=== PATIENT | male | born 1960 | race Caucasian/White ===

== ENCOUNTER → 2016-09-22 | Outpatient (CLI) | payer OTHER | END | disposition home or self-care (01) | LOC: LABWHC1 16:01 | PROVIDERS: ATTEND Nurse Practitioner Family | DX: E27.9 Disorder of adrenal gland, unspecified (principal) | CPT/HCPCS: 36415; 82565; 84520 ==

== ENCOUNTER → 2017-03-30 | Outpatient (CLI) | payer OTHER ==
--- NOTE | 2017-03-30 16:47 | CT ---
EXAMINATION TYPE: CT lumbar spine wo con DATE OF EXAM: 03/30/2017 COMPARISON: NONE HISTORY: low back pain CT DLP: 1418.9 mGycm CONTRAST: None TECHNIQUE: CT of the lumbar spine is performed on a spiral scan at 3 mm thick sections. Reconstructed images are performed in the coronal and sagittal planes. FINDINGS: T12-L1: No focal disc herniation or significant disc bulge is evident. No spinal canal stenosis or neural foraminal stenosis is present. L1-L2: No focal disc herniation or significant disc bulge is evident. No spinal canal stenosis or n eural foraminal stenosis is present L2-L3: No focal disc herniation or significant disc bulge is evident. No spinal canal stenosis or n eural foraminal stenosis is present L3-L4: There is mild disc bulge present L3-L4 with anterior thecal sac contact. No AP spinal canal st enosis is evident. Neural foramen are patent. Mild facet hypertrophy is present. L4-L5: There is severe degenerative changes through the facets. There is loss of disc height. Vacuum disc phenomenon is present. Minimal grade 1 spondylolisthesis of L4 for anterior and L5 is present. P osterior lateral thecal sac compression from facet hypertrophy on the right is present. Residual disc bulge has mild anterior thecal sac flattening. There is moderate right foraminal narrowing. L5-S1: No focal disc herniation or significant disc bulge is evident. No spinal canal stenosis or n eural foraminal stenosis is present. Facet degenerative changes are present. Scoliosis is present. IMPRESSION: L4-L5 Degenerative disc disease with a minimal grade 1 spondylolisthesis of L4 anterior on L5. Right posterior lateral thecal sac compression from severe facet hypertrophy at this level is present.
== END | disposition home or self-care (01) ==
LOC: RADCTMAIN 14:02
PROVIDERS: ATTEND Family Medicine
DX: M51.36 Other intervertebral disc degeneration, lumbar region (principal); M43.16 Spondylolisthesis, lumbar region; M53.86 Other specified dorsopathies, lumbar region; G95.20 Unspecified cord compression
CPT/HCPCS: 72131

== ENCOUNTER → 2017-08-08 | Outpatient (CLI) | payer OTHER ==
--- NOTE | 2017-08-09 07:41 | CT ---
EXAMINATION TYPE: CT abdomen pelvis wo/w con DATE OF EXAM: 08/08/2017 COMPARISON: CT abdomen and pelvis January 28, 2015. HISTORY: Adrenal mass, abnormal CT. CT DLP: 2780 mGycm, Automated Exposure Control for Dose Reduction was Utilized. CONTRAST: CT scan of the abdomen and pelvis is performed with oral and without and with IV Contrast, patient in jected with 100 mL of Isovue 300. Adrenal gland protocol FINDINGS: LUNG BASES: Stable tiny pericardial effusion anterior inferior aspect. LIVER/GB: Cholecystectomy clips are redemonstrated. PANCREAS: No significant abnormality is seen. SPLEEN: No significant abnormality is seen. ADRENALS: There is stable low dense nodular thickening to right adrenal gland consistent with benign hyperplasia, Hounsfield units average 5 on noncontrast study. There is more prominent nodular thicken ing to left adrenal gland redemonstrated measuring roughly 4.3 x 2.3 cm axial image 22. Hounsfield un its average 6 on noncontrast study. There is enhancement to 36 on postcontrast with washout to 14 Poonam nsfield units on 15 minute delay. Imaging characteristics are consistent with benign hyperplasia or b enign lipid rich adenoma. KIDNEYS: There is unusual anterior access or positioning of the left kidney redemonstrated. There is persistent prominence of the right renal pelvis without calyceal dilatation. No hydroureter is seen. Suspect extrarenal pelvis. Central calcifications in both kidneys favor vascular. There is circumaort ic left renal vein which is normal variant. BOWEL: Oral contrast does not reach colonic level. Normal-appearing appendix is seen from cecum. Ther e is no suspicious small or large bowel dilatation. PROSTATE/SEMINAL VESICLES: Prostate gland is upper limits of normal size with adjacent phleboliths LYMPH NODES: No greater than 1cm abdominal or pelvic lymph nodes are appreciated. OSSEOUS STRUCTURES: Surgical change left proximal femur is partially imaged. There is moderate joint space loss in the right hip joint. There is underlying scoliotic curvature in the lower lumbar spine. There is moderate to severe disc space narrowing with vacuum disc phenomenon and endplate sclerosis right L4-L5 level. There is multilevel facet arthropathy in the lower lumbar spine OTHER: There is moderate calcified plaque of the aorta extending into branch vessels. IMPRESSION: Stable bilateral adrenal gland prominence or masses, left greater than right, multiphasic imaging characteristics are consistent with benign lipid rich hyperplasia or benign lipid rich adeno mas.
== END | disposition home or self-care (01) ==
LOC: RADCTMAIN 15:21
PROVIDERS: ATTEND Family Medicine
DX: E27.8 Other specified disorders of adrenal gland (principal)
CPT/HCPCS: 82565; 84520; 74178; 36415; Q9967

== ENCOUNTER → 2017-11-20 | Outpatient (CLI) | payer OTHER ==
--- NOTE | 2017-11-20 15:32 | US ---
EXAMINATION TYPE: US carotid duplex BILAT DATE OF EXAM: 11/20/2017 COMPARISON: US 2014 CLINICAL HISTORY: R06.02 Shortness of breath R06.09 dyspnea. PE, history of stroke EXAM MEASUREMENTS: RIGHT: Peak Systolic Velocity (PSV) cm/sec ----- Right CCA: 72.1 ----- Right ICA: 44.3 ----- Right ECA: 75.9 ICA/CCA ratio: 0.6 RIGHT: End Diastole cm/sec ----- Right CCA: 18.9 ----- Right ICA: 16.7 ----- Right ECA: 15.1 LEFT: Peak Systolic Velocity (PSV) cm/sec ----- Left CCA: 70.2 ----- Left ICA: 58.8 ----- Left ECA: 75.8 ICA/CCA ratio: 0.8 LEFT: End Diastole cm/sec ----- Left CCA: 20.2 ----- Left ICA: 26.2 ----- Left ECA: 14.5 VERTEBRALS (direction of flow): Right Vertebral: Antegrade Left Vertebral: Antegrade Rhythm: Normal Bilateral intimal thickening, minimal plaque bilateral bulb, no elevated velocities, no significant s tenosis. IMPRESSION: 1. Bilateral intimal thickening and mild areas of plaque with no significant hemodynamic stenosis. Criteria for Assigning % of Stenosis / Diameter reduction (Estimation based on the indirect measurements of the internal carotid artery velocities (ICA PSV). 1. Normal (no stenosis)=ICA PSV < 125 cm/s: ratio < 2.0: ICA EDV<40 cm/s. 2. Less than 50% stenosis=ICA PSV < 125 cm/s: ratio < 2.0: ICA EDV<40 cm/s. 3. 50 to 69% stenosis=ICA PSV of 125 to 230 cm/s: ration 2.0 ? 4.0: ICA EDV 40-100 cm/s. 4. Greater than 70% stenosis to near occlusion= ICA PSV > 230 cm/s: ratio > 4.0: ICA EDV > 100 cm/s. 5. Near occlusion= ICA PSV velocities may be low or undetectable: variable ratio and ICA EDV. 6. Total occlusion=unable to detect flow.
--- NOTE | 2017-11-21 11:41 | ECHOF ---
Referral Reason:R06.02 Shortness of breath R06.09 dyspnea MEASUREMENTS -------- HEIGHT: 180.3 cm WEIGHT: 104.3 kg BP: RVIDd: 3.4 cm (< 3.3) IVSd: 1.3 cm (0.6 - 1.1) LVIDd: 5.5 cm (3.9 - 5.3) LVPWd: 1.2 cm (0.6 - 1.1) IVSs: 1.5 cm LVIDs: 3.5 cm LVPWs: 1.7 cm LAESV Index (A-L): 21.74 ml/m Ao Diam: 3.7 cm (2.0 - 3.7) AV Cusp: 2.0 cm (1.5 - 2.6) LA Diam: 3.4 cm (2.7 - 3.8) MV E Fausto: 0.78 m/s MV DecT: 349 ms MV A Fausto: 0.94 m/s MV E/A Ratio: 0.82 RAP: 5.00 mmHg RVSP: 11.51 mmHg FINDINGS -------- Sinus rhythm. This was a technically adequate study. The left ventricular size is normal. There is mild concentric left ventricular hypertrophy. Overa ll left ventricular systolic function is normal with, an EF between 55 - 60 %. The right ventricle is normal in size and function. Normal LA size by volume 22+/-6 ml/m2. The right atrium is normal in size. The aortic valve is trileaflet and appears structurally normal. There is doming of the aortic valve leaflets. There is no evidence of aortic regurgitation. The mitral valve leaflets are mildly thickened. Mild mitral annular calcification present. There is trace to mild mitral regurgitation. Trace tricuspid regurgitation present. Right ventricular systolic pressure is normal at < 35 mmHg. There is no evidence of pulmonary hypertension. The pulmonic valve was not well visualized. The aortic root size is normal. Normal inferior vena cava with normal inspiratory collapse consistent with estimated right atrial pre ssure of 5 mmHg. There is no pericardial effusion. CONCLUSIONS -------- 1. Sinus rhythm. 2. This was a technically adequate study. 3. The left ventricular size is normal. 4. There is mild concentric left ventricular hypertrophy. 5. Overall left ventricular systolic function is normal with, an EF between 55 - 60 %. 6. Normal LA size by volume 22+/-6 ml/m2. 7. The aortic valve is trileaflet and appears structurally normal. 8. The mitral valve leaflets are mildly thickened. 9. Mild mitral annular calcification present. 10. There is trace to mild mitral regurgitation. 11. Trace tricuspid regurgitation present. 12. Right ventricular systolic pressure is normal at < 35 mmHg. 13. There is no evidence of pulmonary hypertension. 14. The pulmonic valve was not well visualized. 15. The aortic root size is normal. 16. There is no pericardial effusion. GROOVER RUNNER: Darryl Davison RDCS
== END | disposition home or self-care (01) ==
LOC: CPPFTMAIN 11:59
PROVIDERS: ATTEND Internal Medicine
DX: J98.8 Other specified respiratory disorders (principal); J45.909 Unspecified asthma, uncomplicated; I34.0 Nonrheumatic mitral (valve) insufficiency; I51.7 Cardiomegaly; I65.23 Occlusion and stenosis of bilateral carotid arteries; I63.9 Cerebral infarction, unspecified; I26.99 Other pulmonary embolism without acute cor pulmonale
CPT/HCPCS: 93306; 93880; 94060; 94726; 94729

== ENCOUNTER 2018-03-19 16:38 | Emergency (ER) | payer OTHER ==
[2018-03-19 16:55] VITALS: RESP 18
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
[2018-03-19 17:46] VITALS: BP 142/74; PULSE 78; TEMP 98
== END 2018-03-19 17:41 | disposition home or self-care (01) ==
LOC: EC 16:38
DX: N49.2 Inflammatory disorders of scrotum (principal); B35.6 Tinea cruris; J44.9 Chronic obstructive pulmonary disease, unspecified; E78.5 Hyperlipidemia, unspecified; I10 Essential (primary) hypertension; E11.40 Type 2 diabetes mellitus with diabetic neuropathy, unspecified; F41.9 Anxiety disorder, unspecified; F32.9 Major depressive disorder, single episode, unspecified; F17.200 Nicotine dependence, unspecified, uncomplicated; G47.33 Obstructive sleep apnea (adult) (pediatric); Z99.89 Dependence on other enabling machines and devices; Z86.73 Personal history of transient ischemic attack (TIA), and cerebral infarction without residual deficits; Z79.4 Long term (current) use of insulin; Z79.82 Long term (current) use of aspirin; Z79.899 Other long term (current) drug therapy
CPT/HCPCS: 10160; 99282

== ENCOUNTER → 2018-03-22 | Outpatient (CLI) | payer OTHER ==
[2018-03-22 13:16] LABS: HCT 43.5 % (39.0-53.0); HGB 13.5 gm/dL (13.0-17.5); MCH 28.9 pg (25.0-35.0); MCHC 31.1 g/dL (31.0-37.0); MCV 93.1 fL (80.0-100.0); Mean Platelet Volume 7.4; Platelet Count 271 k/uL (150-450); RBC 4.67 m/uL (4.30-5.90); RDW 14.1 % (11.5-15.5); WBC 8.4 k/uL (3.8-10.6)
[2018-03-22 18:51] LABS: Albumin/Globulin Ratio 1.74 (1.20-2.10); Anion Gap 6.6 mmol/L (4.00-12.00); Calcium 9.2 mg/dL (8.7-10.3); Carbon Dioxide 27.4 mmol/L (21.6-31.8); Globulin 2.3 g/dL (1.6-3.3); Phosphorus 3.2 mg/dL (2.4-5.1); Total Bilirubin 0.3 mg/dL (0.3-1.2); Total Protein 6.3 g/dL (6.2-8.2)
== END | disposition home or self-care (01) ==
LOC: LABWHC1 12:24
PROVIDERS: ATTEND Internal Medicine
DX: N39.0 Urinary tract infection, site not specified (principal); E83.39 Other disorders of phosphorus metabolism; D64.9 Anemia, unspecified
CPT/HCPCS: 36415; 80053; 84100; 85027

== ENCOUNTER → 2018-05-28 | Outpatient (CLI) | payer OTHER ==
--- NOTE | 2018-05-28 16:12 | US ---
EXAMINATION TYPE: US kidneys/renal and bladder DATE OF EXAM: 05/28/2018 COMPARISON: NONE CLINICAL HISTORY: N18.3 Chronic Kidney Disease Stage 3. CKD stage III EXAM MEASUREMENTS: Right Kidney: 12.5 x 5.2 x 4.7 cm Left Kidney: 10.7 x 5.2 x 4.9 cm Right Kidney: possible extrarenal pelvis Left Kidney: no evidence of hydronephrosis Bladder: appears wnl Bilateral Jets seen: yes IMPRESSION: No evidence of hydronephrosis or nephrolithiasis bilaterally. Extrarenal pelvis on the right tio bertrand
== END ==
LOC: RADUSWWP 15:39
PROVIDERS: ATTEND Internal Medicine
DX: N18.3 Chronic kidney disease, stage 3 (moderate) (principal)
CPT/HCPCS: 76770

== ENCOUNTER 2018-07-29 16:02 | Emergency (ER) | payer OTHER ==
[2018-07-29] MEDS ORDERED: LIDOCAINE 1%-EPI 1:100,000 20 ML VIAL SQ STA (17:42)
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
[2018-07-29 18:21] VITALS: TEMP 100.8
[2018-07-29 18:27] VITALS: BP 147/98; PULSE 94; RESP 16
== END 2018-07-29 18:27 | disposition home or self-care (01) ==
LOC: EC 16:02
DX: L02.31 Cutaneous abscess of buttock (principal); J44.9 Chronic obstructive pulmonary disease, unspecified; E78.5 Hyperlipidemia, unspecified; I10 Essential (primary) hypertension; G47.33 Obstructive sleep apnea (adult) (pediatric); E11.40 Type 2 diabetes mellitus with diabetic neuropathy, unspecified; F17.200 Nicotine dependence, unspecified, uncomplicated; Z79.82 Long term (current) use of aspirin; Z79.4 Long term (current) use of insulin; Z79.899 Other long term (current) drug therapy; Z86.73 Personal history of transient ischemic attack (TIA), and cerebral infarction without residual deficits
CPT/HCPCS: 10060; 99282

== ENCOUNTER 2019-01-19 22:13 | Emergency (ER) | payer OTHER ==
[2019-01-19 22:19] VITALS: TEMP 98.8
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
[2019-01-20 03:53] VITALS: RESP 18
[2019-01-20 05:06] VITALS: BP 112/71; PULSE 64
== END 2019-01-20 06:01 | disposition home or self-care (01) ==
LOC: EC 22:13
DX: T42.6X1A Poisoning by other antiepileptic and sedative-hypnotic drugs, accidental (unintentional), initial encounter (principal); R41.82 Altered mental status, unspecified; J44.9 Chronic obstructive pulmonary disease, unspecified; I10 Essential (primary) hypertension; E78.5 Hyperlipidemia, unspecified; E11.40 Type 2 diabetes mellitus with diabetic neuropathy, unspecified; G47.33 Obstructive sleep apnea (adult) (pediatric); F32.9 Major depressive disorder, single episode, unspecified; F17.200 Nicotine dependence, unspecified, uncomplicated; Z79.82 Long term (current) use of aspirin; Z79.899 Other long term (current) drug therapy; Z79.4 Long term (current) use of insulin; Z86.73 Personal history of transient ischemic attack (TIA), and cerebral infarction without residual deficits
CPT/HCPCS: 99285

== ENCOUNTER 2020-05-08 00:52 | Emergency (ER) | payer OTHER ==
[2020-05-08 01:02] VITALS: BP 98/63; PULSE 76; RESP 18
[2020-05-08 01:03] VITALS: TEMP 98.6
[2020-05-08 01:07] LABS: Glucose,Whole Blood 248 mg/dL (75-99)
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
[2020-05-08 02:45] LABS: Glucose,Whole Blood 190 mg/dL (75-99)
== END 2020-05-08 03:23 | disposition home or self-care (01) ==
LOC: EC 00:52
DX: E11.65 Type 2 diabetes mellitus with hyperglycemia (principal); E11.36 Type 2 diabetes mellitus with diabetic cataract; F17.200 Nicotine dependence, unspecified, uncomplicated; E78.5 Hyperlipidemia, unspecified; G47.33 Obstructive sleep apnea (adult) (pediatric); I10 Essential (primary) hypertension; J44.9 Chronic obstructive pulmonary disease, unspecified; F41.9 Anxiety disorder, unspecified; F32.9 Major depressive disorder, single episode, unspecified; Z79.82 Long term (current) use of aspirin; Z79.4 Long term (current) use of insulin; Z79.1 Long term (current) use of non-steroidal anti-inflammatories (NSAID); Z86.73 Personal history of transient ischemic attack (TIA), and cerebral infarction without residual deficits; E11.40 Type 2 diabetes mellitus with diabetic neuropathy, unspecified
CPT/HCPCS: 36415; 99283

== ENCOUNTER 2020-11-24 11:38 | Emergency (ER) | payer OTHER ==
[2020-11-24 11:57] VITALS: TEMP 98.3
[2020-11-24] MEDS ORDERED: LIDOCAINE 1% INJ 10MG/ML (20 ML MDV) SQ ONE (13:49)
[2020-11-24 14:12] VITALS: BP 137/71
[2020-11-24 14:23] LABS: Basophils % (A) 0 %; Eosinophils # (A) 0.2 k/uL (0-0.7); Eosinophils % (A) 2 %; HCT 45.2 % (39.0-53.0); HGB 14.5 gm/dL (13.0-17.5); Lymphocytes # (A) 2.5 k/uL (1.0-4.8); Lymphocytes % (A) 24 %; MCH 29.8 pg (25.0-35.0); MCV 93.1 fL (80.0-100.0); Mean Platelet Volume 9.2; Monocytes # (A) 0.5 k/uL (0-1.0); Monocytes % (A) 4 %; Neutrophils # (A) 7.4 k/uL (1.3-7.7); Neutrophils % (A) 69 %; Platelet Count 246 k/uL (150-450); RBC 4.86 m/uL (4.30-5.90); RDW 13.8 % (11.5-15.5); WBC 10.7 k/uL (3.8-10.6)
--- NOTE | 2020-11-24 14:36 | US ---
EXAMINATION TYPE: US venous doppler duplex LE LT DATE OF EXAM: 11/24/2020 1:50 PM COMPARISON: NONE CLINICAL HISTORY: pain, swelling. SIDE PERFORMED: Left TECHNIQUE: The lower extremity deep venous system is examined utilizing real time linear array sonog ever with graded compression, doppler sonography and color-flow sonography. VESSELS IMAGED: Common Femoral Vein Deep Femoral Vein Greater Saphenous Vein * Femoral Vein Popliteal Vein Small Saphenous Vein * Proximal Calf Veins (* superficial vessels) There is normal flow, compressibility, vascular waveforms Left Leg: Negative for DVT IMPRESSION: No evident deep venous thrombosis within the left lower extremity from the level of the k nee centrally.
[2020-11-24 14:43] LABS: Calcium 9.2 mg/dL (8.4-10.2); Total Bilirubin 0.9 mg/dL (0.2-1.3); Total Protein 7.1 g/dL (6.3-8.2)
[2020-11-24 14:49] LABS: Potassium 5.3 mmol/L (3.5-5.1)
[2020-11-24 15:28] VITALS: PULSE 54; RESP 16
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
== END 2020-11-24 15:36 | disposition home or self-care (01) ==
LOC: EC 11:38
DX: L02.31 Cutaneous abscess of buttock (principal); M79.662 Pain in left lower leg; E11.36 Type 2 diabetes mellitus with diabetic cataract; I10 Essential (primary) hypertension; E78.5 Hyperlipidemia, unspecified; J44.9 Chronic obstructive pulmonary disease, unspecified; M06.9 Rheumatoid arthritis, unspecified; F17.200 Nicotine dependence, unspecified, uncomplicated; Z79.4 Long term (current) use of insulin; Z79.82 Long term (current) use of aspirin; Z79.899 Other long term (current) drug therapy; Z83.3 Family history of diabetes mellitus; Z86.73 Personal history of transient ischemic attack (TIA), and cerebral infarction without residual deficits; Z90.49 Acquired absence of other specified parts of digestive tract
CPT/HCPCS: 36415; 80053; 85025; 87070; 87205; 93971; 10060; 99284; J2001

== ENCOUNTER 2021-08-02 23:54 | Observation (INO) | payer OTHER ==
[2021-08-03 01:19] LABS: Basophils # (A) 0.1 k/uL (0-0.2); Basophils % (A) 1 %; Eosinophils # (A) 0.3 k/uL (0-0.7); Eosinophils % (A) 2 %; HCT 46.1 % (39.0-53.0); HGB 14.5 gm/dL (13.0-17.5); Lymphocytes # (A) 1.8 k/uL (1.0-4.8); Lymphocytes % (A) 14 %; MCH 29.2 pg (25.0-35.0); MCHC 31.4 g/dL (31.0-37.0); MCV 92.8 fL (80.0-100.0); Mean Platelet Volume 9.2; Monocytes # (A) 0.6 k/uL (0-1.0); Monocytes % (A) 5 %; Neutrophils # (A) 10.2 k/uL (1.3-7.7); Neutrophils % (A) 78 %; Platelet Count 297 k/uL (150-450); RBC 4.97 m/uL (4.30-5.90); RDW 13.5 % (11.5-15.5); WBC 13.1 k/uL (3.8-10.6)
[2021-08-03 01:29] LABS: Albumin 3.2 g/dL (3.5-5.0); Calcium 8.4 mg/dL (8.4-10.2); Potassium 4.5 mmol/L (3.5-5.1); Total Bilirubin 0.2 mg/dL (0.2-1.3)
[2021-08-03] MEDS ORDERED: ENOXAPARIN 120 MG/0.8 ML SYRINGE SQ STA (02:43)
[2021-08-03] MEDS ORDERED: ACETAMINOPHEN TAB 325 MG TAB PO PRN (03:29)
[2021-08-03] MEDS ORDERED: NALOXONE 0.4 MG/ML 1 ML VIAL IV PRN (03:29)
[2021-08-03] MEDS ORDERED: NAFCILLIN 2 GM in DEXTROSE 5% IN WATER 100 ML IVPB STA ×2 (03:32)
[2021-08-03] MEDS ORDERED: VANCOMYCIN IV PER PHARMACY 1 EACH MISC MISCELLANE PRN (03:32)
[2021-08-03] MEDS ORDERED: VANCOMYCIN 2,000 MG in SODIUM CHLORIDE 0.9% 500 ML 500 ML IVPB STA (03:44)
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
--- NOTE | 2021-08-03 09:15 | US ---
EXAMINATION TYPE: US venous doppler duplex LE DATE OF EXAM: 08/03/2021 8:27 AM COMPARISON: NONE CLINICAL HISTORY: Swelling, possible DVT. SIDE PERFORMED: Bilateral TECHNIQUE: The lower extremity deep venous system is examined utilizing real time linear array sonog ever with graded compression, doppler sonography and color-flow sonography. VESSELS IMAGED: Common Femoral Vein Deep Femoral Vein Greater Saphenous Vein * Femoral Vein Popliteal Vein Small Saphenous Vein *, not seen on left Proximal Calf Veins, not well seen due to swelling (* superficial vessels) Right Leg: Negative for DVT Left Leg: Negative for DVT IMPRESSION: Grayscale, color doppler, spectral doppler imaging performed of the deep veins of the lo wer extremities. There is normal flow, compressibility, vascular waveforms.
[2021-08-03] MEDS ORDERED: ALBUTEROL NEBULIZED 2.5 MG/3 ML INHALATION PRN (09:38)
[2021-08-03] MEDS ORDERED: glipiZIDE 10 MG TAB PO SCH (09:45)
[2021-08-03] MEDS ORDERED: amLODIPine 5 MG TAB PO SCH (09:45)
[2021-08-03] MEDS ORDERED: INSULIN DETEMIR (LEVEMIR) 100 UNIT/ML SYR SQ SCH (09:45)
[2021-08-03 10:00] LABS: Glucose,Whole Blood 75 mg/dL (75-99)
[2021-08-03] MEDS ORDERED: NAFCILLIN 2 GM in DEXTROSE 5% IN WATER 100 ML IVPB SCH ×2 (10:00)
[2021-08-03] MEDS: ATORVASTATIN 80 MG TAB PO SCH (10:10)
[2021-08-03] MEDS: ASPIRIN 81 MG PO SCH (10:10)
[2021-08-03] MEDS: FAMOTIDINE 20 MG TAB PO SCH ×2 (10:11→20:06)
[2021-08-03] MEDS: LORATADINE 10 MG TAB PO SCH (10:12)
[2021-08-03] MEDS: lisinopriL 20 MG TAB PO SCH (10:12)
[2021-08-03] MEDS: OXYBUTYNIN CHLORIDE 5 MG TAB PO SCH ×2 (10:14→20:06)
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
[2021-08-03] MEDS: FUROSEMIDE 10 MG/ML 4 ML VIAL IV SCH (13:25)
[2021-08-03 17:01] LABS: Glucose,Whole Blood 146 mg/dL (75-99)
[2021-08-03 21:20] LABS: Glucose,Whole Blood 259 mg/dL (75-99)
[2021-08-03] MEDS ORDERED: VANCOMYCIN 1,750 MG in SODIUM CHLORIDE 0.9% 500 ML 500 ML IVPB SCH (23:00)
[2021-08-04 04:38] VITALS: RESP 18
[2021-08-04 07:34] LABS: Glucose,Whole Blood 161 mg/dL (75-99)
[2021-08-04 07:58] VITALS: BP 174/79; PULSE 52; TEMP 98.9
[2021-08-04 08:01] LABS: African American GFR (CKD) 84 (>60 ml/min/1.73 sqM); Non-African American GFR(CKD) 73 (>60 ml/min/1.73 sqM)
[2021-08-04] MEDS ORDERED: amLODIPine 5 MG TAB PO STA (08:05)
[2021-08-04] MEDS ORDERED: glipiZIDE 10 MG TAB PO SCH (08:15)
[2021-08-04] MEDS: ASPIRIN 81 MG PO SCH (08:58)
[2021-08-04] MEDS: OXYBUTYNIN CHLORIDE 5 MG TAB PO SCH (08:59)
[2021-08-04] MEDS ORDERED: INSULIN DETEMIR (LEVEMIR) 100 UNIT/ML SYR SQ SCH ×2 (09:00)
[2021-08-04] MEDS ORDERED: amLODIPine 10 MG TAB PO SCH (09:00)
[2021-08-04] MEDS ORDERED: ENOXAPARIN 40 MG/0.4 ML SYRINGE SQ SCH (09:00)
[2021-08-04] MEDS: FUROSEMIDE 10 MG/ML 4 ML VIAL IV SCH (09:00)
[2021-08-04] MEDS: ATORVASTATIN 80 MG TAB PO SCH (09:00)
[2021-08-04] MEDS: LORATADINE 10 MG TAB PO SCH (09:00)
[2021-08-04] MEDS: lisinopriL 20 MG TAB PO SCH (09:00)
[2021-08-04] MEDS: FAMOTIDINE 20 MG TAB PO SCH (09:00)
[2021-08-04 10:12] LABS: Anion Gap 7 mmol/L; Blood Urea Nitrogen 8 mg/dL (9-20); Carbon Dioxide 26 mmol/L (22-30); Chloride 107 mmol/L (98-107); Glucose 164 mg/dL (74-99); Potassium 4.1 mmol/L (3.5-5.1); Sodium 140 mmol/L (137-145)
[2021-08-04 12:14] LABS: Glucose,Whole Blood 134 mg/dL (75-99)
--- NOTE | 2021-08-04 16:23 | P.DS ---
Providers Date of admission: 08/03/21 03:29 Attending physician: Makenna Marie Primary care physician: Fatuma Suárez Hospital Course: Final Diagnosis Mild cellulitis of right lower extremity Bilateral lower extremity Peripheral edema Elevated D-Dimer no evidence for DVT lower extremity bilateral Hypertension, home medications have been resumed Diabetes Mellitus with hyperglycemia on admission History COPD, not in acute exacerbation Hyperlipidemia Peripheral neuropathy Chronic pain History obstructive sleep apnea Chronic tobacco use, 3 packs per day, counseling has been provided Daily marijuana use Occasional alcohol use Obesity Full Code Discharge Disposition Patient is stable for discharge home with home physical therapy. He will complete 4 more days of oral antibiotics with keflex. Amlodipine increased to 10 mg po daily, his lantus has been decreased to 50 units daily as his blood sugars have dropped into the 130s with the decreased in dosing. He is also discharged on lasix 20 mg daily and oral potassium supplement. Hospital Course This is a 61 year old male with medical history of diabetes mellitus, hypertension, hyperlipidemia, tobacco use who presents to the with weakness and lower exremity edema. There is possibly of underlying peripheral vascular disease as patient is a heavy smoker. Bilateral doppler of lower extremity was completed which is negative for DVT bilaterally. He was started on IV Nacfillin and IV vanco for concerns of lower extremity cellulitis. Patient was transitioned to IV kefzol and also was started on IV lasix for the lower extremity edema. He diuresed well and his sodium improved from 134 to 140. He has followed with Dr Reina in the past and his most recent echocardiogram on file from 2018 showing an EF of 55-60% with mild concentric left ventricular hypertrophy, trace mitral regurg, trace tricuspid regurg. There was no pericardial effusion or pulmonary hypertension noted. Patient does admit to smoking 3 packs of cigarettes per day states he does not inhale them also occasional uses marijuana. He has refused nicotine patch and states he will cut down at home, counseling has been provided on smoking cessation all together. Patient has been on room air with oxygen saturation of 100%, he is afebrile, heart rate 58, blood pressure 170/70s. His amlodipine has been increased to 10 daily. He will discharge on oral lasix and oral potassium supplement and is instructed to monitor weight daily. He will need to follow up with [facility]. PT/OT has evaluated the patient and he is stable for discharge home with home PT. Labs on admission white count 13, D-Dimer 3.30. Sodium 134, potassium 4.5, BUN 11, creat 1.23, blood glucose in the 250s, AST 14, ALT 11, alk phos 106, proBNP 246. Afebrile, blood pressure 162/78. 08/04/2021 Patient evaluated today resting in bed. He denies chest pain, shortness of breath. He has chronic productive cough. No fever or chills. He denies nausea, vomiting, diarrhea. His appetite is fair. Denies dizziness or lighheadedness. He diuresed well overnight and his peripheral edema has improved it is not trace. He will complete 4 more days of antibiotics. He does not have a history of MDRO, no history of MRSA infection. He is counseled on smoking cessation, alcohol cessation, and diet modifications. His lungs are coarse, now wheezing noted, no crackles. No JVD. S1 S2 auscultated. His abdomen is soft and nontender. Focal neurological exam is negative. labs today showing sodium 140, potassium 4.1, BUN 8, creatinine 1.08, calcium 8.0. blood glucose is now in the 130s. Please see medication reconciliation for a list of current medications. Thank you for allowing us to participate in the care of this patient. The impression and plan of care has been dictated by Pat Gordillo, Nurse Practitioner as directed. Dr. Yousuf MD I have performed a history and physical examination and medical decision making of this patient, discussed the same with the dictator, and agree with the dictators assessment and plan as written, documented as a scribe. Based on total visit time, I have performed more than 50% of this visit. Patient Condition at Discharge: Stable Plan - Discharge Summary Discharge Rx Participant: Yes New Discharge Prescriptions: New amLODIPine [Norvasc] 10 mg PO DAILY #30 tab Potassium Chloride [Potassium Chloride ER] 10 meq PO DAILY #30 tab Insulin Glargine,Hum.rec.anlog [Lantus Solostar Pen] 50 units SQ DAILY #2 each Lansoprazole 30 mg PO DAILY #30 cap Furosemide [Lasix] 20 mg PO DAILY #30 tab Cephalexin [Keflex] 500 mg PO TID 4 Days #12 cap Continue Aspirin [Adult Low Dose Aspirin EC] 81 mg PO DAILY lisinopriL 40 mg PO DAILY Atorvastatin [Lipitor] 80 mg PO DAILY Insulin Glargine,Hum.rec.anlog [Lantus Solostar Pen] 70 unit SQ DAILY Loratadine 10 mg PO DAILY Albuterol Sulfate [Proair Hfa] 1 - 2 puff INHALATION RT-Q6H PRN PRN Reason: Shortness Of Breath Oxybutynin Chloride 5 mg PO BID Changed glipiZIDE [Glucotrol] 10 mg PO BID #0 Discontinued amLODIPine [Norvasc] 5 mg PO DAILY Discharge Medication List Aspirin [Adult Low Dose Aspirin EC] 81 mg PO DAILY 09/11/17 [History] Atorvastatin [Lipitor] 80 mg PO DAILY 07/29/18 [History] lisinopriL 40 mg PO DAILY 07/29/18 [History] Albuterol Sulfate [Proair Hfa] 1 - 2 puff INHALATION RT-Q6H PRN 11/24/20 [History] Insulin Glargine,Hum.rec.anlog [Lantus Solostar Pen] 70 unit SQ DAILY 11/24/20 [History] Loratadine 10 mg PO DAILY 11/24/20 [History] Oxybutynin Chloride 5 mg PO BID 08/03/21 [History] Cephalexin [Keflex] 500 mg PO TID 4 Days #12 cap 08/04/21 [Rx] Furosemide [Lasix] 20 mg PO DAILY #30 tab 08/04/21 [Rx] Insulin Glargine,Hum.rec.anlog [Lantus Solostar Pen] 50 units SQ DAILY #2 each 08/04/21 [Rx] Lansoprazole 30 mg PO DAILY #30 cap 08/04/21 [Rx] Potassium Chloride [Potassium Chloride ER] 10 meq PO DAILY #30 tab 08/04/21 [Rx] amLODIPine [Norvasc] 10 mg PO DAILY #30 tab 08/04/21 [Rx] glipiZIDE [Glucotrol] 10 mg PO BID #0 08/04/21 [Rx] Follow up Appointment(s)/Referral(s): Noman Reina MD [STAFF PHYSICIAN] - 1 Week Fatuma Suárez MD [Primary Care Provider] - 3 Days Ambulatory/Diagnostic Orders: Basic Metabolic Panel [LAB.AMB] Time Frame: 2 Days, Location: None Selected Patient Instructions/Handouts: How to Stop Smoking (DC), Cellulitis (GEN) Activity/Diet/Wound Care/Special Instructions: Recommend repeat echocardiogram outpatient Follow up with [facility] Recommend smoking cessation Monitor weight daily If weight increase of more than 2-3 lbs in 1-2 days or 5-7 lbs in one week notify physician Discharge Disposition: HOME SELF-CARE
== END 2021-08-04 15:28 | disposition home or self-care (01) ==
LOC: EC 23:54 → 6NMEDSUR 08-03 03:29
PROVIDERS: ADMIT Hospitalist; ATTEND Hospitalist
DX: L03.115 Cellulitis of right lower limb (principal); L03.116 Cellulitis of left lower limb; E11.65 Type 2 diabetes mellitus with hyperglycemia; J44.9 Chronic obstructive pulmonary disease, unspecified; E11.40 Type 2 diabetes mellitus with diabetic neuropathy, unspecified; R79.89 Other specified abnormal findings of blood chemistry; I10 Essential (primary) hypertension; E78.5 Hyperlipidemia, unspecified; G47.33 Obstructive sleep apnea (adult) (pediatric); M06.9 Rheumatoid arthritis, unspecified; F17.210 Nicotine dependence, cigarettes, uncomplicated; G89.29 Other chronic pain; M54.2 Cervicalgia; M54.50 Low back pain, unspecified; F32.A Depression, unspecified; F41.9 Anxiety disorder, unspecified; E66.9 Obesity, unspecified; Z68.33 Body mass index [BMI] 33.0-33.9, adult; Z79.82 Long term (current) use of aspirin; Z79.84 Long term (current) use of oral hypoglycemic drugs; Z79.4 Long term (current) use of insulin; Z79.899 Other long term (current) drug therapy; Z86.73 Personal history of transient ischemic attack (TIA), and cerebral infarction without residual deficits; Z90.49 Acquired absence of other specified parts of digestive tract; Z87.81 Personal history of (healed) traumatic fracture; Z91.81 History of falling; Z98.42 Cataract extraction status, left eye; Z98.41 Cataract extraction status, right eye; Z96.1 Presence of intraocular lens; Z98.890 Other specified postprocedural states; Z83.3 Family history of diabetes mellitus
CPT/HCPCS: 96376; 96366 ×2; 96367 ×2; 96372 ×2; 96365; 96375; 99285; 36415; 97162; 97166; 85379; 83880; 80053; 80048; 85025; 93970; G0378 ×2; J3370; J1940 ×2; J0690 ×2; J1650 ×2

== ENCOUNTER 2021-08-05 09:28 | Emergency (ER) | payer OTHER ==
[2021-08-05 09:34] VITALS: BP 123/80; PULSE 106; RESP 16; TEMP 98.4
[2021-08-05] MEDS ORDERED: LIDOCAINE 1% INJ 10MG/ML (5 ML VIAL-PF) SQ ONE (10:07)
[2021-08-05] MEDS ORDERED: SULFAMETHOX-TMP 800-160MG 1 EACH TAB PO STA (10:08)
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
== END 2021-08-05 11:10 | disposition home or self-care (01) ==
LOC: EC 09:28
DX: L02.31 Cutaneous abscess of buttock (principal); L25.9 Unspecified contact dermatitis, unspecified cause; E11.36 Type 2 diabetes mellitus with diabetic cataract; E78.5 Hyperlipidemia, unspecified; F17.200 Nicotine dependence, unspecified, uncomplicated; I10 Essential (primary) hypertension; J44.9 Chronic obstructive pulmonary disease, unspecified; Z79.4 Long term (current) use of insulin; Z79.82 Long term (current) use of aspirin; Z86.73 Personal history of transient ischemic attack (TIA), and cerebral infarction without residual deficits; Z79.899 Other long term (current) drug therapy
CPT/HCPCS: 99282; 10060; J2001

== ENCOUNTER 2021-08-06 23:19 | Emergency (ER) | payer OTHER ==
[2021-08-07 00:34] VITALS: BP 138/75; PULSE 99; RESP 19; TEMP 98.1
[2021-08-07] MEDS ORDERED: ACETAMINOPHEN TAB 500 MG TAB PO STA (00:35)
[2021-08-07] MEDS ORDERED: SULFAMETH-TMP DS STARTER PACK 2 TAB BTL PO STA (02:52)
[2021-08-07] MEDS ORDERED: SULFAMETHOX-TMP 800-160MG 1 EACH TAB PO STA (02:52)
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
== END 2021-08-07 03:20 | disposition home or self-care (01) ==
LOC: EC 23:19
DX: Z48.01 Encounter for change or removal of surgical wound dressing (principal); Z59.00 Homelessness unspecified; E11.40 Type 2 diabetes mellitus with diabetic neuropathy, unspecified; E11.36 Type 2 diabetes mellitus with diabetic cataract; I10 Essential (primary) hypertension; J44.9 Chronic obstructive pulmonary disease, unspecified; E78.5 Hyperlipidemia, unspecified; M06.9 Rheumatoid arthritis, unspecified; F32.A Depression, unspecified; F41.9 Anxiety disorder, unspecified; F12.90 Cannabis use, unspecified, uncomplicated; F17.200 Nicotine dependence, unspecified, uncomplicated; Z79.4 Long term (current) use of insulin; Z79.84 Long term (current) use of oral hypoglycemic drugs; Z79.82 Long term (current) use of aspirin; Z79.51 Long term (current) use of inhaled steroids; Z79.899 Other long term (current) drug therapy
CPT/HCPCS: 99282

== ENCOUNTER 2021-12-20 18:43 | Inpatient (IN) | payer MEDICAID, OTHER ==
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
[2021-12-21 01:56] LABS: Glucose,Whole Blood 322 mg/dL (70-110)
[2021-12-21 02:11] LABS: Appearance,Urine Clear (Clear); Bilirubin,Urine Negative (Negative); Blood,Urine Negative (Negative); Color,Urine Yellow; Glucose,Urine (UA) 4+ (Negative); Ketones,Urine Negative (Negative); Leukocyte Esterase,Urine Negative (Negative); Nitrite,Urine Negative (Negative); PH, Urine 6.5 (5.0-8.0); Protein,Urine 3+ (Negative); RBC,Urine 1 /hpf (0-5); Specific Gravity,Urine 1.034 (1.001-1.035); Squamous Epithelial Cell,Urine <1 /hpf (0-4); Urobilinogen,Urine <2.0 mg/dL (<2.0); WBC,Urine 1 /hpf (0-5)
[2021-12-21 02:32] LABS: Amphetamine Screen,Urine Not Detected (NotDetected); Barbiturate Screen,Urine Not Detected (NotDetected); Benzodiazepines Screen,Urine Not Detected (NotDetected); Cocaine Screen,Urine Not Detected (NotDetected); Methadone Screen, Urine Not Detected (NotDetected); Opiate Screen,Urine Not Detected (NotDetected); Oxycodone Screen, Urine Not Detected (NotDetected); Phencyclidine Screen,Urine Not Detected (NotDetected); Tricyclic Antidepressant,Urine Not Detected (NotDetected); Urn Cannabinoid Scrn Detected (NotDetected)
[2021-12-21] MEDS ORDERED: MAG HYDROX/AL HYDROX/SIMETH 30 ML CUP PO PRN (03:18)
[2021-12-21] MEDS ORDERED: MAGNESIUM HYDROXIDE 2,400 MG/10 ML CUP PO PRN (03:18)
[2021-12-21] MEDS ORDERED: HALOPERIDOL LACTATE 5 MG/ML 1 ML VIAL IM PRN (03:18)
[2021-12-21] MEDS ORDERED: ALBUTEROL HFA INHALER INHALATION PRN (03:21)
[2021-12-21] MEDS ORDERED: LORazepam 1 MG/0.5 ML VIAL IM PRN (03:24)
[2021-12-21] MEDS ORDERED: haloperidoL 5 MG TAB PO PRN (03:49)
[2021-12-21 07:42] LABS: Glucose,Whole Blood 307 mg/dL (70-110)
[2021-12-21] MEDS: INSULIN ASPART (NovoLOG) 100 UNIT/ML VIAL SQ SCH ×4 (07:50→20:19)
[2021-12-21] MEDS: ACETAMINOPHEN TAB 325 MG TAB PO PRN ×2 (07:55→12:50)
[2021-12-21] MEDS: amLODIPine 10 MG TAB PO SCH (09:15)
[2021-12-21] MEDS: ATORVASTATIN 80 MG TAB PO SCH (09:15)
[2021-12-21] MEDS: NICOTINE 14MG/24HR PATCH TRANSDERM SCH (09:15)
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
[2021-12-21] MEDS: FLUoxetine HCL 20 MG CAP PO SCH (12:46)
[2021-12-21 12:47] LABS: Glucose,Whole Blood 317 mg/dL (70-110)
[2021-12-21 17:46] LABS: Glucose,Whole Blood 285 mg/dL (70-110)
[2021-12-21] MEDS: OLANZapine 5 MG TAB PO SCH (20:16)
[2021-12-21 20:19] LABS: Glucose,Whole Blood 344 mg/dL (70-110)
[2021-12-21] MEDS ORDERED: INSULIN DETEMIR (LEVEMIR) 100 UNIT/ML SYR SQ SCH ×2 (21:00→22:15)
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
[2021-12-21] MEDS ORDERED: INSULIN DETEMIR (LEVEMIR) 100 UNIT/ML SYR SQ ONE (22:15)
[2021-12-22 07:46] LABS: Glucose,Whole Blood 174 mg/dL (70-110)
[2021-12-22] MEDS: ASPIRIN 81 MG PO SCH (09:19)
[2021-12-22] MEDS: ATORVASTATIN 80 MG TAB PO SCH (09:19)
[2021-12-22] MEDS: LORATADINE 10 MG TAB PO SCH (09:19)
[2021-12-22] MEDS: amLODIPine 10 MG TAB PO SCH (09:19)
[2021-12-22] MEDS: FLUoxetine HCL 20 MG CAP PO SCH (09:19)
[2021-12-22] MEDS: NICOTINE 14MG/24HR PATCH TRANSDERM SCH (09:19)
[2021-12-22] MEDS: INSULIN ASPART (NovoLOG) 100 UNIT/ML VIAL SQ SCH ×4 (09:22→20:46)
[2021-12-22 10:19] LABS: ALT 15 U/L (4-49); AST 15 U/L (17-59); African American GFR (CKD) 78 (>60 ml/min/1.73 sqM); Albumin 3.8 g/dL (3.5-5.0); Alkaline Phosphatase 104 U/L (38-126); Anion Gap 13 mmol/L; Bilirubin, Delta 0.2 mg/dL (0.0-0.2); Bilirubin,Unconjugated 0.2 mg/dL (0.0-1.1); Blood Urea Nitrogen 17 mg/dL (9-20); Calcium 9.6 mg/dL (8.4-10.2); Carbon Dioxide 25 mmol/L (22-30); Chloride 104 mmol/L (98-107); Glucose 183 mg/dL (74-99); Non-African American GFR(CKD) 67 (>60 ml/min/1.73 sqM); Potassium 4.5 mmol/L (3.5-5.1); Sodium 142 mmol/L (137-145); Total Bilirubin 0.4 mg/dL (0.2-1.3); Total Protein 6.5 g/dL (6.3-8.2)
[2021-12-22 10:27] LABS: Basophils # (A) 0.1 k/uL (0-0.2); Basophils % (A) 1 %; Eosinophils # (A) 0.3 k/uL (0-0.7); Eosinophils % (A) 2 %; HCT 44.9 % (39.0-53.0); HGB 14.7 gm/dL (13.0-17.5); Hypochromasia Slight; Lymphocytes # (A) 4.8 k/uL (1.0-4.8); Lymphocytes % (A) 38 %; MCH 30.1 pg (25.0-35.0); MCHC 32.8 g/dL (31.0-37.0); MCV 91.8 fL (80.0-100.0); Mean Platelet Volume 9.7; Monocytes # (A) 0.7 k/uL (0-1.0); Monocytes % (A) 5 %; Neutrophils # (A) 6.5 k/uL (1.3-7.7); Neutrophils % (A) 52 %; Platelet Count 272 k/uL (150-450); RBC 4.89 m/uL (4.30-5.90); RDW 13.3 % (11.5-15.5); WBC 12.5 k/uL (3.8-10.6)
[2021-12-22 13:04] LABS: Glucose,Whole Blood 202 mg/dL (70-110)
--- NOTE | 2021-12-22 13:12 | P.PN ---
Progress Note - Text Progress Note Date: 12/22/21 Interval History: Patient was seen lying in bed today and was directable and agreeable to speak with telegraphic typewriter mechanic in the office. Patient states that he slept a bit better last night. He claims that the Zyprexa has been helping him stay little bit more "even". he continues to describe having anger towards his caregiver and her son and continues to state "I'm going to kill them". He does appear to be fairly manipulative at times and attempts to be provocative. He claims that his mood and anxiety has been improving since yesterday. He states he is having no problems with medications. He is going to some groups and continues to have poor insight and judgment. At this time patient denies any suicidal or homical ideations, intent or plan. Patient denies any auditory, visual hallucinations and denies any paranoia or delusions. Patient denies any side effects from the medications and has been compliant with meds. Mental Status Exam: General Appearance: Patient appears to be thin, in a wheelchair, longer hair, stated age is alert, less irritable however is directable. Patient appears to have mildly improving hygiene and grooming. Behavior: Patient is seated without any agitated behavior. less irritable and threatening. Speech: Patient's speech is fluent and nonpressured. Mood/Affect: Patient reports their mood is "a bit better", affect is congruent and constricted. Suicidality/Homicidality: Admits to suicidal and homicidal ideations intent and plan Perceptions: Patient denies any visual hallucinations and denies any auditory hallucinations Though content/process: There is no evidence of any delusional thought content and thought process is linear and goal-directed. less Focused on revenge Memory and concentration: AOX3, grossly intact for the purposes of this session Judgment and insight: Poor IMPRESSIONS: Mood disorder unspecified antisocial personality disorder cannabis use disorder nicotine dependence Plan: -Patient continues to meet criteria for inpatient psychiatric admission for symptom stabilization and safety. Patient has signed adult voluntary form and medication consent and was placed in patient's chart. -Medications: continue with Zyprexa by mouth 5 mg daily at bedtime for mood stabilization/sleep. increase Prozac 40 mg daily for mood/anxiety. -When necessary Ativan and Haldol for agitation/aggression. -NRT - nicotine patch -SW on board for discharge planning. Encouraged the patient to participate in milieu. SW will send information on patient's potential targets to local police department. We will continue to work with patient to get an address and potentially a phone number for his potential targets. Likely discharge early next week if patient continues to improve.
[2021-12-22 15:39] LABS: Chol/HDL Ratio 5.33 Ratio; LDL Cholesterol,Calculated 135.7 mg/dL (0.0-131.0)
[2021-12-22 18:13] LABS: Glucose,Whole Blood 132 mg/dL (70-110)
[2021-12-22 20:29] LABS: Glucose,Whole Blood 336 mg/dL (70-110)
[2021-12-22] MEDS: OLANZapine 5 MG TAB PO SCH (20:46)
[2021-12-22] MEDS: INSULIN DETEMIR (LEVEMIR) 100 UNIT/ML SYR SQ SCH (20:48)
[2021-12-23 07:57] LABS: Glucose,Whole Blood 92 mg/dL (70-110)
[2021-12-23] MEDS: ASPIRIN 81 MG PO SCH (09:07)
[2021-12-23] MEDS: NICOTINE 14MG/24HR PATCH TRANSDERM SCH (09:07)
[2021-12-23] MEDS: FLUoxetine HCL 20 MG CAP PO SCH (09:08)
[2021-12-23] MEDS: amLODIPine 10 MG TAB PO SCH (09:08)
[2021-12-23] MEDS: OXYBUTYNIN CHLORIDE 5 MG TAB PO SCH ×2 (09:09→21:11)
[2021-12-23] MEDS: LORATADINE 10 MG TAB PO SCH (09:09)
[2021-12-23] MEDS: ATORVASTATIN 80 MG TAB PO SCH (09:09)
[2021-12-23] MEDS: glipiZIDE 5 MG TAB PO SCH ×2 (09:10→21:11)
[2021-12-23] MEDS: INSULIN ASPART (NovoLOG) 100 UNIT/ML VIAL SQ SCH ×4 (10:24→21:12)
[2021-12-23 11:36] VITALS: BMI 26.9
--- NOTE | 2021-12-23 11:48 | P.PN ---
Progress Note - Text Progress Note Date: 12/23/21 Interval History: Patient was seen lying in bed today and was directable and agreeable to speak with filing writer in the office. Patient states that he it took him until 1 AM to fall asleep last night. He claims that trazodone is to help him in the past. He was agreeable to have his Zyprexa increased. He claims that he feels calmer at this time and claims that she is not having much depression or anxiety. He continues to be somewhat manipulative however this has been improving. He has been going to some groups however seems disinterested. He has been taking his medications and is not reporting any side effects. He states that he would like to go to his ex-'s house upon discharge and does not want to go back to his previous residence. At this time he is not endorsing any homicidal ideations towards the 2 people that he mentioned previously. At this time patient denies any suicidal or homical ideations, intent or plan. Patient denies any auditory, visual hallucinations and denies any paranoia or delusions. Patient denies any side effects from the medications and has been compliant with meds. Mental Status Exam: General Appearance: Patient appears to be thin, in a wheelchair, longer hair, stated age is alert, less irritable however is directable. Patient appears to have mildly improving hygiene and grooming. Behavior: Patient is seated without any agitated behavior. less irritable Speech: Patient's speech is fluent and nonpressured. Mood/Affect: Patient reports their mood is "a bit better", affect is congruent and constricted. Suicidality/Homicidality: Admits to suicidal and homicidal ideations intent and plan Perceptions: Patient denies any visual hallucinations and denies any auditory hallucinations Though content/process: There is no evidence of any delusional thought content and thought process is linear and goal-directed. Memory and concentration: AOX3, grossly intact for the purposes of this session Judgment and insight: Poor, improving mildly IMPRESSIONS: Mood disorder unspecified antisocial personality disorder cannabis use disorder nicotine dependence Plan: -Patient continues to meet criteria for inpatient psychiatric admission for symptom stabilization and safety. Patient has signed adult voluntary form and medication consent and was placed in patient's chart. -Medications: Increased Zyprexa by mouth 7.5 mg daily at bedtime for mood stabilization/sleep. Continue Prozac 40 mg daily for mood/anxiety. -When necessary Ativan and Haldol for agitation/aggression. -NRT - nicotine patch -SW on board for discharge planning. Encouraged the patient to participate in milieu. SW will send information on patient's potential targets to local police department. We will continue to work with patient to get an address and potentially a phone number for his potential targets. Likely discharge early next week if patient continues to improve. Patient states that he would like to be discharged to his ex-'s house.
[2021-12-23 13:10] LABS: Glucose,Whole Blood 221 mg/dL (70-110)
[2021-12-23 18:04] LABS: Glucose,Whole Blood 107 mg/dL (70-110)
[2021-12-23 19:58] LABS: Glucose,Whole Blood 189 mg/dL (70-110)
[2021-12-23] MEDS: INSULIN DETEMIR (LEVEMIR) 100 UNIT/ML SYR SQ SCH (21:11)
[2021-12-23] MEDS: OLANZapine 7.5 MG TAB PO SCH (21:11)
[2021-12-24 08:29] LABS: Glucose,Whole Blood 64 mg/dL (70-110)
[2021-12-24 08:40] LABS: Glucose,Whole Blood 84 mg/dL (70-110)
[2021-12-24] MEDS: INSULIN ASPART (NovoLOG) 100 UNIT/ML VIAL SQ SCH ×3 (09:11→20:42)
[2021-12-24] MEDS: FLUoxetine HCL 20 MG CAP PO SCH (09:21)
[2021-12-24] MEDS: NICOTINE 14MG/24HR PATCH TRANSDERM SCH (09:21)
[2021-12-24] MEDS: OXYBUTYNIN CHLORIDE 5 MG TAB PO SCH ×2 (09:22→20:43)
[2021-12-24] MEDS: amLODIPine 10 MG TAB PO SCH (09:22)
[2021-12-24] MEDS: LORATADINE 10 MG TAB PO SCH (09:22)
[2021-12-24] MEDS: glipiZIDE 5 MG TAB PO SCH ×2 (09:22→20:43)
[2021-12-24] MEDS: ASPIRIN 81 MG PO SCH (09:22)
[2021-12-24] MEDS: ATORVASTATIN 80 MG TAB PO SCH (09:22)
--- NOTE | 2021-12-24 15:17 | P.PN ---
Subjective Progress Note Date: 12/24/21 Principal diagnosis: IMPRESSIONS: Mood disorder unspecified antisocial personality disorder cannabis use disorder nicotine dependence Interval History: Patient was seen lying in bed today and was directable and agreeable to speak with travel writer in the office. Patient states that he it took him until 1 AM to fall asleep last night. He claims that trazodone is to help him in the past. He was agreeable to have his Zyprexa increased. He claims that he feels calmer at this time and claims that she is not having much depression or anxiety. He continues to be somewhat manipulative however this has been improving. He has been going to some groups however seems disinterested. He has been taking his medications and is not reporting any side effects. He states that he would like to go to his ex-'s house upon discharge and does not want to go back to his previous residence. At this time he is not endorsing any homicidal ideations towards the 2 people that he mentioned previously. At this time patient denies any suicidal or homical ideations, intent or plan. Patient denies any auditory, visual hallucinations and denies any paranoia or delusions. Patient denies any side effects from the medications and has been compliant with meds. Mental Status Exam: General Appearance: Patient appears to be thin (He says that he has lost 60 lbs), in a wheelchair, longer hair, stated age is alert, less irritable however is directable. Patient appears to have mildly improving hygiene and grooming. Behavior: Patient is seated without any agitated behavior. less irritable Speech: Patient's speech is fluent and nonpressured. Mood/Affect: Patient reports their mood is "a bit better", affect is congruent and constricted. He even evidenced a sense of humor Suicidality/Homicidality: Admits to suicidal and homicidal ideations without intent and plan but, "I can't go on with this pain forever" Perceptions: Patient denies any visual hallucinations and denies any auditory hallucinations Though content/process: There is no evidence of any delusional thought content and thought process is linear and goal-directed. Memory and concentration: AOX3, grossly intact for the purposes of this session Judgment and insight: Poor, improving mildly IMPRESSIONS: pain syndrome Mood disorder unspecified antisocial personality disorder cannabis use disorder nicotine dependence Plan: -Patient continues to meet criteria for inpatient psychiatric admission for symptom stabilization and safety. Patient has signed adult voluntary form and medication consent and was placed in patient's chart. -Medications: Increased Zyprexa by mouth 7.5 mg daily at bedtime for mood stabilization/sleep. Continue Prozac 40 mg daily for mood/anxiety. -When necessary Ativan and Haldol for agitation/aggression. -NRT - nicotine patch -SW on board for discharge planning. Encouraged the patient to participate in milieu. SW will send information on patient's potential targets to local police department. We will continue to work with patient to get an address and potentially a phone number for his potential targets. Likely discharge early next week if patient continues to improve. Patient states that he would like to be discharged to his ex-'s house. I am going to add Remeron for appetite, sleep, and to augment the Prozac and help with ignoring the pain. Objective - Vital Signs Vital signs: Vital Signs Temp 97.6 F 12/24/21 06:07 Pulse 100 12/24/21 06:07 Resp 16 12/24/21 06:07 BP 137/76 12/24/21 06:07 Pulse Ox 99 12/24/21 06:07 FiO2 Intake & Output 12/23/21 12/24/21 12/24/21 18:59 06:59 18:59 Weight 84.992 kg - Labs CBC & Chem 7: 12/22/21 09:25 12/22/21 09:25 Labs: Abnormal Lab Results - Last 24 Hours (Table) 12/23/21 12/24/21 Range/Units 19:56 08:09 POC Glucose (mg/dL) 189 H 64 L (70-110) mg/dL
[2021-12-24 17:41] LABS: Glucose,Whole Blood 129 mg/dL (70-110)
[2021-12-24] MEDS: LORazepam 1 MG TAB PO PRN (18:33)
[2021-12-24 20:36] LABS: Glucose,Whole Blood 241 mg/dL (70-110)
[2021-12-24] MEDS: OLANZapine 7.5 MG TAB PO SCH (20:43)
[2021-12-24] MEDS: MIRTAZAPINE 15 MG TAB PO SCH (20:43)
[2021-12-24] MEDS: INSULIN DETEMIR (LEVEMIR) 100 UNIT/ML SYR SQ SCH (20:43)
[2021-12-25 07:57] LABS: Glucose,Whole Blood 67 mg/dL (70-110)
[2021-12-25] MEDS: INSULIN ASPART (NovoLOG) 100 UNIT/ML VIAL SQ SCH ×5 (07:58→20:19)
[2021-12-25] MEDS: OXYBUTYNIN CHLORIDE 5 MG TAB PO SCH (07:59)
[2021-12-25] MEDS: FLUoxetine HCL 20 MG CAP PO SCH (08:01)
[2021-12-25] MEDS: ATORVASTATIN 80 MG TAB PO SCH (08:02)
[2021-12-25] MEDS: LORATADINE 10 MG TAB PO SCH (08:02)
[2021-12-25] MEDS: NICOTINE 14MG/24HR PATCH TRANSDERM SCH (08:02)
[2021-12-25] MEDS: amLODIPine 10 MG TAB PO SCH (08:02)
[2021-12-25] MEDS: ASPIRIN 81 MG PO SCH (08:02)
[2021-12-25] MEDS: glipiZIDE 5 MG TAB PO SCH ×2 (09:29→20:20)
[2021-12-25 09:32] LABS: Glucose,Whole Blood 241 mg/dL (70-110)
--- NOTE | 2021-12-25 12:31 | P.PN ---
Subjective Progress Note Date: 12/25/21 Principal diagnosis: IMPRESSIONS: Mood disorder unspecified antisocial personality disorder cannabis use disorder nicotine dependence Interval History: Patient was seen lying in bed today taken nap at 12:30 in the afternoon . and was directable and agreeable to speak with principal technical writer in the office. Patient states that he it took him until 1 AM to fall asleep last night. He claims that trazodone is to help him in the past. He was agreeable to have his Zyprexa increased. He claims that he feels calmer at this time and claims that he is not having much depression or anxiety. He has been going to some groups however seems disinterested. He has been taking his medications and is not reporting any side effects. He states that he would like to go to his ex-'s house upon discharge and does not want to go back to his previous residence. At this time he is not endorsing any homicidal ideations towards the 2 people that he mentioned previously. At this time patient denies any suicidal or homical ideations, intent or plan. Patient denies any auditory, visual hallucinations and denies any paranoia or delusions. Patient denies any side effects from the medications and has been compliant with meds. Mental Status Exam: General Appearance: Patient appears to be thin (He says that he has lost 60 lbs), in a wheelchair, longer hair, stated age is alert, less irritable however is directable. Patient appears to have mildly improving hygiene and grooming. Behavior: Patient is seated without any agitated behavior. less irritable Speech: Patient's speech is fluent and nonpressured. Mood/Affect: Patient reports their mood is "a bit better", affect is congruent a nd constricted. He does evidenced a sense of humor Suicidality/Homicidality: Admits to suicidal and homicidal ideations without intent and plan but, "I can't go on with this pain forever" Perceptions: Patient denies any visual hallucinations and denies any auditory hallucinations Though content/process: There is no evidence of any delusional thought content and thought process is linear and goal-directed. Memory and concentration: He is oriented to person place and time Judgment and insight: He seems to continue to improve on the current medications IMPRESSIONS: (The patient snores loudly and has been diagnosed in the past with sleep apnea but does not have a machine. He used his mother's machine for a while and that is no longer available and he said something about a large machine that required $800 worth of electricity every month. He would probably be delaney if he was referred to the sleep clinic and prescribed and new machine it is hard for moods to be stabilized when a person has severe sleep apnea.) pain syndrome Mood disorder unspecified antisocial personality disorder cannabis use disorder nicotine dependence Plan: No further change in medication. He got the Remeron last night which helped him sleep better and has helped his appetite some but if the sleep apnea is severe I will only have a marginal benefit. -Patient continues to meet criteria for inpatient psychiatric admission for symptom stabilization and safety. Patient has signed adult voluntary form and medication consent and was placed in patient's chart. -Medications: Increased Zyprexa by mouth 7.5 mg daily at bedtime for mood stabilization/sleep. Continue Prozac 40 mg daily for mood/anxiety. -When necessary Ativan and Haldol for agitation/aggression. The patient has not been struggling with irritability or agitation -NRT - nicotine patch -SW on board for discharge planning. Encouraged the patient to participate in milieu. SW will send information on patient's potential targets to local police department. We will continue to work with patient to get an address and potentially a phone number for his potential targets. Likely discharge early next week if patient continues to improve. Patient states that he would like to be discharged to his ex-'s house. I am going to add Remeron for appetite, sleep, and to augment the Prozac and help with ignoring the pain. Objective - Vital Signs Vital signs: Vital Signs Temp 97.7 F 12/25/21 07:19 Pulse 73 12/25/21 07:19 Resp 18 12/25/21 07:19 BP 129/68 12/25/21 08:08 Pulse Ox 99 12/24/21 06:07 FiO2 - Labs CBC & Chem 7: 12/22/21 09:25 12/22/21 09:25 Labs: Abnormal Lab Results - Last 24 Hours (Table) 12/24/21 12/24/21 12/25/21 Range/Units 17:38 20:35 07:54 POC Glucose (mg/dL) 129 H 241 H 67 L (70-110) mg/dL 12/25/21 Range/Units 09:28 POC Glucose (mg/dL) 241 H (70-110) mg/dL
[2021-12-25 12:40] LABS: Glucose,Whole Blood 156 mg/dL (70-110)
[2021-12-25] MEDS: LORazepam 1 MG TAB PO PRN (17:17)
[2021-12-25 17:46] LABS: Glucose,Whole Blood 184 mg/dL (70-110)
[2021-12-25 19:51] LABS: Glucose,Whole Blood 233 mg/dL (70-110)
[2021-12-25] MEDS: MIRTAZAPINE 15 MG TAB PO SCH (20:19)
[2021-12-25] MEDS: OLANZapine 7.5 MG TAB PO SCH (20:20)
[2021-12-25] MEDS: INSULIN DETEMIR (LEVEMIR) 100 UNIT/ML SYR SQ SCH (20:20)
[2021-12-26 06:52] VITALS: BP 127/71; PULSE 87; RESP 16; TEMP 97.8
[2021-12-26 07:56] LABS: Glucose,Whole Blood 74 mg/dL (70-110)
[2021-12-26] MEDS: LORATADINE 10 MG TAB PO SCH (08:49)
[2021-12-26] MEDS: OXYBUTYNIN CHLORIDE 5 MG TAB PO SCH (08:49)
[2021-12-26] MEDS: ASPIRIN 81 MG PO SCH (08:49)
[2021-12-26] MEDS: glipiZIDE 5 MG TAB PO SCH (08:49)
[2021-12-26] MEDS: amLODIPine 10 MG TAB PO SCH (08:49)
[2021-12-26] MEDS: FLUoxetine HCL 20 MG CAP PO SCH (08:49)
[2021-12-26] MEDS: ATORVASTATIN 80 MG TAB PO SCH (08:49)
[2021-12-26] MEDS: INSULIN ASPART (NovoLOG) 100 UNIT/ML VIAL SQ SCH ×2 (08:50→13:28)
[2021-12-26] MEDS: NICOTINE 14MG/24HR PATCH TRANSDERM SCH (08:50)
[2021-12-26 08:56] LABS: Glucose,Whole Blood 214 mg/dL (70-110)
--- NOTE | 2021-12-26 11:31 | P.DS ---
Providers Date of admission: 12/21/21 03:15 Expected date of discharge: 12/26/21 Attending physician: Daquan Melo MD Consults: 12/21/21 03:18 Consult Physician Routine Consulting Provider: Makenna Marie Consult Reason/Comments: For H & P for Medical Follow Up Do you want consulting provider notified?: Yes, Notify in am Primary care physician: Fatuma Suárez - Discharge Diagnosis(es) (1) Unspecified mood [affective] disorder Current Visit: Yes Status: Acute Priority: High (2) Antisocial personality disorder Current Visit: Yes Status: Acute Priority: High (3) Cannabis use disorder Current Visit: Yes Status: Acute Priority: Medium (4) Nicotine dependence Current Visit: Yes Status: Acute Priority: Low Hospital Course: Admission HPI: Admission note was completed by insurance writer "Patient is a 61-year-old male who has a history of depression, currently homeless, is single and no kids. Patient presented to the hospital yesterday complaining of suicidal ideations and also homicidal ideations. Patient's UDS was positive for cocaine. Patient was admitted voluntarily to mental health unit. Patient used to follow up with [facility] for urine difficult. Patient claims that she has been off his psychiatric meds for about 3 months now. He states that he used to take Pristiq. He claims that he was "locks out of my house" and states that he is paying $700 a month rent. He claims that they did not leave him the muñoz. He claims that he is feeling homicidal towards his caregiver and also her son. He states that they believe that he was showing signs of anger. He claims that "there is going to be 3 obituaries" and states that it will be family, a caregiver and her son. He states he wants to go out and buy a gun from "someone in town". He states that he's been having these thoughts for about 1-2 weeks now. He claims that he is "tired of life" and feeling upset. Patient is irritable and has poor insight and judgment. Patient has poor sleep and poor appetite at this time. He is denying any anxiety or any depression at this time. At this time patient denies any auditory or visual hallucinations. Patient denies any flight of ideas racing thoughts and increased in goal directed behavior. Patient admits to using marijuana daily, cigarettes daily." Hospital course: Upon admission to the unit patient was directable and agreeable to commence treatment and signed adult voluntary form . Patient got along well with other patients on the unit and followed unit protocol. Patient was compliant with the medications and denied any side effects throughout hospital course. Patient was started on Zyprexa and increased to a dose of 7.5 mg daily at bedtime for mood stabilization/insomnia, Prozac 40 mg daily for mood/anxiety. Patient was also given Remeron 15 mg daily at bedtime for appetite/sleep/mood. Patient spoke of his stressors and engaged in therapy both group and individual. Patient was also seen by medical team for history and physical exam. Throughout the course of the hospitalization patient gradually improved with regards to mood, anxiety, sleep and returned back to their baseline level of functioning. On the day of discharge patient denied any suicidal or homicidal ideations intent or plan denied any auditory or visual hallucinations. Patient endorsed wanting to live for his health and future. The patient denied any access to gu ns or weapons. Patient denied any paranoia and did not endorse any delusions. Patient does have a significant history of substance abuse and was counseled on abstaining from all substances including alcohol and marijuana. Patient elected to do outpatient substance use treatment program through [facility]. Patient was also counseled on the medications and need for regular compliance and was encouraged to follow-up with their outpatient appointment for mental health and also for primary care. SW contacted police department and faxed over names of individuals for duty to warn and also sent letter to potential targets that patient had threatened while in the hospital. Mental status exam: General Appearance: Patient appears to be thin, alber wheel chair, stated age is alert, pleasant, and attempts to be cooperative. Patient is in no acute distress and has improved hygiene and grooming Behavior: Patient is calmly seated without any agitated behavior. Speech: Patient's speech is fluent and nonpressured. Mood/Affect: Patient reports their mood is "ok", affect is congruent Suicidality/Homicidality: Patient denies having any suicidal or homicidal ideation intent or plan. Perceptions: Patient denies any auditory or visual hallucinations. Though content/process: There is no evidence of any delusional thought content and thought process is linear and goal-directed. more future oriented Memory and concentration: AOX3, grossly intact for the purposes of this session. Can spell "WORLD" backwards correctly. Judgment and insight: chronically poor, however has improved with guarded prognosis Impression: Mood disorder unspecified Antisocial personality disorder Cannabis use disorder Nicotine dependence Plan: -Continue with discharge today as patient has improved and stabilized psychia trically and is not currently an imminent threat to himself and/or others. Patient will remain at chronically elevated risk for harm to self and/or others due to his impulsivity and personality disorder. -Continue medications: zyprexa 7.5 mg qhs for insomnia/mood stabilization, prozac 40 mg daily for mood/anxiety. remeron 15 mg qhs for insomnia/mood/appetite. -Patient was counseled on the need for medication compliance and appropriate follow-up at mental health and also primary care for medical issues. Patient verbalized understanding and agreed. -Social work to help arrange and coodinate patiens discharge today to [facility]. Social work also to arrange for patients follow up appointments with [facility] for psychiatric care along with follow up with primary care provider. -Patient counseled on abstaining from recreational drugs and marijuana and alcohol. Was informed/educated on the adverse effects on their physical and mental health. Patient verbally agreed and understood. Patient was offered substance abuse treatment however declined at this time. -Patient was instructed to return to the hospital or seek immediate medical care if their psychiatric or medical symptoms do worsen or reoccur. Allergies Allergy/AdvReac Type Severity Reaction Status Date / Time No Known Allergies Allergy Verified 12/21/21 03:41 Laboratory Results WBC 12.5 k/uL (3.8-10.6) H 12/22/21 09:25 RBC 4.89 m/uL (4.30-5.90) 12/22/21 09:25 Hgb 14.7 gm/dL (13.0-17.5) 12/22/21 09:25 Hct 44.9 % (39.0-53.0) 12/22/21 09:25 MCV 91.8 fL (80.0-100.0) 12/22/21 09:25 MCH 30.1 pg (25.0-35.0) 12/22/21 09:25 MCHC 32.8 g/dL (31.0-37.0) 12/22/21 09:25 RDW 13.3 % (11.5-15.5) 12/22/21 09:25 Plt Count 272 k/uL (150-450) 12/22/21 09:25 MPV 9.7 12/22/21 09:25 Neutrophils % 52 % 12/22/21 09:25 Lymphocytes % 38 % 12/22/21 09:25 Monocytes % 5 % 12/22/21 09:25 Eosinophils % 2 % 12/22/21 09:25 Basophils % 1 % 12/22/21 09:25 Neutrophils # 6.5 k/uL (1.3-7.7) 12/22/21 09:25 Lymphocytes # 4.8 k/uL (1.0-4.8) 12/22/21 09:25 Monocytes # 0.7 k/uL (0-1.0) 12/22/21 09:25 Eosinophils # 0.3 k/uL (0-0.7) 12/22/21 09:25 Basophils # 0.1 k/uL (0-0.2) 12/22/21 09:25 Hypochromasia Slight 12/22/21 09:25 Sodium 142 mmol/L (137-145) 12/22/21 09:25 Potassium 4.5 mmol/L (3.5-5.1) 12/22/21 09:25 Chloride 104 mmol/L (98-107) 12/22/21 09:25 Carbon Dioxide 25 mmol/L (22-30) 12/22/21 09:25 Anion Gap 13 mmol/L 12/22/21 09:25 BUN 17 mg/dL (9-20) 12/22/21 09:25 Creatinine 1.16 mg/dL (0.66-1.25) 12/22/21 09:25 Est GFR (CKD-EPI)AfAm 78 (>60 ml/min/1.73 sqM) 12/22/21 09:25 Est GFR (CKD-EPI)NonAf 67 (>60 ml/min/1.73 sqM) 12/22/21 09:25 Glucose 183 mg/dL (74-99) H 12/22/21 09:25 POC Glucose (mg/dL) 74 mg/dL (70-110) 12/26/21 07:54 POC Glu Founder Chairman And Chief Creative Officer ID Aislinn Edwards 12/26/21 07:[address] Glu mg/dL 278 12/22/21 09:25 Hemoglobin A1c 11.3 % (0.0-6.0) H 12/22/21 09:25 Calcium 9.6 mg/dL (8.4-10.2) 12/22/21 09:25 Total Bilirubin 0.4 mg/dL (0.2-1.3) 12/22/21 09:25 Conjugated Bilirubin 0.0 mg/dL (0.0-0.3) 12/22/21 09:25 Unconjugated Bilirubin 0.2 mg/dL (0.0-1.1) 12/22/21 09:25 Delta Bilirubin 0.2 mg/dL (0.0-0.2) 12/22/21 09:25 AST 15 U/L (17-59) L 12/22/21 09:25 ALT 15 U/L (4-49) 12/22/21 09:25 Alkaline Phosphatase 104 U/L (38-126) 12/22/21 09:25 Total Protein 6.5 g/dL (6.3-8.2) 12/22/21 09:25 Albumin 3.8 g/dL (3.5-5.0) 12/22/21 09:25 Triglycerides 203.00 mg/dL (0.00-149.00) H 12/22/21 09:25 Cholesterol 217.00 mg/dL (0.00-200.00) H 12/22/21 09:25 LDL Cholesterol, Calc 135.7 mg/dL (0.0-131.0) H 12/22/21 09:25 VLDL Cholesterol, Calc 40.60 mg/dL (5.00-40.00) H 12/22/21 09:25 HDL Cholesterol 40.70 mg/dL (40.00-60.00) 12/22/21 09:25 Cholesterol/HDL Ratio 5.33 Ratio 12/22/21 09:25 TSH 2.150 mIU/L (0.465-4.680) 12/22/21 09:25 Urine Color Yellow 12/21/21 01:54 Urine Appearance Clear (Clear) 12/21/21 01:54 Urine pH 6.5 (5.0-8.0) 12/21/21 01:54 Ur Specific [place] 1.034 (1.001-1.035) 12/21/21 01:54 Urine Protein 3+ (Negative) H 12/21/21 01:54 Urine Glucose (UA) 4+ (Negative) H 12/21/21 01:54 Urine Ketones Negative (Negative) 12/21/21 01:54 Urine Blood Negative (Negative) 12/21/21 01:54 Urine Nitrite Negative (Negative) 12/21/21 01:54 Urine Bilirubin Negative (Negative) 12/21/21 01:54 Urine Urobilinogen <2.0 mg/dL (<2.0) 12/21/21 01:54 Ur Leukocyte Esterase Negative (Negative) 12/21/21 01:54 Urine RBC 1 /hpf (0-5) 12/21/21 01:54 Urine WBC 1 /hpf (0-5) 12/21/21 01:54 Ur Squamous Epith Cells <1 /hpf (0-4) 12/21/21 01:54 Urine Opiates Screen Not Detected (NotDetected) 12/21/21 01:54 Ur Oxycodone Screen Not Detected (NotDetected) 12/21/21 01:54 Urine Methadone Screen Not Detected (NotDetected) 12/21/21 01:54 Ur Propoxyphene Screen Not Detected (NotDetected) 12/21/21 01:54 Ur Barbiturates Screen Not Detected (NotDetected) 12/21/21 01:54 U Tricyclic Antidepress Not Detected (NotDetected) 12/21/21 01:54 Ur Phencyclidine Scrn Not Detected (NotDetected) 12/21/21 01:54 Ur Amphetamines Screen Not Detected (NotDetected) 12/21/21 01:54 U Methamphetamines Scrn Not Detected (NotDetected) 12/21/21 01:54 U Benzodiazepines Scrn Not Detected (NotDetected) 12/21/21 01:54 Urine Cocaine Screen Not Detected (NotDetected) 12/21/21 01:54 U Marijuana (THC) Screen Detected (NotDetected) H 12/21/21 01:54 Coronavirus (PCR) Not Detected (Not Detectd) 12/21/21 01:54 Vital Signs Temp 97.8 F 12/26/21 06:16 Pulse 87 12/26/21 06:16 Resp 16 12/26/21 06:16 BP 127/71 12/26/21 06:16 Pulse Ox 96 12/26/21 06:16 FiO2 Intake & Output 12/25/21 12/26/21 12/26/21 18:59 06:59 18:59 Weight 90.7 kg Patient Condition at Discharge: Stable Plan - Discharge Summary New Discharge Prescriptions: New Oxybutynin Chloride [Ditropan] 5 mg PO BID 30 Days tab OLANZapine [ZyPREXA] 7.5 mg PO HS 30 Days tab Loratadine [Claritin] 10 mg PO DAILY 30 Days tab Nicotine 14Mg/24Hr Patch [Habitrol] 1 patch TRANSDERM DAILY 14 Days patch FLUoxetine HCL [PROzac] 40 mg PO DAILY 30 Days cap Mirtazapine [Remeron] 15 mg PO HS 30 Days tab Continue Insulin Glargine,Hum.rec.anlog [Lantus Solostar Pen] 70 unit SQ DAILY Insulin Glargine,Hum.rec.anlog [Lantus Solostar Pen] 50 units SQ DAILY #2 each Aspirin [Adult Low Dose Aspirin EC] 81 mg PO DAILY 30 Days tab Atorvastatin [Lipitor] 80 mg PO DAILY 30 Days tab Albuterol Sulfate [Proair Hfa] 1 - 2 puff INHALATION RT-Q6H PRN #1 each PRN Reason: Shortness Of Breath glipiZIDE [Glucotrol] 10 mg PO BID 30 Days tab amLODIPine [Norvasc] 10 mg PO DAILY 30 Days #30 tab Discontinued lisinopriL 40 mg PO DAILY Potassium Chloride [Potassium Chloride ER] 10 meq PO DAILY #30 tab Loratadine 10 mg PO DAILY Oxybutynin Chloride 5 mg PO BID Lansoprazole 30 mg PO DAILY #30 cap Furosemide [Lasix] 20 mg PO DAILY #30 tab Cephalexin [Keflex] 500 mg PO TID 4 Days #12 cap Sulfamethox-Tmp 800-160Mg [Bactrim DS 800-160 mg] 1 tab PO Q12HR 5 Days #10 tab Discharge Medication List Insulin Glargine,Hum.rec.anlog [Lantus Solostar Pen] 70 unit SQ DAILY 11/24/20 [History] Insulin Glargine,Hum.rec.anlog [Lantus Solostar Pen] 50 units SQ DAILY #2 each 08/04/21 [Rx] Albuterol Sulfate [Proair Hfa] 1 - 2 puff INHALATION RT-Q6H PRN #1 each 12/26/21 [Rx] Aspirin [Adult Low Dose Aspirin EC] 81 mg PO DAILY 30 Days tab 12/26/21 [Rx] Atorvastatin [Lipitor] 80 mg PO DAILY 30 Days tab 12/26/21 [Rx] FLUoxetine HCL [PROzac] 40 mg PO DAILY 30 Days cap 12/26/21 [Rx] Loratadine [Claritin] 10 mg PO DAILY 30 Days tab 12/26/21 [Rx] Mirtazapine [Remeron] 15 mg PO HS 30 Days tab 12/26/21 [Rx] Nicotine 14Mg/24Hr Patch [Habitrol] 1 patch TRANSDERM DAILY 14 Days patch 12/26/21 [Rx] OLANZapine [ZyPREXA] 7.5 mg PO HS 30 Days tab 12/26/21 [Rx] Oxybutynin Chloride [Ditropan] 5 mg PO BID 30 Days tab 12/26/21 [Rx] amLODIPine [Norvasc] 10 mg PO DAILY 30 Days #30 tab 12/26/21 [Rx] glipiZIDE [Glucotrol] 10 mg PO BID 30 Days tab 12/26/21 [Rx] Follow up Appointment(s)/Referral(s): Fatuma Suárez MD [Primary Care Provider] - 1-2 days Patient Instructions/Handouts: How to Stop Smoking (DC), Depression (DC), Help Prevent Suicide in Older Adults (DC) Activity/Diet/Wound Care/Special Instructions: Activity and diet as tolerated. Avoid the use of street drugs and alcohol. Take all medications as prescribed. When you are in need of refills on your medications please contact your medical provider and/or outpatient psychiatrist to have this done. Please go to scheduled outpatient appointment for aftercare treatment. If symptoms return or become worse, call the crisis line at and/or go to the nearest emergency room for evaluation Discharge Disposition: OTHER INSTITUTION NOT DEFINED
[2021-12-26 12:55] LABS: Glucose,Whole Blood 229 mg/dL (70-110)
== END 2021-12-26 13:42 | disposition home or self-care (01) | DRG 885 ==
LOC: EC 18:43 → 3MHU 12-21 03:15
PROVIDERS: ADMIT Psychiatry & Neurology Psychiatry; ATTEND Psychiatry & Neurology Psychiatry
DX: F39 Unspecified mood [affective] disorder (principal); R45.851 Suicidal ideations; R45.850 Homicidal ideations; E11.42 Type 2 diabetes mellitus with diabetic polyneuropathy; E11.65 Type 2 diabetes mellitus with hyperglycemia; F60.2 Antisocial personality disorder; J44.9 Chronic obstructive pulmonary disease, unspecified; M06.9 Rheumatoid arthritis, unspecified; Z79.4 Long term (current) use of insulin; Z20.822 Contact with and (suspected) exposure to COVID-19; Z91.128 Patient's intentional underdosing of medication regimen for other reason; F12.10 Cannabis abuse, uncomplicated; F32.A Depression, unspecified; G47.00 Insomnia, unspecified; F41.9 Anxiety disorder, unspecified; T50.906A Underdosing of unspecified drugs, medicaments and biological substances, initial encounter; E78.5 Hyperlipidemia, unspecified; I10 Essential (primary) hypertension; G47.33 Obstructive sleep apnea (adult) (pediatric); K44.9 Diaphragmatic hernia without obstruction or gangrene; G89.4 Chronic pain syndrome; M54.50 Low back pain, unspecified; M54.2 Cervicalgia; G56.03 Carpal tunnel syndrome, bilateral upper limbs; F17.210 Nicotine dependence, cigarettes, uncomplicated; Z71.6 Tobacco abuse counseling; Z79.82 Long term (current) use of aspirin; Z79.2 Long term (current) use of antibiotics; Z79.84 Long term (current) use of oral hypoglycemic drugs; Z79.899 Other long term (current) drug therapy; Z86.73 Personal history of transient ischemic attack (TIA), and cerebral infarction without residual deficits; Z59.00 Homelessness unspecified; Z71.41 Alcohol abuse counseling and surveillance of alcoholic; Z71.51 Drug abuse counseling and surveillance of drug abuser
CPT/HCPCS: 36415; 80053; 80061; 80306; 81001; 82075; 82248; 83036; 84443; 85025; 87635; 99285

== ENCOUNTER 2021-12-26 23:25 | Inpatient (IN) | payer MEDICAID, OTHER ==
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
[2021-12-27] MEDS ORDERED: HALOPERIDOL LACTATE 5 MG/ML 1 ML VIAL IM PRN (04:39)
[2021-12-27] MEDS ORDERED: MAGNESIUM HYDROXIDE 2,400 MG/10 ML CUP PO PRN (04:39)
[2021-12-27] MEDS ORDERED: MAG HYDROX/AL HYDROX/SIMETH 30 ML CUP PO PRN (04:39)
[2021-12-27] MEDS ORDERED: ACETAMINOPHEN TAB 325 MG TAB PO PRN (04:39)
[2021-12-27] MEDS ORDERED: LORazepam 1 MG TAB PO PRN (04:39)
[2021-12-27] MEDS ORDERED: ALBUTEROL INHALER 60 PUFF/8 GM INHALER (MHU) INHALATION PRN (04:41)
[2021-12-27 07:45] LABS: Glucose,Whole Blood 168 mg/dL (70-110)
[2021-12-27] MEDS: glipiZIDE 10 MG TAB PO SCH ×2 (09:58→20:09)
[2021-12-27] MEDS: OXYBUTYNIN CHLORIDE 5 MG TAB PO SCH ×2 (09:58→20:09)
[2021-12-27] MEDS: ATORVASTATIN 80 MG TAB PO SCH (09:59)
[2021-12-27] MEDS: INSULIN ASPART (NovoLOG) 100 UNIT/ML VIAL SQ SCH ×4 (10:01→20:07)
[2021-12-27] MEDS: LORATADINE 10 MG TAB PO SCH (10:03)
[2021-12-27] MEDS: FLUoxetine HCL 20 MG CAP PO SCH (10:03)
[2021-12-27] MEDS: NICOTINE 14MG/24HR PATCH TRANSDERM SCH (10:03)
[2021-12-27] MEDS: amLODIPine 10 MG TAB PO SCH (10:03)
[2021-12-27] MEDS: ASPIRIN 81 MG PO SCH (10:04)
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
[2021-12-27 13:02] LABS: Glucose,Whole Blood 66 mg/dL (70-110)
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
[2021-12-27 13:18] LABS: Glucose,Whole Blood 81 mg/dL (70-110)
[2021-12-27 17:59] LABS: Glucose,Whole Blood 280 mg/dL (70-110)
[2021-12-27] MEDS: OLANZapine 7.5 MG TAB PO SCH (20:09)
[2021-12-27 20:10] LABS: Glucose,Whole Blood 171 mg/dL (70-110)
[2021-12-27] MEDS ORDERED: MIRTAZAPINE 15 MG TAB PO SCH (21:00)
[2021-12-28] MEDS: INSULIN ASPART (NovoLOG) 100 UNIT/ML VIAL SQ SCH ×4 (08:09→20:27)
[2021-12-28 08:20] LABS: Glucose,Whole Blood 121 mg/dL (70-110)
[2021-12-28] MEDS: ASPIRIN 81 MG PO SCH (08:40)
[2021-12-28] MEDS: FLUoxetine HCL 20 MG CAP PO SCH (08:42)
[2021-12-28] MEDS: LORATADINE 10 MG TAB PO SCH (08:42)
[2021-12-28] MEDS: NICOTINE 14MG/24HR PATCH TRANSDERM SCH (08:42)
[2021-12-28] MEDS: OXYBUTYNIN CHLORIDE 5 MG TAB PO SCH ×2 (08:42→20:22)
[2021-12-28] MEDS: glipiZIDE 10 MG TAB PO SCH ×2 (08:42→20:22)
[2021-12-28] MEDS: ATORVASTATIN 80 MG TAB PO SCH (08:42)
[2021-12-28] MEDS: amLODIPine 10 MG TAB PO SCH (08:42)
--- NOTE | 2021-12-28 12:02 | P.PN ---
Progress Note - Text Progress Note Date: 12/28/21 Interval History: Patient was seen lying in his bed this morning and initially was difficult to awaken and appeared to be somewhat lethargic. He claims that he was off earlier this morning for breakfast and went back to bed. He appears to be more tired than yesterday. He claims that he slept fairly throughout the night. He states that he is looking forward to his Social Security check being deposited in his bank today. He claims that "nobody better steal it from me". He states that his mood is fair however claims that he does still have some depression, claims that his anxiety has been mildly improving. We spoke about more discharge planning options including different shelters and patient states that he will think about it. He states that his appetite is fair. He is not going to many groups. At this time patient denies any suicidal or homical ideations, intent or plan. Patient denies any auditory, visual hallucinations and denies any paranoia or delusions. Patient denies any side effects from the medications and has been compliant with meds. Mental Status Exam: General Appearance: Patient appears to be thin, in a wheelchair, longer hair, stated age is lethargic, less irritable however is directable. Patient appears to have marginal hygiene and grooming. Behavior: Patient is seated without any agitated behavior. less Irritable. Speech: Patient's speech is fluent and nonpressured. concrete and monotone Mood/Affect: Patient reports their mood is "depressed a bit", affect is congruent and constricted. Suicidality/Homicidality: Admits to suicidal ideations, no intent or plan. denies any HI. Perceptions: Patient denies any visual hallucinations and denies any auditory hallucinations Though content/process: There is no evidence of any delusional thought content and thought process is linear and goal-directed. Memory and concentration: AOX3, grossly intact for the purposes of this session Judgment and insight: Poor, improving mildly IMPRESSIONS: Depressive disorder NOS antisocial personality traits cannabis use disorder nicotine dependence homelessness Plan: -Patient continues to meet criteria for inpatient psychiatric admission for symptom stabilization and safety. Patient has signed adult voluntary form and medication consent and was placed in patient's chart. -Medications: Zyprexa by mouth 7.5 mg daily at bedtime for mood stabilization/sleep. increase Prozac 60 mg daily for mood/anxiety, d/c remeron due to excess sedation. -When necessary Ativan and Haldol for agitation/aggression. -NRT - nicotine patch -SW on board for discharge planning. Encouraged the patient to participate in milieu. SW to help arrange discharge planning to [facility]p possibly. likely discharge in 1-2 days.
[2021-12-28 12:48] LABS: Glucose,Whole Blood 238 mg/dL (70-110)
[2021-12-28 17:54] LABS: Glucose,Whole Blood 197 mg/dL (70-110)
[2021-12-28 20:21] LABS: Glucose,Whole Blood 197 mg/dL (70-110)
[2021-12-28] MEDS: OLANZapine 7.5 MG TAB PO SCH (20:22)
[2021-12-29 07:45] LABS: Glucose,Whole Blood 110 mg/dL (70-110)
[2021-12-29] MEDS: INSULIN ASPART (NovoLOG) 100 UNIT/ML VIAL SQ SCH ×4 (08:29→20:00)
[2021-12-29] MEDS: FLUoxetine HCL 20 MG CAP PO SCH (08:51)
[2021-12-29] MEDS: ATORVASTATIN 80 MG TAB PO SCH (08:52)
[2021-12-29] MEDS: amLODIPine 10 MG TAB PO SCH (08:52)
[2021-12-29] MEDS: ASPIRIN 81 MG PO SCH (08:52)
[2021-12-29] MEDS: LORATADINE 10 MG TAB PO SCH (08:53)
[2021-12-29] MEDS: OXYBUTYNIN CHLORIDE 5 MG TAB PO SCH ×2 (08:53→20:00)
[2021-12-29] MEDS: glipiZIDE 10 MG TAB PO SCH ×2 (08:53→20:00)
[2021-12-29] MEDS: NICOTINE 14MG/24HR PATCH TRANSDERM SCH (08:55)
--- NOTE | 2021-12-29 10:44 | P.PN ---
Progress Note - Text Progress Note Date: 12/29/21 Interval History: Patient was seen lying in his bed this morning and initially was difficult to awaken once again. Patient states that he fell asleep late last night and states that he was sleeping in. He claims that he usually falls asleep late and sleeps in. He claims that he received his truck yesterday and can "stay anywhere". He claims that he has been taking his medications. We spoke about other medication options and patient elected to stay on the same medication regimen. He claims that he is getting up for breakfast and up for meals however is not interested in going to groups. He claims that his mood and anxiety have been improving. We spoke once again about more discharge planning options including different shelters and motel and patient states that he still does not know where he will go. He states that his appetite is fair. At this time patient denies any suicidal or homical ideations, intent or plan. Patient denies any auditory, visual hallucinations and denies any paranoia or delusions. Patient denies any side effects from the medications and has been compliant with meds. Mental Status Exam: General Appearance: Patient appears to be thin, in a wheelchair, longer hair, stated age is lethargic, less irritable however is directable. Patient appears to have marginal hygiene and grooming. Behavior: Patient is seated without any agitated behavior. Speech: Patient's speech is fluent and nonpressured. concrete and monotone Mood/Affect: Patient reports their mood is "ok", affect is congruent and constricted. Suicidality/Homicidality: Admits to suicidal ideations, no intent or plan. denies any HI. Perceptions: Patient denies any visual hallucinations and denies any auditory hallucinations Though content/process: There is no evidence of any delusional thought content and thought process is linear and goal-directed. concrete Memory and concentration: AOX3, grossly intact for the purposes of this session Judgment and insight: improving mildly IMPRESSIONS: Depressive disorder NOS antisocial personality traits cannabis use disorder nicotine dependence homelessness Plan: -Patient continues to meet criteria for inpatient psychiatric admission for symptom stabilization and safety. Patient has signed adult voluntary form and medication consent and was placed in patient's chart. -Medications: Zyprexa by mouth 7.5 mg daily at bedtime for mood stabilization/sleep. prozac 60 mg daily for mood/anxiety. -When necessary Ativan and Haldol for agitation/aggression. -NRT - nicotine patch -SW on board for discharge planning. Encouraged the patient to participate in milieu. SW to help arrange discharge planning to jail possibly vs motel. likely discharge tomorrow.
[2021-12-29 13:04] LABS: Glucose,Whole Blood 327 mg/dL (70-110)
[2021-12-29 17:54] LABS: Glucose,Whole Blood 148 mg/dL (70-110)
[2021-12-29 20:00] LABS: Glucose,Whole Blood 239 mg/dL (70-110)
[2021-12-29] MEDS: OLANZapine 7.5 MG TAB PO SCH (20:00)
[2021-12-30 07:13] VITALS: BP 132/77; PULSE 62; RESP 14; TEMP 97.8
[2021-12-30 07:46] LABS: Glucose,Whole Blood 67 mg/dL (70-110)
[2021-12-30 08:05] LABS: Glucose,Whole Blood 115 mg/dL (70-110)
[2021-12-30] MEDS: INSULIN ASPART (NovoLOG) 100 UNIT/ML VIAL SQ SCH ×2 (08:21→14:18)
[2021-12-30] MEDS: LORATADINE 10 MG TAB PO SCH (08:24)
[2021-12-30] MEDS: NICOTINE 14MG/24HR PATCH TRANSDERM SCH (08:24)
[2021-12-30] MEDS: ASPIRIN 81 MG PO SCH (08:24)
[2021-12-30] MEDS: amLODIPine 10 MG TAB PO SCH (08:24)
[2021-12-30] MEDS: FLUoxetine HCL 20 MG CAP PO SCH (08:24)
[2021-12-30] MEDS: glipiZIDE 10 MG TAB PO SCH (08:25)
[2021-12-30] MEDS: OXYBUTYNIN CHLORIDE 5 MG TAB PO SCH (08:25)
[2021-12-30] MEDS: ATORVASTATIN 80 MG TAB PO SCH (08:25)
--- NOTE | 2021-12-30 09:53 | P.DS ---
Providers Date of admission: 12/27/21 04:35 Expected date of discharge: 12/30/21 Attending physician: Daquan Melo MD Consults: 12/27/21 04:39 Consult Physician Routine Consulting Provider: Makenna Marie Consult Reason/Comments: For H & P for Medical Follow Up Do you want consulting provider notified?: Yes, Notify in am Primary care physician: Fatuma Suárez - Discharge Diagnosis(es) (1) Depressive disorder Current Visit: Yes Status: Acute Priority: High (2) Antisocial personality disorder Current Visit: Yes Status: Acute Priority: Medium (3) Cannabis use disorder Current Visit: Yes Status: Acute Priority: Medium (4) Nicotine dependence Current Visit: Yes Status: Acute Priority: Low (5) Homelessness Current Visit: Yes Status: Acute Priority: High Hospital Course: Admission HPI: Admission note was completed by property underwriter "patient is a 61-year-old male who has a history of depression, currently homeless, is single and no kids. Patient presented to the hospital late last night complaining of suicidal ideations and depression. Patient was [facility] yesterday and was homeless and supposed to either go to a motel or his ex girlfriends house. Patient was admitted voluntarily to mental health unit. patient was discharged yesterday on zyprexa and prozac. Patient was seen today laying in bed and was agreeable to speak to property underwriter. He continues to be fairly evasive and guarded about what had occurred. He was also fairly manipulative. He states that he is "homeless" and claims that he does not have his check until December 29. He states that he went to his ex-girlfriend's house however she did not allow him to stay with her at this time. She states that he then felt "suicidal and depressed". He states that he called the police picked him up and took him back to the hospital. He claims that he is still feeling "hopeless" and perseverate s/focused on his homelessness. We spoke about other options including intermediate which patient appeared to be somewhat agreeable to. Claims that he did not sleep well last night as he got into the hospital at 2 AM. he has a poor appetite at this time. At this time patient denies any auditory or visual hallucinations. Patient denies any flight of ideas racing thoughts and increased in goal directed behavior. Patient admits to using marijuana daily, cigarettes daily." Hospital course: Upon admission to the unit patient was directable and agreeable to commence treatment and signed adult voluntary form . Patient got along well with other patients on the unit and followed unit protocol. Patient was compliant with the medications and denied any side effects throughout hospital course. Patient was started on his home dose of Zyprexa 7.5 mg daily at bedtime for mood stabilization/sleep, Prozac was increased to 60 mg daily for mood/anxiety. Patient spoke of his stressors however did not show much motivation to attend many groups. Patient was also seen by medical team for history and physical exam. Throughout the course of the hospitalization patient gradually improved with regards to mood, anxiety, sleep and returned back to their baseline level of functioning. On the day of discharge patient denied any suicidal or homicidal ideations intent or plan denied any auditory or visual hallucinations. Patient endorsed wanting to live for his future and to find home. The patient denied any access to guns or weapons. Patient denied any paranoia and did not endorse any delusions. Patient does have a significant history of substance abuse and was counseled on abstaining from all substances including alcohol and marijuana. Patient elected to do outpatient substance use treatment program through [facility]. Patient was also counseled on the medications and need for regular compliance and was encouraged to follow-up with their outpatient appointment for mental health and also for primary care. SW to help refer patient to either low cost motel or intermediate. Mental status exam: General Appearance: Patient appears to be stated age is alert, pleasant, and cooperative. Patient is in no acute distress and has improved hygiene and grooming Behavior: Patient is calm, without any agitated behavior. cooperative Speech: Patient's speech is fluent and nonpressured. Mood/Affect: Patient reports their mood is "alright", affect is congruent and constricted Suicidality/Homicidality: Patient denies having any suicidal or homicidal ideation intent or plan. Perceptions: Patient denies any auditory or visual hallucinations. Though content/process: There is no evidence of any delusional thought content and thought process is linear and goal-directed. concrete Memory and concentration: AOX3, grossly intact for the purposes of this session. Can spell "WORLD" backwards correctly. Judgment and insight: chronically poor, however has improved with guarded prognosis Impression: Depressive disorder unspecified Cannabis use disorder Antisocial personality disorder Homelessness Nicotine dependence Plan: -Continue with discharge today as patient has improved and stabilized psychiatri donald and is not currently an imminent threat to himself and/or others. Patient will remain at chronically elevated risk for harm to self and/or others due to his impulsivity -Continue medications: Continued with Zyprexa 7.5 mg daily at bedtime for mood stabilization/sleep, Prozac 60 mg daily for mood/anxiety. -Patient was counseled on the need for medication compliance and appropriate follow-up at mental health and also primary care for medical issues. Patient verbalized understanding and agreed. -Social work to help with discharge planning today to either motel or intermediate referral. Social work also to arrange for patients follow up appointments with [facility] for psychiatric care along with follow up with primary care provider. -Patient counseled on abstaining from recreational drugs and marijuana and alcohol. Was informed/educated on the adverse effects on their physical and mental health. Patient verbally agreed and understood. -Patient was instructed to return to the hospital or seek immediate medical care if their psychiatric or medical symptoms do worsen or reoccur. Allergies Allergy/AdvReac Type Severity Reaction Status Date / Time No Known Allergies Allergy Verified 12/27/21 04:47 Laboratory Results POC Glucose (mg/dL) 115 mg/dL (70-110) H 12/30/21 08:04 POC Glu Emergency Management Consultant ID Mei Gonzales 12/30/21 08:04 Coronavirus (PCR) Not Detected (Not Detectd) 12/27/21 03:27 Vital Signs Temp 97.8 F 12/30/21 06:58 Pulse 62 12/30/21 06:58 Resp 14 12/30/21 06:58 BP 132/77 12/30/21 06:58 Pulse Ox 98 12/30/21 06:58 FiO2 Patient Condition at Discharge: Stable Plan - Discharge Summary New Discharge Prescriptions: New Nicotine 14Mg/24Hr Patch [Habitrol] 1 patch TRANSDERM DAILY 14 Days patch FLUoxetine HCL [PROzac] 60 mg PO DAILY 30 Days cap Continue Insulin Glargine,Hum.rec.anlog [Lantus Solostar Pen] 70 unit SQ DAILY Albuterol Sulfate [Proair Hfa] 1 - 2 puff INHALATION RT-Q6H PRN #1 each PRN Reason: Shortness Of Breath glipiZIDE [Glucotrol] 10 mg PO BID 30 Days tab Atorvastatin [Lipitor] 80 mg PO DAILY 30 Days tab amLODIPine [Norvasc] 10 mg PO DAILY 30 Days #30 tab OLANZapine [ZyPREXA] 7.5 mg PO HS 30 Days tab Aspirin [Adult Low Dose Aspirin EC] 81 mg PO DAILY 30 Days tab Loratadine [Claritin] 10 mg PO DAILY 30 Days tab Oxybutynin Chloride [Ditropan] 5 mg PO BID 30 Days tab Discontinued Insulin Glargine,Hum.rec.anlog [Lantus Solostar Pen] 50 units SQ DAILY #2 each Nicotine 14Mg/24Hr Patch [Habitrol] 1 patch TRANSDERM DAILY 14 Days patch FLUoxetine HCL [PROzac] 40 mg PO DAILY 30 Days cap Mirtazapine [Remeron] 15 mg PO HS 30 Days tab Discharge Medication List Insulin Glargine,Hum.rec.anlog [Lantus Solostar Pen] 70 unit SQ DAILY 11/24/20 [History] Albuterol Sulfate [Proair Hfa] 1 - 2 puff INHALATION RT-Q6H PRN #1 each 12/26/21 [Rx] Aspirin [Adult Low Dose Aspirin EC] 81 mg PO DAILY 30 Days tab 12/30/21 [Rx] Atorvastatin [Lipitor] 80 mg PO DAILY 30 Days tab 12/30/21 [Rx] FLUoxetine HCL [PROzac] 60 mg PO DAILY 30 Days cap 12/30/21 [Rx] Loratadine [Claritin] 10 mg PO DAILY 30 Days tab 12/30/21 [Rx] Nicotine 14Mg/24Hr Patch [Habitrol] 1 patch TRANSDERM DAILY 14 Days patch 12/30/21 [Rx] OLANZapine [ZyPREXA] 7.5 mg PO HS 30 Days tab 12/30/21 [Rx] Oxybutynin Chloride [Ditropan] 5 mg PO BID 30 Days tab 12/30/21 [Rx] amLODIPine [Norvasc] 10 mg PO DAILY 30 Days #30 tab 12/30/21 [Rx] glipiZIDE [Glucotrol] 10 mg PO BID 30 Days tab 12/30/21 [Rx] Follow up Appointment(s)/Referral(s): [facility] [Outside] - 12/30/21 12:00 pm (Intake) Fatuma Suárez MD [Primary Care Provider] - 1-2 days Patient Instructions/Handouts: Depression (DC) Activity/Diet/Wound Care/Special Instructions: Avoid the use of street drugs and alcohol. Take all prescriptions as prescribed. When you are in need of refills on your medications, please contact your medical provider and/or outpatient psychiatrist to have this done. Please go to scheduled outpatient appointment for aftercare treatment. If symptoms return or become worse, call the crisis line at and/or go to the nearest emergency room for evaluation. Discharge Disposition: OTHER INSTITUTION NOT DEFINED
== END 2021-12-30 15:40 | disposition other institution (70) | DRG 881 ==
LOC: EC 23:25 → 3MHU 12-27 04:35
PROVIDERS: ADMIT Psychiatry & Neurology Psychiatry; ATTEND Psychiatry & Neurology Psychiatry
DX: F32.9 Major depressive disorder, single episode, unspecified (principal); R45.851 Suicidal ideations; E11.42 Type 2 diabetes mellitus with diabetic polyneuropathy; E78.5 Hyperlipidemia, unspecified; F12.90 Cannabis use, unspecified, uncomplicated; F17.210 Nicotine dependence, cigarettes, uncomplicated; F41.9 Anxiety disorder, unspecified; F60.2 Antisocial personality disorder; G47.33 Obstructive sleep apnea (adult) (pediatric); I10 Essential (primary) hypertension; J44.9 Chronic obstructive pulmonary disease, unspecified; M06.9 Rheumatoid arthritis, unspecified; Z59.00 Homelessness unspecified; Z79.4 Long term (current) use of insulin; Z79.82 Long term (current) use of aspirin; Z79.84 Long term (current) use of oral hypoglycemic drugs; Z79.899 Other long term (current) drug therapy; Z86.73 Personal history of transient ischemic attack (TIA), and cerebral infarction without residual deficits; Z96.1 Presence of intraocular lens; Z20.822 Contact with and (suspected) exposure to COVID-19
CPT/HCPCS: 82075; 87635; 99285

== ENCOUNTER 2022-05-07 20:22 | Emergency (ER) | payer OTHER ==
[2022-05-07 20:29] VITALS: BP 160/84; PULSE 73; RESP 16; TEMP 98.4
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
--- NOTE | 2022-05-07 23:00 | XR ---
EXAMINATION TYPE: XR tibia fibula bilateral DATE OF EXAM: 05/07/2022 COMPARISON: NONE HISTORY: Leg pain TECHNIQUE: 4 views each side. FINDINGS: Ankle mortise is anatomic there is spurring of the anterior patella bilaterally. There is v ascular calcification fracture seen. There is mild spurring of the femoral and tibial condyles bilate rally. IMPRESSION: No fracture. Mild osteoarthritis of the knee joints.
--- NOTE | 2022-05-07 23:02 | XR ---
EXAMINATION TYPE: XR knee complete bilateral DATE OF EXAM: 05/07/2022 COMPARISON: NONE HISTORY: Leg pain TECHNIQUE: 3 views each knee FINDINGS: There is some hypertrophic spurring of the femoral and tibial condyles. No fracture nor dis location. There is some sclerosis in the medial femoral condyle of the right knee that could relate t o bone infarct. There is small left sided knee joint effusion. There is mild vascular calcification. IMPRESSION: Osteoarthritis. Small left knee joint effusion. No fracture.
== END 2022-05-08 07:02 | disposition home or self-care (01) ==
LOC: EC 20:22
DX: S80.212A Abrasion, left knee, initial encounter (principal); S80.211A Abrasion, right knee, initial encounter; E11.40 Type 2 diabetes mellitus with diabetic neuropathy, unspecified; I10 Essential (primary) hypertension; E78.5 Hyperlipidemia, unspecified; J44.9 Chronic obstructive pulmonary disease, unspecified; M06.9 Rheumatoid arthritis, unspecified; F17.200 Nicotine dependence, unspecified, uncomplicated; F12.90 Cannabis use, unspecified, uncomplicated; Z86.73 Personal history of transient ischemic attack (TIA), and cerebral infarction without residual deficits; Z79.4 Long term (current) use of insulin; Z79.84 Long term (current) use of oral hypoglycemic drugs; Z79.899 Other long term (current) drug therapy; W07.XXXA Fall from chair, initial encounter
CPT/HCPCS: 10060; 82075

== ENCOUNTER 2022-05-29 12:05 | Emergency (ER) | payer OTHER ==
[2022-05-29 12:21] LABS: Glucose,Whole Blood 147 mg/dL (70-110)
[2022-05-29] MEDS ORDERED: SODIUM CHLORIDE 0.9% 1,000 ML IV ONE (12:39)
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
[2022-05-29 13:14] LABS: Basophils % (A) 0 %; Eosinophils # (A) 0.1 k/uL (0-0.7); Eosinophils % (A) 1 %; HCT 34.4 % (39.0-53.0); HGB 11.5 gm/dL (13.0-17.5); Lymphocytes # (A) 1.9 k/uL (1.0-4.8); Lymphocytes % (A) 24 %; MCH 29.5 pg (25.0-35.0); MCHC 33.4 g/dL (31.0-37.0); Mean Platelet Volume 10.4; Monocytes # (A) 0.3 k/uL (0-1.0); Monocytes % (A) 4 %; Neutrophils # (A) 5.5 k/uL (1.3-7.7); Neutrophils % (A) 70 %; Platelet Count 197 k/uL (150-450); RBC 3.89 m/uL (4.30-5.90); RDW 13.9 % (11.5-15.5); WBC 7.9 k/uL (3.8-10.6)
[2022-05-29 13:15] LABS: Albumin 2.8 g/dL (3.5-5.0); Calcium 8.3 mg/dL (8.4-10.2); Potassium 4.1 mmol/L (3.5-5.1); Total Bilirubin 0.3 mg/dL (0.2-1.3); Total Protein 5.1 g/dL (6.3-8.2)
[2022-05-29 13:16] LABS: MCV 88.2 fL (80.0-100.0)
--- NOTE | 2022-05-29 13:23 | XR ---
EXAMINATION TYPE: XR chest 2V DATE OF EXAM: 05/29/2022 COMPARISON: NONE TECHNIQUE: PA and lateral views submitted. HISTORY: Difficulty breathing FINDINGS: The lungs are clear and there is no pneumothorax, pleural effusion, or focal pneumonia. Heart size normal and no overt failure. Osseous structures demonstrate hypertrophic and degenerative changes of the spine. Hyperinflation suggests COPD. AC joint arthropathy. IMPRESSION: 1. No acute process.
[2022-05-29 14:39] LABS: Glucose,Whole Blood 137 mg/dL (70-110)
[2022-05-29 14:45] VITALS: RESP 18
[2022-05-29 17:16] LABS: Cocaine Screen,Urine Not Detected (NotDetected); Phencyclidine Screen,Urine Not Detected (NotDetected); Urn Cannabinoid Scrn Detected (NotDetected)
[2022-05-29 17:17] LABS: Amphetamine Screen,Urine Not Detected (NotDetected); Barbiturate Screen,Urine Not Detected (NotDetected); Benzodiazepines Screen,Urine Not Detected (NotDetected); Methadone Screen, Urine Not Detected (NotDetected); Opiate Screen,Urine Not Detected (NotDetected); Oxycodone Screen, Urine Not Detected (NotDetected); Tricyclic Antidepressant,Urine Not Detected (NotDetected)
[2022-05-29 18:00] VITALS: BP 161/83; PULSE 67; TEMP 98
== END 2022-05-29 18:00 | disposition home or self-care (01) ==
LOC: EC 12:05
DX: E11.649 Type 2 diabetes mellitus with hypoglycemia without coma (principal); F43.21 Adjustment disorder with depressed mood; E78.5 Hyperlipidemia, unspecified; J44.9 Chronic obstructive pulmonary disease, unspecified; I63.9 Cerebral infarction, unspecified; I10 Essential (primary) hypertension; E11.40 Type 2 diabetes mellitus with diabetic neuropathy, unspecified; F17.200 Nicotine dependence, unspecified, uncomplicated; E11.36 Type 2 diabetes mellitus with diabetic cataract; F12.90 Cannabis use, unspecified, uncomplicated; Z79.4 Long term (current) use of insulin; Z79.84 Long term (current) use of oral hypoglycemic drugs; Z90.49 Acquired absence of other specified parts of digestive tract; Z90.89 Acquired absence of other organs; Z59.00 Homelessness unspecified; Z86.73 Personal history of transient ischemic attack (TIA), and cerebral infarction without residual deficits
CPT/HCPCS: 36415; 71046; 80053; 80306; 82075; 84484; 85025; 93005; 96360; 99285

== ENCOUNTER 2022-06-05 12:53 | Emergency (ER) | payer OTHER ==
[2022-06-05 13:16] VITALS: RESP 16
[2022-06-05] MEDS ORDERED: SULFAMETHOX-TMP 800-160MG 1 EACH TAB PO STA (14:46)
[2022-06-05] MEDS ORDERED: IBUPROFEN 600 MG TAB PO STA (14:46)
[2022-06-05] MEDS ORDERED: ACETAMINOPHEN TAB 325 MG TAB PO STA (14:46)
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
[2022-06-05] MEDS ORDERED: SULFAMETH-TMP DS STARTER PACK 2 TAB BTL PO STA (17:43)
[2022-06-05 18:25] VITALS: BP 162/84; PULSE 70; TEMP 98.1
== END 2022-06-05 18:56 | disposition home or self-care (01) ==
LOC: EC 12:53
DX: L02.31 Cutaneous abscess of buttock (principal); R45.851 Suicidal ideations; J44.9 Chronic obstructive pulmonary disease, unspecified; I10 Essential (primary) hypertension; M06.9 Rheumatoid arthritis, unspecified; E78.5 Hyperlipidemia, unspecified; E11.9 Type 2 diabetes mellitus without complications; Z86.73 Personal history of transient ischemic attack (TIA), and cerebral infarction without residual deficits; F41.9 Anxiety disorder, unspecified; F32.A Depression, unspecified; F17.200 Nicotine dependence, unspecified, uncomplicated; F12.90 Cannabis use, unspecified, uncomplicated; Z79.4 Long term (current) use of insulin; Z79.899 Other long term (current) drug therapy
CPT/HCPCS: 82075; 99285

== ENCOUNTER 2022-06-08 16:01 | Emergency (ER) | payer OTHER ==
[2022-06-08 16:12] VITALS: TEMP 99
[2022-06-08] MEDS ORDERED: SODIUM CHLORIDE 0.9% 1,000 ML IV STA (16:49)
[2022-06-08 17:14] LABS: Basophils % (A) 0 %; Eosinophils # (A) 0.2 k/uL (0-0.7); Eosinophils % (A) 2 %; HGB 12.8 gm/dL (13.0-17.5); Lymphocytes # (A) 1.4 k/uL (1.0-4.8); Lymphocytes % (A) 14 %; MCH 29.3 pg (25.0-35.0); MCHC 32.9 g/dL (31.0-37.0); MCV 89.1 fL (80.0-100.0); Mean Platelet Volume 8.6; Monocytes # (A) 0.6 k/uL (0-1.0); Monocytes % (A) 6 %; Neutrophils # (A) 7.3 k/uL (1.3-7.7); Neutrophils % (A) 77 %; Platelet Count 245 k/uL (150-450); RBC 4.37 m/uL (4.30-5.90); RDW 14.1 % (11.5-15.5); WBC 9.6 k/uL (3.8-10.6)
[2022-06-08 17:30] LABS: Albumin 3.2 g/dL (3.5-5.0); Calcium 8.5 mg/dL (8.4-10.2); Magnesium 2.1 mg/dL (1.6-2.3); Total Bilirubin 0.2 mg/dL (0.2-1.3); Total Protein 5.7 g/dL (6.3-8.2)
[2022-06-08 17:31] LABS: Prothrombin Time 10.6 sec (9.0-12.0)
[2022-06-08 17:35] LABS: Partial Thromboplastin Time 21.5 sec (22.0-30.0)
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
[2022-06-08] MEDS ORDERED: SODIUM CHLORIDE 0.9% 500 ML 500 ML IV ONE (19:08)
--- NOTE | 2022-06-08 20:06 | XR ---
EXAMINATION: XR chest 2V: 06/08/2022 7:20 PM CLINICAL INDICATION: syncope TECHNIQUE: AP and lateral views COMPARISON: 05/29/2022 FINDINGS: The lungs are clear. The pleural spaces are negative. The cardiac silhouette is not enlarged. The remainder of the mediastinal silhouette is unremarkable. The skeletal structures and soft tissues are negative for acute findings. IMPRESSION: No acute radiographic process.
--- NOTE | 2022-06-08 20:07 | XR ---
PROCEDURE: XR Hip LT and AP Pelvis - 3V DATE AND TIME: 06/08/2022 7:21 PM CLINICAL INDICATION: PHH; fall TECHNIQUE: Department protocol COMPARISON: 10/05/2015 FINDINGS: There is no fracture or malalignment. The orthopedic hardware are intact, without periprosthesis lucency. The soft tissues are unremarkable. IMPRESSION: No acute radiographic process.
--- NOTE | 2022-06-08 20:19 | CT ---
EXAMINATION TYPE: CT brain emma downey con DATE OF EXAM: 06/08/2022 COMPARISON: 05/19/2013 HISTORY: Syncope CT DLP: 1638.5 mGycm. Automated Exposure Control for Dose Reduction was Utilized. TECHNIQUE: CT scan of the head and cervical spine are performed without contrast. FINDINGS: There is no acute intracranial hemorrhage, mass effect, or midline shift identified. There is focal encephalomalacia in the right cerebral hemisphere consistent with remote infarction. There i s no definite new attenuation defect. The ventricles and sulci are within normal limits in size. The globes are intact and the visualized sinuses are clear. Cervical spine is visualized in its entirety from C1 through upper thoracic levels and demonstrates s atisfactory alignment without evidence of acute fracture or dislocation. Prevertebral soft tissue ap pears within normal limits. There are markedly advanced cervical spondylosis changes at several level s, most advanced at C5-6. The C1-C2 articulation is unremarkable. IMPRESSION: 1. There is no acute fracture or dislocation evident in the cervical spine. 2. No acute intracranial hemorrhage, mass effect, or midline shift is seen.
[2022-06-08 21:05] VITALS: BP 132/74; PULSE 73; RESP 18
== END 2022-06-08 21:31 | disposition home or self-care (01) ==
LOC: EC 16:01
DX: I95.1 Orthostatic hypotension (principal); E86.0 Dehydration; I10 Essential (primary) hypertension; J44.9 Chronic obstructive pulmonary disease, unspecified; G47.33 Obstructive sleep apnea (adult) (pediatric); E78.5 Hyperlipidemia, unspecified; E11.36 Type 2 diabetes mellitus with diabetic cataract; F41.9 Anxiety disorder, unspecified; F32.A Depression, unspecified; F12.90 Cannabis use, unspecified, uncomplicated; F17.200 Nicotine dependence, unspecified, uncomplicated; Z79.4 Long term (current) use of insulin; Z79.899 Other long term (current) drug therapy; Z90.49 Acquired absence of other specified parts of digestive tract
CPT/HCPCS: 36415; 70450; 71046; 72125; 73502; 80053; 83735; 84484; 85025; 85610; 85730; 93005; 96360; 96361; 99285

== ENCOUNTER 2022-07-12 15:56 | Emergency (ER) | payer OTHER ==
[2022-07-12 16:08] VITALS: RESP 18; TEMP 97.9
[2022-07-12] MEDS ORDERED: ONDANSETRON ODT 8 MG TAB.RAPDIS PO STA (17:01)
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
--- NOTE | 2022-07-12 17:55 | CT ---
EXAMINATION TYPE: CT brain cspine wo con DATE OF EXAM: 07/12/2022 COMPARISON: Trauma CT June 08, 2022 HISTORY: pain after fall x few days ago. c/o dizziness and neck pain. CT DLP: 1526.5 mGycm. Automated Exposure Control for Dose Reduction was Utilized. TECHNIQUE: CT scan of the head and cervical spine are performed without contrast. FINDINGS: There is no acute intracranial hemorrhage or midline shift identified. Mild ventricular a nd sulcal prominence. Moderate low-attenuation in the deep and periventricular white matter. Old inf arct inferior right cerebellar hemisphere axial image 13 redemonstrated. Bilateral aphakia redemonstr ated. Paranasal sinuses remain clear. The calvarium is intact. Cervical spine is visualized in its entirety from C1 through upper thoracic levels and we demonstrate s slight grade 1 retrolisthesis C5 on C6 without evidence of acute fracture or dislocation. Preverte bral soft tissue remains within normal limits. The C1-C2 articulation remains within normal limits o n the coronal images. Vertebral body heights are preserved. [id number] disc space narrowing and spurring C5-C6 level with posterior spur disc complex effacing anterior thecal sac is redemonstra jose g. Axial images show multilevel uncovertebral facet degenerative changes causing some multilevel bi lateral neural foraminal narrowing greatest at C5-C6 level. Thyroid gland remains within normal limit s. Lung apices show no pneumothorax. IMPRESSION: 1. There is no acute fracture or dislocation evident in the cervical spine. 2. No acute intracranial hemorrhage or midline shift is seen. No significant change from prior.
[2022-07-12] MEDS ORDERED: ONDANSETRON 4 MG ODT STARTER PACK 2 TAB BTL PO STA (18:12)
[2022-07-12 19:08] VITALS: BP 148/72; PULSE 68
== END 2022-07-12 19:08 | disposition home or self-care (01) ==
LOC: EC 15:56
DX: S00.93XA Contusion of unspecified part of head, initial encounter (principal); J44.9 Chronic obstructive pulmonary disease, unspecified; E11.9 Type 2 diabetes mellitus without complications; E78.5 Hyperlipidemia, unspecified; I10 Essential (primary) hypertension; M06.9 Rheumatoid arthritis, unspecified; Z86.73 Personal history of transient ischemic attack (TIA), and cerebral infarction without residual deficits; F41.9 Anxiety disorder, unspecified; F32.A Depression, unspecified; F17.200 Nicotine dependence, unspecified, uncomplicated; F12.90 Cannabis use, unspecified, uncomplicated; Z79.899 Other long term (current) drug therapy; Z79.4 Long term (current) use of insulin; W07.XXXA Fall from chair, initial encounter
CPT/HCPCS: 93005; 72125; 70450; 99285; S0119

== ENCOUNTER 2022-08-04 09:07 | Emergency (ER) | payer OTHER ==
[2022-08-04 09:15] VITALS: RESP 18
[2022-08-04 09:23] LABS: Glucose,Whole Blood 42 mg/dL (70-110)
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
[2022-08-04 09:49] LABS: Glucose,Whole Blood 45 mg/dL (70-110)
[2022-08-04 09:54] LABS: Basophils % (A) 0 %; Eosinophils # (A) 0.3 k/uL (0-0.7); Eosinophils % (A) 3 %; HCT 44.1 % (39.0-53.0); HGB 14.1 gm/dL (13.0-17.5); Lymphocytes # (A) 1.9 k/uL (1.0-4.8); Lymphocytes % (A) 22 %; MCH 28.7 pg (25.0-35.0); MCHC 31.9 g/dL (31.0-37.0); MCV 90.1 fL (80.0-100.0); Mean Platelet Volume 8.4; Monocytes # (A) 0.5 k/uL (0-1.0); Monocytes % (A) 6 %; Neutrophils # (A) 5.8 k/uL (1.3-7.7); Neutrophils % (A) 67 %; Platelet Count 352 k/uL (150-450); RBC 4.89 m/uL (4.30-5.90); WBC 8.6 k/uL (3.8-10.6)
[2022-08-04 10:14] LABS: ALT 22 U/L (4-49); AST 28 U/L (17-59); African American GFR (CKD) 65 (>60 ml/min/1.73 sqM); Albumin 4.2 g/dL (3.5-5.0); Alkaline Phosphatase 152 U/L (38-126); Anion Gap 13 mmol/L; Blood Urea Nitrogen 15 mg/dL (9-20); Calcium 9.1 mg/dL (8.4-10.2); Carbon Dioxide 22 mmol/L (22-30); Chloride 105 mmol/L (98-107); Non-African American GFR(CKD) 56 (>60 ml/min/1.73 sqM); Sodium 140 mmol/L (137-145); Total Bilirubin 0.6 mg/dL (0.2-1.3); Total Protein 7.5 g/dL (6.3-8.2)
[2022-08-04 10:15] LABS: Glucose 35 mg/dL (74-99)
[2022-08-04 10:16] LABS: Potassium 4.8 mmol/L (3.5-5.1)
[2022-08-04 10:35] LABS: Glucose,Whole Blood 68 mg/dL (70-110)
[2022-08-04 12:33] LABS: Appearance,Urine Clear (Clear); Bilirubin,Urine Negative (Negative); Blood,Urine Negative (Negative); Color,Urine Yellow; Glucose,Urine (UA) Negative (Negative); Ketones,Urine Negative (Negative); Leukocyte Esterase,Urine Negative (Negative); Nitrite,Urine Negative (Negative); Protein,Urine 2+ (Negative); RBC,Urine 1 /hpf (0-5); Specific Gravity,Urine 1.006 (1.001-1.035); Squamous Epithelial Cell,Urine <1 /hpf (0-4); Urobilinogen,Urine <2.0 mg/dL (<2.0); WBC,Urine <1 /hpf (0-5)
[2022-08-04 12:43] LABS: Glucose,Whole Blood 98 mg/dL (70-110)
[2022-08-04] MEDS ORDERED: DIPH,PERTUS(ACELL)TETVAC-LF 0.5 ML VIAL IM ONE (13:36)
[2022-08-04] MEDS ORDERED: LIDOCAINE 1% INJ 10MG/ML (30 ML VIAL-PF) SQ ONE (13:37)
[2022-08-04 15:01] VITALS: PULSE 90
[2022-08-04 15:02] VITALS: BP 170/87; TEMP 97.8
== END 2022-08-04 15:15 | disposition home or self-care (01) ==
LOC: EC 09:07
DX: E11.649 Type 2 diabetes mellitus with hypoglycemia without coma (principal); J44.9 Chronic obstructive pulmonary disease, unspecified; E78.5 Hyperlipidemia, unspecified; I10 Essential (primary) hypertension; G47.30 Sleep apnea, unspecified; F41.9 Anxiety disorder, unspecified; F32.A Depression, unspecified; F17.200 Nicotine dependence, unspecified, uncomplicated; F12.90 Cannabis use, unspecified, uncomplicated; Z86.73 Personal history of transient ischemic attack (TIA), and cerebral infarction without residual deficits; Z79.4 Long term (current) use of insulin; Z79.84 Long term (current) use of oral hypoglycemic drugs; Z79.82 Long term (current) use of aspirin; Z79.899 Other long term (current) drug therapy
CPT/HCPCS: 36415; 80053; 81001; 85025; 93005; 99285

== ENCOUNTER → 2023-01-03 | Outpatient (CLI) | payer OTHER ==
[2023-01-03 08:32] LABS: African American GFR (CKD) 51 (>60 ml/min/1.73 sqM); Blood Urea Nitrogen 35 mg/dL (9-20); Non-African American GFR(CKD) 44 (>60 ml/min/1.73 sqM)
--- NOTE | 2023-01-03 09:11 | CT ---
EXAMINATION TYPE: CT abdomen wo con CT DLP: 670 mGycm, Automated exposure control for dose reduction was used. DATE OF EXAM: 01/03/2023 8:59 AM COMPARISON: CT abdomen pelvis 08/08/2017 CLINICAL INDICATION:Male, 62 years old with history of E27.9 DISORDER OF ADRENAL GLAND, UNSPECIFIED; TECHNIQUE: Standard CT of the abdomen following the administration of oral contrast. Coronal and sa gittal reformats were performed. Poor renal function. FINDINGS: LOWER CHEST: The visualized lungs are clear. Mitral annulus calcifications. Mild cardiomegaly. Trace pericardial effusion. Coronary arterial calcifications ABDOMEN LIVER: Unremarkable noncontrast appearance GALLBLADDER AND BILE DUCTS: The gallbladder is surgically absent. PANCREAS: Unremarkable noncontrast appearance SPLEEN: Unremarkable noncontrast appearance ADRENAL GLANDS: Hypodense stable right adrenal gland nodule measuring 1.6 cm with a Hounsfield unit o f 5 consistent with a benign lipid rich adenoma. Stable left adrenal hypodense nodule measuring 3.2 x 2.6 cm with a Hounsfield unit of -5 consistent with a lipid rich adenoma.. KIDNEYS AND URETERS: No hydronephrosis or renal renal calculi. Bilateral renal vascular calcification s. Malrotation of the left kidney. Bilateral subcentimeter hyperdense cortical foci identified. Larg est within the right kidney measures up to 1.7 cm. Right extrarenal pelvis. Circumaortic left renal v ein. STOMACH AND BOWEL: Stomach and duodenum are unremarkable. Enteric contrast reaches the mid small acacia l. No evidence of bowel obstruction. PERITONEUM: No evidence of pneumoperitoneum or free fluid. Stable left paracolic gutter benign indete rminate 2.7 cm cystic lesion. Possible lymphocele. VASCULATURE: Moderate atherosclerotic calcifications are present throughout the abdominal aorta and i ts branches. No evidence of aortic aneurysm. MUSCULOSKELETAL: No acute osseous abnormalities. Remote injury to the right L3 transverse process. De generative changes of the visualized spine. Remote bilateral rib fractures. Chronic anterior wedge co mpression deformity of the L1 vertebral body with approximately 50% height loss and no retropulsion. Grade 1 anterolisthesis of L4-L5 without pars defects. LYMPH NODES: No gross evidence for lymphadenopathy. SOFT TISSUE/ABDOMINAL WALL: Unremarkable IMPRESSION: 1. Stable bilateral adrenal gland nodules consistent with benign lipid rich adenomas. 2. Bilateral hyperdense renal cortical foci likely representing proteinaceous/hemorrhagic cysts. Cons ider further evaluation with renal ultrasound. 3. Chronic anterior wedge compression deformity L1 vertebral body.
== END | disposition home or self-care (01) ==
LOC: RADCTMAIN 07:20
PROVIDERS: ATTEND Family Medicine
DX: E27.9 Disorder of adrenal gland, unspecified (principal); M48.56XA Collapsed vertebra, not elsewhere classified, lumbar region, initial encounter for fracture; N28.89 Other specified disorders of kidney and ureter
CPT/HCPCS: 74150; 82565; 84520

== ENCOUNTER → 2023-01-23 | Outpatient (CLI) | payer OTHER ==
[2023-01-23 13:01] LABS: African American GFR (CKD) 36 (>60 ml/min/1.73 sqM); Blood Urea Nitrogen 42 mg/dL (9-20); Non-African American GFR(CKD) 32 (>60 ml/min/1.73 sqM)
[2023-01-27 16:38] LABS: Metanephrine, Free <25 pg/mL (< OR = 57); Normetanephrine, Free 307 pg/mL (< OR = 148); Total, Free (MN + NMN) 307 pg/mL (< OR = 205)
== END | disposition home or self-care (01) ==
LOC: RADCTMAIN 11:52
PROVIDERS: ATTEND Urology
DX: D35.00 Benign neoplasm of unspecified adrenal gland (principal)
CPT/HCPCS: 82565; 83835; 84520

== ENCOUNTER 2023-05-07 02:34 | Observation (INO) | payer MEDICAID, OTHER ==
[2023-05-07] MEDS: SODIUM CHLORIDE 0.9% 500 ML 500 ML IV STA (02:49)
[2023-05-07 03:08] LABS: Basophils % (A) 0 %; Eosinophils # (A) 0.2 k/uL (0-0.7); Eosinophils % (A) 3 %; HCT 36.9 % (39.0-53.0); HGB 12.2 gm/dL (13.0-17.5); Lymphocytes # (A) 1.9 k/uL (1.0-4.8); Lymphocytes % (A) 24 %; MCH 30.1 pg (25.0-35.0); MCHC 32.9 g/dL (31.0-37.0); MCV 91.4 fL (80.0-100.0); Mean Platelet Volume 9.6; Monocytes # (A) 0.6 k/uL (0-1.0); Monocytes % (A) 7 %; Neutrophils # (A) 5.2 k/uL (1.3-7.7); Neutrophils % (A) 65 %; Platelet Count 218 k/uL (150-450); RBC 4.04 m/uL (4.30-5.90); RDW 14.8 % (11.5-15.5)
[2023-05-07 03:14] LABS: ALT 17 U/L (4-49); AST 19 U/L (17-59); African American GFR (CKD) 58 (>60 ml/min/1.73 sqM); Albumin 2.9 g/dL (3.5-5.0); Alcohol <10 mg/dL; Alkaline Phosphatase 90 U/L (38-126); Anion Gap 6 mmol/L; Blood Urea Nitrogen 34 mg/dL (9-20); Calcium 8.2 mg/dL (8.4-10.2); Carbon Dioxide 20 mmol/L (22-30); Chloride 112 mmol/L (98-107); Glucose 200 mg/dL (74-99); INR 0.9 (<1.2); Lipase 80 U/L (23-300); Magnesium 2.2 mg/dL (1.6-2.3); Non-African American GFR(CKD) 50 (>60 ml/min/1.73 sqM); Potassium 4.2 mmol/L (3.5-5.1); Prothrombin Time 10.3 sec (10.0-12.5); Sodium 138 mmol/L (137-145); Total Bilirubin 0.3 mg/dL (0.2-1.3); Total Protein 5.6 g/dL (6.3-8.2)
[2023-05-07 03:16] LABS: Partial Thromboplastin Time 21.2 sec (22.0-30.0)
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
[2023-05-07] MEDS ORDERED: NALOXONE 0.4 MG/ML 1 ML VIAL IV PRN (06:41)
[2023-05-07] MEDS: ASPIRIN 325 MG TAB PO STA (06:49)
--- NOTE | 2023-05-07 07:23 | XR ---
EXAM: XR Chest, 2 Views CLINICAL HISTORY: Reason: Chest Pain TECHNIQUE: Frontal and lateral views of the chest. COMPARISON: 06/08/22 FINDINGS: Lungs: There is no evidence of airspace consolidation. No pulmonary edema. Pleural space: Unremarkable. No pneumothorax. No significant pleural effusions. Heart: Unremarkable. No cardiomegaly. Mediastinum: Unremarkable. Normal mediastinal contour. Bones/joints: Unremarkable. No acute fracture. IMPRESSION: There is no evidence of acute cardiopulmonary abnormality.
[2023-05-07 19:32] LABS: NT-Pro-B-Type Natriuretic Pept 827 pg/mL
--- NOTE | 2023-05-07 20:06 | CT ---
EXAMINATION TYPE: CT chest wo con CT DLP: 382.4 mGycm, Automated exposure control for dose reduction was used. DATE OF EXAM: 05/07/2023 7:12 PM COMPARISON: Chest radiograph from same day. CLINICAL INDICATION:Male, 62 years old with history of cp; PHH, chest pain TECHNIQUE: Multiple axial images were obtained through the chest. Sagittal and coronal reformats were created for review. Contrast used: mL of (None if empty) Oral contrast used: (None if empty) FINDINGS: LUNGS/ PLEURA: No focal consolidation, pneumothorax or pleural fusion. Streaky atelectasis and/or sca rring noted most pronounced on the left upper lung. AIRWAY: Patent and unremarkable. HEART: The heart is mildly enlarged for size. There is severe coronary artery atherosclerosis. MEDIASTINUM: No gross evidence of adenopathy. VASCULATURE: No aortic aneurysm. MUSCULOSKELETAL: Multilevel degeneration changes throughout the spine with stable appearing L1 verteb ral body superior endplate deformity. Remote injury to right rib 8 anterior laterally. And on the lef t. SOFT TISSUES/LYMPH NODES: Unremarkable. LOWER NECK: No significant findings. UPPER ABDOMEN: Indeterminate right renal cyst measuring up to 47 Hounsfield units and 17 mm. Stable a ppearance of the hands dating back to 2019. IMPRESSION: 1. No evidence for acute thoracic process. 2. Severe coronary artery atherosclerosis. 3. Stable indeterminate right renal lesions from 01/03/2023. This can be completely characterized wit h MRI if not already performed. Not well appreciated on prior in 2018 but stable from 01/03/2023.
[2023-05-07] MEDS ORDERED: DEXTROSE 50% SYRINGE 50 ML IVP PRN ×2 (22:41)
[2023-05-07] MEDS: IPRATROPIUM-ALBUTEROL 3 ML NEB INHALATION SCH (23:13)
--- NOTE | 2023-05-07 23:47 | CT ---
EXAM: CT Angiography Chest With Intravenous Contrast CLINICAL HISTORY: ITS.REASON CT Reason: elevated D-dimer TECHNIQUE: Axial computed tomographic angiography images of the chest with intravenous contrast. CTDI is 13.9 mGy and DLP is 382.2 mGy-cm. This CT exam was performed using one or more of the following dose reduction techniques: automated exposure control, adjustment of the mA and/or kV according to patient size, and/or use of iterative reconstruction technique. MIP reconstructed images were created and reviewed. COMPARISON: No relevant prior studies available. FINDINGS: LUNGS: No focal consolidation, pleural effusion, or pneumothorax. Atelectasis at the lung bases. HEART: Cardiomegaly. VASCULATURE: No acute pulmonary embolism. Atherosclerotic changes of the aorta. THYROID: Within normal limits. MEDIASTINUM + LYMPH NODES: There are no pathologically enlarged mediastinal, hilar, or axillary lymph nodes. SUPERIOR ABDOMEN: Hepatic steatosis. MUSCULOSKELETAL: Degenerative changes. IMPRESSION: No acute pulmonary embolism.
[2023-05-08] MEDS: INSULIN ASPART (NovoLOG) 100 UNIT/ML VIAL SQ SCH ×2 (01:42→06:29)
--- NOTE | 2023-05-08 01:49 | HP ---
HISTORY AND PHYSICAL A 62-year-old male comes in with chest pain, moderate, substernal, did not radiate. No nausea, vomiting. He admitted some alcohol. where he is living, some arguments with his roommates. HOME MEDICATIONS: 1. He takes supposedly Lantus 20 units daily. 2. Possibly some inhalers. 3. Pristiq. 4. NovoLog. 5. Nicotine patch. 6. Norvasc 5 daily. 7. Glucotrol 20 b.i.d. 8. Lisinopril. 9. Metformin. 10.Risperdal. 11.Trazodone. he is noncompliant. PAST MEDICAL HISTORY: Chest pain, angina, COPD, CVA, TIA, diabetes mellitus, dyslipidemia, hypertension, rheumatoid arthritis, sleep apnea, did not wear CPAP machine. He has type 2 diabetes mellitus, degenerative disk disease, bilateral carpal tunnel, hiatal hernia, right clavicle fracture. PAST SURGICAL HISTORY: Appendectomy, cholecystectomy, hernia repair, orthopedic surgery, tonsillectomy. SOCIAL HISTORY: Current everyday smoker. Does alcohol. Has anxiety and depression. FAMILY HISTORY: Mother, diabetes mellitus. Father, car accident. PHYSICAL EXAMINATION: VITAL SIGNS: Temperature 97, pulse 84, respiratory rate 18 to 20, blood pressure 148/84, O2 96. CARDIOVASCULAR: S1, S2. LUNGS: Decreased breath sounds x4. HEMATOLOGY: Negative Homans. NEUROLOGIC: Alert and oriented x3. SKIN: Warm, dry, intact. ER saw him, admitted for chest pain. We will get cardiology consult. Echo is pending. D-dimer is pending. CAT scan of his chest will have to be done. EKG shows sinus rhythm. He has negative troponin so far. Wait for Cardiology to be addressed. Possibly get him back on his home medications. Risk factor modification. MMODL / IJN: [id number] /
[2023-05-08 06:28] LABS: Glucose,Whole Blood 131 mg/dL (70-110)
[2023-05-08] MEDS ORDERED: AMINOPHYLLINE 500 MG/20 ML VIAL IV PRN (07:34)
[2023-05-08] MEDS ORDERED: CAFFEINE CITRATE 60 MG/3 ML VIAL IV PRN (07:34)
[2023-05-08] MEDS ORDERED: REGADENOSON 0.4 MG/5 ML SYRINGE IV PRN (08:00)
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
--- NOTE | 2023-05-08 11:30 | P.PN ---
Progress Note - Text Progress Note Date: 05/08/23 Patient Name: David Montejo Date of : 1960 Patient Status: Observation Attending Provider: Davon Rodrigues Date: 05/08/23 62-year-old male presents for evaluation of chest discomfort. Patient states that there was moderate substernal chest pain which did not radiate. No associated vomiting or diaphoresis. Patient does admit to alcohol consumption. He states that he is also not happy with where he is living that has had some arguments with his roommates. He is a current cigarette smoker and smokes 2 packs/day. Patient also reports marijuana use and frequent alcohol use. Patient also apparently reported suicidal ideations. He has a patient safety coordinator at the bedside and psychiatry has been consulted. A psychiatric consultation was requested to assess the patient for his suicidal ideations Patient however was unavailable at this time and had gone from the unit for stress test The nursing reports that the patient has been cooperative and has not expressed any suicidal ideations since the initial assessment and has stated that he wants to live and will cooperate with the treatment She reports that the patient is well-known to over unit and that he has had previous psychiatric hospitalizations Return back for evaluation today or tomorrow Adolph Pendleton M.D. 11:30 AM
--- NOTE | 2023-05-08 11:40 | CA ---
Transthoracic Echo Report Name: David Montejo Age: 62 Gender: M : 1960 Exam Date: 05/08/2023 07:40 Exam Location: [place] Echo Ht (in): 71 Wt (lb): 206 Ordering Physician: Davon Rodrigues MD Attending/Referring Phys: Physical Education Specialist Talya Culver RDCS Procedure CPT: Indications: CP Cardiac Hx: Technical Quality: Technically difficult study Contrast 1: Definity Total Dose (mL): 2 Contrast 2: Total Dose (mL): MEASUREMENTS (Male / Female) Normal Values 2D ECHO LV Diastolic Diameter PLAX 4.3 cm 4.2 - 5.9 / 3.9 - 5.3 cm LV Systolic Diameter PLAX 2.6 cm IVS Diastolic Thickness 1.6 cm 0.6 - 1.0 / 0.6 - 0.9 cm LVPW Diastolic Thickness 1.5 cm 0.6 - 1.0 / 0.6 - 0.9 cm LV Relative Wall Thickness 0.7 RV Internal Dim ED PLAX 3.7 cm LA Volume 74.5 cm??? 18 - 58 / 22 - 52 cm??? LA Volume Index 34.1 cm???/m??? 16 - 28 cm???/m??? M-MODE Aortic Root Diameter MM 3.7 cm LA Systolic Diameter MM 4.5 cm LA Ao Ratio MM 1.2 AV Cusp Separation MM 1.6 cm DOPPLER AV Peak Velocity 128.1 cm/s AV Peak Gradient 6.6 mmHg AV Mean Velocity 91.3 cm/s AV Mean Gradient 3.6 mmHg AV Velocity Time Integral 29.9 cm LVOT Peak Velocity 108.1 cm/s LVOT Peak Gradient 4.7 mmHg LVOT Velocity Time Integral 27.2 cm MV Area PHT 1.8 cm??? Mitral E Point Velocity 79.0 cm/s Mitral A Point Velocity 112.1 cm/s Mitral E to A Ratio 0.7 MV Deceleration Time 413.0 ms MV E' Velocity 5.9 cm/s Mitral E to MV E' Ratio 13.3 FINDINGS Left Ventricle Moderately increased left ventricular wall thickness. Left ventricular cavity size normal. Normal left ventricular systolic function with no obvious regional wall motion abnormalities. Left ventricular ejection fraction is estimated at 55-60 %. Right Ventricle Mild right ventricular dilatation. Right ventricular systolic pressure within normal limits. Right Atrium Right atrium not well visualized. Left Atrium Moderately increased left atrial volume. Mildly increased left atrial area. Mitral Valve Structurally normal mitral valve. Mitral valve thickened. No mitral stenosis, regurgitation or prolapse. Aortic Valve Trileaflet aortic valve. No aortic valve stenosis or regurgitation. Tricuspid Valve Structurally normal tricuspid valve. Trace tricuspid regurgitation. Pulmonic Valve Structurally normal pulmonic valve. Pericardium No pericardial effusion. Aorta Normal size aortic root and proximal ascending aorta. CONCLUSIONS Normal LV systolic function Previewed by: Dr. Jackson Lawrence MD (Electronically Signed) Final Date: 08 May 2023 11:40
[2023-05-08 12:09] LABS: Glucose,Whole Blood 175 mg/dL (70-110)
--- NOTE | 2023-05-08 12:25 | CA ---
Lexiscan Nuclear Stress Test Report Name: David Montejo Exam Date: 05/08/2023 10:35 Exam Location: [place] Stress Ht (in): 71 Wt (lb): 206 BSA: 2.14 Ordering Phys: Maria M Rodriguez Referring Phys: BOAZ Technologist: Sohail Dubon Age: 62 Gender: M : 1960 Procedure CPT: Indications: Reflex order-Stress test ICD-10 Codes: Patient History: Medications: SEE CHART Meds past 24 hrs: Pretest Chest Pain: STRESS TEST Lexiscan Protocol Exercise Duration (min:sec): 01:[address] Depressions (mm): Angina Score: Jiang Score: Resting HR (bpm): 59 Peak HR (bpm): 82 Resting BP (mmHg): 153 / 98 Peak BP (mmHg): 171 / 108 MPHR: 156 Target HR: 133 % MPHR: 53 METS: 1.0 Total Dose: Peak Dose: Atropine: Double Product: 27039 BP Response: Stress Termination: INFUSION COMPLETE Stress Symptoms: NO SYMPTOMS Stress Summary: ECG ANALYSIS Resting ECG: Stress ECG: CONCLUSIONS Nondiagnostic stress testing Dr. Jackson Lawrence MD (Electronically Signed) Final Date: 08 May 2023 12:25
[2023-05-08] MEDS: ASPIRIN 81 MG PO SCH (12:47)
[2023-05-08] MEDS: LOSARTAN 25 MG TAB PO SCH (12:47)
--- NOTE | 2023-05-08 13:29 | NM ---
EXAMINATION TYPE: NM stress lexiscan cardiolite DATE OF EXAM: 05/08/2023 COMPARISON: NONE CLINICAL INDICATION: Male, 62 years old with history of CP; TECHNIQUE: After the intravenous administration of 10.1 mCi Tc 99m Sestamibi - Cardiolite resting SP ECT images acquired 65 minutes post injection. The patient received 0.4mg Lexiscan, 25.9 mCi Tc 99m Sestamibi - Stress images obtained [address] injection FINDINGS: Review of stress and rest SPECT images demonstrates no distinct perfusion abnormality. Gated analysi s shows normal wall motion with an estimated left ventricular ejection fraction of 63 %. TID is uppe r limits of normal at 1.17. IMPRESSION: No scintigraphic evidence for reversible ischemia.
[2023-05-08 14:08] VITALS: BMI 28.7
[2023-05-08 16:43] LABS: Chol/HDL Ratio 5.15 Ratio; LDL Cholesterol,Calculated 124.9 mg/dL (0.0-131.0)
[2023-05-08 16:48] LABS: Glucose,Whole Blood 276 mg/dL (70-110)
[2023-05-08] MEDS: DAPAGLIFLOZIN PROPANEDIOL 10 MG TABLET PO SCH (18:04)
--- NOTE | 2023-05-08 19:20 | P.CN ---
Psychiatric Consult - . Consult date: 05/08/23 Consult:: 05/08/23 19:13 Patient Name: David Montejo Date of : 1960 Patient Status: Observation Attending Provider: Davon Rodrigues Date: 05/08/23 11:27 Initialization Date: 05/08/23 11:27 Progress Note - Text Progress Note Date: 05/08/23 Patient Name: David Montejo Date of : 1960 Patient Status: Observation Attending Provider: Davon Rodrigues Date: 05/08/23 62-year-old male presents for evaluation of chest discomfort. Patient states that there was moderate substernal chest pain which did not ra diate. No associated vomiting or diaphoresis. Patient does admit to alcohol consumption. He states that he is also not happy with where he is living that has had some arguments with his roommates. He is a current cigarette smoker and smokes 2 packs/day. Patient also reports marijuana use and frequent alcohol use. Patient also apparently reported suicidal ideations. He has a public safety director at the bedside and psychiatry has been consulted. The patient was available in his room on the second attempt and he was seen in the evening Patient was laying comfortably in bed and watching TV Patient reports that things have been rough for him Patient was asked if he was suicidal when he shook his head and reported that he was homeless Patient states that he has nowhere to go He states that he was living with few friends and that their jokes He says that he is incontinent which most likely was a reason off him being not accepted in the house Patient also reeks of urine and severe body odor Patient however reports that he was not a suicidal if he is placed somewhere He says that he was living with his ex- prior to switching to living in this group Patient was unclear but states that he was to his ex- for 12 years Patient denies having any children 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 Patient did not give any specific details He denies any history of any mental illness although he states that he has been hospitalized on the psychiatric unit several times Patient denies taking any psychotropic medications although there is Haldol and other medications prescribed on a regular basis Mental status examination: Reveals a elderly male who looks much older for age Patient's appearance is unkempt with poor hygiene and severe body odor Speech was clear appropriate to the questions asked although somewhat abrupt and superficial Affect is flat Inkling is concrete Patient reports a conditional suicidal ideations based on his being homeless and also affirms that he would not be suicidal if he were placed Formal and operational judgment and insight remains concrete Denies any auditory or visual hallucinations Cognitively appears to be fair Diagnostic impression: Adjustment disorder with mixed emotional features Schizoaffective disorder unspecified Relationship problems Suicide risk assessment: Low Plan: The patient does not meet the criteria for psychiatric hospitalization and appears to be a situation for him psychosocial services needs Staff reported that the patient already has a director social service involved regarding recommendations for placement Patient at this point does not appear to be in need of one-to-one supervision and does not appear to be high risk to himself or others patient may be continued on his current psychotropic medications as prescribed Encourage improvement in his personal care and hygiene through encouragement and supportive care Will follow this patient along with you Thank you very much) for your kind referral and please contact me if any further questions Adolph Pendleton M.D.
[2023-05-08 20:53] LABS: Glucose,Whole Blood 160 mg/dL (70-110)
[2023-05-08] MEDS: ATORVASTATIN 20 MG TAB PO SCH (21:09)
[2023-05-09 06:10] LABS: Glucose,Whole Blood 115 mg/dL (70-110)
[2023-05-09 11:56] LABS: Glucose,Whole Blood 306 mg/dL (70-110)
[2023-05-09 17:00] LABS: Glucose,Whole Blood 151 mg/dL (70-110)
--- NOTE | 2023-05-09 20:58 | PN ---
PROGRESS NOTE SUBJECTIVE: Came in with chest pain. Cardiology had a stress test. Apparently, he is likely being cleared by them. He has a sitter. Wait for psychiatry to figure out if they are going to take him into the psych [facility] for he has no place to go. For home placement, he can go back to where he lived before. OBJECTIVE: VITAL SIGNS: Temp 98.2, blood pressure 140s over 60s, O2 of 97% on 2 L, pulse 60s, respiratory rate 18 to 20. CARDIOVASCULAR: S1, S2. LUNGS: Clear. GI: Soft. HEMATOLOGY: Negative Homans. PSYCH: Fair mood and affect. ASSESSMENT: Diabetes is under fairly good control on [facility]. Chronic obstructive pulmonary disease is improved with breathing treatments. Cardiology, he had a normal stress test. Wait for psychiatric clearance and social research assistant to find him a place to go home. Otherwise, he should be able to go home soon. MMODL / IJN: [id number] /
[2023-05-09 21:07] LABS: Glucose,Whole Blood 220 mg/dL (70-110)
--- NOTE | 2023-05-09 22:57 | PN ---
PROGRESS NOTE DATE OF SERVICE: 05/08/2023 SUBJECTIVE: A 62-year-old white male, remains on medications for congestive heart failure, diabetes, COPD . Medication compliance discussed with the patient. Cardiology saw him, assessed the heart and says his heart is pretty stable at this time. Vital signs are all reviewed. He got a psych consultation. He passed a stress test. Possible discharge home once he finds a place to go home once he is cleared by psychiatrist and coach mechanic. OBJECTIVE: PSYCH: He appears to be amenable to treatment. He was given appropriate answers. CARDIOVASCULAR: S1, S2. LUNGS: Clear. GI: Soft. HEMATOLOGY: Negative Homans. ASSESSMENT: Diabetes mellitus, uncontrolled with poor followup, noncompliance, chronic obstructive pulmonary disease, nicotine addiction. Wait for Denture Packer and [employer] Commerce Consultant to find him a place to live. He has to be cleared by Cardiology and Psychiatry prior to discharge. MMODL / IJN: [id number] /
[2023-05-10 05:38] LABS: Glucose,Whole Blood 147 mg/dL (70-110)
[2023-05-10 12:22] LABS: Glucose,Whole Blood 179 mg/dL (70-110)
[2023-05-10 17:07] LABS: Glucose,Whole Blood 229 mg/dL (70-110)
[2023-05-10 20:57] LABS: Glucose,Whole Blood 141 mg/dL (70-110)
[2023-05-11 06:01] LABS: Glucose,Whole Blood 159 mg/dL (70-110)
[2023-05-11 12:23] LABS: Glucose,Whole Blood 230 mg/dL (70-110)
[2023-05-11 17:12] LABS: Glucose,Whole Blood 155 mg/dL (70-110)
[2023-05-11] MEDS: SYMBICORT 160-4.5 MCG INHALER INHALATION SCH (20:23)
[2023-05-11 20:35] LABS: Glucose,Whole Blood 306 mg/dL (70-110)
[2023-05-12 06:04] LABS: Glucose,Whole Blood 164 mg/dL (70-110)
[2023-05-12 12:12] LABS: Glucose,Whole Blood 271 mg/dL (70-110)
[2023-05-12 14:12] VITALS: RESP 16
[2023-05-12 17:38] LABS: Glucose,Whole Blood 156 mg/dL (70-110)
[2023-05-12 21:16] LABS: Glucose,Whole Blood 290 mg/dL (70-110)
[2023-05-12] MEDS: traZODone HCL 100 MG TAB PO SCH (21:51)
[2023-05-12] MEDS: risperiDONE 1 MG TAB PO SCH (21:52)
[2023-05-13 06:16] LABS: Glucose,Whole Blood 161 mg/dL (70-110)
[2023-05-13] MEDS: DESVENLAFAXINE SUCCINATE 50 MG TAB.ER.24H PO SCH (08:41)
[2023-05-13 12:17] LABS: Glucose,Whole Blood 253 mg/dL (70-110)
--- NOTE | 2023-05-13 13:21 | P.PN ---
Progress Note - Text Progress Note Date: 05/12/23 Psychiatry consult follow-up note: Interval History: Patient was seen sitting up in bed and finishing his dinner, with sitter at bedside to maintain safety. He was directable and agreeable to speak with life underwriter. He appears withdrawn with poor eye contact. He reports depressed mood, reports medication noncompliance, has not been on his medications in months. He reports poor sleep, anhedonia, low energy, low concentration, low appetite. He endorses suicidal thoughts and states he doesn't want to live. He denies specific plan and denies access to guns or weapons. He states last month he attempted suicide by "not eating and states "it almost worked". He states he doesn't "have a place to go". He states he was staying at a friend's house but states "I ain't going back there, I will kill somebody!" He states they kicked him out and they were calling him names. He states he can't go to a long-term because "they expect too much". Patient denies any auditory, visual hallucinations and denies any paranoia or delusions. Mental Status Exam: General Appearance: Patient appears to be stated age, dressed in hospital gown, fair hygiene/grooming. Behavior: Patient is calmly seated without any agitated behavior, appears withdrawn, poor eye contact. Speech: Patient's speech is fluent and non-pressured. Mood/Affect: Mood is depressed, affect is congruent and constricted. Suicidality/Homicidality: He endorses suicidal thoughts and states he doesn't want to live. He makes vague homicidal statements "I ain't going back there, I will kill somebody!" Perceptions: Patient denies any visual hallucinations and denies any auditory hallucinations. Though content/process: There is no evidence of any delusional thought content and thought process is linear and goal-directed. Memory and concentration: AOX3, grossly intact for the purposes of this session Judgment and insight: Improving mildly Assessment: Major depressive disorder, recurrent severe Schizoaffective disorder, by history Plan: -At this time patient DOES meet criteria for inpatient psychiatric admission. -Would recommend the following medication changes/additions: Start Prestiq 50 mg QAM for depression starting tomorrow AM. Start Risperdal 1 mg QHS for psychosis/mood. Start Trazodone 100 mg QHS for sleep. -Continue 1:1 sitter for safety. -Cannot leave AMA at this time. Patient will need a petition and certification if attempting to leave AMA. -When medically stable, patient is eligible for transfer to a psych bed when available, likely Sunday. -Communicated plan to patient's nurse -Psychiatry will follow loosely until psych bed is available. -Please contact with any questions.
[2023-05-13 17:22] LABS: Glucose,Whole Blood 182 mg/dL (70-110)
--- NOTE | 2023-05-13 17:40 | P.PN ---
Subjective Progress Note Date: 05/13/23 62-year-old male with a past medical history significant for diabetes, nicotine dependence, marijuana use, and frequent alcohol use. Patient does not follow with a cadd drafter. We have been asked to see the patient in consultation for chest pain. Patient examined at the bedside. Patient presented to hospital with a chief complaint of chest pain. Patient states the pain was in the middle of his chest and he describes it as a dull pain. He denied any radiation of the pain. He denied any shortness of breath. He denies any fever cough, or chills. He states that he has increased stress due to his living situation and states his roommates do not want him there and he has been arguing with them which makes the pain worse. At the time of examination he rates the pain 8/10. Patient's blood pressures have been elevated with a systolic greater than 140 since admission. Patient is not prescribed any antihypertensive medications on an outpatient basis. He is a current cigarette smoker and smokes 2 packs/day. Patient also reports marijuana use and frequent alcohol use. Patient also apparently reported suicidal ideations. Objective - Vital Signs Vital signs: Vital Signs Temp 98.3 F 05/13/23 15:15 Pulse 68 05/13/23 15:15 Resp 16 05/13/23 15:15 BP 142/73 05/13/23 15:15 Pulse Ox 96 05/13/23 15:15 FiO2 Intake & Output 05/12/23 05/13/23 05/13/23 18:59 06:59 18:59 Intake Total 708 Balance 708 Weight 93.44 kg Intake: Oral 708 Other: Voiding Method Toilet # Voids 1 1 1 - Exam VITAL SIGNS: Reviewed. GENERAL: Well-developed in no acute distress. HEENT: Head is normocephalic. Pupils are equal, round. Sclerae anicteric. Mucous membranes of the mouth are moist. Neck supple. No JVD or thyromegaly LUNGS: Respirations even and unlabored. Lungs essentially clear to auscultation bilaterally. HEART: Regular rate and rhythm. S1 and S2 heard. ABDOMEN: Soft. Nondistended. Nontender. EXTREMITIES: Normal range of motion. No clubbing or cyanosis. Peripheral pulses intact. No lower extremity edema NEUROLOGIC: Awake and alert. Oriented x 3. - Labs CBC & Chem 7: 05/07/23 02:40 03/11/24 02:40 Labs: Abnormal Lab Results - Last 24 Hours (Table) 05/12/23 05/12/23 05/13/23 Range/Units 17:37 21:15 06:16 POC Glucose (mg/dL) 156 H 290 H 161 H (70-110) mg/dL 05/13/23 05/13/23 Range/Units 12:15 17:20 POC Glucose (mg/dL) 253 H 182 H (70-110) mg/dL Assessment and Plan Assessment: 1. Chest pain --Patient has been ruled out for acute coronary syndrome --Echocardiogram completed on admission reveals normal left ventricular systolic function -Lexiscan stress test completed on 05/08/2023 is negative for reversible ischemia --Patient remains on aspirin, statins in form of Lipitor 80 mg daily and losartan 25 mg daily 2. Suicidal ideation; patient has been evaluated by psychiatry and has been placed on Pristiq 50 mg every morning along with Risperdal 1 mg nightly for ps ychosis and mood, trazodone 100 mg nightly for sleep --Patient does meet criteria for inpatient psych admission 3. Diabetes mellitus type II; patient takes Farxiga 10 mg daily; monitor Accu- Cheks q. CHS with insulin sliding scale 4. Hypertension; losartan 25 mg daily 5. Asthma/COPD; continue with home inhaler therapy 6. Chronic tobacco use; patient counseled on smoking cessation 7. Substance use; marijuana use/ Frequent alcohol use; patient has been encouraged on abstinence from substance use 8. Anxiety/Depression; has been evaluated by psych
[2023-05-13 20:24] LABS: Glucose,Whole Blood 263 mg/dL (70-110)
[2023-05-14 06:14] LABS: Glucose,Whole Blood 112 mg/dL (70-110)
[2023-05-14] MEDS: ACETAMINOPHEN TAB 325 MG TAB PO PRN (08:34)
[2023-05-14 12:03] LABS: Glucose,Whole Blood 235 mg/dL (70-110)
[2023-05-14 15:46] VITALS: BP 128/65; PULSE 69; TEMP 98.3
== END 2023-05-14 15:40 | disposition home or self-care (01) ==
LOC: EC 02:34 → 6NMEDSUR 06:42
PROVIDERS: ADMIT Family Medicine; ATTEND Family Medicine
DX: R07.9 Chest pain, unspecified (principal); R45.851 Suicidal ideations; E11.65 Type 2 diabetes mellitus with hyperglycemia; E11.40 Type 2 diabetes mellitus with diabetic neuropathy, unspecified; I10 Essential (primary) hypertension; F41.9 Anxiety disorder, unspecified; F33.2 Major depressive disorder, recurrent severe without psychotic features; J44.9 Chronic obstructive pulmonary disease, unspecified; E78.5 Hyperlipidemia, unspecified; G47.33 Obstructive sleep apnea (adult) (pediatric); F25.9 Schizoaffective disorder, unspecified; F10.10 Alcohol abuse, uncomplicated; F17.210 Nicotine dependence, cigarettes, uncomplicated; F12.90 Cannabis use, unspecified, uncomplicated; Z86.73 Personal history of transient ischemic attack (TIA), and cerebral infarction without residual deficits; Z91.199 Patient's noncompliance with other medical treatment and regimen due to unspecified reason; Y90.0 Blood alcohol level of less than 20 mg/100 ml; Z79.4 Long term (current) use of insulin; Z79.82 Long term (current) use of aspirin; Z79.899 Other long term (current) drug therapy; Z79.84 Long term (current) use of oral hypoglycemic drugs; Z59.00 Homelessness unspecified; Z11.52 Encounter for screening for COVID-19
CPT/HCPCS: 96360; 99285; 36415; 94640 ×2; 94760 ×2; 93005; 93017; 97161; 97165; 85379; 83880; 80061; 80053; 84443; 83690; 83735; 84484; 85025; 85610; 85730; 83036; 87635; 71046; 71250; 71275; 78452; G0378 ×8; C8929; G0480; A9500; Q9957; J2785; Q9967; 80320; 93306

== ENCOUNTER 2023-05-14 14:24 | Inpatient (IN) | payer MEDICAID ==
[2023-05-14] MEDS ORDERED: LORazepam 1 MG TAB PO PRN (14:48)
[2023-05-14] MEDS ORDERED: MAG HYDROX/AL HYDROX/SIMETH 355 ML BOTTLE PO PRN (14:48)
[2023-05-14] MEDS ORDERED: MAGNESIUM HYDROXIDE 2,400 MG/30 ML CUP PO PRN (14:48)
[2023-05-14] MEDS ORDERED: ACETAMINOPHEN TAB 325 MG TAB PO PRN (14:48)
[2023-05-14] MEDS ORDERED: LORazepam 2 MG/ML INJ IM PRN (14:48)
[2023-05-14 17:52] LABS: Glucose,Whole Blood 221 mg/dL (70-110)
[2023-05-14] MEDS: INSULIN ASPART (NovoLOG) 100 UNIT/ML VIAL SQ SCH (17:53)
[2023-05-14 20:15] LABS: Glucose,Whole Blood 177 mg/dL (70-110)
[2023-05-14] MEDS: SYMBICORT 160-4.5 MCG INHALER (MHU) INHALATION SCH (21:10)
[2023-05-14] MEDS: risperiDONE 1 MG TAB PO SCH (21:12)
[2023-05-14] MEDS: traZODone HCL 100 MG TAB PO SCH (21:12)
[2023-05-14] MEDS: ATORVASTATIN 20 MG TAB PO SCH (21:12)
[2023-05-14] MEDS: SYMBICORT 160-4.5 MCG INHALER INHALATION SCH (21:40)
[2023-05-14 23:47] LABS: Appearance,Urine Clear (Clear); Bilirubin,Urine Negative (Negative); Blood,Urine Negative (Negative); Color,Urine Colorless; Glucose,Urine (UA) 4+ (Negative); Ketones,Urine Negative (Negative); Leukocyte Esterase,Urine Negative (Negative); Nitrite,Urine Negative (Negative); PH, Urine 5.5 (5.0-8.0); Protein,Urine 2+ (Negative); RBC,Urine <1 /hpf (0-5); Specific Gravity,Urine 1.022 (1.001-1.035); Urobilinogen,Urine <2.0 mg/dL (<2.0); WBC,Urine <1 /hpf (0-5)
[2023-05-15 00:09] LABS: Amphetamine Screen,Urine Not Detected (NotDetected); Barbiturate Screen,Urine Not Detected (NotDetected); Benzodiazepines Screen,Urine Not Detected (NotDetected); Cocaine Screen,Urine Not Detected (NotDetected); Methadone Screen, Urine Not Detected (NotDetected); Opiate Screen,Urine Not Detected (NotDetected); Oxycodone Screen, Urine Not Detected (NotDetected); Phencyclidine Screen,Urine Not Detected (NotDetected); Tricyclic Antidepressant,Urine Not Detected (NotDetected); Urn Cannabinoid Scrn Detected (NotDetected)
--- NOTE | 2023-05-15 05:40 | CONS ---
CONSULTATION HISTORY OF PRESENT ILLNESS: A 62-year-old white male, with history of COPD, diabetes, nicotine addiction, homeless, recently got kicked out of his house. We have him on nicotine patch for smoking. We got him on DuoNeb and Symbicort inhaler for his COPD, Farxiga for his diabetes, Lipitor for dyslipidemia. He is stable from medical standpoint. Cozaar has been given for hypertension. Await for Psychiatry to stabilize him. He says he has been recently depressed after being kicked out of his house and is suicidal. He is well known to the psych unit. PHYSICAL EXAMINATION: VITAL SIGNS: Reviewed. CARDIOVASCULAR: S1, S2. LUNGS: Scattered wheeze. HEMATOLOGY: Negative Homans. PSYCH: Poor mood and affect. ASSESSMENT: 1. Chronic obstructive pulmonary disease. 2. Diabetes. 3. Nicotine addiction. 4. Homeless. 5. Depression. 6. Possible suicidal ideation. 7. We first got him on all his home medicines, psych coverage. Await further recommendations. Medically stable. Prognosis guarded. MMODL / IJN: [id number] /
[2023-05-15 07:53] LABS: Glucose,Whole Blood 135 mg/dL (70-110)
[2023-05-15] MEDS: NICOTINE 14MG/24HR PATCH TRANSDERM SCH (07:53)
[2023-05-15] MEDS: ASPIRIN 81 MG PO SCH (07:53)
[2023-05-15] MEDS: DAPAGLIFLOZIN PROPANEDIOL 10 MG TABLET PO SCH (07:54)
[2023-05-15] MEDS: DESVENLAFAXINE SUCCINATE 50 MG TAB.ER.24H PO SCH (07:54)
[2023-05-15] MEDS: LOSARTAN 25 MG TAB PO SCH (07:54)
[2023-05-15] MEDS: IBUPROFEN 600 MG TAB PO PRN (07:56)
[2023-05-15] MEDS ORDERED: traZODone HCL 50 MG TAB PO PRN (11:40)
--- NOTE | 2023-05-15 11:59 | P.HP ---
Psychiatric H&P - . H&P Date: 05/15/23 History & Physical: Allergies Allergy/AdvReac Type Severity Reaction Status Date / Time No Known Allergies Allergy Verified 05/07/23 08:10 Vital Signs Temp 97.3 F L 05/14/23 16:35 Pulse 101 H 05/15/23 07:57 Resp 16 05/14/23 16:35 BP 134/76 05/15/23 07:57 Pulse Ox 98 05/14/23 16:35 FiO2 Intake & Output 05/14/23 05/15/23 05/15/23 18:59 06:59 18:59 Weight 83.3 kg Laboratory Last Values POC Glucose (mg/dL) 135 mg/dL (70-110) H 05/15/23 07:51 POC Glu General Maintenance Mechanic ID Donal Rico 05/15/23 07:51 Urine Color Colorless 05/14/23 23:10 Urine Appearance Clear (Clear) 05/14/23 23:10 Urine pH 5.5 (5.0-8.0) 05/14/23 23:10 Ur Specific [place] 1.022 (1.001-1.035) 05/14/23 23:10 Urine Protein 2+ (Negative) H 05/14/23 23:10 Urine Glucose (UA) 4+ (Negative) H 05/14/23 23:10 Urine Ketones Negative (Negative) 05/14/23 23:10 Urine Blood Negative (Negative) 05/14/23 23:10 Urine Nitrite Negative (Negative) 05/14/23 23:10 Urine Bilirubin Negative (Negative) 05/14/23 23:10 Urine Urobilinogen <2.0 mg/dL (<2.0) 05/14/23 23:10 Ur Leukocyte Esterase Negative (Negative) 05/14/23 23:10 Urine RBC <1 /hpf (0-5) 05/14/23 23:10 Urine WBC <1 /hpf (0-5) 05/14/23 23:10 Urine Opiates Screen Not Detected (NotDetected) 05/14/23 23:10 Ur Oxycodone Screen Not Detected (NotDetected) 05/14/23 23:10 Urine Methadone Screen Not Detected (NotDetected) 05/14/23 23:10 Ur Barbiturates Screen Not Detected (NotDetected) 05/14/23 23:10 U Tricyclic Antidepress Not Detected (NotDetected) 05/14/23 23:10 Ur Phencyclidine Scrn Not Detected (NotDetected) 05/14/23 23:10 Ur Amphetamines Screen Not Detected (NotDetected) 05/14/23 23:10 U Methamphetamines Scrn Not Detected (NotDetected) 05/14/23 23:10 U Benzodiazepines Scrn Not Detected (NotDetected) 05/14/23 23:10 Urine Cocaine Screen Not Detected (NotDetected) 05/14/23 23:10 U Marijuana (THC) Screen Detected (NotDetected) H 05/14/23 23:10 05/15/23 09:00 IDENTIFYING DATA: Patient is a 62-year-old male. was living with roommates, now homeless, unemployed, no children. HPI: Patient presented to the hospital on 05/06, with complaints of chest pain. Patient also made suicidal remarks, which led to psychiatry being consulted on the medical floor. Patient was transferred to the psych unit yesterday. Patient was seen on the medical floors for psychiatric consultation by Dr. Pendleton. Patient states he had a fight with his roommates, and now he has nowhere to go. He states that he has depression and anxiety. Patient states has appetite is good. Patient also claims to have slept well at night. States that he wants to hurt his prior room mates, because they call him names, and states that he may be homicidal towards them however would not state what their names are and denies having any guns or weapons at this time. Today, patient denies any suicidal intent or plan however states that he was feeling suicidal earlier with no specific plan. At this time patient denies any auditory or visual hallucinations. Patient denies any flight of ideas racing thoughts and increased in goal directed behavior. Patient admits to using marijuana, alcohol, and cigarettes. Patient appears to be fairly focused on his pain and to obtain controlled medications. Fairly manipulative and medication seeking. PAST PSYCHIATRIC HISTORY: Patient states that he has been hospitalized in psychiatric units several times. He is also noncompliant with medications upon discharge. He also does not follow-up with appointments. Patient was last seen by [facility] in January 2023 PMH:As per ER note ALLERGIES: as per EMR CHEMICAL DEPENDENCY HISTORY: as per HPI FAMILY PSYCHIATRIC/SUBSTANCE USE HISTORY: denies SOCIAL HISTORY: Patient was born and raised in [facility]. High school graduate. Denies having children. Homeless. Denies legal troubles. MENTAL STATUS EXAM: General Appearance: Patient appears to be older than stated age, is alert, directable, and attempts to cooperate. Patient appears to have very poor hygiene and grooming. Disheveled. Using a walker. Matted hair, and unkempt moraes. Behavior: Patient is seated without any agitated behavior. Manipulative, medication seeking. Speech: Patient's speech is fluent and nonpressured. Monotone Mood/Affect: Patient reports their mood is depressed, affect is congruent and constricted. Restricted. Suicidality/Homicidality: Patient states he has homicidal ideation intent or plan, toward his prior room mates. Denies any suicidal ideations intent or plan Perceptions: Patient denies any visual hallucinations and denies any auditory hallucinations Though content/process: There is no evidence of any delusional thought content and thought process is linear and goal-directed. focused on pain medication. Memory and concentration: AOX3, grossly intact for the purposes of this session. Can spell "WORLD" backwards Judgment and insight: poor STRENGTHS/WEAKNESSES: strength is that patient is resilient. 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 Patient has signed adult voluntary form and medication consent and is placed in patient's chart. -Medications : Will start patient on Depakote 500mg qhs for mood stabilization/agression Pristique 50mg daily for mood/anxiety trazodone 50mg qhs prn for sleep/anxiety, risperdal 1mg qhs for psychosis/mood stabilization -Ativan and Haldol agitation/aggression -Patient was informed of the risks, benefits and side effects of the medication and patient verbally consented to taking the medications. -Internal Medicine consult to perform medical evaluation and physical. -NRT -nicotine patch -Social work on board for discharge planning. Encourage patient to participate in groups to work on coping skills. 05/15/23 11:55
[2023-05-15 12:41] LABS: Glucose,Whole Blood 243 mg/dL (70-110)
[2023-05-15 15:11] LABS: Basophils % (A) 1 %; Eosinophils # (A) 0.1 k/uL (0-0.7); Eosinophils % (A) 2 %; HCT 38.8 % (39.0-53.0); HGB 12.3 gm/dL (13.0-17.5); Lymphocytes # (A) 1.8 k/uL (1.0-4.8); Lymphocytes % (A) 23 %; MCH 29.7 pg (25.0-35.0); MCHC 31.6 g/dL (31.0-37.0); MCV 94.3 fL (80.0-100.0); Monocytes # (A) 0.4 k/uL (0-1.0); Monocytes % (A) 6 %; Neutrophils # (A) 5.1 k/uL (1.3-7.7); Neutrophils % (A) 68 %; Platelet Count 274 k/uL (150-450); RBC 4.12 m/uL (4.30-5.90); RDW 14.5 % (11.5-15.5); WBC 7.6 k/uL (3.8-10.6)
[2023-05-15 15:30] LABS: ALT 13 U/L (4-49); AST 14 U/L (17-59); African American GFR (CKD) 51 (>60 ml/min/1.73 sqM); Albumin 2.8 g/dL (3.5-5.0); Alkaline Phosphatase 72 U/L (38-126); Anion Gap 6 mmol/L; Blood Urea Nitrogen 37 mg/dL (9-20); Calcium 8.4 mg/dL (8.4-10.2); Carbon Dioxide 23 mmol/L (22-30); Chloride 108 mmol/L (98-107); Glucose 300 mg/dL (74-99); Non-African American GFR(CKD) 44 (>60 ml/min/1.73 sqM); Potassium 4.6 mmol/L (3.5-5.1); Sodium 137 mmol/L (137-145); Total Bilirubin 0.2 mg/dL (0.2-1.3); Total Protein 5.3 g/dL (6.3-8.2)
[2023-05-15 17:48] LABS: Glucose,Whole Blood 279 mg/dL (70-110)
[2023-05-15 18:36] LABS: Chol/HDL Ratio 4.22 Ratio; LDL Cholesterol,Calculated 86.7 mg/dL (0.0-131.0)
[2023-05-15 20:22] LABS: Glucose,Whole Blood 235 mg/dL (70-110)
[2023-05-15] MEDS: DIVALPROEX ER 500 MG TAB.ER.24H PO SCH (21:02)
[2023-05-16 08:03] LABS: Glucose,Whole Blood 155 mg/dL (70-110)
[2023-05-16] MEDS: PIOGLITAZONE 30 MG TAB PO SCH (08:19)
[2023-05-16 12:32] LABS: Glucose,Whole Blood 405 mg/dL (70-110)
--- NOTE | 2023-05-16 13:08 | P.PN ---
Progress Note - Text Progress Note Date: 05/16/23 Interval History: Patient was seen in group, and was directable and agreeable to speak with report writer in the office. Today, the patient states that he is doing a little better, and that he is getting around physically. a little better. Patient is going to some groups. Patient complains of his "callouses on his feet", Patient offers no other complaints. He states he is sleepting well, and that his appetite is good. At this time patient denies any suicidal or homicidal ideations, intent or plan. Patient denies any auditory, visual hallucinations and denies any paranoia or delusions. Patient denies any side effects from the medications and has been compliant with meds. MENTAL STATUS EXAM: General Appearance: Patient appears to be older than stated age, is alert, directable, and attempts to cooperate. Patient appears to have very poor hygiene and grooming. Disheveled. Using a walker. Matted hair, and unkempt moraes. Behavior: Patient is seated without any agitated behavior. Manipulative, mildly improving Speech: Patient's speech is fluent and nonpressured. Monotone Mood/Affect: Patient reports their mood is depressed, affect is congruent and constricted. Restricted. mildly improving Suicidality/Homicidality: Patient states he has homicidal ideation intent or plan, toward his prior room mates. Denies any suicidal ideations intent or plan Perceptions: Patient denies any visual hallucinations and denies any auditory hallucinations Though content/process: There is no evidence of any delusional thought content and thought process is linear and goal-directed. Memory and concentration: AOX3, grossly intact for the purposes of this session. 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 Patient has signed adult voluntary form and medication consent and is placed in patient's chart. -Medications : Depakote 500mg qhs for mood stabilization/agression Pristique 50mg daily for mood/anxiety trazodone 50mg qhs prn for sleep/anxiety, risperdal 1mg qhs for psychosis/mood stabilization -Ativan and Haldol agitation/aggression -NRT -nicotine patch -Social work on board for discharge planning. Encourage patient to participate in groups to work on coping skills.
[2023-05-16 14:48] LABS: Glucose,Whole Blood 220 mg/dL (70-110)
[2023-05-16] MEDS: INSULIN ASPART (NovoLOG) 100 UNIT/ML VIAL SQ ONE (15:17)
[2023-05-16] MEDS: INSULIN DETEMIR (LEVEMIR) 100 UNIT/ML SYR SQ SCH (15:18)
[2023-05-16 17:48] LABS: Glucose,Whole Blood 143 mg/dL (70-110)
[2023-05-16 20:13] LABS: Glucose,Whole Blood 254 mg/dL (70-110)
[2023-05-17 01:39] LABS: Glucose,Whole Blood 375 mg/dL (70-110)
--- NOTE | 2023-05-17 01:43 | PN ---
PROGRESS NOTE SUBJECTIVE: A 62-year-old white male, came in with depression and suicidal ideations. He is homeless. His sugars have been high today in the 400s. He is on Accu-Chek protocol. We are going to start Lantus 20 units subcu daily and Actos 30 mg daily to go with his Farxiga 10 mg daily for diabetes. He will keep on sliding scale. Prognosis guarded. OBJECTIVE: LUNGS: Clear. CARDIOVASCULAR: S1, S2. HEMATOLOGY: Negative Homans. PSYCH: Fair mood and affect. ASSESSMENT: Continue current treatment for chronic obstructive pulmonary disease, depression, anxiety, suicidal ideations, type 2 diabetes mellitus, homeless. Prognosis guarded. MMODL / IJN: [id number] /
[2023-05-17 07:26] LABS: Glucose,Whole Blood 211 mg/dL (70-110)
[2023-05-17 08:26] LABS: Glucose,Whole Blood 188 mg/dL (70-110)
--- NOTE | 2023-05-17 11:50 | P.PN ---
Progress Note - Text Progress Note Date: 05/17/23 Interval History: Patient was today laying in bed and was agreeable to speak to creative services writer today. He was fairly constricted in his affect, states that he still feeling depressed. He claims that he also does have anxiety. He was fairly monotone today, soft tone of voice. He states that he was feeling tired did not get much rest last night. States that he is trying to go to some groups. He continues to have thoughts of harming other people however did not give a specific target. He denies any suicidal thoughts today. Claims that his appetite is fair. Patient offers no other complaints. Patient denies any auditory, visual hallucinations and denies any paranoia or delusions. Patient denies any side effects from the medications and has been compliant with meds. MENTAL STATUS EXAM: General Appearance: Patient appears to be older than stated age, is alert, directable, and attempts to cooperate. Patient appears to have poor hygiene and grooming. Disheveled. Using a walker. Matted hair, and unkempt moraes. Behavior: Patient is seated without any agitated behavior. less Manipulative, mildly improving Speech: Patient's speech is fluent and nonpressured. Monotone, soft tone Mood/Affect: Patient reports their mood is depressed, affect is congruent and constricted. Restricted. mildly improving Suicidality/Homicidality: Patient states he has homicidal ideation intent or plan, toward his prior room mates. Denies any suicidal ideations intent or plan Perceptions: Patient denies any visual hallucinations and denies any auditory hallucinations Though content/process: There is no evidence of any delusional thought content and thought process is linear and goal-directed. [place], evasive Memory and concentration: AOX3, grossly intact for the purposes of this session. 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 Patient has signed adult voluntary form and medication consent and is placed in patient's chart. -Medications : Depakote 500mg qhs for mood stabilization/agression, Pristiq 100mg daily for mood/anxiety, changed trazodone 50mg qhs for sleep/anxiety, risperdal 1mg qhs for psychosis/mood stabilization -Ativan and Haldol agitation/aggression -NRT -nicotine patch -Social work on board for discharge planning. Encourage patient to participate in groups to work on coping skills. Likely discharge early next week if patient improves psychiatrically.
[2023-05-17 12:52] LABS: Glucose,Whole Blood 185 mg/dL (70-110)
[2023-05-17 17:39] LABS: Glucose,Whole Blood 174 mg/dL (70-110)
[2023-05-17 20:10] LABS: Glucose,Whole Blood 189 mg/dL (70-110)
[2023-05-17] MEDS: traZODone HCL 50 MG TAB PO SCH (22:20)
[2023-05-18 08:16] LABS: Glucose,Whole Blood 187 mg/dL (70-110)
[2023-05-18] MEDS: DESVENLAFAXINE SUCCINATE 50 MG TAB.ER.24H PO SCH (08:24)
--- NOTE | 2023-05-18 12:03 | P.PN ---
Progress Note - Text Progress Note Date: 05/18/23 Interval History: Patient was today laying in bed and was agreeable to speak to check writer today. He was fairly constricted in his affect, states that he still feeling "ok". He states the medications are helping with his mood and anxiety. States that he is trying to go to some groups. He denies any suicidal thoughts today. Claims that his appetite is fair. Wildlife And Game Protector spoke with patient about hygiene, as patient has not showered since being in the hospital. Patient verbalized understanding, and agreeable to shower today. Patient offers no other complaints. Patient denies any auditory, visual hallucinations and denies any paranoia or delusions. Patient denies any side effects from the medications and has been compliant with meds. MENTAL STATUS EXAM: General Appearance: Patient appears to be older than stated age, is alert, directable, and attempts to cooperate. Patient appears to have poor hygiene and grooming. Disheveled. Using a walker. Matted hair, and unkempt moraes. Behavior: Patient is seated without any agitated behavior. less Manipulative, mildly improving Speech: Patient's speech is fluent and nonpressured. Monotone, soft tone, mildly improving Mood/Affect: Patient reports their mood is depressed, affect is congruent and constricted. Restricted. mildly improving Suicidality/Homicidality: Patient states he has homicidal ideation intent or plan, toward his prior room mates. Denies any suicidal ideations intent or plan Perceptions: Patient denies any visual hallucinations and denies any auditory hallucinations Though content/process: There is no evidence of any delusional thought content and thought process is linear and goal-directed. [place], evasive Memory and concentration: AOX3, grossly intact for the purposes of this session. 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 Patient has signed adult voluntary form and medication consent and is placed in patient's chart. -Medications : Depakote 500mg qhs for mood stabilization/agression, Pristiq 100mg daily for mood/anxiety, trazodone 50mg qhs for sleep/anxiety, risperdal 1mg qhs for psychosis/mood stabilization -Ativan and Haldol agitation/aggression -NRT -nicotine patch -Social work on board for discharge planning. Encourage patient to participate in groups to work on coping skills. Likely discharge Sunday if patient continues to improve psychiatrically
[2023-05-18 12:54] LABS: Glucose,Whole Blood 248 mg/dL (70-110)
[2023-05-18 17:47] LABS: Glucose,Whole Blood 211 mg/dL (70-110)
[2023-05-18 20:08] LABS: Glucose,Whole Blood 167 mg/dL (70-110)
[2023-05-19 07:59] LABS: Glucose,Whole Blood 129 mg/dL (70-110)
--- NOTE | 2023-05-19 12:32 | P.PN ---
Progress Note - Text Progress Note Date: 05/19/23 Interval history: Patient was seen sitting on the couch today watching television and was direc table and agreeable to speak with business writer. Patient continues to have fairly poor hygiene and grooming continues to not want to shower. He is mildly improving insight and judgment. States that he is doing a bit better with regards to his mood and anxiety, denies any overnight complaints states that he is sleeping fairly, has been going to some groups and socializing more on the unit. At this time patient denies any suicidal or homicidal ideations intent or plan. Denies any Auditory or visual hallucinations. Patient denies any side effects from the medications and has been compliant with meds. Mental status exam: General Appearance: Patient appears to be thin, disheveled appearance, stated age is alert, directable, and cooperative. Behavior: No agitated behavior. Patient is calm and directable Speech: Patient's speech is fluent and nonpressured. Mood/Affect: Mood is improving mildly, affect is congruent and constricted. Suicidality/Homicidality: Patient denies having any suicidal or homicidal ideation intent or plan. Perceptions: Patient denies any auditory or visual hallucinations. Though content/process: There is no evidence of any delusional thought content and thought process is linear and goal-directed. [place], vague Memory and concentration: AOX3, grossly intact for the purposes of this session Judgment and insight: improving mildly Assessment/Plan: Continue with current diagnosis. Patient continues to meet criteria for inpatient psychiatric admission for symptom stabilization and safety. Patient will be maintained on current psychotropic medication regimen. Monitor for medication compliance and for any psychotropic medication side effects. Will continue to monitor ongoing response to treatment. Encouraged participation in milieu. Likely discharge Sunday if patient continues to improve.
[2023-05-19 12:47] LABS: Glucose,Whole Blood 223 mg/dL (70-110)
[2023-05-19 17:27] LABS: Glucose,Whole Blood 179 mg/dL (70-110)
[2023-05-19 20:07] LABS: Glucose,Whole Blood 200 mg/dL (70-110)
[2023-05-20 07:12] VITALS: RESP 14
[2023-05-20 07:57] LABS: Glucose,Whole Blood 94 mg/dL (70-110)
--- NOTE | 2023-05-20 10:43 | P.PN ---
Progress Note - Text Progress Note Date: 05/20/23 Interval history: Patient was seen laying in bed today and was agreeable to speak to headline writer. P atient continues to have fairly poor hygiene and grooming continues to not want to shower. States that he had no issues overnight states that he slept well. He is mildly improving insight and judgment. Claims that he wants to be discharged tomorrow and go stay with his girlfriend. States that he is doing a bit better with regards to his mood and anxiety. At this time patient denies any suicidal or homicidal ideations intent or plan. Denies any Auditory or visual hallucinations. Patient denies any side effects from the medications and has been compliant with meds. Mental status exam: General Appearance: Patient appears to be thin, disheveled appearance, stated age is alert, directable, and cooperative. Behavior: No agitated behavior. Patient is calm and directable Speech: Patient's speech is fluent and nonpressured. Mood/Affect: Mood is improving mildly, affect is congruent and constricted. Suicidality/Homicidality: Patient denies having any suicidal or homicidal ideation intent or plan. Perceptions: Patient denies any auditory or visual hallucinations. Though content/process: There is no evidence of any delusional thought content and thought process is linear and goal-directed. [place], vague improving mildly Memory and concentration: AOX3, grossly intact for the purposes of this session Judgment and insight: improving mildly Assessment/Plan: Continue with current diagnosis. Patient continues to meet criteria for inpatient psychiatric admission for symptom stabilization and safety. Patient will be maintained on current psychotropic medication regimen. Monitor for medication compliance and for any psychotropic medication side effects. Will continue to monitor ongoing response to treatment. Encouraged participation in milieu. Likely discharge tomorrow if patient continues to improve.
[2023-05-20 12:50] LABS: Glucose,Whole Blood 160 mg/dL (70-110)
[2023-05-20 17:38] LABS: Glucose,Whole Blood 100 mg/dL (70-110)
[2023-05-20 20:12] LABS: Glucose,Whole Blood 166 mg/dL (70-110)
[2023-05-21 07:15] VITALS: BP 167/78; PULSE 56; TEMP 97.6
[2023-05-21 08:11] LABS: Glucose,Whole Blood 151 mg/dL (70-110)
--- NOTE | 2023-05-21 10:28 | P.DS ---
Providers Date of admission: 05/14/23 15:40 Expected date of discharge: 05/21/23 Attending physician: Daquan Melo MD Consults: 05/14/23 14:48 Consult Physician Routine Consulting Provider: Davon Rodrigues Consult Reason/Comments: H&P and medical Do you want consulting provider notified?: Yes Primary care physician: Davon Rodrigues - Discharge Diagnosis(es) (1) Adjustment disorder with mixed disturbance of emotions and conduct Current Visit: Yes Status: Acute Priority: High (2) Cluster B personality disorder Current Visit: Yes Status: Acute Priority: High (3) Schizoaffective disorder, depressive type Current Visit: No Status: Acute Priority: High (4) Cannabis use disorder Current Visit: No Status: Chronic Priority: Medium (5) Homelessness Current Visit: No Status: Chronic Priority: Low (6) Nicotine dependence Current Visit: No Status: Chronic Priority: Low Hospital Course: Admission note was completed by medical technical writer "Admission HPI:Patient presented to the hospital on 05/06, with complaints of chest pain. Patient also made suicidal remarks, which led to psychiatry being consulted on the medical floor. Patient was transferred to the psych unit yesterday. Patient was seen on the medical floors for psychiatric consultation by Dr. Pendleton. Patient states he had a fight with his roommates, and now he has nowhere to go. He states that he has depression and anxiety. Patient states has appetite is good. Patient also claims to have slept well at night. States that he wants to hurt his prior room mates, because they call him names, and states that he may be homicidal towards them however would not state what their names are and denies having any guns or weapons at this time. Today, patient denies any suicidal intent or plan however states that he was feeling suicidal earlier with no specific plan. At this time patient denies any auditory or visual hallucinations. Patient denies any flight of ideas racing thoughts and increased in goal directed behavior. Patient admits to using marijuana, alcohol, and cigarettes. Patient appears to be fairly focused on his pain and to obtain controlled medications. Fairly manipulative and medication seeking." Hospital course: Upon admission to the unit patient was directable and agreeable to commence treatment and signed adult voluntary form. Patient got along well with other patients on the unit and followed unit protocol. Patient was compliant with the medications and denied any side effects throughout hospital course. Patient was started on Depakote and increased to dose of 500 mg nightly for mood stabilization/aggression, Pristiq increased to dose of 100 mg daily for mood/anxiety, trazodone 50 mg nightly as needed for sleep/anxiety, Risperdal 1 mg nightly for psychosis/mood stabilization. Patient was offered long-acting injection however declined. Patient spoke of his stressors and engaged in therapy both group and individual. Patient was also seen by medical team for history and physical exam. Throughout the course of the hospitalization patient gradually improved with regards to mood, anxiety, suicidal/homicidal thoughts sleep and returned back to their baseline level of functioning. Patient refused to tell medical technical writer or anyone else the specific names of the targets that he mention to harm to allow us to do a duty to warn. He did not report any access to guns or weapons. On the day of discharge patient denied any current suicidal or homicidal ideations intent or plan denied any auditory or visual hallucinations. Patient endorsed wanting to live for his health and claims that he has a girlfr iend now. The patient denied any access to guns or weapons. Patient denied any paranoia and did not endorse any delusions. Patient does have a significant history of substance abuse and was counseled on abstaining from all substances including alcohol and marijuana. Patient elected to do outpatient substance use treatment program through [facility]. Patient was also counseled on the medications and need for regular compliance and was encouraged to follow-up with their outpatient appointment for mental health and also for primary care. Mental status exam: General Appearance: Patient appears to be thin, disheveled appearance, using a walker, stated age is alert, pleasant, and cooperative. Patient is in no acute distress and has improved hygiene and grooming Behavior: Patient is calmly seated without any agitated behavior. Speech: Patient's speech is fluent and nonpressured. Mood/Affect: Patient reports their mood is "better", affect is congruent and euthymic. Suicidality/Homicidality: Patient denies having any suicidal or homicidal ideation intent or plan. Perceptions: Patient denies any auditory or visual hallucinations. Though content/process: There is no evidence of any delusional thought content and thought process is linear and goal-directed. More future oriented Memory and concentration: AOX3, grossly intact for the purposes of this session. Can spell "WORLD" backwards correctly. Judgment and insight: Chronically poor, however has improved with guarded prognosis Impression: Adjustment disorder with disturbance in emotions and conduct Schizoaffective disorder depressive type Cluster B personality traits nicotine dependance cannabis use disorder homelessness Plan: -Continue with discharge today as patient has improved and stabilized psychiatrically and is not currently an imminent threat to himself and/or others. Patient will remain at chronically elevated risk for harm to self and/or others due to his impulsivity and chronic mental illness -Continue medications: Depakote 500 mg nightly for mood stabilization/aggression, Pristiq 100 mg daily for mood/anxiety, trazodone 50 mg nightly as needed for sleep, Risperdal 1 mg nightly for psychosis/mood stab ilization. -Patient was counseled on the need for medication compliance and appropriate follow-up at mental health and also primary care for medical issues. Patient verbalized understanding and agreed. -Social work to help coordinate patient's discharge today. Again patient did not share the specific targets that he threatened to harm prior to coming into the hospital, he denied any access to guns or weapons. He is no longer stating that he is homicidal. Social work also to arrange for patients follow up appointments with [facility] for psychiatric care along with follow up with primary care provider. -Patient counseled on abstaining from recreational drugs and marijuana and alcohol. Was informed/educated on the adverse effects on their physical and mental health. Patient verbally agreed and understood. Patient was offered substance abuse treatment however declined at this time. -Patient was instructed to return to the hospital or seek immediate medical care if their psychiatric or medical symptoms do worsen or reoccur. Allergies Allergy/AdvReac Type Severity Reaction Status Date / Time No Known Allergies Allergy Verified 05/07/23 08:10 Laboratory Results WBC 7.6 k/uL (3.8-10.6) 05/15/23 15:00 RBC 4.12 m/uL (4.30-5.90) L 05/15/23 15:00 Hgb 12.3 gm/dL (13.0-17.5) L 05/15/23 15:00 Hct 38.8 % (39.0-53.0) L 05/15/23 15:00 MCV 94.3 fL (80.0-100.0) 05/15/23 15:00 MCH 29.7 pg (25.0-35.0) 05/15/23 15:00 MCHC 31.6 g/dL (31.0-37.0) 05/15/23 15:00 RDW 14.5 % (11.5-15.5) 05/15/23 15:00 Plt Count 274 k/uL (150-450) 05/15/23 15:00 MPV 9.0 05/15/23 15:00 Neutrophils % 68 % 05/15/23 15:00 Lymphocytes % 23 % 05/15/23 15:00 Monocytes % 6 % 05/15/23 15:00 Eosinophils % 2 % 05/15/23 15:00 Basophils % 1 % 05/15/23 15:00 Neutrophils # 5.1 k/uL (1.3-7.7) 05/15/23 15:00 Lymphocytes # 1.8 k/uL (1.0-4.8) 05/15/23 15:00 Monocytes # 0.4 k/uL (0-1.0) 05/15/23 15:00 Eosinophils # 0.1 k/uL (0-0.7) 05/15/23 15:00 Basophils # 0.0 k/uL (0-0.2) 05/15/23 15:00 Sodium 137 mmol/L (137-145) 05/15/23 15:00 Potassium 4.6 mmol/L (3.5-5.1) 05/15/23 15:00 Chloride 108 mmol/L (98-107) H 05/15/23 15:00 Carbon Dioxide 23 mmol/L (22-30) 05/15/23 15:00 Anion Gap 6 mmol/L 05/15/23 15:00 BUN 37 mg/dL (9-20) H 05/15/23 15:00 Creatinine 1.63 mg/dL (0.66-1.25) H 05/15/23 15:00 Est GFR (CKD-EPI)AfAm 51 (>60 ml/min/1.73 sqM) 05/15/23 15:00 Est GFR (CKD-EPI)NonAf 44 (>60 ml/min/1.73 sqM) 05/15/23 15:00 Glucose 300 mg/dL (74-99) H 05/15/23 15:00 POC Glucose (mg/dL) 151 mg/dL (70-110) H 05/21/23 08:10 POC Glu Manager Green ID Mony Chen 05/21/23 08:[address] Glu mg/dL 209 mg/dL 05/15/23 15:00 Hemoglobin A1c 8.9 % (<=6.0) H 05/15/23 15:00 Calcium 8.4 mg/dL (8.4-10.2) 05/15/23 15:00 Total Bilirubin 0.2 mg/dL (0.2-1.3) 05/15/23 15:00 AST 14 U/L (17-59) L 05/15/23 15:00 ALT 13 U/L (4-49) 05/15/23 15:00 Alkaline Phosphatase 72 U/L (38-126) 05/15/23 15:00 Total Protein 5.3 g/dL (6.3-8.2) L 05/15/23 15:00 Albumin 2.8 g/dL (3.5-5.0) L 05/15/23 15:00 Triglycerides 192.00 mg/dL (0.00-149.00) H 05/15/23 15:00 Cholesterol 164.00 mg/dL (0.00-200.00) 05/15/23 15:00 LDL Cholesterol, Calc 86.7 mg/dL (0.0-131.0) 05/15/23 15:00 VLDL Cholesterol, Calc 38.40 mg/dL (5.00-40.00) 05/15/23 15:00 HDL Cholesterol 38.90 mg/dL (40.00-60.00) L 05/15/23 15:00 Cholesterol/HDL Ratio 4.22 Ratio 05/15/23 15:00 TSH 3.280 mIU/L (0.465-4.680) 05/15/23 15:00 Urine Color Colorless 05/14/23 23:10 Urine Appearance Clear (Clear) 05/14/23 23:10 Urine pH 5.5 (5.0-8.0) 05/14/23 23:10 Ur Specific [place] 1.022 (1.001-1.035) 05/14/23 23:10 Urine Protein 2+ (Negative) H 05/14/23 23:10 Urine Glucose (UA) 4+ (Negative) H 05/14/23 23:10 Urine Ketones Negative (Negative) 05/14/23 23:10 Urine Blood Negative (Negative) 05/14/23 23:10 Urine Nitrite Negative (Negative) 05/14/23 23:10 Urine Bilirubin Negative (Negative) 05/14/23 23:10 Urine Urobilinogen <2.0 mg/dL (<2.0) 05/14/23 23:10 Ur Leukocyte Esterase Negative (Negative) 05/14/23 23:10 Urine RBC <1 /hpf (0-5) 05/14/23 23:10 Urine WBC <1 /hpf (0-5) 05/14/23 23:10 Urine Opiates Screen Not Detected (NotDetected) 05/14/23 23:10 Ur Oxycodone Screen Not Detected (NotDetected) 05/14/23 23:10 Urine Methadone Screen Not Detected (NotDetected) 05/14/23 23:10 Ur Barbiturates Screen Not Detected (NotDetected) 05/14/23 23:10 U Tricyclic Antidepress Not Detected (NotDetected) 05/14/23 23:10 Ur Phencyclidine Scrn Not Detected (NotDetected) 05/14/23 23:10 Ur Amphetamines Screen Not Detected (NotDetected) 05/14/23 23:10 U Methamphetamines Scrn Not Detected (NotDetected) 05/14/23 23:10 U Benzodiazepines Scrn Not Detected (NotDetected) 05/14/23 23:10 Urine Cocaine Screen Not Detected (NotDetected) 05/14/23 23:10 U Marijuana (THC) Screen Detected (NotDetected) H 05/14/23 23:10 Vital Signs Temp 97.6 F 05/21/23 06:44 Pulse 56 L 05/21/23 06:44 Resp 14 05/21/23 06:44 BP 167/78 05/21/23 06:44 Pulse Ox 96 05/20/23 06:53 FiO2 Patient Condition at Discharge: Stable Plan - Discharge Summary Discharge Rx Participant: No New Discharge Prescriptions: New Pioglitazone [Actos] 30 mg PO DAILY 30 Days #30 tab traZODone HCL [Desyrel] 50 mg PO HS PRN 30 Days #30 tab PRN Reason: Insomnia Insulin Detemir (Levemir) [Levemir] 20 unit SQ DAILY@0700 30 Days #1 each risperiDONE [RisperDAL] 1 mg PO HS 30 Days #30 tab Divalproex ER [Depakote ER] 500 mg PO HS 30 Days #30 tab Nicotine 14Mg/24Hr Patch [Habitrol] 1 patch TRANSDERM DAILY 14 Days #14 patch Ibuprofen [Motrin] 600 mg PO Q6HR PRN tab PRN Reason: Moderate Pain (Scale 4 To 6) Desvenlafaxine Succinate [Pristiq ER] 100 mg PO DAILY 30 Days #60 tab Continue Atorvastatin [Lipitor] 20 mg PO HS 30 Days #30 tab Aspirin 81 mg PO DAILY 30 Days #30 tab Losartan [Cozaar] 25 mg PO DAILY 30 Days #30 tab Dapagliflozin Propanediol [Farxiga] 10 mg PO DAILY 30 Days #30 tab Budesonide-Formot 160-4.5 Mcg [Symbicort 160-4.5 Mcg Inhaler] 2 puff INHALATION RT-BID 30 Days #1 each Discharge Medication List Aspirin 81 mg PO DAILY 30 Days #30 tab 05/21/23 [Rx] Atorvastatin [Lipitor] 20 mg PO HS 30 Days #30 tab 05/21/23 [Rx] Budesonide-Formot 160-4.5 Mcg [Symbicort 160-4.5 Mcg Inhaler] 2 puff INHALATION RT-BID 30 Days #1 each 05/21/23 [Rx] Dapagliflozin Propanediol [Farxiga] 10 mg PO DAILY 30 Days #30 tab 05/21/23 [Rx] Desvenlafaxine Succinate [Pristiq ER] 100 mg PO DAILY 30 Days #60 tab 05/21/23 [Rx] Divalproex ER [Depakote ER] 500 mg PO HS 30 Days #30 tab 05/21/23 [Rx] Ibuprofen [Motrin] 600 mg PO Q6HR PRN tab 05/21/23 [Rx] Insulin Detemir (Levemir) [Levemir] 20 unit SQ DAILY@0700 30 Days #1 each 05/21/23 [Rx] Losartan [Cozaar] 25 mg PO DAILY 30 Days #30 tab 05/21/23 [Rx] Nicotine 14Mg/24Hr Patch [Habitrol] 1 patch TRANSDERM DAILY 14 Days #14 patch 05/21/23 [Rx] Pioglitazone [Actos] 30 mg PO DAILY 30 Days #30 tab 05/21/23 [Rx] risperiDONE [RisperDAL] 1 mg PO HS 30 Days #30 tab 05/21/23 [Rx] traZODone HCL [Desyrel] 50 mg PO HS PRN 30 Days #30 tab 05/21/23 [Rx] Activity/Diet/Wound Care/Special Instructions: Avoid the use of street drugs and alcohol. Take all medications as prescribed. When you are in need of refills on your medications, please contact your medical provider and/or outpatient psychiatrist/provider to have this done. Please go to your scheduled outpatient appointment for aftercare treatment. If symptoms return or become worse, call the crisis line at and/or go to the nearest emergency room for evaluation. National Suicide Hotline 773. Discharge/Stand Alone Forms: [facility] Shelters, Community Resources Discharge Disposition: OTHER INSTITUTION NOT DEFINED
[2023-05-21 12:52] LABS: Glucose,Whole Blood 206 mg/dL (70-110)
== END 2023-05-21 14:50 | disposition home or self-care (01) | DRG 755 ==
LOC: 3MHU 15:40
PROVIDERS: ADMIT Psychiatry & Neurology Psychiatry; ATTEND Psychiatry & Neurology Psychiatry
DX: F43.25 Adjustment disorder with mixed disturbance of emotions and conduct (principal); R45.851 Suicidal ideations; F25.1 Schizoaffective disorder, depressive type; F60.89 Other specific personality disorders; J44.9 Chronic obstructive pulmonary disease, unspecified; E11.9 Type 2 diabetes mellitus without complications; F12.10 Cannabis abuse, uncomplicated; I10 Essential (primary) hypertension; R45.850 Homicidal ideations; Z91.148 Patient's other noncompliance with medication regimen for other reason; E78.5 Hyperlipidemia, unspecified; F41.9 Anxiety disorder, unspecified; F17.210 Nicotine dependence, cigarettes, uncomplicated; Z71.6 Tobacco abuse counseling; Z79.82 Long term (current) use of aspirin; Z79.51 Long term (current) use of inhaled steroids; Z79.84 Long term (current) use of oral hypoglycemic drugs; Z79.899 Other long term (current) drug therapy; Z59.00 Homelessness unspecified; Z71.41 Alcohol abuse counseling and surveillance of alcoholic; Z71.51 Drug abuse counseling and surveillance of drug abuser
CPT/HCPCS: 80053; 80061; 80306; 81001; 83036; 84443; 85025

== ENCOUNTER 2023-08-18 03:24 | Inpatient (IN) | payer MEDICARE, OTHER ==
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
[2023-08-18] MEDS ORDERED: ONDANSETRON 4 MG/2 ML VIAL IVP PRN (05:02)
[2023-08-18] MEDS ORDERED: NALOXONE 0.4 MG/ML 1 ML VIAL IV PRN (05:02)
[2023-08-18 05:16] LABS: Basophils # (A) 0.1 k/uL (0-0.2); Basophils % (A) 0 %; Eosinophils # (A) 0.2 k/uL (0-0.7); Eosinophils % (A) 2 %; HCT 41.6 % (39.0-53.0); HGB 12.6 gm/dL (13.0-17.5); Lymphocytes # (A) 1.6 k/uL (1.0-4.8); Lymphocytes % (A) 11 %; MCH 28.6 pg (25.0-35.0); MCHC 30.3 g/dL (31.0-37.0); MCV 94.3 fL (80.0-100.0); Mean Platelet Volume 9.9; Monocytes # (A) 0.6 k/uL (0-1.0); Monocytes % (A) 4 %; Neutrophils # (A) 11.6 k/uL (1.3-7.7); Neutrophils % (A) 82 %; Platelet Count 203 k/uL (150-450); RBC 4.41 m/uL (4.30-5.90); RDW 14.2 % (11.5-15.5); WBC 14.1 k/uL (3.8-10.6)
[2023-08-18 05:27] LABS: ALT 15 U/L (4-49); African American GFR (CKD) 56 (>60 ml/min/1.73 sqM); Anion Gap 11 mmol/L; Blood Urea Nitrogen 37 mg/dL (9-20); Calcium 8.3 mg/dL (8.4-10.2); Carbon Dioxide 17 mmol/L (22-30); Chloride 107 mmol/L (98-107); Glucose 297 mg/dL (74-99); Non-African American GFR(CKD) 49 (>60 ml/min/1.73 sqM); Sodium 135 mmol/L (137-145); Total Bilirubin 0.8 mg/dL (0.2-1.3)
[2023-08-18 05:29] LABS: INR 1.1 (<1.2)
[2023-08-18 05:39] LABS: Partial Thromboplastin Time 19.4 sec (22.0-30.0)
--- NOTE | 2023-08-18 05:48 | XR ---
EXAM: XR Chest, 2 Views CLINICAL HISTORY: ITS.REASON XR Reason: Weakness TECHNIQUE: Frontal and lateral views of the chest. COMPARISON: XR Chest dated 05/07/2023 FINDINGS: Lungs: Unremarkable. No consolidation. Pleural space: Unremarkable. No pneumothorax. Heart: Unremarkable. No cardiomegaly. Mediastinum: Unremarkable. Normal mediastinal contour. Bones/joints: Unremarkable. No acute fracture. IMPRESSION: No evidence of acute cardiopulmonary disease.
[2023-08-18] MEDS: MORPHINE SULFATE 4 MG/ML SYRINGE IV PRN (05:53)
[2023-08-18] MEDS: SODIUM CHLORIDE 0.9% 1,000 ML IV SCH (05:53)
[2023-08-18 06:13] LABS: Phosphorus 3.4 mg/dL (2.5-4.5); Potassium 4.7 mmol/L (3.5-5.1)
[2023-08-18 06:14] LABS: AST 22 U/L (17-59); Alkaline Phosphatase 113 U/L (38-126); Total Protein 6.1 g/dL (6.3-8.2)
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
[2023-08-18] MEDS ORDERED: DEXTROSE 50% SYRINGE 50 ML IVP PRN ×2 (15:31)
[2023-08-18 16:27] LABS: Glucose,Whole Blood 211 mg/dL (70-110)
[2023-08-18] MEDS: INSULIN ASPART (NovoLOG) 100 UNIT/ML VIAL SQ SCH (17:19)
[2023-08-18 20:00] LABS: Glucose,Whole Blood 272 mg/dL (70-110)
[2023-08-18] MEDS: risperiDONE 1 MG TAB PO SCH (20:11)
[2023-08-18] MEDS: ATORVASTATIN 20 MG TAB PO SCH (20:11)
[2023-08-18] MEDS: DIVALPROEX ER 500 MG TAB.ER.24H PO SCH (20:11)
[2023-08-18] MEDS: SYMBICORT 160-4.5 MCG INHALER INHALATION SCH (20:49)
[2023-08-19 06:06] LABS: Glucose,Whole Blood 146 mg/dL (70-110)
[2023-08-19] MEDS: INSULIN DETEMIR (LEVEMIR) 100 UNIT/ML SYR SQ SCH (06:21)
[2023-08-19 07:14] LABS: Basophils % (A) 0 %; Eosinophils # (A) 0.4 k/uL (0-0.7); Eosinophils % (A) 3 %; HCT 33.9 % (39.0-53.0); HGB 10.8 gm/dL (13.0-17.5); Lymphocytes # (A) 1.9 k/uL (1.0-4.8); Lymphocytes % (A) 18 %; MCV 93.6 fL (80.0-100.0); Mean Platelet Volume 9.8; Monocytes # (A) 0.5 k/uL (0-1.0); Monocytes % (A) 5 %; Neutrophils % (A) 73 %; Platelet Count 213 k/uL (150-450); RBC 3.62 m/uL (4.30-5.90); RDW 14.4 % (11.5-15.5)
[2023-08-19 07:26] LABS: African American GFR (CKD) 63 (>60 ml/min/1.73 sqM); Anion Gap 3 mmol/L; Blood Urea Nitrogen 28 mg/dL (9-20); Calcium 8.1 mg/dL (8.4-10.2); Carbon Dioxide 21 mmol/L (22-30); Chloride 114 mmol/L (98-107); Glucose 140 mg/dL (74-99); Non-African American GFR(CKD) 55 (>60 ml/min/1.73 sqM); Potassium 3.8 mmol/L (3.5-5.1); Sodium 138 mmol/L (137-145)
[2023-08-19] MEDS: DAPAGLIFLOZIN PROPANEDIOL 10 MG TABLET PO SCH (08:32)
[2023-08-19] MEDS: PIOGLITAZONE 30 MG TAB PO SCH (08:32)
[2023-08-19] MEDS: LOSARTAN 25 MG TAB PO SCH (08:32)
[2023-08-19] MEDS: ASPIRIN 81 MG PO SCH (08:32)
[2023-08-19] MEDS: DESVENLAFAXINE SUCCINATE 50 MG TAB.ER.24H PO SCH (08:32)
[2023-08-19 11:44] LABS: Glucose,Whole Blood 259 mg/dL (70-110)
[2023-08-19 16:36] LABS: Glucose,Whole Blood 158 mg/dL (70-110)
[2023-08-19 20:02] LABS: Glucose,Whole Blood 148 mg/dL (70-110)
[2023-08-20] MEDS: traZODone HCL 50 MG TAB PO PRN (00:44)
[2023-08-20 06:03] LABS: Glucose,Whole Blood 99 mg/dL (70-110)
[2023-08-20 11:19] LABS: Glucose,Whole Blood 256 mg/dL (70-110)
--- NOTE | 2023-08-20 12:17 | P.PN ---
Subjective Progress Note Date: 08/19/23 63-year-old male, history of hypertension, hyperlipidemia, diabetes mellitus, CVA/TIA, rheumatoid arthritis, brought to the ER for evaluation of weakness and pain generalized weakness and pain comes in the ER significant debilitating tonight unable to take care of himself, patient does live with her friend covered in bedbugs and inability to ambulate with incontinence Blood work completed in ED reveals WBC of 14.1, hemoglobin of 12.6 and platelet count of 203, sodium 135, potassium 4.7, BUNs/creatinine of 37/1.49, Blood Glucose of 297 troponin is mildly elevated at 0.072 Chest x-ray is negative for any acute pulmonary process 08/19/2023 Patient is seen and evaluated resting comfortably in bed; discussed with nursing staff; no specific complaints reported Patient was admitted through ER with complaints of weakness and pain and significant debility rendering patient unable to care for himself; in the ER patient was found to be covered in bedbugs and soiled with urine and feces Blood work reveals elevated white blood count of 14.1 upon admission without any obvious source of infection; WBC has trended down to 11; BUNs/creatinine was found to be elevated at 25/1.49 which has improved to 28/1.35 --Patient is admitted for acute renal injury and also for need for placement due to inability of patient to care for himself Case management/BRICK SETTER to evaluate patient and make further recommendations Objective - Vital Signs Vital signs: Vital Signs Temp 98.9 F 08/19/23 09:25 Pulse 56 L 08/19/23 09:25 Resp 18 08/19/23 09:25 BP 160/87 08/19/23 09:25 Pulse Ox 96 08/19/23 09:25 FiO2 Intake & Output 08/18/23 08/19/23 08/19/23 18:59 06:59 18:59 Intake Total 358 0 Balance 358 0 Intake: Oral 358 0 Other: Voiding Method External Catheter External Catheter - Exam General appearance: alert, in no apparent distress Head exam: Present: atraumatic, normocephalic, normal inspection Eye exam: Present: normal appearance, PERRL, EOMI. Absent: scleral icterus, conjunctival injection, periorbital swelling Neck exam: Present: normal inspection. Absent: tenderness, meningismus, lymphadenopathy Respiratory exam: Present: normal lung sounds bilaterally. Absent: respiratory distress, wheezes, rales, rhonchi, stridor Cardiovascular Exam: Present: regular rate, normal rhythm, normal heart sounds. Absent: systolic murmur, diastolic murmur, rubs, gallop, clicks GI/Abdominal exam: Present: soft, normal bowel sounds. Absent: distended, tenderness, guarding, rebound, rigid Extremities exam: Present: normal inspection, full ROM, normal capillary refill. Absent: tenderness, pedal edema, joint swelling, calf tenderness Back exam: Present: normal inspection Neurological exam: Present: alert, oriented X3, CN II-XII intact Skin exam: Present: warm, dry, intact, normal color. Absent: rash - Labs CBC & Chem 7: 08/19/23 06:30 08/19/23 06:30 Labs: Abnormal Lab Results - Last 24 Hours (Table) 08/18/23 08/18/23 08/19/23 Range/Units 16:26 19:55 06:04 WBC (3.8-10.6) k/uL RBC (4.30-5.90) m/uL Hgb (13.0-17.5) gm/dL Hct (39.0-53.0) % Neutrophils # (1.3-7.7) k/uL Chloride (98-107) mmol/L Carbon Dioxide (22-30) mmol/L BUN (9-20) mg/dL Creatinine (0.66-1.25) mg/dL Glucose (74-99) mg/dL POC Glucose (mg/dL) 211 H 272 H 146 H (70-110) mg/dL Calcium (8.4-10.2) mg/dL 08/19/23 08/19/23 Range/Units 06:30 06:30 WBC 11.0 H (3.8-10.6) k/uL RBC 3.62 L (4.30-5.90) m/uL Hgb 10.8 L (13.0-17.5) gm/dL Hct 33.9 L (39.0-53.0) % Neutrophils # 8.0 H (1.3-7.7) k/uL Chloride 114 H (98-107) mmol/L Carbon Dioxide 21 L (22-30) mmol/L BUN 28 H (9-20) mg/dL Creatinine 1.35 H (0.66-1.25) mg/dL Glucose 140 H (74-99) mg/dL POC Glucose (mg/dL) (70-110) mg/dL Calcium 8.1 L (8.4-10.2) mg/dL Assessment and Plan Assessment: 1. Mildly elevated troponin; EKG remains unremarkable; no signs of ischemia --Will trend troponin; will plan repeat 2D echo if liver enzymes are abnormal -Patient remains on aspirin 81 mg daily, Lipitor 20 mg p.o. nightly 2. Mild acute renal injury; will add normal saline at a rate of 75 cc an hour, monitor strict ADRIENNE's, daily weights, renal function electrolytes, avoid nephrotoxins and hypotension 3. Hypertension; losartan 25 mg daily 4. Hyperlipidemia; Lipitor 20 mg p.o. nightly 5. Insulin-dependent diabetes; hyperglycemia; will continue with home dose of Levemir 20 units SQ daily and monitor electrolytes K ACHS with insulin sliding scale; Farxiga 10 mg daily 6. Asthma/COPD; not in exacerbation; continue with home inhaler therapy 7. Debility/adult failure to thrive; PT OT/BRICK SETTER consulted DVT prophylaxis; SCDs CODE STATUS; full code
[2023-08-20] MEDS ORDERED: LIDOCAINE 1% INJ 10MG/ML (20 ML MDV) ONE (14:33)
[2023-08-20 15:33] VITALS: BMI 28.7
[2023-08-20 16:39] LABS: Glucose,Whole Blood 131 mg/dL (70-110)
[2023-08-20 19:49] LABS: Glucose,Whole Blood 174 mg/dL (70-110)
--- NOTE | 2023-08-21 01:25 | PN ---
PROGRESS NOTE SUBJECTIVE: Came in with generalized weakness, fatigue, unable to move his legs very much. He has diabetes, history of COPD. OBJECTIVE: VITAL SIGNS: Temp 98.2, O2 saturation 94 on room air. Blood pressure 140s over 70s, pulse 72, respiratory rate 16-18. CARDIOVASCULAR: S1, S2. LUNGS: Scattered rhonchi and wheeze. GI: Soft. HEMATOLOGY: Negative Homans. PSYCH: Fair mood and affect. Sugars - mid 100s. PLAN: Continue current treatment with PT, OT. History of CVA, TIA, dyslipidemia, rheumatoid arthritis, COPD, generalized weakness. . He had acute kidney injury. He was sent back to [facility] PT/OT. Prognosis guarded. Ambulate as tolerated. Please see further orders. MMODL / IJN: [id number] /
[2023-08-21 05:56] LABS: Glucose,Whole Blood 175 mg/dL (70-110)
[2023-08-21] MEDS ORDERED: FORMOTEROL FUMARATE 20 MCG/2 ML NEBU INHALATION SCH (08:00)
[2023-08-21 11:56] LABS: Glucose,Whole Blood 175 mg/dL (70-110)
--- NOTE | 2023-08-21 13:30 | PN ---
PROGRESS NOTE SUBJECTIVE: This 63-year-old came in with weakness, debility. We did get a rehab consult on him with Dr. Morris from [facility]. His breathing is better. OBJECTIVE: CARDIOVASCULAR: S1, S2. LUNGS: Transmitted upper sounds. HEMATOLOGY: Negative for Homans. PSYCH: Fair mood and affect. Generalized weakness improving. Continue current PT OT. Prognosis guarded. Please see further orders. Wait for rehab consult. Prognosis guarded. He appears to be stabilizing. MMODL / IJN: [id number] /
[2023-08-21 16:33] LABS: Glucose,Whole Blood 235 mg/dL (70-110)
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
[2023-08-21 20:28] LABS: Glucose,Whole Blood 203 mg/dL (70-110)
[2023-08-21] MEDS ORDERED: RX INFO: IV CONTRAST WAS GIVEN 1 EACH MISC MISCELLANE PRN (21:18)
[2023-08-21] MEDS: amLODIPine 5 MG TAB PO SCH (21:44)
--- NOTE | 2023-08-21 22:07 | PN ---
PROGRESS NOTE David Montejo remains in the hospital. He came in with bedbugs on him. Dehydration, acute kidney injury. Last hemoglobin is down from 12.5 to 10.8, repeated in the morning. White count is down to 11. Sugars in the mid 200s. PHYSICAL EXAMINATION: CARDIOVASCULAR: S1, S2. LUNGS: Transmitted upper sounds. EXTREMITIES: He has generalized leg weakness. VITAL SIGNS: Blood pressure is elevated 160s over 70s, pulse 67, respiratory rate 18, O2 is 96% on 2 L. Possibly due to hypoxemia. He has COPD. Possibly get a consult with Pulmonary. Possibly get a CAT scan of his lungs. Prognosis guarded. Continue current breathing treatments. PT/OT. Get consult with Orthopedics for generalized leg weakness, preventing him to walk. Please see further orders. Prognosis guarded. MMODL / IJN: [id number] /
[2023-08-22 06:03] LABS: Glucose,Whole Blood 121 mg/dL (70-110)
--- NOTE | 2023-08-22 10:43 | CT ---
EXAMINATION TYPE: CT chest w con CT DLP: 370 mGycm, Automated exposure control for dose reduction was used. DATE OF EXAM: 08/22/2023 9:53 AM COMPARISON: 05/07/2023 CLINICAL INDICATION:Male, 63 years old with history of pleural effusion; [facility], TECHNIQUE: Multiple axial images were obtained through the chest. Sagittal and coronal reformats were created for review. Contrast used: mL of (None if empty) Oral contrast used: (None if empty) FINDINGS: LUNGS/ PLEURA: Trace bilateral pleural effusions. No focal consolidation or pneumothorax. AIRWAY: Patent and unremarkable. HEART: The heart is mildly enlarged for size. There is moderate coronary artery calcifications. MEDIASTINUM: No gross evidence of adenopathy. VASCULATURE: No aortic aneurysm. Filling defects seen within the bilateral pulmonary arterial vascul ature extending from the right pulmonary artery into the lobar, segmental and subsegmental branches a nd in the left lobar and subsegmental branches.. RV /LV ratio of 37mm/37 mm= 1 MUSCULOSKELETAL: No acute osseous abnormalities SOFT TISSUES/LYMPH NODES: Unremarkable. LOWER NECK: No significant findings. UPPER ABDOMEN: Hyperdense right renal measuring 16 mm and 126 Hounsfield units which was 42 Hounsfiel d units on prior CT 05/07/2023. Adenomatous hypertrophy changes of the degenerative gland similar prio r. IMPRESSION: 1. Bilateral pulmonary emboli without evidence of right heart strain at this time. 2. Enhancing right renal lesion concerning for renal cell carcinoma. Renal mass protocol MRI recomme nded to rule out malignancy. 3. Trace bilateral pleural effusions. 4. Small hiatal hernia. Findings communicated to Dr. Davon Rodrigues MD on 08/22/2023 10:[address] Michael Shafer.
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
[2023-08-22 11:50] LABS: Glucose,Whole Blood 328 mg/dL (70-110)
[2023-08-22 12:30] LABS: ALT 39 U/L (4-49); AST 16 U/L (17-59); African American GFR (CKD) 85 (>60 ml/min/1.73 sqM); Albumin 2.4 g/dL (3.5-5.0); Alkaline Phosphatase 254 U/L (38-126); Anion Gap 6 mmol/L; Blood Urea Nitrogen 30 mg/dL (9-20); Carbon Dioxide 22 mmol/L (22-30); Chloride 108 mmol/L (98-107); Glucose 257 mg/dL (74-99); Non-African American GFR(CKD) 73 (>60 ml/min/1.73 sqM); Sodium 136 mmol/L (137-145); Total Bilirubin 0.3 mg/dL (0.2-1.3); Total Protein 5.1 g/dL (6.3-8.2)
[2023-08-22 12:45] LABS: Basophils % (A) 0 %; Eosinophils # (A) 0.2 k/uL (0-0.7); Eosinophils % (A) 2 %; HCT 39.5 % (39.0-53.0); HGB 12.2 gm/dL (13.0-17.5); Lymphocytes # (A) 1.5 k/uL (1.0-4.8); Lymphocytes % (A) 12 %; MCHC 30.8 g/dL (31.0-37.0); MCV 94.2 fL (80.0-100.0); Monocytes # (A) 0.7 k/uL (0-1.0); Monocytes % (A) 6 %; Neutrophils % (A) 80 %; Platelet Count 271 k/uL (150-450); RBC 4.19 m/uL (4.30-5.90); RDW 14.3 % (11.5-15.5); WBC 12.5 k/uL (3.8-10.6)
[2023-08-22] MEDS ORDERED: HEPARIN SODIUM 1,000 UN/ML (10ML VL) IV PRN (15:35)
[2023-08-22 16:09] LABS: INR 1.1 (<1.2); Prothrombin Time 12.1 sec (10.0-12.5)
[2023-08-22 16:22] LABS: Basophils % (A) 0 %; Eosinophils # (A) 0.2 k/uL (0-0.7); Eosinophils % (A) 2 %; HCT 36.9 % (39.0-53.0); HGB 11.7 gm/dL (13.0-17.5); Lymphocytes % (A) 20 %; MCH 29.5 pg (25.0-35.0); MCHC 31.7 g/dL (31.0-37.0); Monocytes # (A) 0.6 k/uL (0-1.0); Monocytes % (A) 6 %; Neutrophils # (A) 7.2 k/uL (1.3-7.7); Neutrophils % (A) 71 %; Platelet Count 279 k/uL (150-450); RBC 3.97 m/uL (4.30-5.90); RDW 14.4 % (11.5-15.5); WBC 10.1 k/uL (3.8-10.6)
[2023-08-22 16:22] LABS: Glucose,Whole Blood 59 mg/dL (70-110)
[2023-08-22 16:41] LABS: Glucose,Whole Blood 69 mg/dL (70-110)
[2023-08-22] MEDS: HEPARIN SOD,PORK IN 0.45% NACL 25,000 UNIT in 0.45% NACL 1 250ML.BAG IV SCH (16:44)
[2023-08-22] MEDS: HEPARIN SODIUM 1,000 UN/ML (10ML VL) IV ONE (16:44)
[2023-08-22 17:07] LABS: Glucose,Whole Blood 98 mg/dL (70-110)
--- NOTE | 2023-08-22 17:07 | CDI ---
Documentation Clarification Form Date: 08/22/2023 04:46:25 PM From: Kia Carvalho RN, CCDS Phone: [phone] Admit Date: 08/18/2023 05:03:00 AM Patient Name: David Montejo Visit Number: [id number] Discharge Date: ATTENTION: The Clinical Documentation Specialists (CDI) and [facility] Coding Staff appreciate your assistance in clarifying documentation. Please respond to the clarification below the line at the bottom and electronically sign. The CDI & [facility] Coding staff will review the response and follow-up if needed. Please note: Queries are made part of the Legal Health Record. If you have any questions, please contact the author of this message via ITS. Dr. Davon Rodrigues Your patient presented to ED for evaluation of generalized weakness, debility, unable to care for himself. . Additional clarification regarding the etiology/cause of this symptom is requested. History/Risk Factors: COPD, CVA/TIA, Diabetes Mellitus, Hyperlipidemia, Hypertension, Rheumatoid Arthritis (RA), Sleep Apnea Clinical Indicators: 63-year-old male with generalized weakness, inability to ambulate with incontinence. 08/17 VS 160/89 95 18 95% RA 08/17 Labs: WBC 14.1, HGB 12.6, Neutrophils 11.6, Na 135, BUN 37, CR 1.49, Troponin 0.072 08/17 CXR: No acute cardiopulmonary disease Treatment: PT/OT consult and participate Turn and Position assist with ADL'S Monitor Skin integrity hourly Is there a corresponding diagnosis/etiology for this symptom of weakness? [ ] Age related physical debility [ ] Unable to determine [ ] Other, please specify (Template Last Reviewed: March 2020) MTDD
[2023-08-22 20:03] LABS: Glucose,Whole Blood 106 mg/dL (70-110)
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
[2023-08-23] MEDS: APIXABAN 5 MG TAB PO ONE (00:22)
[2023-08-23 06:14] LABS: Glucose,Whole Blood 126 mg/dL (70-110)
--- NOTE | 2023-08-23 08:03 | US ---
EXAMINATION TYPE: US venous doppler duplex LE BI DATE OF EXAM: 08/23/2023 7:46 AM COMPARISON: US 08/03/2021 CLINICAL INDICATION: Male, 63 years old with history of DVT; No hx of DVT. Patient is on heparin. SIDE PERFORMED: Bilateral TECHNIQUE: The lower extremity deep venous system is examined utilizing real time linear array sonog ever with graded compression, doppler sonography and color-flow sonography. VESSELS IMAGED: Common Femoral Vein Deep Femoral Vein Greater Saphenous Vein * Femoral Vein Popliteal Vein Small Saphenous Vein * Proximal Calf Veins (* superficial vessels) Right Leg: No evidence of DVT. Left Leg: Appears positive for DVT. Internal echoes and color defect seen within the deep femoral vein. Deep femoral vein does not compress. IMPRESSION: 1. Left lower extremity appears to be positive for DVT.
[2023-08-23] MEDS: Apixaban Initiation Dose--VTE 5 MG TAB PO SCH (09:16)
[2023-08-23 10:13] LABS: Basophils % (A) 0 %; Eosinophils # (A) 0.3 k/uL (0-0.7); Eosinophils % (A) 3 %; HCT 34.1 % (39.0-53.0); HGB 10.6 gm/dL (13.0-17.5); Hypochromasia Slight; Lymphocytes # (A) 2.3 k/uL (1.0-4.8); Lymphocytes % (A) 21 %; MCH 29.2 pg (25.0-35.0); MCV 94.2 fL (80.0-100.0); Mean Platelet Volume 9.6; Monocytes # (A) 0.8 k/uL (0-1.0); Monocytes % (A) 7 %; Neutrophils # (A) 7.4 k/uL (1.3-7.7); Neutrophils % (A) 69 %; Platelet Count 270 k/uL (150-450); RBC 3.63 m/uL (4.30-5.90); RDW 14.5 % (11.5-15.5); WBC 10.8 k/uL (3.8-10.6)
[2023-08-23 11:28] LABS: Glucose,Whole Blood 164 mg/dL (70-110)
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
[2023-08-23 16:23] LABS: Appearance,Urine Clear (Clear); Bilirubin,Urine Negative (Negative); Blood,Urine Negative (Negative); Color,Urine Colorless; Glucose,Urine (UA) 4+ (Negative); Ketones,Urine Negative (Negative); Leukocyte Esterase,Urine Negative (Negative); Nitrite,Urine Negative (Negative); PH, Urine 6.5 (5.0-8.0); Protein,Urine 2+ (Negative); Urobilinogen,Urine <2.0 mg/dL (<2.0); WBC,Urine 1 /hpf (0-5)
[2023-08-23 16:30] LABS: Glucose,Whole Blood 154 mg/dL (70-110)
[2023-08-23 20:11] LABS: Glucose,Whole Blood 120 mg/dL (70-110)
--- NOTE | 2023-08-23 20:37 | P.PN ---
Subjective Progress Note Date: 08/23/23 Principal diagnosis: pulmonary embolism generalized weakness and medical debility Renal mass likely renal cell carcinoma elevated troponin likely demand ischemia Dyslipidemia Hypertension after extensive cardiovascular disease Type 2 diabetes mellitus with hyperglycemia 08/23/2023, patient seen and evaluated examined during rounds labs reviewed medications reviewed care plan discussed with the patient as well as staff at length.patient denies any chest pain appetite has been good and improving,duplex ultrasound of lower extremity positive for left lower extremity DVT no DVT seen on the right side patient is off of heparin has been on therapeutic dose off direct acting oral anticoagulants with 10 mg twice a day for 7 days subsequently was changed to 5 mg twice a day, noted that urology has been consulted nephrology has been following as well 63-year-old male was presented into the hospital. From the emergency department due to generalized weakness and pain diffusely patient has prior medical history of CVA TIA, rheumatoid arthritis, diabetes mellitus, dyslipidemia, hypertension hypertensive cardiovascular disease. He was noted to be covered with antibiot ics on arrival. Workup and evaluation includes leukocytosis with WBC count of 14, BUN/creatinine is 37/1.49 elevated glucose 297 chest x-ray unremarkable. computed tomography scan of the chest positive for bilateral PE without evidence of right ventricular strain and had single right renal lesion concerning for renal cell carcinoma and trace bilateral pleural effusiondid patient is started on IV heparin drip. Patient does have a history of prior DVT but however cannot recall the medicine he was using, however he expresses that he was taken off of treatment more than a year ago Objective - Vital Signs Vital signs: Vital Signs Temp 97.7 F 08/23/23 20:00 Pulse 80 08/23/23 20:00 Resp 18 08/23/23 20:00 BP 144/73 08/23/23 20:00 Pulse Ox 94 L 08/23/23 20:00 FiO2 Intake & Output 08/23/23 08/23/23 08/24/23 06:59 18:59 06:59 Intake Total 1440 Output Total 1200 400 Balance -1200 1040 Weight 93.44 kg Intake: Oral 1440 Output: Urine 1200 400 Other: Voiding Method External Catheter External Catheter External Catheter - Exam - Constitutional General appearance: average body habitus, disheveled - EENT Eyes: EOMI, PERRLA ENT: normal oropharynx Ears: bilateral: normal - Neck Neck: normal ROM Carotids: bilateral: upstroke normal Thyroid: bilateral: normal size - Respiratory Respiratory: bilateral: CTA - Cardiovascular Rhythm: regular Heart sounds: normal: S1, S2 - Gastrointestinal General gastrointestinal: normal bowel sounds - Integumentary Integumentary: normal turgor - Neurologic Neurologic: CNII-XII intact - Musculoskeletal Musculoskeletal: gait normal, generalized weakness, strength equal bilaterally - Psychiatric Psychiatric: A&O x's 3, appropriate affect, intact judgment & insight - Labs CBC & Chem 7: 08/23/23 09:15 08/22/23 10:55 Labs: Abnormal Lab Results - Last 24 Hours (Table) 08/22/23 08/23/23 08/23/23 Range/Units 21:43 06:09 09:15 WBC 10.8 H (3.8-10.6) k/uL RBC 3.63 L (4.30-5.90) m/uL Hgb 10.6 L (13.0-17.5) gm/dL Hct 34.1 L (39.0-53.0) % APTT 75.5 H (22.0-30.0) sec POC Glucose (mg/dL) 126 H (70-110) mg/dL Urine Protein (Negative) Urine Glucose (UA) (Negative) 08/23/23 08/23/23 08/23/23 Range/Units 11:26 15:53 16:29 WBC (3.8-10.6) k/uL RBC (4.30-5.90) m/uL Hgb (13.0-17.5) gm/dL Hct (39.0-53.0) % APTT (22.0-30.0) sec POC Glucose (mg/dL) 164 H 154 H (70-110) mg/dL Urine Protein 2+ H (Negative) Urine Glucose (UA) 4+ H (Negative) 08/23/23 Range/Units 20:08 WBC (3.8-10.6) k/uL RBC (4.30-5.90) m/uL Hgb (13.0-17.5) gm/dL Hct (39.0-53.0) % APTT (22.0-30.0) sec POC Glucose (mg/dL) 120 H (70-110) mg/dL Urine Protein (Negative) Urine Glucose (UA) (Negative) Assessment and Plan Assessment: pulmonary embolism left lower extremity DVT generalized weakness and medical debility Renal mass likely renal cell carcinoma elevated troponin likely demand ischemia Dyslipidemia Hypertension after extensive cardiovascular disease Type 2 diabetes mellitus with hyperglycemia Plan: continue therapeutic dose of oral anticoagulant 10 mg twice a day posterior one week to be changed to 5 mg twice a day Reviewed duplex ultrasound lower extremity noted urology evaluation for renal cell mass Continue losartan and Lipitor and short and long-term insulin Time with Patient: Greater than 30
--- NOTE | 2023-08-24 00:46 | PN ---
PROGRESS NOTE SUBJECTIVE: This 63-year-old white male was found to have a DVT in his left leg. He has PE bilaterally. He is on IV heparin heavy dose, going to switch to Eliquis in a few days. He also has a mass on his kidneys, could get Urology involved to see if he has renal cancer. He also is weak, fatigued. OBJECTIVE: CARDIOVASCULAR: S1, S2. LUNGS: Transmitted upper sounds. GI: Soft. EXTREMITIES: Extremely weak. He has generalized weakness, debility, renal lesions, rule out renal cancer, acute DVT left leg, pulmonary embolism, bilateral. Continue current breathing treatments. I have high-dose heparin. Switch to oral anticoagulant in next few days. PROGNOSIS: Guarded. MMODL / IJN: [id number] /
[2023-08-24 06:13] LABS: Glucose,Whole Blood 122 mg/dL (70-110)
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
[2023-08-24 10:43] LABS: African American GFR (CKD) 72 (>60 ml/min/1.73 sqM); Anion Gap 5 mmol/L; Blood Urea Nitrogen 36 mg/dL (9-20); Calcium 8.2 mg/dL (8.4-10.2); Carbon Dioxide 24 mmol/L (22-30); Chloride 110 mmol/L (98-107); Glucose 171 mg/dL (74-99); Non-African American GFR(CKD) 63 (>60 ml/min/1.73 sqM); Potassium 4.1 mmol/L (3.5-5.1); Sodium 139 mmol/L (137-145)
[2023-08-24 11:23] LABS: Glucose,Whole Blood 161 mg/dL (70-110)
--- NOTE | 2023-08-24 15:42 | P.CN ---
Psychiatric Consult - . Consult date: 08/24/23 Consult:: 08/24/23 15:41 CONSULTATION Reason for consult: Depression. dentifying Data: The patient is 63 years old, , white male, who lives in [place], [place] with a roommate. Reason for admission: Generalized weakness, debilitation. History of present illness: The patient was brought to the emergency department with above mentioned symptoms. He was found by his roommate covered with feces, bedbugs all over his body, inability to ambulate and incontinent. with After initial examination and other work-up, the patient was transferred to medical floor for further management. During this evaluation, the patient reported, that he saw a psychiatrist last time when he was in the hospital. The patient was some playful and gave conflicting responses. The patient noted that he has never treated for psychiatric disorder in the past or has ever taken psychiatric medications. The EMR reflects that he has been admitted to this on psychiatric floor at this hospital at least 3 times. His last psychiatric admission was in April,. He has been diagnosed with Schizophrenia and Schizoaffective disorder in the past. He has been prescribed Risperdal, Depakote, and Pristiq in the past. The past psychiatric history indicates that he has had several psychiatric admissions in the past. He has been non-compliant with out-pt treatment and taking his medications. The patient noted that he has been having negative thoughts recently. He wants to kill himself with plan to jump off the water bridge. The patient reported symptoms of losing 85 lbs. neglecting personal hygiene and care, loss of interest, loss of motivation, social withdrawal, feeling of helplessness, worthlessness, hopelessness, and suicidal thoughts. On leading questions admitted to depression, anxiety, hopelessness, worthlessness, suicidal thoughts and plan. The patient denied symptoms of paranoia, or any other delusional thinking, A/V hallucinations. Out-pt follow-up: The patient has been to out-pt treatment off and on over the years. History of past psychiatric illness: No other than stated in HPI. No history of suicidal or homicidal ideations or behavior, as per patient. No documented history suicidal or homicidal behavior except before this admission when he was found in a very compromised state. Past medical history: COPD, TIA, CVA, DM, RA, HTN Substance abuse history: The patient has history heavy drinking from late teens to mid-thirties. He reduced drinking then and now indicates that he drinks whenever he has money to buy alcohol. He denied any blackouts, withdrawal seizures, or DTs. He denied being treated in a rehab. in the past. MSE: Alert and attentive Orientation X3. Pleasant and cooperative. Psychomotor activity: Reduced. Speech: Normal tone, quality, and quantity Mood: Depressed and anxious. Affect: Consistent with mood. SI or HI: None Thought content: None noted. Thought process: Normal Perceptual disturbance: None noted. Cognition: Intact Judgement and Insight: Poor. Diagnosis: Major Depressive disorder, severe recurrent, Schizoaffective disorder, unspecified. Plan: The patient needs in-patient psychiatric admission. Transfer patient to psychiatric in-patient unit after medical stabilization. Suicide precautions Medication recommendations: Continue current medications.
--- NOTE | 2023-08-24 16:15 | P.PN ---
Subjective Patient is seen for follow-up for acute kidney injury and right renal mass. Patient was evaluated by urology and he has opted for close monitoring of the right renal lesion. He will follow-up as outpatient with urology. No significant complaints today. Serum creatinine at 1.2 mg/dL. Objective - Vital Signs Vital signs: Vital Signs Temp 97.8 F 08/24/23 14:13 Pulse 78 08/24/23 14:13 Resp 15 08/24/23 14:13 BP 142/81 08/24/23 14:13 Pulse Ox 95 08/24/23 14:13 FiO2 Intake & Output 08/23/23 08/24/23 08/24/23 18:59 06:59 18:59 Intake Total 1440 350 Output Total 400 150 Balance 1040 -150 350 Weight 93.44 kg Intake: Oral 1440 350 Output: Urine 400 150 Other: Voiding Method External Catheter External Catheter External Catheter # Voids 1 # Bowel Movements 1 - Exam Patient is awake, comfortable, no acute distress. Examination of the heart S1 and S2 Examination of the lungs bilateral breath sounds are heard Abdomen is soft nontender Examination of lower extremities shows no significant edema. OUTSIDE SALES exam grossly intact - Labs CBC & Chem 7: 08/23/23 09:15 08/24/23 09:45 Labs: Abnormal Lab Results - Last 24 Hours (Table) 08/23/23 08/23/23 08/23/23 Range/Units 15:53 16:29 20:08 Chloride (98-107) mmol/L BUN (9-20) mg/dL Glucose (74-99) mg/dL POC Glucose (mg/dL) 154 H 120 H (70-110) mg/dL Calcium (8.4-10.2) mg/dL Urine Protein 2+ H (Negative) Urine Glucose (UA) 4+ H (Negative) 08/24/23 08/24/23 08/24/23 Range/Units 06:11 09:45 11:21 Chloride 110 H (98-107) mmol/L BUN 36 H (9-20) mg/dL Glucose 171 H (74-99) mg/dL POC Glucose (mg/dL) 122 H 161 H (70-110) mg/dL Calcium 8.2 L (8.4-10.2) mg/dL Urine Protein (Negative) Urine Glucose (UA) (Negative) Assessment and Plan Assessment: 1. Acute kidney injury, possibly prerenal currently improved. UA shows 2+ protein, no blood. 2. Enhancing right renal lesion suspicious for renal cell cancer. We will consult urology. 3. Bilateral PE most likely related to underlying malignancy, currently maintained on Eliquis 4. Anemia rule out iron deficiency 5. Chronic kidney disease and Stage IIIa with baseline creatinine around 1 mg/dL. Patient has proteinuria. This will need to be quantified. Etiology is likely diabetic kidney disease. Plan: Continue with IV fluids Check iron profile Quantify proteinuria Repeat labs in a.m. Patient is advised that he will need close follow-up as outpatient with urology.
[2023-08-24 16:28] LABS: Glucose,Whole Blood 167 mg/dL (70-110)
--- NOTE | 2023-08-24 17:21 | US ---
EXAMINATION TYPE: US renals and bladder DATE OF EXAM: 08/24/2023 COMPARISON: CT 08/22/2023 CLINICAL INDICATION: Male, 63 years old with history of renal lesion; renal lesion EXAM MEASUREMENTS: Right Kidney: 12.3 x 4.5 x 5.8 cm Left Kidney: 9.9 x 4.5 x 4.9 cm Right Kidney: Upper pole cyst measuring 1.8 x 1.6 x 1.5cm. Mildly echogenic solid-appearing, partiall y exophytic lesion from the mid to lower pole measuring 2.0 x 1.8 x 1.5cm. No hydronephrosis. Left Kidney: Possible duplex renal collecting system. No hydronephrosis. Bladder: wnl Bilateral Jets seen: Only rt jet seen IMPRESSION: 1. No hydronephrosis on either side. A benign 1.8 cm upper pole cyst on the right. Possible duplex re nal collecting system on the left. 2. An indeterminate 2.0 cm cortical mass mid to lower pole right kidney. Given the marked homogeneous enhancement on recent CT, a lipid poor AML is a consideration. Appropriate surveillance follow-up re commended as RCC should be excluded.
[2023-08-24 20:02] LABS: Glucose,Whole Blood 170 mg/dL (70-110)
[2023-08-25 02:33] LABS: Creatinine,Urine Random 39.7 mg/dL; Protein/Creatinine Ratio,Urine 4.484
[2023-08-25 02:37] LABS: % Iron Saturation 16.86 (15.00-50.00)
[2023-08-25 06:10] LABS: Glucose,Whole Blood 91 mg/dL (70-110)
--- NOTE | 2023-08-25 09:54 | P.PN ---
Subjective Patient is seen in follow-up for acute kidney injury. Has been voiding. Denies chest pain or shortness of breath. No abdominal pain. Vital signs are stable. General: No acute distress. HEENT: Head exam is unremarkable. LUNGS: No audible rhonchi or wheezes. HEART: Rate and Rhythm are regular. ABDOMEN: Nontender. EXTREMITITES: No edema. Objective - Vital Signs Vital signs: Vital Signs Temp 98.5 F 08/25/23 08:00 Pulse 76 08/25/23 08:00 Resp 12 08/25/23 08:00 BP 147/68 08/25/23 08:00 Pulse Ox 97 08/25/23 08:20 FiO2 Intake & Output 08/24/23 08/25/23 08/25/23 18:59 06:59 18:59 Intake Total 350 130 Output Total 100 200 Balance 350 -100 -70 Intake: IV 10 Invasive Line 1 10 Oral 350 120 Output: Urine 100 200 Other: Voiding Method External Catheter External Catheter # Voids 1 6 # Bowel Movements 1 - Labs CBC & Chem 7: 08/23/23 09:15 08/24/23 09:45 Labs: Abnormal Lab Results - Last 24 Hours (Table) 08/23/23 08/24/23 08/24/23 Range/Units 09:15 09:45 11:21 Chloride 110 H (98-107) mmol/L BUN 36 H (9-20) mg/dL Glucose 171 H (74-99) mg/dL POC Glucose (mg/dL) 161 H (70-110) mg/dL Calcium 8.2 L (8.4-10.2) mg/dL Iron 29 L (65-175) UG/DL TIBC 172 L (228-460) UG/DL Transferrin 123.0 L (204.0-354.0) mg/dL 08/24/23 08/24/23 Range/Units 16:27 20:00 Chloride (98-107) mmol/L BUN (9-20) mg/dL Glucose (74-99) mg/dL POC Glucose (mg/dL) 167 H 170 H (70-110) mg/dL Calcium (8.4-10.2) mg/dL Iron (65-175) UG/DL TIBC (228-460) UG/DL Transferrin (204.0-354.0) mg/dL Assessment and Plan Plan: Assessment: 1. Acute kidney injury secondary to vasomotor nephropathy. Improved. Creatinine 1.21 yesterday. 2. Chronic kidney disease stage IIIa with baseline creatinine 1-1.2. Patient does have significant proteinuria which is likely due to underlying diabetic kidney disease. 3. Hypertension with chronic kidney disease. Stable. 4. Diabetes mellitus. 5. Anemia. Iron deficiency noted. 6. Bilateral PE maintained on anticoagulation. 7. Enhancing right renal lesion suspicious for renal cancer. Seen by urology. Plan: Encouraged oral intake. Avoid nephrotoxins. Check serologies. Maintain ARB and SGLT2 inhibitor. Follow-up outpatient 1 to 2 weeks postdischarge.
[2023-08-25 11:37] LABS: Glucose,Whole Blood 328 mg/dL (70-110)
[2023-08-25] MEDS: HYDROcodone/APAP 7.5-325MG 1 EACH TAB PO PRN (11:43)
[2023-08-25 16:51] LABS: Glucose,Whole Blood 168 mg/dL (70-110)
[2023-08-25 20:14] LABS: Glucose,Whole Blood 194 mg/dL (70-110)
--- NOTE | 2023-08-25 22:07 | PN ---
PROGRESS NOTE DATE OF SERVICE: 08/24/2023 SUBJECTIVE: This is a 63-year-old white male, who is waiting for urology to assess possible renal lesion for cancer. We are going to do an ultrasound while we are waiting of this area. Psychiatry saw the patient, was taken to psych unit with which he will do since he is cleared by Urology. His breathing is improved with breathing treatments. His PE, pulmonary embolism, DVT are being treated with Eliquis. OBJECTIVE: VITAL SIGNS: Reviewed. CARDIOVASCULAR: S1, S2. PSYCH: Sleepy, lethargic, flat mood and affect. HEMATOLOGY: Negative for Homans. LUNGS: Scattered rhonchi and wheeze. GI: Soft. ASSESSMENT: DVT, PE, COPD. Continue on Eliquis, breathing treatments, depression, medications for depression per [facility] when cleared by Urology. MMODL / IJN: [id number] /
[2023-08-26 06:00] LABS: Glucose,Whole Blood 81 mg/dL (70-110)
--- NOTE | 2023-08-26 10:25 | P.PN ---
Subjective Patient is seen in follow-up for acute kidney injury. Has been voiding. Denies chest pain or shortness of breath. No abdominal pain. No active complaints at this time. Vital signs are stable. General: No acute distress. HEENT: Head exam is unremarkable. LUNGS: No audible rhonchi or wheezes. HEART: Rate and Rhythm are regular. ABDOMEN: Nontender. EXTREMITITES: No edema. Objective - Vital Signs Vital signs: Vital Signs Temp 98.3 F 08/26/23 08:41 Pulse 69 08/26/23 08:41 Resp 14 08/26/23 08:41 BP 152/72 08/26/23 08:41 Pulse Ox 94 L 08/26/23 08:41 FiO2 Intake & Output 08/25/23 08/26/23 08/26/23 18:59 06:59 18:59 Intake Total 390 20 730 Output Total 550 Balance -160 20 730 Intake: IV 30 20 10 Invasive Line 1 20 Invasive Line 2 10 20 10 Oral 360 720 Output: Urine 550 Other: Voiding Method External Catheter External Catheter External Catheter - Labs CBC & Chem 7: 08/23/23 09:15 08/24/23 09:45 Labs: Abnormal Lab Results - Last 24 Hours (Table) 08/25/23 08/25/23 08/25/23 Range/Units 11:34 16:50 20:13 POC Glucose (mg/dL) 328 H 168 H 194 H (70-110) mg/dL Assessment and Plan Plan: Assessment: 1. Acute kidney injury secondary to vasomotor nephropathy. Improved. Creatinine 1.21 dated August 24, 2023. 2. Chronic kidney disease stage IIIa with baseline creatinine 1-1.2. Patient does have significant proteinuria which is likely due to underlying diabetic kidney disease. 3. Hypertension with chronic kidney disease. Stable. 4. Diabetes mellitus. 5. Anemia. Iron deficiency noted. 6. Bilateral PE maintained on anticoagulation. 7. Enhancing right renal lesion suspicious for renal cancer. Seen by urology. Plan: Encouraged oral intake. Avoid nephrotoxins. Follow-up serologies. Maintain ARB and SGLT2 inhibitor. Add oral iron. Follow-up outpatient 1 to 2 weeks postdischarge. Awaits transfer to inpatient psych.
[2023-08-26 10:32] LABS: Hepatitis A Antibody IgM Nonreactive (Nonreactive); Hepatitis B Core IgM Nonreactive (Nonreactive); Hepatitis C IgG Antibody Nonreactive (Nonreactive)
[2023-08-26 10:33] LABS: Hepatitis B Surface Antigen Nonreactive (Nonreactive)
[2023-08-26 10:53] LABS: Protein, Total 4.6 g/dL (6.2-8.2)
[2023-08-26 11:50] LABS: Glucose,Whole Blood 129 mg/dL (70-110)
[2023-08-26] MEDS: FERROUS SULFATE 325 MG TAB PO SCH (12:06)
[2023-08-26 17:01] LABS: Glucose,Whole Blood 140 mg/dL (70-110)
[2023-08-26 19:52] LABS: Glucose,Whole Blood 232 mg/dL (70-110)
[2023-08-27 05:50] LABS: Glucose,Whole Blood 117 mg/dL (70-110)
--- NOTE | 2023-08-27 06:30 | PN ---
PROGRESS NOTE SUBJECTIVE: 63-year-old white male, severe depression, was supposed to go to [facility]. Waiting for them to take him. His temp is 98, pulse 66, blood pressure of 112/54, O2 96. He sleeps a lot. Sugars in the mid 100s. Nonreactive for hepatitis. He has been treated for PE and DVT over the last 3-5 days. He is stable to transfer to [facility]. He is on oral anticoagulants. His hemoglobin appears to be stable. OBJECTIVE: LUNGS: With transmitted upper sounds, scattered wheeze, otherwise, okay. CARDIOVASCULAR: S1, S2. HEMATOLOGY: Negative Homans. PLAN: Continue current treatment. Prognosis guarded. Hepatitis workup so far is negative. Await for transfer to the rehab center. MMODL / AZAELN: [id number] /
[2023-08-27 07:25] LABS: Basophils % (A) 0 %; Eosinophils # (A) 0.2 k/uL (0-0.7); Eosinophils % (A) 2 %; HGB 11.8 gm/dL (13.0-17.5); Lymphocytes # (A) 2.4 k/uL (1.0-4.8); Lymphocytes % (A) 19 %; MCV 93.5 fL (80.0-100.0); Mean Platelet Volume 9.7; Monocytes % (A) 8 %; Neutrophils # (A) 8.7 k/uL (1.3-7.7); Neutrophils % (A) 70 %; Platelet Count 283 k/uL (150-450); RBC 4.07 m/uL (4.30-5.90); RDW 14.5 % (11.5-15.5); WBC 12.4 k/uL (3.8-10.6)
[2023-08-27 07:48] LABS: ALT 16 U/L (4-49); AST 16 U/L (17-59); African American GFR (CKD) 62 (>60 ml/min/1.73 sqM); Albumin 2.4 g/dL (3.5-5.0); Alkaline Phosphatase 130 U/L (38-126); Anion Gap 4 mmol/L; Blood Urea Nitrogen 43 mg/dL (9-20); Calcium 8.1 mg/dL (8.4-10.2); Carbon Dioxide 25 mmol/L (22-30); Chloride 110 mmol/L (98-107); Glucose 101 mg/dL (74-99); Non-African American GFR(CKD) 54 (>60 ml/min/1.73 sqM); Potassium 4.5 mmol/L (3.5-5.1); Sodium 139 mmol/L (137-145); Total Bilirubin 0.2 mg/dL (0.2-1.3); Total Protein 5.2 g/dL (6.3-8.2)
--- NOTE | 2023-08-27 10:35 | P.PN ---
Subjective Patient is seen in follow-up for acute kidney injury. Has been voiding. Denies chest pain or shortness of breath. No abdominal pain. No active complaints at this time. Vital signs are stable. General: No acute distress. HEENT: Head exam is unremarkable. LUNGS: No audible rhonchi or wheezes. HEART: Rate and Rhythm are regular. ABDOMEN: Nontender. EXTREMITITES: No edema. Objective - Vital Signs Vital signs: Vital Signs Temp 98.1 F 08/27/23 09:17 Pulse 77 08/27/23 09:17 Resp 16 08/27/23 09:17 BP 106/57 08/27/23 09:17 Pulse Ox 95 08/27/23 09:17 FiO2 Intake & Output 08/26/23 08/27/23 08/27/23 18:59 06:59 18:59 Intake Total 1206 128 Output Total 800 Balance 406 128 Intake: IV 10 10 Invasive Line 2 10 10 Oral 1196 118 Output: Urine 800 Other: Voiding Method External Catheter External Catheter Diaper # Voids 2 - Labs CBC & Chem 7: 08/27/23 06:19 08/27/23 06:19 Labs: Abnormal Lab Results - Last 24 Hours (Table) 08/25/23 08/25/23 08/26/23 Range/Units 13:36 13:36 11:49 WBC (3.8-10.6) k/uL RBC (4.30-5.90) m/uL Hgb (13.0-17.5) gm/dL Hct (39.0-53.0) % Neutrophils # (1.3-7.7) k/uL Chloride (98-107) mmol/L BUN (9-20) mg/dL Creatinine (0.66-1.25) mg/dL Glucose (74-99) mg/dL POC Glucose (mg/dL) 129 H (70-110) mg/dL Calcium (8.4-10.2) mg/dL AST (17-59) U/L Alkaline Phosphatase (38-126) U/L Total Protein (6.3-8.2) g/dL Total Protein (PEP) 4.6 L (6.2-8.2) g/dL Albumin (3.5-5.0) g/dL Tot Complement (CH50) >97 H (42 - 95) U/mL 08/26/23 08/26/23 08/27/23 Range/Units 16:59 19:50 05:48 WBC (3.8-10.6) k/uL RBC (4.30-5.90) m/uL Hgb (13.0-17.5) gm/dL Hct (39.0-53.0) % Neutrophils # (1.3-7.7) k/uL Chloride (98-107) mmol/L BUN (9-20) mg/dL Creatinine (0.66-1.25) mg/dL Glucose (74-99) mg/dL POC Glucose (mg/dL) 140 H 232 H 117 H (70-110) mg/dL Calcium (8.4-10.2) mg/dL AST (17-59) U/L Alkaline Phosphatase (38-126) U/L Total Protein (6.3-8.2) g/dL Total Protein (PEP) (6.2-8.2) g/dL Albumin (3.5-5.0) g/dL Tot Complement (CH50) (42 - 95) U/mL 08/27/23 08/27/23 Range/Units 06:19 06:19 WBC 12.4 H (3.8-10.6) k/uL RBC 4.07 L (4.30-5.90) m/uL Hgb 11.8 L (13.0-17.5) gm/dL Hct 38.0 L (39.0-53.0) % Neutrophils # 8.7 H (1.3-7.7) k/uL Chloride 110 H (98-107) mmol/L BUN 43 H (9-20) mg/dL Creatinine 1.37 H (0.66-1.25) mg/dL Glucose 101 H (74-99) mg/dL POC Glucose (mg/dL) (70-110) mg/dL Calcium 8.1 L (8.4-10.2) mg/dL AST 16 L (17-59) U/L Alkaline Phosphatase 130 H (38-126) U/L Total Protein 5.2 L (6.3-8.2) g/dL Total Protein (PEP) (6.2-8.2) g/dL Albumin 2.4 L (3.5-5.0) g/dL Tot Complement (CH50) (42 - 95) U/mL Assessment and Plan Plan: Assessment: 1. Acute kidney injury secondary to vasomotor nephropathy. Improved. Creatinine 1.37 today. 2. Chronic kidney disease stage IIIa with baseline creatinine 1-1.2. Patient does have significant proteinuria which is likely due to underlying diabetic kidney disease. 3. Hypertension with chronic kidney disease. Stable. 4. Diabetes mellitus. 5. Anemia. Iron deficiency noted. On oral iron. 6. Bilateral PE maintained on anticoagulation. 7. Enhancing right renal lesion suspicious for renal cancer. Seen by urology. Plan: Encouraged oral intake. Avoid nephrotoxins. Follow-up serologies. Negative so far. Maintain ARB and SGLT2 inhibitor. Follow-up outpatient 1 to 2 weeks postdischarge. Awaits transfer to inpatient psych.
[2023-08-27 11:32] LABS: Glucose,Whole Blood 194 mg/dL (70-110)
--- NOTE | 2023-08-27 13:46 | DS ---
DISCHARGE SUMMARY DISCHARGE MEDICINES: 1. Actos 30 mg daily. 2. Eliquis 5 mg b.i.d. 3. Levemir 20 units subcu daily. 4. Norvasc 5 mg daily. 5. NovoLog before meals and at bedtime. 6. Ventolin inhaler 2 puffs q.4 p.r.n. 7. Lipitor 20 mg daily. 8. Depakote ER 500 daily. 9. Risperdal 1 mg at bedtime. 10.Coreg 25 mg. 11.Cozaar 25 mg daily. 12.Aspirin 81 mg daily. 13.Farxiga 10 mg daily. 14.Pristiq ER 100 mg daily. 15.Symbicort inhaler 160/4.5 two puffs b.i.d. 16.Desyrel 50 mg at bedtime for insomnia. CONDITION: Stable. PROGNOSIS: Guarded. ACTIVITY: Ambulate as tolerated. 63-year-old white male who was found to have a pulmonary embolism. He was started on Eliquis for pulmonary embolism. His breathing improved. His vital signs, he sats 93 on room air, blood pressure 130/62, pulse 80, respiratory rate 16 to 18, temp 98.1. After being treated for pulmonary embolism, the patient stabilized. He is found to have severe depression. Please get breathing treatments in the hospital. We can switch him over to inhalers at discharge. I also recommend maybe do Perforomist nebulizer treatments twice a day 20 mcg and he will follow up in the [facility] for psychiatric care. Otherwise, he is stable medically. He is supposed to get physical therapy for leg weakness, which will be continued here or under rehab center. Please see further orders. Condition stable. Diet as tolerated. Please see further orders. MMODL / IJN: [id number] /
[2023-08-27 15:22] LABS: C-ANCA <1:20 Titer (<1:20)
[2023-08-27 15:41] LABS: Anti-DNA, DS unit <1.0 IU/mL; DNA Double-Stranded Negative (Negative)
[2023-08-27 16:21] LABS: Glucose,Whole Blood 182 mg/dL (70-110)
--- NOTE | 2023-08-27 17:48 | P.PN ---
Subjective Progress Note Date: 08/27/23 Principal diagnosis: pulmonary embolism generalized weakness and medical debility Renal mass likely renal cell carcinoma elevated troponin likely demand ischemia Dyslipidemia Hypertension after extensive cardiovascular disease Type 2 diabetes mellitus with hyperglycemia 09/02/2023, patient seen and evaluated examined in follow-upoxygen saturation 94%, blood pressure stable,patient is being considered for possible discharge later on today,as well as direct acting oral anticoagulant dose to be tapered down patientdoes become except depressed feeling 08/23/2023, patient seen and evaluated examined during rounds labs reviewed medications reviewed care plan discussed with the patient as well as staff at length.patient denies any chest pain appetite has been good and improving,duplex ultrasound of lower extremity positive for left lower extremity DVT no DVT seen on the right side patient is off of heparin has been on therapeutic dose off direct acting oral anticoagulants with 10 mg twice a day for 7 days subsequently was changed to 5 mg twice a day, noted that urology has been consulted nephrology has been following as well 63-year-old male was presented into the hospital. From the emergency department due to generalized weakness and pain diffusely patient has prior medical history of CVA TIA, rheumatoid arthritis, diabetes mellitus, dyslipidemia, hypertension hypertensive cardiovascular disease. He was noted to be covered with antibiotics on arrival. Workup and evaluation includes leukocytosis with WBC count of 14, BUN/creatinine is 37/1.49 elevated glucose 297 chest x-ray unremarkable. computed tomography scan of the chest positive for bilateral PE without evidence of right ventricular strain and had single right renal lesion concerning for renal cell carcinoma and trace bilateral pleural effusiondid patient is started on IV heparin drip. Patient does have a history of prior DVT but however cannot recall the medicine he was using, however he expresses that he was taken off of treatment more than a year ago Objective - Vital Signs Vital signs: Vital Signs Temp 98.3 F 08/27/23 16:39 Pulse 71 08/27/23 16:39 Resp 14 08/27/23 16:39 BP 103/55 08/27/23 16:39 Pulse Ox 94 L 08/27/23 16:39 FiO2 Intake & Output 08/26/23 08/27/23 08/27/23 18:59 06:59 18:59 Intake Total 1206 484 Output Total 800 Balance 406 484 Intake: IV 10 10 Invasive Line 2 10 10 Oral 1196 474 Output: Urine 800 Other: Voiding Method External Catheter External Catheter Diaper # Voids 3 - Exam - Constitutional General appearance: average body habitus, disheveled - EENT Eyes: EOMI, PERRLA ENT: normal oropharynx Ears: bilateral: normal - Neck Neck: normal ROM Carotids: bilateral: upstroke normal Thyroid: bilateral: normal size - Respiratory Respiratory: bilateral: CTA - Cardiovascular Rhythm: regular Heart sounds: normal: S1, S2 - Gastrointestinal General gastrointestinal: normal bowel sounds - Integumentary Integumentary: normal turgor - Neurologic Neurologic: CNII-XII intact - Musculoskeletal Musculoskeletal: gait normal, generalized weakness, strength equal bilaterally - Psychiatric Psychiatric: A&O x's 3, appropriate affect, intact judgment & insight - Labs CBC & Chem 7: 08/27/23 06:19 08/27/23 06:19 Labs: Abnormal Lab Results - Last 24 Hours (Table) 08/25/23 08/26/23 08/27/23 Range/Units 13:36 19:50 05:48 WBC (3.8-10.6) k/uL RBC (4.30-5.90) m/uL Hgb (13.0-17.5) gm/dL Hct (39.0-53.0) % Neutrophils # (1.3-7.7) k/uL Chloride (98-107) mmol/L BUN (9-20) mg/dL Creatinine (0.66-1.25) mg/dL Glucose (74-99) mg/dL POC Glucose (mg/dL) 232 H 117 H (70-110) mg/dL Calcium (8.4-10.2) mg/dL AST (17-59) U/L Alkaline Phosphatase (38-126) U/L Total Protein (6.3-8.2) g/dL Albumin (3.5-5.0) g/dL Tot Complement (CH50) >97 H (42 - 95) U/mL 08/27/23 08/27/23 08/27/23 Range/Units 06:19 06:19 11:28 WBC 12.4 H (3.8-10.6) k/uL RBC 4.07 L (4.30-5.90) m/uL Hgb 11.8 L (13.0-17.5) gm/dL Hct 38.0 L (39.0-53.0) % Neutrophils # 8.7 H (1.3-7.7) k/uL Chloride 110 H (98-107) mmol/L BUN 43 H (9-20) mg/dL Creatinine 1.37 H (0.66-1.25) mg/dL Glucose 101 H (74-99) mg/dL POC Glucose (mg/dL) 194 H (70-110) mg/dL Calcium 8.1 L (8.4-10.2) mg/dL AST 16 L (17-59) U/L Alkaline Phosphatase 130 H (38-126) U/L Total Protein 5.2 L (6.3-8.2) g/dL Albumin 2.4 L (3.5-5.0) g/dL Tot Complement (CH50) (42 - 95) U/mL 08/27/23 Range/Units 16:19 WBC (3.8-10.6) k/uL RBC (4.30-5.90) m/uL Hgb (13.0-17.5) gm/dL Hct (39.0-53.0) % Neutrophils # (1.3-7.7) k/uL Chloride (98-107) mmol/L BUN (9-20) mg/dL Creatinine (0.66-1.25) mg/dL Glucose (74-99) mg/dL POC Glucose (mg/dL) 182 H (70-110) mg/dL Calcium (8.4-10.2) mg/dL AST (17-59) U/L Alkaline Phosphatase (38-126) U/L Total Protein (6.3-8.2) g/dL Albumin (3.5-5.0) g/dL Tot Complement (CH50) (42 - 95) U/mL Assessment and Plan Assessment: pulmonary embolism left lower extremity DVT generalized weakness and medical debility Renal mass likely renal cell carcinoma elevated troponin likely demand ischemia Dyslipidemia Hypertension after extensive cardiovascular disease Type 2 diabetes mellitus with hyperglycemia severe depression Plan: continue bronchodilators as outlined above continue therapeutic dose of oral anticoagulant 10 mg twice a day posterior one week to be changed to 5 mg twice a day Reviewed duplex ultrasound lower extremity noted urology evaluation for renal cell mass Continue losartan and Lipitor and short and long-term insulin Time with Patient: Less than 30
[2023-08-27 18:41] LABS: Albumin 1.94 g/dL (3.80-4.90); Gamma Globulin 0.83 g/dL (0.70-1.50)
[2023-08-27] MEDS ORDERED: FORMOTEROL FUMARATE 20 MCG/2 ML NEBU INHALATION SCH (20:00)
[2023-08-27 21:19] LABS: Glucose,Whole Blood 173 mg/dL (70-110)
--- NOTE | 2023-08-28 00:07 | PN ---
PROGRESS NOTE SUBJECTIVE: He is unable to go to [facility] here. Needs [facility] for his wounds on his legs. He has generalized weakness of the legs still. He is breathing better. Depression medications were altered by Psychiatry. Can't give a geriatric psych consult. OBJECTIVE: CARDIOVASCULAR: S1, S2. LUNGS: Transmitted upper sounds. VITAL SIGNS: He is afebrile. Pulse 70s to 80s. Respiratory rate 16-14, blood pressure is 100 to 138/70. GI: Soft. EXTREMITIES: Positive Homans, left. Legs essentially clear. PSYCH: Flat mood and affect. ASSESSMENT: DVT, PE, hypoxemic respiratory failure. Continue on breathing treatments. Plan for geriatric psych. Continue current treatment for his breathing, Eliquis for DVT. Monitor labs. Acute on chronic anemia, mild leukocytosis, secondary to DVT, PE. Sugars mid 100s. BUN is 43, creatinine 1.37 with GFR 54. Condition stable. Prognosis guarded. MMODL / IJN: [id number] /
[2023-08-28 05:52] LABS: Glucose,Whole Blood 134 mg/dL (70-110)
[2023-08-28 09:46] LABS: ALT 15 U/L (4-49); AST 17 U/L (17-59); African American GFR (CKD) 56 (>60 ml/min/1.73 sqM); Albumin 2.7 g/dL (3.5-5.0); Alkaline Phosphatase 147 U/L (38-126); Anion Gap 5 mmol/L; Blood Urea Nitrogen 50 mg/dL (9-20); Calcium 8.5 mg/dL (8.4-10.2); Carbon Dioxide 26 mmol/L (22-30); Chloride 109 mmol/L (98-107); Glucose 119 mg/dL (74-99); Non-African American GFR(CKD) 49 (>60 ml/min/1.73 sqM); Potassium 4.4 mmol/L (3.5-5.1); Sodium 140 mmol/L (137-145); Total Bilirubin 0.2 mg/dL (0.2-1.3); Total Protein 5.7 g/dL (6.3-8.2)
--- NOTE | 2023-08-28 10:11 | P.PN ---
Subjective Progress Note Date: 08/28/23 Principal diagnosis: pulmonary embolism generalized weakness and medical debility Renal mass likely renal cell carcinoma elevated troponin likely demand ischemia Dyslipidemia Hypertension after extensive cardiovascular disease Type 2 diabetes mellitus with hyperglycemia 08/28/2023, patient seen eval examined during rounds labs reviewed medications reviewed care plan discussed, no specific complains are present,room air oxygen saturation 95% hemodynamic status stablemedication list reviewed 08/27/2023, patient seen and evaluated examined in follow-upoxygen saturation 94%, blood pressure stable,patient is being considered for possible discharge later on today,as well as direct acting oral anticoagulant dose to be tapered down patientdoes become except depressed feeling 08/23/2023, patient seen and evaluated examined during rounds labs reviewed medications reviewed care plan discussed with the patient as well as staff at length.patient denies any chest pain appetite has been good and improving,duplex ultrasound of lower extremity positive for left lower extremity DVT no DVT seen on the right side patient is off of heparin has been on therapeutic dose off di rect acting oral anticoagulants with 10 mg twice a day for 7 days subsequently was changed to 5 mg twice a day, noted that urology has been consulted nephrology has been following as well 63-year-old male was presented into the hospital. From the emergency department due to generalized weakness and pain diffusely patient has prior medical history of CVA TIA, rheumatoid arthritis, diabetes mellitus, dyslipidemia, hypertension hypertensive cardiovascular disease. He was noted to be covered with antibiotics on arrival. Workup and evaluation includes leukocytosis with WBC count of 14, BUN/creatinine is 37/1.49 elevated glucose 297 chest x-ray unremarkable. computed tomography scan of the chest positive for bilateral PE without evidence of right ventricular strain and had single right renal lesion concerning for renal cell carcinoma and trace bilateral pleural effusiondid patient is started on IV heparin drip. Patient does have a history of prior DVT but however cannot recall the medicine he was using, however he expresses that he was taken off of treatment more than a year ago Objective - Vital Signs Vital signs: Vital Signs Temp 98.5 F 08/28/23 06:43 Pulse 77 08/28/23 06:43 Resp 16 08/28/23 06:43 BP 125/67 08/28/23 06:43 Pulse Ox 95 08/28/23 06:43 FiO2 Intake & Output 08/27/23 08/28/23 08/28/23 18:59 06:59 18:59 Intake Total 602 540 120 Balance 602 540 120 Intake: IV 10 Invasive Line 2 10 Oral 592 540 120 Other: Voiding Method Diaper Diaper # Voids 3 1 - Exam - Constitutional General appearance: average body habitus, disheveled - EENT Eyes: EOMI, PERRLA ENT: normal oropharynx Ears: bilateral: normal - Neck Neck: normal ROM Carotids: bilateral: upstroke normal Thyroid: bilateral: normal size - Respiratory Respiratory: bilateral: CTA - Cardiovascular Rhythm: regular Heart sounds: normal: S1, S2 - Gastrointestinal General gastrointestinal: normal bowel sounds - Integumentary Integumentary: normal turgor - Neurologic Neurologic: CNII-XII intact - Musculoskeletal Musculoskeletal: gait normal, generalized weakness, strength equal bilaterally - Psychiatric Psychiatric: A&O x's 3, appropriate affect, intact judgment & insight - Labs CBC & Chem 7: 08/27/23 06:19 08/28/23 08:05 Labs: Abnormal Lab Results - Last 24 Hours (Table) 08/25/23 08/27/23 08/27/23 Range/Units 13:36 11:28 16:19 Chloride (98-107) mmol/L BUN (9-20) mg/dL Creatinine (0.66-1.25) mg/dL Glucose (74-99) mg/dL POC Glucose (mg/dL) 194 H 182 H (70-110) mg/dL Alkaline Phosphatase (38-126) U/L Total Protein (6.3-8.2) g/dL Albumin (3.5-5.0) g/dL Albumin (PEP) 1.94 L (3.80-4.90) g/dL 08/27/23 08/28/23 08/28/23 Range/Units 21:08 05:51 08:05 Chloride 109 H (98-107) mmol/L BUN 50 H (9-20) mg/dL Creatinine 1.49 H (0.66-1.25) mg/dL Glucose 119 H (74-99) mg/dL POC Glucose (mg/dL) 173 H 134 H (70-110) mg/dL Alkaline Phosphatase 147 H (38-126) U/L Total Protein 5.7 L (6.3-8.2) g/dL Albumin 2.7 L (3.5-5.0) g/dL Albumin (PEP) (3.80-4.90) g/dL Assessment and Plan Assessment: pulmonary embolism left lower extremity DVT generalized weakness and medical debility Renal mass likely renal cell carcinoma elevated troponin likely demand ischemia Dyslipidemia Hypertension after extensive cardiovascular disease Type 2 diabetes mellitus with hyperglycemia severe depression Plan: continue bronchodilators as outlined above continue therapeutic dose of oral anticoagulant 10 mg twice a day posterior one week to be changed to 5 mg twice a day Reviewed duplex ultrasound lower extremity noted urology evaluation for renal cell mass Continue losartan and Lipitor and short and long-term insulin Time with Patient: Greater than 30
[2023-08-28 10:16] LABS: Basophils % (A) 0 %; Eosinophils # (A) 0.2 k/uL (0-0.7); Eosinophils % (A) 2 %; HCT 38.1 % (39.0-53.0); HGB 11.9 gm/dL (13.0-17.5); Lymphocytes # (A) 1.9 k/uL (1.0-4.8); Lymphocytes % (A) 17 %; MCH 29.4 pg (25.0-35.0); MCHC 31.2 g/dL (31.0-37.0); MCV 94.4 fL (80.0-100.0); Mean Platelet Volume 10.3; Monocytes # (A) 0.9 k/uL (0-1.0); Monocytes % (A) 8 %; Neutrophils # (A) 8.5 k/uL (1.3-7.7); Neutrophils % (A) 73 %; Platelet Count 297 k/uL (150-450); RBC 4.04 m/uL (4.30-5.90); RDW 14.4 % (11.5-15.5); WBC 11.7 k/uL (3.8-10.6)
--- NOTE | 2023-08-28 10:35 | P.PN ---
Subjective Patient is seen in follow-up for acute kidney injury. Has been voiding. Denies chest pain or shortness of breath. No abdominal pain. No active complaints at this time. Vital signs are stable. General: No acute distress. HEENT: Head exam is unremarkable. LUNGS: No audible rhonchi or wheezes. HEART: Rate and Rhythm are regular. ABDOMEN: Nontender. EXTREMITITES: No edema. Objective - Vital Signs Vital signs: Vital Signs Temp 98.5 F 08/28/23 06:43 Pulse 77 08/28/23 06:43 Resp 16 08/28/23 06:43 BP 125/67 08/28/23 06:43 Pulse Ox 95 08/28/23 06:43 FiO2 Intake & Output 08/27/23 08/28/23 08/28/23 18:59 06:59 18:59 Intake Total 602 540 120 Balance 602 540 120 Intake: IV 10 Invasive Line 2 10 Oral 592 540 120 Other: Voiding Method Diaper Diaper # Voids 3 1 - Labs CBC & Chem 7: 08/28/23 08:05 08/28/23 08:05 Labs: Abnormal Lab Results - Last 24 Hours (Table) 08/25/23 08/27/23 08/27/23 Range/Units 13:36 11:28 16:19 WBC (3.8-10.6) k/uL RBC (4.30-5.90) m/uL Hgb (13.0-17.5) gm/dL Hct (39.0-53.0) % Neutrophils # (1.3-7.7) k/uL Chloride (98-107) mmol/L BUN (9-20) mg/dL Creatinine (0.66-1.25) mg/dL Glucose (74-99) mg/dL POC Glucose (mg/dL) 194 H 182 H (70-110) mg/dL Alkaline Phosphatase (38-126) U/L Total Protein (6.3-8.2) g/dL Albumin (3.5-5.0) g/dL Albumin (PEP) 1.94 L (3.80-4.90) g/dL 08/27/23 08/28/23 08/28/23 Range/Units 21:08 05:51 08:05 WBC 11.7 H (3.8-10.6) k/uL RBC 4.04 L (4.30-5.90) m/uL Hgb 11.9 L (13.0-17.5) gm/dL Hct 38.1 L (39.0-53.0) % Neutrophils # 8.5 H (1.3-7.7) k/uL Chloride (98-107) mmol/L BUN (9-20) mg/dL Creatinine (0.66-1.25) mg/dL Glucose (74-99) mg/dL POC Glucose (mg/dL) 173 H 134 H (70-110) mg/dL Alkaline Phosphatase (38-126) U/L Total Protein (6.3-8.2) g/dL Albumin (3.5-5.0) g/dL Albumin (PEP) (3.80-4.90) g/dL 08/28/23 Range/Units 08:05 WBC (3.8-10.6) k/uL RBC (4.30-5.90) m/uL Hgb (13.0-17.5) gm/dL Hct (39.0-53.0) % Neutrophils # (1.3-7.7) k/uL Chloride 109 H (98-107) mmol/L BUN 50 H (9-20) mg/dL Creatinine 1.49 H (0.66-1.25) mg/dL Glucose 119 H (74-99) mg/dL POC Glucose (mg/dL) (70-110) mg/dL Alkaline Phosphatase 147 H (38-126) U/L Total Protein 5.7 L (6.3-8.2) g/dL Albumin 2.7 L (3.5-5.0) g/dL Albumin (PEP) (3.80-4.90) g/dL Assessment and Plan Plan: Assessment: 1. Acute kidney injury secondary to vasomotor nephropathy. Improved. Creatinine 1.49 today. 2. Chronic kidney disease stage IIIa with baseline creatinine 1-1.2. Patient does have significant proteinuria which is likely due to underlying diabetic kidney disease. Serologies negative. 3. Hypertension with chronic kidney disease. Stable. 4. Diabetes mellitus. 5. Anemia. Iron deficiency noted. On oral iron. 6. Bilateral PE maintained on anticoagulation. 7. Enhancing right renal lesion suspicious for renal cancer. Seen by urology. Plan: Encouraged oral intake. Avoid nephrotoxins. Maintain ARB and SGLT2 inhibitor. Follow-up outpatient 1 to 2 weeks postdischarge. Awaits transfer to inpatient psych. Will discuss kidney biopsy for definitive diagnosis outpatient.
[2023-08-28 11:12] LABS: Glucose,Whole Blood 124 mg/dL (70-110)
--- NOTE | 2023-08-28 16:14 | CDI ---
Documentation Clarification Form Date: 08/22/2023 04:46:00 PM From: Kia Carvalho RN, CCDS Phone: [phone] Admit Date: 08/18/2023 05:03:00 AM Patient Name: David Montejo Visit Number: [id number] Discharge Date: ATTENTION: The Clinical Documentation Specialists (CDI) and [facility] Coding Staff appreciate your assistance in clarifying documentation. Please respond to the clarification below the line at the bottom and electronically sign. The CDI & [facility] Coding staff will review the response and follow-up if needed. Please note: Queries are made part of the Legal Health Record. If you have any questions, please contact the author of this message via ITS. Dr. Davon Rodrigues Your patient presented to ED for evaluation of generalized weakness, debility, unable to care for himself. . Additional clarification regarding the etiology/cause of this symptom is requested. History/Risk Factors: COPD, CVA/TIA, Diabetes Mellitus, Hyperlipidemia, Hypertension, Rheumatoid Arthritis (RA), Sleep Apnea Clinical Indicators: 63-year-old male with generalized weakness, inability to ambulate with incontinence. 08/17 VS 160/89 95 18 95% RA 08/17 Labs: WBC 14.1, HGB 12.6, Neutrophils 11.6, Na 135, BUN 37, CR 1.49, Troponin 0.072 08/17 CXR: No acute cardiopulmonary disease Treatment: PT/OT consult and participate Turn and Position assist with ADL'S Monitor Skin integrity hourly Is there a corresponding diagnosis/etiology for this symptom of weakness? [ ] Age related physical debility [ ] Unable to determine [ ] Other, please specify (Template Last Reviewed: March 2020) MTDD
[2023-08-28 16:55] LABS: Glucose,Whole Blood 161 mg/dL (70-110)
[2023-08-28 20:37] LABS: Glucose,Whole Blood 113 mg/dL (70-110)
[2023-08-28] MEDS ORDERED: VANCOMYCIN IV PER PHARMACY 1 EACH MISC MISCELLANE PRN ×2 (22:28→22:30)
--- NOTE | 2023-08-28 23:33 | PN ---
PROGRESS NOTE SUBJECTIVE: He is waiting for geriatric psych bed. He is going to sit on room due to depression. OBJECTIVE: VITAL SIGNS: His temp is 98.3, pulse 77, and O2 is 95 on room air. CARDIOVASCULAR: S1, S2. LUNGS: Scattered wheeze and rhonchi. HEMATOLOGY: 2+ edema. LABORATORY DATA: White count 7.7, hemoglobin is 11.9, sodium 140, potassium 4.4, BUN is 50, creatinine 1.49, GFR is 49. Sugar is mid 100s. Albumin is 2.7. Continue with dietitian, increase nutrition during PT OT. Wound care of the legs. PT needed for leg weakness. Geriatric psych is needed due to multiple medical problems. They cannot handle him here due to his medical problems. Prognosis guarded. MMODL / IJN: [id number] /
[2023-08-28] MEDS: VANCOMYCIN 1,750 MG in SODIUM CHLORIDE 0.9% 500 ML 500 ML IVPB ONE (23:50)
[2023-08-29 05:58] LABS: Glucose,Whole Blood 140 mg/dL (70-110)
[2023-08-29 11:59] LABS: Glucose,Whole Blood 365 mg/dL (70-110)
--- NOTE | 2023-08-29 12:33 | P.PN ---
Subjective Patient is seen in follow-up for acute kidney injury. Has been voiding. Denies chest pain or shortness of breath. No abdominal pain. No active complaints at this time. Vital signs are stable. General: No acute distress. HEENT: Head exam is unremarkable. LUNGS: No audible rhonchi or wheezes. HEART: Rate and Rhythm are regular. ABDOMEN: Nontender. EXTREMITITES: No edema. Objective - Vital Signs Vital signs: Vital Signs Temp 98.4 F 08/29/23 06:55 Pulse 71 08/29/23 06:55 Resp 18 08/29/23 06:55 BP 149/68 08/29/23 06:55 Pulse Ox 99 08/29/23 06:55 FiO2 Intake & Output 08/28/23 08/29/23 08/29/23 18:59 06:59 18:59 Intake Total 120 Balance 120 Intake: Oral 120 Other: Voiding Method Diaper Diaper Incontinent # Voids 3 1 # Bowel Movements 1 - Labs CBC & Chem 7: 08/28/23 08:05 08/28/23 08:05 Labs: Abnormal Lab Results - Last 24 Hours (Table) 08/28/23 08/28/23 08/29/23 Range/Units 16:50 20:34 05:56 POC Glucose (mg/dL) 161 H 113 H 140 H (70-110) mg/dL 08/29/23 Range/Units 11:58 POC Glucose (mg/dL) 365 H (70-110) mg/dL Assessment and Plan Plan: Assessment: 1. Acute kidney injury secondary to vasomotor nephropathy. Improved. Creatini ne 1.49 yesterday. 2. Chronic kidney disease stage IIIa with baseline creatinine 1-1.2. Patient does have significant proteinuria which is likely due to underlying diabetic kidney disease. Serologies negative. 3. Hypertension with chronic kidney disease. Stable. 4. Diabetes mellitus. 5. Anemia. Iron deficiency noted. On oral iron. 6. Bilateral PE maintained on anticoagulation. 7. Enhancing right renal lesion suspicious for renal cancer. Seen by urology. Plan: Encouraged oral intake. Avoid nephrotoxins. Maintain ARB and SGLT2 inhibitor. Follow-up outpatient 1 to 2 weeks postdischarge. Awaits transfer to inpatient psych. Will discuss kidney biopsy for definitive diagnosis outpatient.
[2023-08-29 16:25] LABS: Glucose,Whole Blood 188 mg/dL (70-110)
[2023-08-29] MEDS: VANCOMYCIN 1,750 MG in SODIUM CHLORIDE 0.9% 500 ML 500 ML IVPB SCH (16:36)
--- NOTE | 2023-08-29 17:39 | P.PN ---
Progress Note - Text Progress Note Date: 08/29/23 Follow-up Mediation Review Chief Complaint: I do not, guess the same Subjective: The patient was somewhat evasive and guarded. He responded to questions with quite a bit of latency or did not respond. He was easily distracted. He avoided answering certain questions. He was asked what his plans are after discharge. The patient noted that he would go back home. Whe he was asked about his follow-up treatment, the patient stated that he has none. He did not seem to be concerned about his treatment. His friend has never come to see him or show any interest in his wellbeing, as per patient. The patient shows no interest or motivation towards his wellbeing. He appears very depressed Leading questions: The patient admitted to Depression and Anxiety. Denied SI or HI. Denied symptoms consistent with psychosis Sleep and Appetite: Fair. Objective- MSE: Alert and attentive. Orientation times three. Dressed and Groomed: Appropriately. Pleasant and partially cooperative. Psychomotor Activity: Normal. Speech: Normal in tone, quality, and quantity. Mood: I feel the same Affect: Subdued and indifferent. SI or HI: None. Perceptual disturbance: None. Thought Content: No paranoia or other delusional thinking noted. Thought Process: Normal. Cognition: Intact Judgment and Insight: Good AIMS: Normal. Labs: No new labs. Diagnosis: major depressive disorder, severe, recurrent. Plan and Recommendations: Plan: The patient needs in-patient psychiatric admission. Transfer patient to psychiatric in-patient unit after medical stabilization. Suicide precautions Medication recommendations: Continue current medications.
[2023-08-29 20:46] LABS: Glucose,Whole Blood 145 mg/dL (70-110)
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
[2023-08-30 06:12] LABS: Glucose,Whole Blood 109 mg/dL (70-110)
[2023-08-30 08:00] LABS: Basophils % (A) 0 %; Eosinophils # (A) 0.1 k/uL (0-0.7); Eosinophils % (A) 1 %; HGB 10.3 gm/dL (13.0-17.5); Lymphocytes # (A) 2.1 k/uL (1.0-4.8); Lymphocytes % (A) 18 %; MCH 29.6 pg (25.0-35.0); MCHC 31.3 g/dL (31.0-37.0); MCV 94.4 fL (80.0-100.0); Mean Platelet Volume 8.4; Monocytes # (A) 0.8 k/uL (0-1.0); Monocytes % (A) 7 %; Neutrophils # (A) 8.5 k/uL (1.3-7.7); Neutrophils % (A) 73 %; Platelet Count 333 k/uL (150-450); RDW 14.5 % (11.5-15.5); WBC 11.6 k/uL (3.8-10.6)
[2023-08-30 08:12] LABS: ALT 11 U/L (4-49); AST 12 U/L (17-59); African American GFR (CKD) 64 (>60 ml/min/1.73 sqM); Albumin 2.2 g/dL (3.5-5.0); Albumin/Globulin Ratio 0.8; Alkaline Phosphatase 106 U/L (38-126); Anion Gap 3 mmol/L; Blood Urea Nitrogen 49 mg/dL (9-20); Calcium 8.3 mg/dL (8.4-10.2); Carbon Dioxide 26 mmol/L (22-30); Chloride 111 mmol/L (98-107); Globulin 2.6 g/dL; Glucose 95 mg/dL (74-99); Non-African American GFR(CKD) 56 (>60 ml/min/1.73 sqM); Potassium 4.3 mmol/L (3.5-5.1); Sodium 140 mmol/L (137-145); Total Bilirubin 0.1 mg/dL (0.2-1.3); Total Protein 4.8 g/dL (6.3-8.2)
[2023-08-30 11:31] LABS: Glucose,Whole Blood 133 mg/dL (70-110)
--- NOTE | 2023-08-30 12:06 | CONS ---
CONSULTATION SUBJECTIVE: He is waiting for psych [facility] placement. He is on his Eliquis because he had a pulmonary embolus, DVT on last admission. He is still on his breathing medications. He is on diabetes medicine, hypertension medicine, mood stabilizers. Due to severe depression, going to go to the psych [facility]. He is on vancomycin. Possible abscess in the legs and groin abscess. OBJECTIVE: VITAL SIGNS: Blood pressure 137/75, O2 of 95% on room air, temperature 98.8, pulse 68, respiratory rate 18. CARDIOVASCULAR: S1, S2. LUNGS: Transmitted upper sounds. GI: Soft. HEMATOLOGY: Negative Homans. LABORATORY DATA: White count is 11.6, hemoglobin is 10.3, BUN is 49, creatinine 1.34. Sugars in mid 100s. Prognosis guarded. Continue with antibiotics. Wait for placement. MMODL / IJN: [id number] /
--- NOTE | 2023-08-30 13:48 | P.PN ---
Subjective Progress Note Date: 08/30/23 Patient is seen in follow-up for acute kidney injury. Has been voiding. Denies chest pain or shortness of breath. No abdominal pain. No active complaints at this time. Vital signs are stable. General: No acute distress. HEENT: Head exam is unremarkable. LUNGS: No audible rhonchi or wheezes. HEART: Rate and Rhythm are regular. ABDOMEN: Nontender. EXTREMITITES: No edema. Objective - Vital Signs Vital signs: Vital Signs Temp 98.8 F 08/30/23 06:59 Pulse 68 08/30/23 06:59 Resp 18 08/30/23 06:59 BP 137/75 08/30/23 06:59 Pulse Ox 95 08/30/23 06:59 FiO2 Intake & Output 08/29/23 08/30/23 08/30/23 18:59 06:59 18:59 Output Total 600 900 Balance -600 -900 Weight 93.44 kg Output: Urine 600 900 Other: Voiding Method Diaper Diaper Incontinent Incontinent External Catheter External Catheter - Labs CBC & Chem 7: 08/30/23 06:55 08/30/23 06:55 Labs: Abnormal Lab Results - Last 24 Hours (Table) 08/29/23 08/29/23 08/30/23 Range/Units 16:24 20:44 06:55 WBC (3.8-10.6) k/uL RBC (4.30-5.90) m/uL Hgb (13.0-17.5) gm/dL Hct (39.0-53.0) % Neutrophils # (1.3-7.7) k/uL Chloride 111 H (98-107) mmol/L BUN 49 H (9-20) mg/dL Creatinine 1.34 H (0.66-1.25) mg/dL POC Glucose (mg/dL) 188 H 145 H (70-110) mg/dL Calcium 8.3 L (8.4-10.2) mg/dL Total Bilirubin 0.1 L (0.2-1.3) mg/dL AST 12 L (17-59) U/L Total Protein 4.8 L (6.3-8.2) g/dL Albumin 2.2 L (3.5-5.0) g/dL 08/30/23 08/30/23 Range/Units 06:55 11:30 WBC 11.6 H (3.8-10.6) k/uL RBC 3.50 L (4.30-5.90) m/uL Hgb 10.3 L (13.0-17.5) gm/dL Hct 33.0 L (39.0-53.0) % Neutrophils # 8.5 H (1.3-7.7) k/uL Chloride (98-107) mmol/L BUN (9-20) mg/dL Creatinine (0.66-1.25) mg/dL POC Glucose (mg/dL) 133 H (70-110) mg/dL Calcium (8.4-10.2) mg/dL Total Bilirubin (0.2-1.3) mg/dL AST (17-59) U/L Total Protein (6.3-8.2) g/dL Albumin (3.5-5.0) g/dL Microbiology - Last 24 Hours (Table) 08/28/23 22:44 Blood Culture - Preliminary Blood 08/28/23 22:32 Blood Culture - Preliminary Blood 08/28/23 23:30 Gram Stain - Preliminary Groin Assessment and Plan Assessment: 1. Acute kidney injury secondary to vasomotor nephropathy. Improved. Creatinine 1.3 today. 2. Chronic kidney disease stage IIIa with baseline creatinine 1-1.2. Patient does have significant proteinuria which is likely due to underlying diabetic kidney disease. Serologies negative. 3. Hypertension with chronic kidney disease. Stable. 4. Diabetes mellitus. 5. Anemia. Iron deficiency noted. On oral iron. 6. Bilateral PE maintained on anticoagulation. 7. Enhancing right renal lesion suspicious for renal cancer. Seen by urology. Plan: Encouraged oral intake. Avoid nephrotoxins. Maintain ARB and SGLT2 inhibitor. Follow-up outpatient 1 to 2 weeks postdischarge. Awaits transfer to inpatient psych. Will discuss kidney biopsy for definitive diagnosis outpatient.
--- NOTE | 2023-08-30 14:30 | PN ---
PROGRESS NOTE A 63-year-old male. We had cultured some fluid out of his scrotal sac. Dr. Beasley has seen him for infections, await for geriatric psych unit for him. He has been seen by Cardiology. The patient needs inpatient psych and transferred to psych unit once medically stable, suicide precautions. He has had recurrent major depressive disorder, severe. He denies any psychosis. Some family friends come to see him, no interest motivation to get better. He is very depressed, emergent psych unit, Dr. Beasley saw him for his wounds. white count 11,900, BUN is 50, creatinine 0.9. His abscess of the left groin, has abscess, spontaneous drainage, gram-positive gram-negative infection. Blood and local cultures have been obtained. Vancomycin further consultation with Dr. Beasley. Watch his infection. Apparently, he is eating fairly well. Prognosis is guarded. Await for psychiatric placement as well as infections. So far, groin cultures and blood cultures are pending. Many polymorphic leukocytes, gram-negative bacilli. Continue current antibiotics. Prognosis is guarded. Continue his other medication. Please see further orders. MMODL / IJN: [id number] /
--- NOTE | 2023-08-30 16:16 | P.PN ---
Subjective Progress Note Date: 08/30/23 Principal diagnosis: Reason for follow-up is left groin abscess Patient is a 17-year-old male past medical history significant for atrial fibrillation COPD hypertension hyperlipidemia memory impairment, patient presented initially to the hospital generalized weakness debility also developed some purulent drainage from the left groin prompted this consultation. On today's evaluation that is 08/30/2023,the patient remains to be afebrile, patient is on room air not requiring supplemental oxygen and denies any shortness of breath no chest pain or cough.Patient denies having any nausea or vomiting, no abdominal pain and no diarrhea has been reported still have some purulent drainage from the left groin per the nursing staff. Patient white count is 11.6 creatinine 1.34 cultures growing Proteus Objective - Vital Signs Vital signs: Vital Signs Temp 98.8 F 08/30/23 06:59 Pulse 68 08/30/23 06:59 Resp 18 08/30/23 06:59 BP 137/75 08/30/23 06:59 Pulse Ox 95 08/30/23 06:59 FiO2 Intake & Output 08/29/23 08/30/23 08/30/23 18:59 06:59 18:59 Output Total 600 900 Balance -600 -900 Weight 93.44 kg Output: Urine 600 900 Other: Voiding Method Diaper Diaper Incontinent Incontinent External Catheter External Catheter - Exam GENERAL DESCRIPTION: An elderly male lying in bed in no distress RESPIRATORY SYSTEM: Unlabored breathing , decreased breath sounds at bases HEART: S1 S2 regular rate and rhythm , ABDOMEN: Soft , no tenderness EXTREMITIES: No edema feet - Labs CBC & Chem 7: 08/30/23 06:55 08/30/23 06:55 Labs: Abnormal Lab Results - Last 24 Hours (Table) 08/29/23 08/29/23 08/30/23 Range/Units 16:24 20:44 06:55 WBC (3.8-10.6) k/uL RBC (4.30-5.90) m/uL Hgb (13.0-17.5) gm/dL Hct (39.0-53.0) % Neutrophils # (1.3-7.7) k/uL Chloride 111 H (98-107) mmol/L BUN 49 H (9-20) mg/dL Creatinine 1.34 H (0.66-1.25) mg/dL POC Glucose (mg/dL) 188 H 145 H (70-110) mg/dL Calcium 8.3 L (8.4-10.2) mg/dL Total Bilirubin 0.1 L (0.2-1.3) mg/dL AST 12 L (17-59) U/L Total Protein 4.8 L (6.3-8.2) g/dL Albumin 2.2 L (3.5-5.0) g/dL 08/30/23 08/30/23 Range/Units 06:55 11:30 WBC 11.6 H (3.8-10.6) k/uL RBC 3.50 L (4.30-5.90) m/uL Hgb 10.3 L (13.0-17.5) gm/dL Hct 33.0 L (39.0-53.0) % Neutrophils # 8.5 H (1.3-7.7) k/uL Chloride (98-107) mmol/L BUN (9-20) mg/dL Creatinine (0.66-1.25) mg/dL POC Glucose (mg/dL) 133 H (70-110) mg/dL Calcium (8.4-10.2) mg/dL Total Bilirubin (0.2-1.3) mg/dL AST (17-59) U/L Total Protein (6.3-8.2) g/dL Albumin (3.5-5.0) g/dL Microbiology - Last 24 Hours (Table) 08/28/23 22:44 Blood Culture - Preliminary Blood 08/28/23 22:32 Blood Culture - Preliminary Blood 08/28/23 23:30 Gram Stain - Preliminary Groin Assessment and Plan (1) Abscess of groin, left Current Visit: Yes Status: Acute Code(s): L02.214 - CUTANEOUS ABSCESS OF GROIN SNOMED Code(s): 53173782 Plan: 1patient with a left groin abscess with spontaneous drainage likely from gram- positive skin eliot gram-negative infection less likely bilateral excluded, no evidence of any fluctuation or redness or noticeable examination 2-blood culture currently pending and local culture growing Proteus 3-we will discuss vancomycin as no gram-positive has been growing add cefepime while waiting for the sensitivity on the Proteus Dictation was produced using [employer] software. please excuse any grammatical, word or spelling errors. Time with Patient: Greater than 30
[2023-08-30] MEDS: CEFEPIME 2 GM in SODIUM CHLORIDE 0.9% 100 ML IVPB SCH (16:23)
[2023-08-30 16:48] LABS: Glucose,Whole Blood 242 mg/dL (70-110)
[2023-08-30 20:44] LABS: Glucose,Whole Blood 179 mg/dL (70-110)
[2023-08-31 06:19] LABS: Glucose,Whole Blood 126 mg/dL (70-110)
[2023-08-31 08:45] LABS: Basophils # (A) 0.04 X 10*3/uL (0.00-0.10); Basophils % (A) 0.5 %; Eosinophils # (A) 0.15 X 10*3/uL (0.04-0.35); Eosinophils % (A) 1.9 %; HCT 29.7 % (39.6-50.0); HGB 9.2 g/dL (13.0-17.0); Lymphocytes # (A) 2.09 X 10*3/uL (0.90-5.00); Lymphocytes % (A) 26.1 %; MCH 28.2 pg (27.0-32.0); MCV 91.1 FL (80.0-97.0); Mean Platelet Volume 11.4 FL (9.5-12.2); Monocytes # (A) 0.67 X 10*3/uL (0.20-1.00); Monocytes % (A) 8.4 %; NRBC Per 100 WBC 0 X 10*3/uL (0.00-0.01); Neutrophils # (A) 5.05 X 10*3/uL (1.80-7.70); Neutrophils % (A) 62.9 %; Platelet Count 340 X 10*3/uL (140-440); RBC 3.26 X 10*6/uL (4.40-5.60); RDW 14.2 % (11.5-14.5); WBC 8.02 X 10*3/uL (4.50-10.00)
[2023-08-31 09:01] LABS: ALT 13 U/L (10-49); AST 11 U/L (14-35); Albumin 2.5 g/dL (3.8-4.9); Albumin/Globulin Ratio 1.09 Ratio (1.60-3.17); Alkaline Phosphatase 100 U/L (41-126); BUN/Creat Ratio 35.53 Ratio (12.00-20.00); Blood Urea Nitrogen 53.3 mg/dL (9.0-27.0); Carbon Dioxide 23.7 mmol/L (21.6-31.8); Chloride 110 mmol/L (96-109); Globulin 2.3 g/dL (1.6-3.3); Glucose 126 mg/dL (70-110); Potassium 4.5 mmol/L (3.5-5.5); Sodium 142 mmol/L (135-145); Total Bilirubin <0.2 mg/dL (0.3-1.2); Total Protein 4.8 g/dL (6.2-8.2)
[2023-08-31 11:50] LABS: Glucose,Whole Blood 192 mg/dL (70-110)
--- NOTE | 2023-08-31 12:47 | P.PN ---
Subjective Progress Note Date: 08/31/23 Principal diagnosis: Reason for follow-up is left groin abscess Patient is a 17-year-old male past medical history significant for atrial fibrillation COPD hypertension hyperlipidemia memory impairment, patient presented initially to the hospital generalized weakness debility also developed some purulent drainage from the left groin prompted this consultation. On today's evaluation that is 08/31/2023, the patient continues to be afebrile, the patient is on room air and breathing comfortably, the Pt denies having any chest pain or cough, the patient denies having any abdominal pain no vomiting or any diarrhea has been reported by the nursing staff and denies any worsening pain to the left groin/pubic area. Patient white count normalized to 8.02, creatinine is 1.5 cultures growing Proteus that is sensitive pathogen Objective - Vital Signs Vital signs: Vital Signs Temp 97.8 F 08/31/23 06:50 Pulse 63 08/31/23 06:50 Resp 18 08/31/23 08:00 BP 113/61 08/31/23 06:50 Pulse Ox 94 L 08/31/23 08:00 FiO2 Intake & Output 08/30/23 08/31/23 08/31/23 18:59 06:59 18:59 Output Total 1300 Balance -1300 Output: Urine 1300 Other: Voiding Method Diaper Diaper Diaper Incontinent Incontinent Incontinent External Catheter External Catheter External Catheter - Exam GENERAL DESCRIPTION: An elderly male lying in bed in no distress RESPIRATORY SYSTEM: Unlabored breathing , decreased breath sounds at bases HEART: S1 S2 regular rate and rhythm , ABDOMEN: Soft , no tenderness, left pubic/groin area induration and drainage has decreased EXTREMITIES: No edema feet - Labs CBC & Chem 7: 08/31/23 05:11 08/31/23 05:11 Labs: Abnormal Lab Results - Last 24 Hours (Table) 08/30/23 08/30/23 08/31/23 Range/Units 16:47 20:43 05:11 RBC 3.26 L (4.40-5.60) X 10*6/uL Hgb 9.2 L (13.0-17.0) g/dL Hct 29.7 L (39.6-50.0) % MCHC 31.0 L (32.0-37.0) g/dL Chloride (96-109) mmol/L BUN (9.0-27.0) mg/dL Est GFR (CKD-EPI) (>=60) BUN/Creatinine Ratio (12.00-20.00) Ratio Glucose (70-110) mg/dL POC Glucose (mg/dL) 242 H 179 H (70-110) mg/dL Calcium (8.7-10.3) mg/dL Total Bilirubin (0.3-1.2) mg/dL AST (14-35) U/L Total Protein (6.2-8.2) g/dL Albumin (3.8-4.9) g/dL Albumin/Globulin Ratio (1.60-3.17) Ratio 08/31/23 08/31/23 08/31/23 Range/Units 05:11 06:13 11:49 RBC (4.40-5.60) X 10*6/uL Hgb (13.0-17.0) g/dL Hct (39.6-50.0) % MCHC (32.0-37.0) g/dL Chloride 110 H (96-109) mmol/L BUN 53.3 H (9.0-27.0) mg/dL Est GFR (CKD-EPI) 51 L (>=60) BUN/Creatinine Ratio 35.53 H (12.00-20.00) Ratio Glucose 126 H (70-110) mg/dL POC Glucose (mg/dL) 126 H 192 H (70-110) mg/dL Calcium 8.0 L (8.7-10.3) mg/dL Total Bilirubin <0.2 L (0.3-1.2) mg/dL AST 11 L (14-35) U/L Total Protein 4.8 L (6.2-8.2) g/dL Albumin 2.5 L (3.8-4.9) g/dL Albumin/Globulin Ratio 1.09 L (1.60-3.17) Ratio Microbiology - Last 24 Hours (Table) 08/28/23 23:30 Gram Stain - Final Groin Wound Culture - Final Proteus mirabilis 08/28/23 22:44 Blood Culture - Preliminary Blood 08/28/23 22:32 Blood Culture - Preliminary Blood Assessment and Plan (1) Abscess of groin, left Current Visit: Yes Status: Acute Code(s): L02.214 - CUTANEOUS ABSCESS OF GROIN SNOMED Code(s): 57751686 Plan: 1patient with a left groin abscess with spontaneous drainage likely from gram- positive skin eliot gram-negative infection less likely bilateral excluded, no evidence of any fluctuation or redness or noticeable examination 2-blood culture currently pending and local culture growing Proteus that is a sensitive pathogen sensitive to ceftriaxone 3-we will discuss cefepime and start the patient on Rocephin 2 g daily patient therapy with oral antibiotics Dictation was produced using [employer] dictation software. please excuse any grammatical, word or spelling errors. Time with Patient: Less than 30
--- NOTE | 2023-08-31 14:34 | P.PN ---
Subjective Progress Note Date: 08/31/23 Patient is seen in follow-up for acute kidney injury. Has been voiding. Denies chest pain or shortness of breath. No abdominal pain. No active complaints at this time. Vital signs are stable. General: No acute distress. HEENT: Head exam is unremarkable. LUNGS: No audible rhonchi or wheezes. HEART: Rate and Rhythm are regular. ABDOMEN: Nontender. EXTREMITITES: No edema. Objective - Vital Signs Vital signs: Vital Signs Temp 97.8 F 08/31/23 06:50 Pulse 63 08/31/23 06:50 Resp 18 08/31/23 08:00 BP 113/61 08/31/23 06:50 Pulse Ox 94 L 08/31/23 08:00 FiO2 Intake & Output 08/30/23 08/31/23 08/31/23 18:59 06:59 18:59 Output Total 1300 Balance -1300 Output: Urine 1300 Other: Voiding Method Diaper Diaper Diaper Incontinent Incontinent Incontinent External Catheter External Catheter External Catheter - Labs CBC & Chem 7: 08/31/23 05:11 08/31/23 05:11 Labs: Abnormal Lab Results - Last 24 Hours (Table) 08/30/23 08/30/23 08/31/23 Range/Units 16:47 20:43 05:11 RBC 3.26 L (4.40-5.60) X 10*6/uL Hgb 9.2 L (13.0-17.0) g/dL Hct 29.7 L (39.6-50.0) % MCHC 31.0 L (32.0-37.0) g/dL Chloride (96-109) mmol/L BUN (9.0-27.0) mg/dL Est GFR (CKD-EPI) (>=60) BUN/Creatinine Ratio (12.00-20.00) Ratio Glucose (70-110) mg/dL POC Glucose (mg/dL) 242 H 179 H (70-110) mg/dL Calcium (8.7-10.3) mg/dL Total Bilirubin (0.3-1.2) mg/dL AST (14-35) U/L Total Protein (6.2-8.2) g/dL Albumin (3.8-4.9) g/dL Albumin/Globulin Ratio (1.60-3.17) Ratio 08/31/23 08/31/23 08/31/23 Range/Units 05:11 06:13 11:49 RBC (4.40-5.60) X 10*6/uL Hgb (13.0-17.0) g/dL Hct (39.6-50.0) % MCHC (32.0-37.0) g/dL Chloride 110 H (96-109) mmol/L BUN 53.3 H (9.0-27.0) mg/dL Est GFR (CKD-EPI) 51 L (>=60) BUN/Creatinine Ratio 35.53 H (12.00-20.00) Ratio Glucose 126 H (70-110) mg/dL POC Glucose (mg/dL) 126 H 192 H (70-110) mg/dL Calcium 8.0 L (8.7-10.3) mg/dL Total Bilirubin <0.2 L (0.3-1.2) mg/dL AST 11 L (14-35) U/L Total Protein 4.8 L (6.2-8.2) g/dL Albumin 2.5 L (3.8-4.9) g/dL Albumin/Globulin Ratio 1.09 L (1.60-3.17) Ratio Microbiology - Last 24 Hours (Table) 08/28/23 23:30 Gram Stain - Final Groin Wound Culture - Final Proteus mirabilis 08/28/23 22:44 Blood Culture - Preliminary Blood 08/28/23 22:32 Blood Culture - Preliminary Blood Assessment and Plan Assessment: 1. Acute kidney injury secondary to vasomotor nephropathy. Improved. Creatinine 1.3 today. 2. Chronic kidney disease stage IIIa with baseline creatinine 1-1.2. Patient does have significant proteinuria which is likely due to underlying diabetic kidney disease. Serologies negative. 3. Hypertension with chronic kidney disease. Stable. 4. Diabetes mellitus. 5. Anemia. Iron deficiency noted. On oral iron. 6. Bilateral PE maintained on anticoagulation. 7. Enhancing right renal lesion suspicious for renal cancer. Seen by urology. Plan: Encouraged oral intake. Avoid nephrotoxins. Maintain ARB and SGLT2 inhibitor. Follow-up outpatient 1 to 2 weeks postdischarge. Awaits transfer to inpatient psych. Will discuss kidney biopsy for definitive diagnosis outpatient.
[2023-08-31] MEDS ORDERED: VANCOMYCIN TROUGH DUE 1 EACH MISC MISCELLANE ONE (15:00)
[2023-08-31 17:09] LABS: Glucose,Whole Blood 211 mg/dL (70-110)
--- NOTE | 2023-08-31 19:55 | PN ---
PROGRESS NOTE SUBJECTIVE: David Montejo, a 63-year-old white male with severe depressions, waiting for psych placement. Dr. Beasley has him on antibiotics for the scrotum wounds and leg wounds. White count is 8, hemoglobin is 9.2. Sodium 142, potassium 4.5, BUN is 53, creatinine 1.5, glucose 126. Gram stain wound culture is Proteus mirabilis, waiting for finalization of antibiotics. OBJECTIVE: VITAL SIGNS: He has had 94 on room air. Blood pressure 113 to 119/60s, temp 97 to 98, pulse 70s to 60s, respiratory rate 18 to 24. CARDIOVASCULAR: S1, S2. LUNGS: Transmitted upper sounds. GI: Soft. HEMATOLOGY: Negative Homans. NEUROLOGIC: He is sleepy lethargic. Remains on cefepime for antibiotics. Eliquis for DVT and PE. He is also getting breathing treatments 3 times a day. Continue current treatment. PROGNOSIS: Guarded. Ambulate as tolerated. PT/OT. Long-term psych for depression. He stable. He does appear to be suicidal. MMODL / IJN: [id number] /
[2023-08-31] MEDS: FORMOTEROL FUMARATE 20 MCG/2 ML NEBU INHALATION SCH (20:45)
[2023-08-31 21:24] LABS: Glucose,Whole Blood 135 mg/dL (70-110)
[2023-09-01 06:07] LABS: Glucose,Whole Blood 94 mg/dL (70-110)
--- NOTE | 2023-09-01 10:40 | P.PN ---
Subjective Progress Note Date: 09/01/23 Principal diagnosis: pulmonary embolism generalized weakness and medical debility Renal mass likely renal cell carcinoma elevated troponin likely demand ischemia Dyslipidemia Hypertension after extensive cardiovascular disease Type 2 diabetes mellitus with hyperglycemia 09/01/2023, patient seen eval examined during rounds labs reviewed medications reviewed care plan discussed, patient on room air getting out of the bed with assistance, patient remains afebrile, saturation 95% room air hemodynamic status stable last blood pressure is 110/70, blood glucose is 94, wound culture came back positive for Proteuspatient is on IVs Rocephin 08/28/2023, patient seen eval examined during rounds labs reviewed medications reviewed care plan discussed, no specific complains are present,room air oxygen saturation 95% hemodynamic status stablemedication list reviewed 08/27/2023, patient seen and evaluated examined in follow-upoxygen saturation 94%, blood pressure stable,patient is being considered for possible discharge later on today,as well as direct acting oral anticoagulant dose to be tapered down patientdoes become except depressed feeling 08/23/2023, patient seen and evaluated examined during rounds labs reviewed medications reviewed care plan discussed with the patient as well as staff at length.patient denies any chest pain appetite has been good and improving,duplex ultrasound of lower extremity positive for left lower extremity DVT no DVT seen on the right side patient is off of heparin has been on therapeutic dose off direct acting oral anticoagulants with 10 mg twice a day for 7 days subsequently was changed to 5 mg twice a day, noted that urology has been consulted nephrology has been following as well 63-year-old male was presented into the hospital. From the emergency department due to generalized weakness and pain diffusely patient has prior medical history of CVA TIA, rheumatoid arthritis, diabetes mellitus, dyslipidemia, hypertension hypertensive cardiovascular disease. He was noted to be covered with antibiotics on arrival. Workup and evaluation includes leukocytosis with WBC count of 14, BUN/creatinine is 37/1.49 elevated glucose 297 chest x-ray unremarkable. computed tomography scan of the chest positive for bilateral PE wi thout evidence of right ventricular strain and had single right renal lesion concerning for renal cell carcinoma and trace bilateral pleural effusiondid patient is started on IV heparin drip. Patient does have a history of prior DVT but however cannot recall the medicine he was using, however he expresses that he was taken off of treatment more than a year ago Objective - Vital Signs Vital signs: Vital Signs Temp 97.9 F 09/01/23 06:50 Pulse 62 09/01/23 08:16 Resp 16 09/01/23 08:16 BP 107/66 09/01/23 06:50 Pulse Ox 95 09/01/23 08:08 FiO2 Intake & Output 08/31/23 09/01/23 09/01/23 18:59 06:59 18:59 Intake Total 240 Output Total 700 800 Balance -460 -800 Intake: Oral 240 Output: Urine 700 800 Other: Voiding Method Diaper Incontinent External Catheter Incontinent External Catheter External Catheter - Exam - Constitutional General appearance: average body habitus, disheveled - EENT Eyes: EOMI, PERRLA ENT: normal oropharynx Ears: bilateral: normal - Neck Neck: normal ROM Carotids: bilateral: upstroke normal Thyroid: bilateral: normal size - Respiratory Respiratory: bilateral: CTA - Cardiovascular Rhythm: regular Heart sounds: normal: S1, S2 - Gastrointestinal General gastrointestinal: normal bowel sounds - Integumentary Integumentary: normal turgor - Neurologic Neurologic: CNII-XII intact - Musculoskeletal Musculoskeletal: gait normal, generalized weakness, strength equal bilaterally - Psychiatric Psychiatric: A&O x's 3, appropriate affect, intact judgment & insight - Labs CBC & Chem 7: 08/31/23 05:11 08/31/23 05:11 Labs: Abnormal Lab Results - Last 24 Hours (Table) 08/31/23 08/31/23 08/31/23 Range/Units 11:49 17:08 21:22 POC Glucose (mg/dL) 192 H 211 H 135 H (70-110) mg/dL Microbiology - Last 24 Hours (Table) 08/28/23 22:44 Blood Culture - Preliminary Blood 08/28/23 22:32 Blood Culture - Preliminary Blood 08/28/23 23:30 Gram Stain - Final Groin Wound Culture - Final Proteus mirabilis Assessment and Plan Assessment: abscess left groin pulmonary embolism left lower extremity DVT generalized weakness and medical debility Renal mass likely renal cell carcinoma elevated troponin likely demand ischemia Dyslipidemia Hypertension after extensive cardiovascular disease Type 2 diabetes mellitus with hyperglycemia severe depression Plan: continue bronchodilators as outlined above continue therapeutic dose of oral anticoagulant 5 mg twice a day Continue losartan and Lipitor and short and long-term insulin Time with Patient: Less than 30
[2023-09-01 11:45] LABS: Glucose,Whole Blood 168 mg/dL (70-110)
--- NOTE | 2023-09-01 12:50 | P.PN ---
Subjective Patient is seen for follow-up for acute kidney injury and right renal mass. Patient was evaluated by urology and he has opted for close monitoring of the right renal lesion. He will follow-up as outpatient with urology. No significant complaints today. Serum creatinine fluctuates between 1.3 and 1.5 mg/dL. maintained on low-dose Cozaar. Not on diuretics on IV fluids. Objective - Vital Signs Vital signs: Vital Signs Temp 97.9 F 09/01/23 06:50 Pulse 62 09/01/23 08:16 Resp 16 09/01/23 08:16 BP 107/66 09/01/23 06:50 Pulse Ox 95 09/01/23 08:08 FiO2 Intake & Output 08/31/23 09/01/23 09/01/23 18:59 06:59 18:59 Intake Total 240 Output Total 700 800 Balance -460 -800 Intake: Oral 240 Output: Urine 700 800 Other: Voiding Method Diaper Incontinent External Catheter Incontinent External Catheter External Catheter - Exam Patient is awake, comfortable, no acute distress. Examination of the heart S1 and S2 Examination of the lungs bilateral breath sounds are heard Abdomen is soft nontender Examination of lower extremities shows no significant edema. 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 Acute kidney injury, possibly prerenal currently improved. UA shows 2+ protein, no blood. 2. Enhancing right renal lesion suspicious for renal cell cancer. being followed by urology. 3. Bilateral PE maintained on Eliquis 4. Anemia rule out iron deficiency 5. Chronic kidney disease and Stage IIIa with baseline creatinine around 1 mg/dL. Patient has proteinuria. This will need to be quantified. Etiology is likely diabetic kidney disease. 6. Left groin abscess maintained on antibiotics Plan: Continue with antibiotics. Continue with far Lilo Repeat labs in a.m. Add parameters on Norvasc as blood pressure is on the lower side
--- NOTE | 2023-09-01 13:21 | P.PN ---
Subjective Progress Note Date: 09/01/23 Principal diagnosis: Reason for follow-up is left groin abscess Patient is a 17-year-old male past medical history significant for atrial fibrillation COPD hypertension hyperlipidemia memory impairment, patient presented initially to the hospital generalized weakness debility also developed some purulent drainage from the left groin prompted this consultation. On today's evaluation that is 09/01/2023, Patient is afebrile patient is currently on room air and denies having any shortness of breath, the patient denies any chest pain or cough, the patient denies any nausea vomiting did not have any abdominal pain and no diarrhea pain to the left pubic/groin area has decreased in his drainage per patient. No lab draw today Objective - Vital Signs Vital signs: Vital Signs Temp 97.9 F 09/01/23 06:50 Pulse 62 09/01/23 08:16 Resp 16 09/01/23 08:16 BP 107/66 09/01/23 06:50 Pulse Ox 95 09/01/23 08:08 FiO2 Intake & Output 08/31/23 09/01/23 09/01/23 18:59 06:59 18:59 Intake Total 240 Output Total 700 800 Balance -460 -800 Intake: Oral 240 Output: Urine 700 800 Other: Voiding Method Diaper Incontinent External Catheter Incontinent External Catheter External Catheter - Exam GENERAL DESCRIPTION: An elderly male lying in bed in no distress RESPIRATORY SYSTEM: Unlabored breathing , decreased breath sounds at bases HEART: S1 S2 regular rate and rhythm , ABDOMEN: Soft , no tenderness, left pubic/groin area induration and drainage has decreased EXTREMITIES: No edema feet - Labs CBC & Chem 7: 08/31/23 05:11 08/31/23 05:11 Labs: Abnormal Lab Results - Last 24 Hours (Table) 08/31/23 08/31/23 08/31/23 Range/Units 11:49 17:08 21:22 POC Glucose (mg/dL) 192 H 211 H 135 H (70-110) mg/dL Microbiology - Last 24 Hours (Table) 08/28/23 22:44 Blood Culture - Preliminary Blood 08/28/23 22:32 Blood Culture - Preliminary Blood 08/28/23 23:30 Gram Stain - Final Groin Wound Culture - Final Proteus mirabilis Assessment and Plan (1) Abscess of groin, left Current Visit: Yes Status: Acute Code(s): L02.214 - CUTANEOUS ABSCESS OF GROIN SNOMED Code(s): 06950403 Plan: 1patient with a left groin abscess with spontaneous drainage likely from gram- positive skin eliot gram-negative infection less likely bilateral excluded, no evidence of any fluctuation or redness or noticeable examination 2-blood culture currently pending and local culture growing Proteus that is a sensitive pathogen sensitive to ceftriaxone 3-patient to continue with Rocephin 2 g daily while inpatient finishing therapy with oral antibiotics on discharge Dictation was produced using [employer] dictation software. please excuse any grammatical, word or spelling errors.
[2023-09-01 16:51] LABS: Glucose,Whole Blood 158 mg/dL (70-110)
[2023-09-01 20:43] LABS: Glucose,Whole Blood 149 mg/dL (70-110)
[2023-09-02 05:52] LABS: Glucose,Whole Blood 118 mg/dL (70-110)
[2023-09-02 11:17] LABS: Glucose,Whole Blood 186 mg/dL (70-110)
--- NOTE | 2023-09-02 12:38 | P.PN ---
Subjective Patient is seen for follow-up for acute kidney injury and right renal mass. Patient was evaluated by urology and he has opted for close monitoring of the right renal lesion. He will follow-up as outpatient with urology. No significant complaints today. Serum creatinine fluctuates between 1.3 and 1.5 mg/dL. maintained on low-dose Cozaar. Not on diuretics on IV fluids. Objective - Vital Signs Vital signs: Vital Signs Temp 98.3 F 09/02/23 06:50 Pulse 64 09/02/23 07:55 Resp 17 09/02/23 06:50 BP 145/75 09/02/23 06:50 Pulse Ox 99 09/02/23 06:50 FiO2 Intake & Output 09/01/23 09/02/23 09/02/23 18:59 06:59 18:59 Intake Total 280 Output Total 900 Balance -900 280 Intake: Oral 280 Output: Urine 900 Other: Voiding Method External Catheter Toilet Diaper # Voids 5 1 # Bowel Movements 1 - Exam Patient is awake, comfortable, no acute distress. Examination of the heart S1 and S2 Examination of the lungs bilateral breath sounds are heard Abdomen is soft nontender Examination of lower extremities shows no significant edema. 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 Acute kidney injury, possibly prerenal currently improved. UA shows 2+ protein, no blood. 2. Enhancing right renal lesion suspicious for renal cell cancer. being followed by urology. 3. Bilateral PE maintained on Eliquis 4. Anemia rule out iron deficiency 5. Chronic kidney disease and Stage IIIa with baseline creatinine around 1 mg /dL. Patient has proteinuria. This will need to be quantified. Etiology is likely diabetic kidney disease. 6. Left groin abscess maintained on antibiotics Plan: Continue with antibiotics. Continue with farxiga Repeat labs in a.m. Avoid hypotension.
--- NOTE | 2023-09-02 14:54 | P.PN ---
Subjective Progress Note Date: 09/02/23 Principal diagnosis: Reason for follow-up is left groin abscess Patient is a 17-year-old male past medical history significant for atrial fibrillation COPD hypertension hyperlipidemia memory impairment, patient presented initially to the hospital generalized weakness debility also developed some purulent drainage from the left groin prompted this consultation. On today's evaluation that is 09/02/2023, patient has been afebrile, patient is breathing comfortably and is currently on room air, patient denies having any significant cough no chest pain shortness of breath, patient denies nausea vomiting or diarrhea and no abdominal pain mention left pubic/groin area pain and drainage has decreased. No new labs has been obtained today Objective - Vital Signs Vital signs: Vital Signs Temp 98.3 F 09/02/23 06:50 Pulse 64 09/02/23 07:55 Resp 17 09/02/23 06:50 BP 145/75 09/02/23 06:50 Pulse Ox 99 09/02/23 06:50 FiO2 Intake & Output 09/01/23 09/02/23 09/02/23 18:59 06:59 18:59 Intake Total 520 Output Total 900 Balance -900 520 Intake: Oral 520 Output: Urine 900 Other: Voiding Method External Catheter Toilet Diaper # Voids 5 1 # Bowel Movements 1 - Exam GENERAL DESCRIPTION: An elderly male lying in bed in no distress RESPIRATORY SYSTEM: Unlabored breathing , decreased breath sounds at bases HEART: S1 S2 regular rate and rhythm , ABDOMEN: Soft , no tenderness, left pubic/groin area induration and drainage has decreased EXTREMITIES: No edema feet - Labs CBC & Chem 7: 08/31/23 05:11 08/31/23 05:11 Labs: Abnormal Lab Results - Last 24 Hours (Table) 09/01/23 09/01/23 09/02/23 Range/Units 16:48 20:41 05:49 POC Glucose (mg/dL) 158 H 149 H 118 H (70-110) mg/dL 09/02/23 Range/Units 11:16 POC Glucose (mg/dL) 186 H (70-110) mg/dL Assessment and Plan (1) Abscess of groin, left Current Visit: Yes Status: Acute Code(s): L02.214 - CUTANEOUS ABSCESS OF GROIN SNOMED Code(s): 99910294 Plan: 1patient with a left groin abscess with spontaneous drainage likely from gram- positive skin eliot gram-negative infection less likely bilateral excluded, no evidence of any fluctuation or redness or noticeable examination 2-blood culture has been negative and local culture growing Proteus that is a sensitive pathogen sensitive to ceftriaxone 3-patient did have clinic appointment and will continue with Rocephin 2 g daily while inpatient finishing therapy with oral antibiotics on discharge Dictation was produced using [employer] dictation software. please excuse any grammatical, word or spelling errors. Time with Patient: Less than 30
[2023-09-02 16:39] LABS: Glucose,Whole Blood 110 mg/dL (70-110)
[2023-09-02 20:38] LABS: Glucose,Whole Blood 132 mg/dL (70-110)
--- NOTE | 2023-09-03 02:15 | PN ---
PROGRESS NOTE SUBJECTIVE: This is a 63-year-old white male. Medication reviewed. He is 95 on room air on 2 L oxygen at night. He is on IV Rocephin for Proteus infection in his blood. Recent PE, DVT and renal lesions suspicious for cancer, although ultrasound did not confirm this. OBJECTIVE: VITAL SIGNS: Temperature 97.9, pulse 62, respiratory rate 16 to 18, blood pressure is low 100s over 60s, and O2 95 on room air. HEENT: Normocephalic, atraumatic. Pupils equal, round, and reactive. LUNGS: Transmitted upper sounds. GI: Soft. : Scrotal cellulitis is decreasing. EXTREMITIES: Leg cellulitis is decreasing. PSYCH: Alert and oriented x3. LABORATORY DATA: BUN is 53, creatinine 1.5, hemoglobin is 9.2. He has abscess left groin, pulmonary embolism with left lower extremity DVT, generalized weakness, renal mass, rule out cancer, elevated troponin, dyslipidemia, hypertension, COPD, severe depression. Continue bronchodilators. He can to do an anticoagulant twice a day. Get geriatric psych with wound care which treatments for the infection per Dr. Beasley is recommended. Recommendations Dr. Mccormick saw the patient. Creatinine fluctuates between 1.3 and 1.5 on Cozaar. Acute kidney injury is improved. Right renal lesion, will follow up as an outpatient for possible biopsy. He is on Eliquis for PE. His anemia chronic kidney disease stage IIIA, COPD, left groin abscess. Continue current treatments. Prognosis guarded. Wait for rehab placement and Geriatric Psych Unit. MMODL / IJN: [id number] /
[2023-09-03 05:37] LABS: Glucose,Whole Blood 95 mg/dL (70-110)
[2023-09-03 09:31] LABS: ALT 12 U/L (4-49); AST 14 U/L (17-59); African American GFR (CKD) 56 (>60 ml/min/1.73 sqM); Albumin 2.4 g/dL (3.5-5.0); Albumin/Globulin Ratio 0.9; Alkaline Phosphatase 88 U/L (38-126); Anion Gap 3 mmol/L; Blood Urea Nitrogen 59 mg/dL (9-20); Calcium 8.4 mg/dL (8.4-10.2); Carbon Dioxide 27 mmol/L (22-30); Chloride 108 mmol/L (98-107); Globulin 2.7 g/dL; Glucose 131 mg/dL (74-99); Non-African American GFR(CKD) 48 (>60 ml/min/1.73 sqM); Potassium 4.9 mmol/L (3.5-5.1); Sodium 138 mmol/L (137-145); Total Bilirubin 0.1 mg/dL (0.2-1.3); Total Protein 5.1 g/dL (6.3-8.2)
[2023-09-03 10:20] LABS: Basophils % (A) 1 %; Eosinophils # (A) 0.2 k/uL (0-0.7); Eosinophils % (A) 3 %; HGB 10.6 gm/dL (13.0-17.5); Hypochromasia Slight; Lymphocytes % (A) 27 %; MCH 28.8 pg (25.0-35.0); MCHC 30.2 g/dL (31.0-37.0); MCV 95.5 fL (80.0-100.0); Mean Platelet Volume 8.8; Monocytes # (A) 0.4 k/uL (0-1.0); Monocytes % (A) 6 %; Neutrophils # (A) 4.6 k/uL (1.3-7.7); Neutrophils % (A) 63 %; Platelet Count 304 k/uL (150-450); RBC 3.66 m/uL (4.30-5.90); RDW 14.1 % (11.5-15.5); WBC 7.3 k/uL (3.8-10.6)
[2023-09-03 11:40] LABS: Glucose,Whole Blood 172 mg/dL (70-110)
--- NOTE | 2023-09-03 12:10 | P.PN ---
Subjective Progress Note Date: 09/03/23 Principal diagnosis: Reason for follow-up is left groin abscess Patient is a 17-year-old male past medical history significant for atrial fibrillation COPD hypertension hyperlipidemia memory impairment, patient presented initially to the hospital generalized weakness debility also developed some purulent drainage from the left groin prompted this consultation. On today's evaluation that is 09/03/2023, Patient is afebrile this morning and denies any chills, patient mention breathing comfortably and is currently on room air, patient denies any chest pain occasional cough patient denies any abdominal pain no diarrhea no nausea no vomiting and denies pain to the left pubic groin area or any worsening daily. Patient white count normal at 7.3, creatinine is 1.5 point Objective - Vital Signs Vital signs: Vital Signs Temp 98.1 F 09/03/23 07:06 Pulse 57 L 09/03/23 07:06 Resp 17 09/03/23 08:00 BP 127/70 09/03/23 07:06 Pulse Ox 97 09/03/23 07:06 FiO2 Intake & Output 09/02/23 09/03/23 09/03/23 18:59 06:59 18:59 Intake Total 520 480 Output Total 100 Balance 420 480 Intake: Oral 520 480 Output: Urine 100 Other: Voiding Method Toilet Toilet Diaper Diaper External Catheter # Voids 2 2 # Bowel Movements 1 - Exam GENERAL DESCRIPTION: An elderly male lying in bed in no distress RESPIRATORY SYSTEM: Unlabored breathing , decreased breath sounds at bases HEART: S1 S2 regular rate and rhythm , ABDOMEN: Soft , no tenderness, left pubic/groin area induration and drainage has decreased EXTREMITIES: No edema feet - Labs CBC & Chem 7: 09/03/23 08:33 09/03/23 08:33 Labs: Abnormal Lab Results - Last 24 Hours (Table) 09/02/23 09/03/23 09/03/23 Range/Units 20:36 08:33 08:33 RBC 3.66 L (4.30-5.90) m/uL Hgb 10.6 L (13.0-17.5) gm/dL Hct 35.0 L (39.0-53.0) % MCHC 30.2 L (31.0-37.0) g/dL Chloride 108 H (98-107) mmol/L BUN 59 H (9-20) mg/dL Creatinine 1.51 H (0.66-1.25) mg/dL Glucose 131 H (74-99) mg/dL POC Glucose (mg/dL) 132 H (70-110) mg/dL Total Bilirubin 0.1 L (0.2-1.3) mg/dL AST 14 L (17-59) U/L Total Protein 5.1 L (6.3-8.2) g/dL Albumin 2.4 L (3.5-5.0) g/dL 09/03/23 Range/Units 11:39 RBC (4.30-5.90) m/uL Hgb (13.0-17.5) gm/dL Hct (39.0-53.0) % MCHC (31.0-37.0) g/dL Chloride (98-107) mmol/L BUN (9-20) mg/dL Creatinine (0.66-1.25) mg/dL Glucose (74-99) mg/dL POC Glucose (mg/dL) 172 H (70-110) mg/dL Total Bilirubin (0.2-1.3) mg/dL AST (17-59) U/L Total Protein (6.3-8.2) g/dL Albumin (3.5-5.0) g/dL Microbiology - Last 24 Hours (Table) 08/28/23 22:44 Blood Culture - Final Blood 08/28/23 22:32 Blood Culture - Final Blood Assessment and Plan (1) Abscess of groin, left Current Visit: Yes Status: Acute Code(s): L02.214 - CUTANEOUS ABSCESS OF GROIN SNOMED Code(s): 09487487 Plan: 1patient with a left groin abscess with spontaneous drainage likely from gram- positive skin eliot gram-negative infection less likely bilateral excluded, no evidence of any fluctuation or redness or noticeable examination 2-blood culture has been negative and local culture growing Proteus that is a sensitive pathogen sensitive to ceftriaxone 3-patient did have clinical improvement and did have normal white count continue with Rocephin while inpatient finishing therapy with oral Ceftin x 7 days Dictation was produced using [employer] software. please excuse any grammatical, word or spelling errors. Time with Patient: Less than 30
--- NOTE | 2023-09-03 12:24 | P.PN ---
Subjective Patient is seen for follow-up for acute kidney injury and right renal mass. Patient was evaluated by urology and he has opted for close monitoring of the right renal lesion. He will follow-up as outpatient with urology. No significant complaints today. Serum creatinine fluctuates between 1.3 and 1.5 mg/dL. maintained on low-dose Cozaar. Not on diuretics on IV fluids. Objective - Vital Signs Vital signs: Vital Signs Temp 98.1 F 09/03/23 07:06 Pulse 57 L 09/03/23 07:06 Resp 17 09/03/23 08:00 BP 127/70 09/03/23 07:06 Pulse Ox 97 09/03/23 07:06 FiO2 Intake & Output 09/02/23 09/03/23 09/03/23 18:59 06:59 18:59 Intake Total 520 480 Output Total 100 Balance 420 480 Intake: Oral 520 480 Output: Urine 100 Other: Voiding Method Toilet Toilet Diaper Diaper External Catheter # Voids 2 2 # Bowel Movements 1 - Exam Patient is awake, comfortable, no acute distress. Examination of the heart S1 and S2 Examination of the lungs bilateral breath sounds are heard Abdomen is soft nontender Examination of lower extremities shows no significant edema. 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 grossly intact - Labs CBC & Chem 7: 09/03/23 08:33 09/03/23 08:33 Labs: Abnormal Lab Results - Last 24 Hours (Table) 09/02/23 09/03/23 09/03/23 Range/Units 20:36 08:33 08:33 RBC 3.66 L (4.30-5.90) m/uL Hgb 10.6 L (13.0-17.5) gm/dL Hct 35.0 L (39.0-53.0) % MCHC 30.2 L (31.0-37.0) g/dL Chloride 108 H (98-107) mmol/L BUN 59 H (9-20) mg/dL Creatinine 1.51 H (0.66-1.25) mg/dL Glucose 131 H (74-99) mg/dL POC Glucose (mg/dL) 132 H (70-110) mg/dL Total Bilirubin 0.1 L (0.2-1.3) mg/dL AST 14 L (17-59) U/L Total Protein 5.1 L (6.3-8.2) g/dL Albumin 2.4 L (3.5-5.0) g/dL 09/03/23 Range/Units 11:39 RBC (4.30-5.90) m/uL Hgb (13.0-17.5) gm/dL Hct (39.0-53.0) % MCHC (31.0-37.0) g/dL Chloride (98-107) mmol/L BUN (9-20) mg/dL Creatinine (0.66-1.25) mg/dL Glucose (74-99) mg/dL POC Glucose (mg/dL) 172 H (70-110) mg/dL Total Bilirubin (0.2-1.3) mg/dL AST (17-59) U/L Total Protein (6.3-8.2) g/dL Albumin (3.5-5.0) g/dL Microbiology - Last 24 Hours (Table) 08/28/23 22:44 Blood Culture - Final Blood 08/28/23 22:32 Blood Culture - Final Blood Assessment and Plan Assessment: 1. Acute kidney injury, possibly prerenal. serum creatinine staying at 1.3-1.5. UA shows 2+ protein, no blood. 2. Enhancing right renal lesion suspicious for renal cell cancer. being followed by urology. 3. Bilateral PE maintained on Eliquis 4. Anemia rule out iron deficiency 5. Chronic kidney disease and Stage IIIa with baseline creatinine around 1 mg/dL. Patient has proteinuria. This will need to be quantified. Etiology is likely diabetic kidney disease. 6. Left groin abscess maintained on antibiotics Plan: Continue with farxiga Repeat labs in a.m. Avoid hypotension. consider discontinuation of amlodipine if systolic blood pressure remains below 1 30 mmHg
[2023-09-03 16:36] LABS: Glucose,Whole Blood 164 mg/dL (70-110)
[2023-09-03 21:00] LABS: Glucose,Whole Blood 153 mg/dL (70-110)
--- NOTE | 2023-09-03 21:15 | PN ---
PROGRESS NOTE SUBJECTIVE: The patient is waiting for inpatient psych unit. Sugars have been mid 100s, albumin is low at 2.4. Sodium 138, potassium 4.9, hemoglobin is 10.6, white count 7.3. OBJECTIVE: VITAL SIGNS: Temperature is 98.1 to 98.2; blood pressure 127 to 131 over 70s to 60; O2 94 to 97, respiratory rate 16 to 18. CARDIOVASCULAR: S1, S2. LUNGS: Transmitted upper sounds. GI: Soft. Dr. Beasley has been seeing him for infection in the scrotum and legs. His prerenal kidney function is stable, enhancing right renal lesion suspicious for renal cell carcinoma seen by Urology, PE, DVT, anemia. Stage IIIA kidney disease, diabetic kidney disease. Continue current antibiotics for abscess. Prognosis guarded. MMODL / IJN: [id number] /
[2023-09-04 06:01] LABS: Glucose,Whole Blood 182 mg/dL (70-110)
[2023-09-04 11:18] LABS: Glucose,Whole Blood 146 mg/dL (70-110)
--- NOTE | 2023-09-04 12:30 | P.PN ---
Subjective Progress Note Date: 09/04/23 Principal diagnosis: Reason for follow-up is left groin abscess Patient is a 17-year-old male past medical history significant for atrial fibrillation COPD hypertension hyperlipidemia memory impairment, patient presented initially to the hospital generalized weakness debility also developed some purulent drainage from the left groin prompted this consultation. On today's evaluation that is 09/04/2023,the patient denies any fever or any chills, patient is breathing comfortably on room air, the patient denies chest pain shortness of breath and no significant cough, patient denies abdominal pain, no nausea vomiting or diarrhea. Patient pain discomfort to the left pelvic area has decreased no further drainage. No new lab has been obtained today Objective - Vital Signs Vital signs: Vital Signs Temp 97.4 F L 09/04/23 09:06 Pulse 74 09/04/23 11:59 Resp 17 09/04/23 09:06 BP 135/76 09/04/23 09:06 Pulse Ox 98 09/04/23 09:06 FiO2 Intake & Output 09/03/23 09/04/23 09/04/23 18:59 06:59 18:59 Intake Total 680 Balance 680 Intake: Oral 680 Other: Voiding Method Toilet Toilet Toilet Diaper Diaper Urinal Diaper # Voids 3 1 3 - Exam GENERAL DESCRIPTION: An elderly male lying in bed in no distress RESPIRATORY SYSTEM: Unlabored breathing , decreased breath sounds at bases HEART: S1 S2 regular rate and rhythm , ABDOMEN: Soft , no tenderness, left pubic/groin area induration has resolved no further drainage EXTREMITIES: No edema feet - Labs CBC & Chem 7: 09/03/23 08:33 09/03/23 08:33 Labs: Abnormal Lab Results - Last 24 Hours (Table) 09/03/23 09/03/23 09/04/23 Range/Units 16:34 20:59 05:59 POC Glucose (mg/dL) 164 H 153 H 182 H (70-110) mg/dL 09/04/23 Range/Units 11:16 POC Glucose (mg/dL) 146 H (70-110) mg/dL Assessment and Plan (1) Abscess of groin, left Current Visit: Yes Status: Acute Code(s): L02.214 - CUTANEOUS ABSCESS OF GROIN SNOMED Code(s): 40319345 Plan: 1patient with a left groin abscess with spontaneous drainage likely from gram- positive skin eliot gram-negative infection less likely bilateral excluded, no evidence of any fluctuation or redness or noticeable examination 2-blood culture has been negative and local culture growing Proteus that is a sensitive pathogen sensitive to ceftriaxone 3-patient continue to show clinical improvement and did have normal white count continue with Rocephin while inpatient and plan to finish therapy with oral Ceftin on discharge Dictation was produced using [employer] dictation software. please excuse any grammatical, word or spelling errors. Time with Patient: Less than 30
[2023-09-04 16:23] LABS: Glucose,Whole Blood 186 mg/dL (70-110)
[2023-09-04 20:25] LABS: Glucose,Whole Blood 114 mg/dL (70-110)
[2023-09-05 06:32] LABS: Glucose,Whole Blood 104 mg/dL (70-110)
[2023-09-05 11:56] LABS: Glucose,Whole Blood 177 mg/dL (70-110)
--- NOTE | 2023-09-05 13:19 | P.PN ---
Subjective Patient is seen for follow-up for acute kidney injury and right renal mass. No significant complaints today. Serum creatinine fluctuates between 1.3 and 1.5 mg/dL. maintained on low-dose Cozaar. Not on diuretics on IV fluids. Objective - Vital Signs Vital signs: Vital Signs Temp 97.9 F 09/05/23 07:05 Pulse 60 09/05/23 07:05 Resp 16 09/05/23 07:05 BP 115/68 09/05/23 07:05 Pulse Ox 99 09/05/23 07:05 FiO2 Intake & Output 09/04/23 09/05/23 09/05/23 18:59 06:59 18:59 Intake Total 550 240 Output Total 100 Balance 450 240 Weight 93.44 kg Intake: Oral 550 240 Output: Urine 100 Other: Voiding Method Toilet Toilet Toilet Urinal Diaper # Voids 1 4 - Exam Patient is awake, comfortable, no acute distress. Examination of the heart S1 and S2 Examination of the lungs bilateral breath sounds are heard Abdomen is soft nontender Examination of lower extremities shows no significant edema. 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 Acute kidney injury, possibly prerenal. serum creatinine staying at 1.3-1.5. UA shows 2+ protein, no blood. no obstruction on ultrasound. 2. Enhancing right renal lesion suspicious for renal cell cancer. being followed by urology. 3. Bilateral PE maintained on Eliquis 4. Anemia rule out iron deficiency 5. Chronic kidney disease and Stage IIIa with baseline creatinine around 1 mg/dL. Patient has proteinuria. This will need to be quantified. Etiology is likely diabetic kidney disease. 6. Left groin abscess maintained on antibiotics Plan: Continue with farxiga Avoid hypotension. consider discontinuation of amlodipine if systolic blood pressure remains below 130 mmHg
[2023-09-05 16:24] LABS: Glucose,Whole Blood 93 mg/dL (70-110)
--- NOTE | 2023-09-05 17:25 | P.PN ---
Progress Note - Text Progress Note Date: 09/05/23 Follow-up Mediation Review Chief Complaint: I am alright. Subjective: The patient was somewhat evasive and guarded. He responded to the questions spontaneously. He avoided answering certain questions. He admitted to depression. He avoided rating his depression on the VAS. He reported eating good. He sleeps more than usual because he has nothing to do. He was watching TV during this visit. He was attentive watching the game. He indicated that he is watching [employer] game. When asked who is winning, the patient said nobody because the score is 0. He indicated that he would go back to live with his friend. He indicated that he talked to his friend last week. He is somewhat playful and gives conflicting responses. His responses are not reliable. He requested to go the bathroom. He was helped by the nurse and an aid. After coming out he sat in the chair and continued watching the game and conversed at the same time. No side effects of psychotropic meds noted. Overall, the patient much better than my last visit. Sleep and Appettite: Fair Objective- MSE: Alert and attentive. Orientation times three. The patient was not in any discomfort or distress. Dressed and Groomed: Appropriately. Pleasant and partially cooperative. Psychomotor Activity: Normal. Speech: Normal in tone, quality, and quantity. Mood: Depressed. Affect: Indifferent and superficial SI or HI: None. Perceptual disturbance: None. Thought Content: No paranoia or other delusional thinking noted. Thought Process: Normal. Cognition: Intact Judgment and Insight: Fair. AIMS: Normal. Diagnosis: Major depressive disorder, severe, recurrent- improving. Plan and Recommendations: Continue current psychotropic medications. The patient will need close psychiatric follow-up after discharge. Patient needs supervised structured living facility post discharge. Discontinue suicide precautions.
[2023-09-05 21:03] LABS: Glucose,Whole Blood 130 mg/dL (70-110)
--- NOTE | 2023-09-06 00:24 | PN ---
PROGRESS NOTE SUBJECTIVE: This is a 63-year-old white male who appears not to be suicidal currently at this time. I think he can go to a regular alf. Psychiatry is recommending inpatient psych, but he is not really suicidal . OBJECTIVE: CARDIOVASCULAR: S1, S2. LUNGS: Transmitted upper sounds. VITAL SIGNS: Blood pressure 115/68, pulse 60, respiratory rate 16 to 18, O2 99, temperature 97. GI: Soft. HEMATOLOGY: Negative for Homans. LABORATORY DATA: Creatinine is 1.3 to 1.5. ASSESSMENT AND PLAN: Bilateral PE, DVT, acute kidney injury, enhancing right renal lesion, rule out cancer, chronic kidney disease stage IIIA. Proteinuria, diabetic kidney disease, left groin abscess. Maintain antibiotics, continue with for hypotension. Consider discontinuation of amlodipine if systolic remains low. PROGNOSIS: Guarded. Continue current treatment. Please see further orders. MMODL / IJN: [id number] /
--- NOTE | 2023-09-06 00:39 | PN ---
PROGRESS NOTE SUBJECTIVE: This is a 63-year-old white male who does not appear to be suicidal at this point. He can go to regular halfway. I do not think he needs to be petitioned into a halfway. His wounds are being treated with antibiotics with oral Ceftin on discharge. He will be ordered to go for strengthening at any physical therapy. Follow up with an outpatient psychiatrist as he has not been suicidal for many days. Continue current treatment. OBJECTIVE: VITAL SIGNS: Temperature 98.1, pulse 60s, respiratory rate 16 to 18, blood pressure 120s over 60s, O2 97. CARDIOVASCULAR: S1, S2. LUNGS: Transmitted upper sounds. HEMATOLOGY: Negative for Homans. PSYCH: Fair mood and affect. PLAN: Continue current treatment for 48 hours. Oral Ceftin on discharge. Wound care sacral ulcer. Further wound care per Dr. Beasley. Please see further orders. MMODL / IJN: [id number] /
[2023-09-06 05:50] LABS: Glucose,Whole Blood 98 mg/dL (70-110)
[2023-09-06 10:58] LABS: ALT 15 U/L (10-49); AST 14 U/L (14-35); Albumin 2.7 g/dL (3.8-4.9); Albumin/Globulin Ratio 1.17 Ratio (1.60-3.17); Alkaline Phosphatase 94 U/L (41-126); BUN/Creat Ratio 35.87 Ratio (12.00-20.00); Blood Urea Nitrogen 53.8 mg/dL (9.0-27.0); Calcium 8.2 mg/dL (8.7-10.3); Carbon Dioxide 25.3 mmol/L (21.6-31.8); Chloride 109 mmol/L (96-109); Globulin 2.3 g/dL (1.6-3.3); Glucose 92 mg/dL (70-110); Potassium 4.3 mmol/L (3.5-5.5); Sodium 142 mmol/L (135-145); Total Bilirubin <0.2 mg/dL (0.3-1.2)
[2023-09-06 11:01] LABS: Basophils # (A) 0.05 X 10*3/uL (0.00-0.10); Basophils % (A) 0.7 %; Eosinophils # (A) 0.22 X 10*3/uL (0.04-0.35); Eosinophils % (A) 3.3 %; HCT 31.6 % (39.6-50.0); HGB 9.9 g/dL (13.0-17.0); Lymphocytes # (A) 2.55 X 10*3/uL (0.90-5.00); MCH 28.8 pg (27.0-32.0); MCHC 31.3 g/dL (32.0-37.0); MCV 91.9 FL (80.0-97.0); Mean Platelet Volume 11.7 FL (9.5-12.2); Monocytes # (A) 0.59 X 10*3/uL (0.20-1.00); Monocytes % (A) 8.8 %; NRBC Per 100 WBC 0 X 10*3/uL (0.00-0.01); Neutrophils # (A) 3.28 X 10*3/uL (1.80-7.70); Neutrophils % (A) 48.9 %; Platelet Count 275 X 10*3/uL (140-440); RBC 3.44 X 10*6/uL (4.40-5.60); RDW 14.6 % (11.5-14.5); WBC 6.71 X 10*3/uL (4.50-10.00)
[2023-09-06 11:38] LABS: Glucose,Whole Blood 125 mg/dL (70-110)
[2023-09-06] MEDS: CEFDINIR 300 MG CAP PO SCH (12:41)
--- NOTE | 2023-09-06 13:18 | P.PN ---
Subjective Patient is seen for follow-up for acute kidney injury and right renal mass. No significant complaints today. Serum creatinine fluctuates between 1.3 and 1.5 mg/dL. maintained on low-dose Cozaar. Not on diuretics on IV fluids. Objective - Vital Signs Vital signs: Vital Signs Temp 97.6 F 09/06/23 08:00 Pulse 62 09/06/23 11:22 Resp 16 09/06/23 08:00 BP 162/77 09/06/23 08:00 Pulse Ox 97 09/06/23 00:50 FiO2 Intake & Output 09/05/23 09/06/23 09/06/23 18:59 06:59 18:59 Weight 93.44 kg Other: Voiding Method Toilet Toilet Toilet Urinal Urinal Diaper Diaper # Voids 3 1 - Exam Patient is awake, comfortable, no acute distress. Examination of the heart S1 and S2 Examination of the lungs bilateral breath sounds are heard Abdomen is soft nontender Examination of lower extremities shows trace edema. 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 - Labs CBC & Chem 7: 09/06/23 06:33 09/06/23 06:33 Labs: Abnormal Lab Results - Last 24 Hours (Table) 09/05/23 09/06/23 09/06/23 Range/Units 21:01 06:33 06:33 RBC 3.44 L (4.40-5.60) X 10*6/uL Hgb 9.9 L (13.0-17.0) g/dL Hct 31.6 L (39.6-50.0) % MCHC 31.3 L (32.0-37.0) g/dL RDW 14.6 H (11.5-14.5) % BUN 53.8 H (9.0-27.0) mg/dL Est GFR (CKD-EPI) 51 L (>=60) BUN/Creatinine Ratio 35.87 H (12.00-20.00) Ratio POC Glucose (mg/dL) 130 H (70-110) mg/dL Calcium 8.2 L (8.7-10.3) mg/dL Total Bilirubin <0.2 L (0.3-1.2) mg/dL Total Protein 5.0 L (6.2-8.2) g/dL Albumin 2.7 L (3.8-4.9) g/dL Albumin/Globulin Ratio 1.17 L (1.60-3.17) Ratio 09/06/23 Range/Units 11:31 RBC (4.40-5.60) X 10*6/uL Hgb (13.0-17.0) g/dL Hct (39.6-50.0) % MCHC (32.0-37.0) g/dL RDW (11.5-14.5) % BUN (9.0-27.0) mg/dL Est GFR (CKD-EPI) (>=60) BUN/Creatinine Ratio (12.00-20.00) Ratio POC Glucose (mg/dL) 125 H (70-110) mg/dL Calcium (8.7-10.3) mg/dL Total Bilirubin (0.3-1.2) mg/dL Total Protein (6.2-8.2) g/dL Albumin (3.8-4.9) g/dL Albumin/Globulin Ratio (1.60-3.17) Ratio Assessment and Plan Assessment: 1. Acute kidney injury, possibly prerenal. serum creatinine staying at 1.3-1.5. UA shows 2+ protein, no blood. no obstruction on ultrasound. 2. Enhancing right renal lesion suspicious for renal cell cancer. being followed by urology. 3. Bilateral PE maintained on Eliquis 4. Anemia rule out iron deficiency 5. Chronic kidney disease and Stage IIIa with baseline creatinine around 1 mg/dL. Patient has proteinuria. This will need to be quantified. Etiology is likely diabetic kidney disease. 6. Left groin abscess maintained on antibiotics Plan: Continue with telly continue with Gretta
--- NOTE | 2023-09-06 13:31 | PN ---
PROGRESS NOTE SUBJECTIVE: Age-related physical debility due to multiple sources. PROGNOSIS: Guarded. Please see further orders. MMODL / IJN: [id number] /
--- NOTE | 2023-09-06 14:53 | P.PN ---
Subjective Progress Note Date: 09/05/23 Principal diagnosis: Reason for follow-up is left groin abscess Patient is a 17-year-old male past medical history significant for atrial fibrillation COPD hypertension hyperlipidemia memory impairment, patient presented initially to the hospital generalized weakness debility also developed some purulent drainage from the left groin prompted this consultation. On today's evaluation that is 09/05/2023,the patient remains to be afebrile, patient is on room air not requiring supplemental oxygen and denies any shortness of breath no chest pain or cough.Patient denies having any nausea or vomiting, no abdominal pain and no diarrhea has been reported denies pain to the left pubic/groin area. No new diet has been repeated today Objective - Vital Signs Vital signs: Vital Signs Temp 98.1 F 09/05/23 14:16 Pulse 66 09/05/23 14:16 Resp 17 09/05/23 14:16 BP 121/63 09/05/23 14:16 Pulse Ox 97 09/05/23 14:16 FiO2 Intake & Output 09/04/23 09/05/23 09/05/23 18:59 06:59 18:59 Intake Total 550 240 Output Total 100 Balance 450 240 Weight 93.44 kg Intake: Oral 550 240 Output: Urine 100 Other: Voiding Method Toilet Toilet Toilet Urinal Diaper # Voids 1 4 - Exam GENERAL DESCRIPTION: An elderly male lying in bed in no distress RESPIRATORY SYSTEM: Unlabored breathing , decreased breath sounds at bases HEART: S1 S2 regular rate and rhythm , ABDOMEN: Soft , no tenderness, left pubic/groin area induration has resolved no further drainage EXTREMITIES: No edema feet - Labs CBC & Chem 7: 09/06/23 06:33 09/06/23 06:33 Labs: Abnormal Lab Results - Last 24 Hours (Table) 09/04/23 09/04/23 09/05/23 Range/Units 16:16 20:22 11:51 POC Glucose (mg/dL) 186 H 114 H 177 H (70-110) mg/dL Assessment and Plan (1) Abscess of groin, left Current Visit: Yes Status: Acute Code(s): L02.214 - CUTANEOUS ABSCESS OF GROIN SNOMED Code(s): 79325933 Plan: 1patient with a left groin abscess with spontaneous drainage likely from gram-positive skin eliot gram-negative infection less likely bilateral excluded, no evidence of any fluctuation or redness or noticeable examination 2-blood culture has been negative and local culture growing Proteus that is a sensitive pathogen sensitive to ceftriaxone 3-patient is slowly clinical improving with with Rocephin to continue while inpatient and plan to finish therapy with oral Ceftin on discharge Dictation was produced using [employer] dictation software. please excuse any grammatical, word or spelling errors. Time with Patient: Less than 30
--- NOTE | 2023-09-06 14:54 | P.PN ---
Subjective Progress Note Date: 09/06/23 Principal diagnosis: Reason for follow-up is left groin abscess Patient is a 17-year-old male past medical history significant for atrial fibrillation COPD hypertension hyperlipidemia memory impairment, patient presented initially to the hospital generalized weakness debility also developed some purulent drainage from the left groin prompted this consultation. On today's evaluation that is 09/06/2023, the patient continues to be afebrile, the patient is on room air and breathing comfortably, the Pt denies having any chest pain or cough, the patient denies having any abdominal pain no vomiting or any diarrhea has been reported by the nursing staff patient denies pain to the left pubic/groin area. Patient white count is 6.71 creatinine is 1.5 Objective - Vital Signs Vital signs: Vital Signs Temp 97.6 F 09/06/23 08:00 Pulse 62 09/06/23 08:00 Resp 16 09/06/23 08:00 BP 162/77 09/06/23 08:00 Pulse Ox 97 09/06/23 00:50 FiO2 Intake & Output 09/05/23 09/06/23 09/06/23 18:59 06:59 18:59 Weight 93.44 kg Other: Voiding Method Toilet Toilet Toilet Urinal Urinal Diaper Diaper # Voids 3 1 - Exam GENERAL DESCRIPTION: An elderly male lying in bed in no distress RESPIRATORY SYSTEM: Unlabored breathing , decreased breath sounds at bases HEART: S1 S2 regular rate and rhythm , ABDOMEN: Soft , no tenderness, left pubic/groin area induration has resolved no further drainage EXTREMITIES: No edema feet - Labs CBC & Chem 7: 09/06/23 06:33 09/06/23 06:33 Labs: Abnormal Lab Results - Last 24 Hours (Table) 09/05/23 09/05/23 09/06/23 Range/Units 11:51 21:01 06:33 RBC 3.44 L (4.40-5.60) X 10*6/uL Hgb 9.9 L (13.0-17.0) g/dL Hct 31.6 L (39.6-50.0) % MCHC 31.3 L (32.0-37.0) g/dL RDW 14.6 H (11.5-14.5) % BUN (9.0-27.0) mg/dL Est GFR (CKD-EPI) (>=60) BUN/Creatinine Ratio (12.00-20.00) Ratio POC Glucose (mg/dL) 177 H 130 H (70-110) mg/dL Calcium (8.7-10.3) mg/dL Total Bilirubin (0.3-1.2) mg/dL Total Protein (6.2-8.2) g/dL Albumin (3.8-4.9) g/dL Albumin/Globulin Ratio (1.60-3.17) Ratio 09/06/23 Range/Units 06:33 RBC (4.40-5.60) X 10*6/uL Hgb (13.0-17.0) g/dL Hct (39.6-50.0) % MCHC (32.0-37.0) g/dL RDW (11.5-14.5) % BUN 53.8 H (9.0-27.0) mg/dL Est GFR (CKD-EPI) 51 L (>=60) BUN/Creatinine Ratio 35.87 H (12.00-20.00) Ratio POC Glucose (mg/dL) (70-110) mg/dL Calcium 8.2 L (8.7-10.3) mg/dL Total Bilirubin <0.2 L (0.3-1.2) mg/dL Total Protein 5.0 L (6.2-8.2) g/dL Albumin 2.7 L (3.8-4.9) g/dL Albumin/Globulin Ratio 1.17 L (1.60-3.17) Ratio Assessment and Plan (1) Abscess of groin, left Current Visit: Yes Status: Acute Code(s): L02.214 - CUTANEOUS ABSCESS OF GROIN SNOMED Code(s): 75087958 Plan: 1patient with a left groin abscess with spontaneous drainage likely from gram- positive skin eliot gram-negative infection less likely bilateral excluded, no evidence of any fluctuation or redness or noticeable examination 2-blood culture has been negative and local culture growing Proteus that is a sensitive pathogen sensitive to ceftriaxone 3-patient has shown clinical improvement in the patient white count remains to be normal patient has received adequate IV Rocephin will discontinue Rocephin and give a short course of oral Omnicef/Ceftin Dictation was produced using [employer] dictation software. please excuse any grammatical, word or spelling errors. Time with Patient: Less than 30
[2023-09-06 16:28] LABS: Glucose,Whole Blood 116 mg/dL (70-110)
[2023-09-06 20:33] LABS: Glucose,Whole Blood 173 mg/dL (70-110)
[2023-09-06 21:20] LABS: Glucose,Whole Blood 133 mg/dL (70-110)
[2023-09-07 05:44] LABS: Glucose,Whole Blood 106 mg/dL (70-110)
[2023-09-07] MEDS: ZINC OXIDE PASTE (Z-GUARD) 1 APPLIC TOPICAL PRN (07:19)
[2023-09-07 11:40] LABS: Glucose,Whole Blood 133 mg/dL (70-110)
[2023-09-07] MEDS: SODIUM FERRIC GLUCONAT-SUCROSE 125 MG in SODIUM CHLORIDE 0.9% 100 ML IVPB SCH (12:16)
--- NOTE | 2023-09-07 13:12 | P.PN ---
Subjective Progress Note Date: 09/07/23 Principal diagnosis: Reason for follow-up is left groin abscess Patient is a 17-year-old male past medical history significant for atrial fibrillation COPD hypertension hyperlipidemia memory impairment, patient presented initially to the hospital generalized weakness debility also developed some purulent drainage from the left groin prompted this consultation. On today's evaluation that is 09/07/2023, Patient is afebrile patient is currently on room air and denies having any shortness of breath, the patient denies any chest pain or cough, the patient denies any nausea vomiting did not have any abdominal pain and no diarrhea, denies pain to the left pelvic area and no further drainage. No new lab has been obtained today Objective - Vital Signs Vital signs: Vital Signs Temp 97.9 F 09/07/23 06:38 Pulse 68 09/07/23 07:45 Resp 16 09/07/23 08:00 BP 139/70 09/07/23 06:38 Pulse Ox 95 09/07/23 06:38 FiO2 Intake & Output 09/06/23 09/07/23 09/07/23 18:59 06:59 18:59 Intake Total 400 Output Total 400 Balance 400 -400 Intake: Oral 400 Output: Urine 400 Other: Voiding Method Toilet Urinal Toilet Urinal Diaper # Voids 1 3 - Exam GENERAL DESCRIPTION: An elderly male lying in bed in no distress RESPIRATORY SYSTEM: Unlabored breathing , decreased breath sounds at bases HEART: S1 S2 regular rate and rhythm , ABDOMEN: Soft , no tenderness, left pubic/groin area induration has resolved no further drainage EXTREMITIES: No edema feet - Labs CBC & Chem 7: 09/06/23 06:33 09/06/23 06:33 Labs: Abnormal Lab Results - Last 24 Hours (Table) 09/06/23 09/06/23 09/06/23 Range/Units 16:27 20:31 21:18 POC Glucose (mg/dL) 116 H 173 H 133 H (70-110) mg/dL 09/07/23 Range/Units 11:39 POC Glucose (mg/dL) 133 H (70-110) mg/dL Assessment and Plan (1) Abscess of groin, left Current Visit: Yes Status: Acute Code(s): L02.214 - CUTANEOUS ABSCESS OF GROIN SNOMED Code(s): 47841780 Plan: 1patient with a left groin abscess with spontaneous drainage likely from gram- positive skin eliot gram-negative infection less likely bilateral excluded, no evidence of any fluctuation or redness or noticeable examination 2-blood culture has been negative and local culture growing Proteus that is a sensitive pathogen sensitive to ceftriaxone 3-patient has shown clinical improvement as far as left pubic area abscess secondary to Proteus, continue short course of oral Omnicef/Ceftin Dictation was produced using [employer] software. please excuse any grammatical, word or spelling errors. Time with Patient: Less than 30
[2023-09-07 16:21] LABS: Glucose,Whole Blood 122 mg/dL (70-110)
[2023-09-07 20:27] LABS: Glucose,Whole Blood 123 mg/dL (70-110)
--- NOTE | 2023-09-07 22:51 | PN ---
PROGRESS NOTE SUBJECTIVE: A 63-year-old white male. Sugars have been in mid 100s. He is waiting for rehab placement. Possibly go to rehab. Saturating 93% on room air. OBJECTIVE: VITAL SIGNS: Blood pressure 158/76, temp 97% to 98%, respiratory rate 16 to 18, pulse 67. GI: Soft. EXTREMITIES: Weak. ASSESSMENT AND PLAN: Depression is non-existent. Dr. Beasley saw him for infection. He had an abscess of the left groin. He is on Rocephin, switched him to Omnicef or Ceftin on discharge. Kidney function is better. He needs to wear his oxygen at night and DuoNeb breathing treatments during the day. He will be discharged in the next 24 hours to rehab. ADEEL / KIMBERLEY: [id number] /
--- NOTE | 2023-09-07 23:07 | DS ---
DISCHARGE SUMMARY HISTORY OF PRESENT ILLNESS: Came with pulmonary embolus, DVT, groin abscess, sacral ulcers, ulcers on his legs, hypertension acceleration, acute on chronic renal injury, dehydration, COPD, nocturnal hypoxemia, acute on chronic anemia. He is on Eliquis for PE. Has a right renal lesion, workup of renal cell cancer at outpatient, stage IIIA kidney disease DVT PE. PROGNOSIS: Guarded. ACTIVITY: Ambulate as tolerated. Groin abscess, can be sent home on Omnicef 300 mg b.i.d. Condition stable. DISCHARGE MEDICINES: 1. Actos 30 daily. 2. Eliquis 5 b.i.d. 3. Levemir 20 units daily. 4. Norvasc 5 daily. 5. Russell 7.5 p.r.n. for pain. 6. Omnicef 300 b.i.d. 7. NovoLog a.c. h.s. 8. Perforomist 20 mcg b.i.d. 9. Ferrous sulfate 325 daily. 10.Ventolin HFA p.r.n. 11.Lipitor 20 daily. 12.Depakote ER 500 daily. 13.Risperdal 1 mg as directed. 14.Cozaar 25 mg daily. 15.Aspirin 81 mg daily. 16.Symbicort 160/4.5 two puffs b.i.d. 17.Farxiga 10 mg daily. 18.Pristiq ER 100 mg daily. 19.Desyrel 50 mg daily. CONDITION: Stable. He is going to rehab due to leg weakness, but he is up ambulating to the chair with his debility. He has been severely depressed on admission. As he is getting better, he feels less depressed, so he is feeling much better. He is not suicidal at all. He needs to wear oxygen at night 2 L every night when he sleeps. He is to do his breathing treatments every day regularly q.i.d. long-term continue current treatments. Sugars are much better controlled. Depression, better controlled, DVT, PE, on Eliquis is controlled. Wound infections, to go home on Omnicef 300 b.i.d. for 15 days. MMODL / IJN: [id number] /
[2023-09-08 05:56] LABS: Glucose,Whole Blood 83 mg/dL (70-110)
[2023-09-08 08:51] VITALS: BP 120/56; RESP 17; TEMP 97.7
--- NOTE | 2023-09-08 10:01 | P.PN ---
Subjective Patient is seen in follow-up for acute kidney injury. Has been voiding. Denies chest pain or shortness of breath. No abdominal pain. No active complaints at this time. Vital signs are stable. General: No acute distress. HEENT: Head exam is unremarkable. LUNGS: No audible rhonchi or wheezes. HEART: Rate and Rhythm are regular. ABDOMEN: Nontender. EXTREMITITES: No edema. Objective - Vital Signs Vital signs: Vital Signs Temp 97.7 F 09/08/23 07:23 Pulse 80 09/08/23 09:57 Resp 17 09/08/23 07:23 BP 120/56 09/08/23 07:23 Pulse Ox 95 09/08/23 07:23 FiO2 Intake & Output 09/07/23 09/08/23 09/08/23 18:59 06:59 18:59 Output Total 1350 Balance -1350 Output: Urine 1350 Other: Voiding Method Toilet Toilet Incontinent # Voids 1 3 1 - Labs CBC & Chem 7: 09/06/23 06:33 09/06/23 06:33 Labs: Abnormal Lab Results - Last 24 Hours (Table) 09/07/23 09/07/23 09/07/23 Range/Units 11:39 16:20 20:26 POC Glucose (mg/dL) 133 H 122 H 123 H (70-110) mg/dL Assessment and Plan Plan: Assessment: 1. Acute kidney injury secondary to vasomotor nephropathy. Improved. Creatinine 1.5 dated September 06, 2023. 2. Chronic kidney disease stage IIIa with baseline creatinine 1-1.2. Patient does have significant proteinuria which is likely due to underlying diabetic kidney disease. Serologies negative. 3. Hypertension with chronic kidney disease. Stable. 4. Diabetes mellitus. 5. Anemia. Iron deficiency noted. Receiving IV iron. 6. Bilateral PE maintained on anticoagulation. 7. Enhancing right renal lesion suspicious for renal cancer. Seen by urology. 8. Groin abscess maintained on antibiotics. ID following. Plan: Encouraged oral intake. Avoid nephrotoxins. Maintain ARB and SGLT2 inhibitor. Follow-up outpatient 1 to 2 weeks postdischarge. Will discuss kidney biopsy for definitive diagnosis outpatient.
[2023-09-08 10:08] VITALS: PULSE 83
[2023-09-08 11:52] LABS: Glucose,Whole Blood 227 mg/dL (70-110)
--- NOTE | 2023-09-09 13:11 | P.PN ---
Subjective Progress Note Date: 09/08/23 Principal diagnosis: pulmonary embolism generalized weakness and medical debility Renal mass likely renal cell carcinoma elevated troponin likely demand ischemia Dyslipidemia Hypertension after extensive cardiovascular disease Type 2 diabetes mellitus with hyperglycemia 09/08/2023, patient seen eval reexamined, patient has been doing well no oxygen, saturation 95%, patient is being ambulated with assistance, denies any chest pain cough or fever, is being monitor observe off of antibiotics 09/01/2023, patient seen eval examined during rounds labs reviewed medications reviewed care plan discussed, patient on room air getting out of the bed with assistance, patient remains afebrile, saturation 95% room air hemodynamic status stable last blood pressure is 110/70, blood glucose is 94, wound culture came back positive for Proteuspatient is on IVs Rocephin 08/28/2023, patient seen eval examined during rounds labs reviewed medications reviewed care plan discussed, no specific complains are present,room air oxygen saturation 95% hemodynamic status stablemedication list reviewed 08/27/2023, patient seen and evaluated examined in follow-upoxygen saturation 9 4%, blood pressure stable,patient is being considered for possible discharge later on today,as well as direct acting oral anticoagulant dose to be tapered down patientdoes become except depressed feeling 08/23/2023, patient seen and evaluated examined during rounds labs reviewed medications reviewed care plan discussed with the patient as well as staff at length.patient denies any chest pain appetite has been good and improving,duplex ultrasound of lower extremity positive for left lower extremity DVT no DVT seen on the right side patient is off of heparin has been on therapeutic dose off dir ect acting oral anticoagulants with 10 mg twice a day for 7 days subsequently was changed to 5 mg twice a day, noted that urology has been consulted nephrology has been following as well 63-year-old male was presented into the hospital. From the emergency department due to generalized weakness and pain diffusely patient has prior medical history of CVA TIA, rheumatoid arthritis, diabetes mellitus, dyslipidemia, hypertension hypertensive cardiovascular disease. He was noted to be covered with antibiotics on arrival. Workup and evaluation includes leukocytosis with WBC count of 14, BUN/creatinine is 37/1.49 elevated glucose 297 chest x-ray unremarkable. computed tomography scan of the chest positive for bilateral PE without evidence of right ventricular strain and had single right renal lesion concerning for renal cell carcinoma and trace bilateral pleural effusiondid patient is started on IV heparin drip. Patient does have a history of prior DVT but however cannot recall the medicine he was using, however he expresses that he was taken off of treatment more than a year ago Objective - Vital Signs Vital signs: Vital Signs Temp 97.7 F 09/08/23 07:23 Pulse 84 09/08/23 10:03 Resp 17 09/08/23 08:30 BP 120/56 09/08/23 07:23 Pulse Ox 95 09/08/23 07:23 FiO2 Intake & Output 09/07/23 09/08/23 09/08/23 18:59 06:59 18:59 Output Total 1350 Balance -1350 Output: Urine 1350 Other: Voiding Method Toilet Toilet Toilet Incontinent Incontinent # Voids 1 3 1 - Exam - Constitutional General appearance: average body habitus, disheveled - EENT Eyes: EOMI, PERRLA ENT: normal oropharynx Ears: bilateral: normal - Neck Neck: normal ROM Carotids: bilateral: upstroke normal Thyroid: bilateral: normal size - Respiratory Respiratory: bilateral: CTA - Cardiovascular Rhythm: regular Heart sounds: normal: S1, S2 - Gastrointestinal General gastrointestinal: normal bowel sounds - Integumentary Integumentary: normal turgor - Neurologic Neurologic: CNII-XII intact - Musculoskeletal Musculoskeletal: gait normal, generalized weakness, strength equal bilaterally - Psychiatric Psychiatric: A&O x's 3, appropriate affect, intact judgment & insight - Labs CBC & Chem 7: 09/06/23 06:33 09/06/23 06:33 Labs: Abnormal Lab Results - Last 24 Hours (Table) 09/07/23 09/07/23 09/07/23 Range/Units 11:39 16:20 20:26 POC Glucose (mg/dL) 133 H 122 H 123 H (70-110) mg/dL Assessment and Plan Assessment: abscess left groin pulmonary embolism left lower extremity DVT generalized weakness and medical debility Renal mass likely renal cell carcinoma elevated troponin likely demand ischemia Dyslipidemia Hypertension after extensive cardiovascular disease Type 2 diabetes mellitus with hyperglycemia severe depression Plan: continue bronchodilators as outlined above continue therapeutic dose of oral anticoagulant 5 mg twice a day Continue losartan and Lipitor and short and long-term insulin Time with Patient: Less than 30
--- NOTE | 2023-09-11 13:07 | CDI ---
Documentation Clarification Form Date: 09/11/23 From: Randi Parekh Admit Date: 08/18/2023 05:03:00 AM Patient Name: David Montejo Visit Number: [id number] Discharge Date: 09/08/2023 12:35:00 PM ATTENTION: The Clinical Documentation Specialists (CDI) and [facility] Coding Staff appreciate your assistance in clarifying documentation. Please respond to the clarification below the line at the bottom and electronically sign. The CDI & [facility] Coding staff will review the response and follow-up if needed. Please note: Queries are made part of the Legal Health Record. If you have any questions, please contact the author of this message via ITS. Dr. Davon Rodrigues, Your patient has troponin level(s) of: 0.072, 08/17. Please clarify if there is an additional diagnosis and/or clinical significance related to this value. Patient history/risk factors: PE, DVT, ATN, MDD recurrent severe, abscess of groin, adult failure to thrive, T2DM w: CKD, neuropathy, hyperglycemia; unspec neoplasm of right kidney, HTN w CKD 3a, CAD Clinical indicators: Per [place] consult: elevated troponinlikelydemand ischemia. Treatment: EKG unremarkable, losartan, lipitor Is there an additional diagnosis and/or clinical significance related to the above lab result/information: [ ] Type 2 OR due to (specify cause ____) [ ] Non-ischemic with acute myocardial injury [ ] No additional diagnosis/Not clinically significant [ ] Other, please specify [ ] Unable to determine Reference: [employer] Fourth [place] Definition of Myocardial Infarction Elevated Cardiac Troponin >99th percentile with Troponin rise and/or fall With Acute ischemia o Acute Myocardial Infarction ? Atherosclerosis thrombosis Type I OR ? Oxygen supply and demand imbalance Type II OR (Please indicate etiology) Without acute ischemia o Acute Myocardial Injury MTDD
--- NOTE | 2023-09-11 13:18 | CDI ---
Documentation Clarification Form Date: 09/11/23 From: Randi Parekh Admit Date: 08/18/2023 05:03:00 AM Patient Name: David Montejo Visit Number: [id number] Discharge Date: 09/08/2023 12:35:00 PM ATTENTION: The Clinical Documentation Specialists (CDI) and [facility] Coding Staff appreciate your assistance in clarifying documentation. Please respond to the clarification below the line at the bottom and electronically sign. The CDI & [facility] Coding staff will review the response and follow-up if needed. Please note: Queries are made part of the Legal Health Record. If you have any questions, please contact the author of this message via ITS. Doctor Davon Rodrigues, There is documentation of hypoxemic respiratory failure found in your 08/26 progress note. Additional clarification of the acuity of the condition is requested. History/Risk Factors: PE, DVT, ATN, MDD recurrent severe, abscess of groin, adult failure to thrive, T2DM w: CKD, neuropathy, hyperglycemia; unspec neoplasm of right kidney, HTN w CKD 3a, CAD Clinical Indicators: Per 08/22 [place] consult states: He was found to be hypoxic and CT scan of the chest revealed bilateral pulmonary emboli. Treatment: Transferred to ICU and added oxygen Can you please clarify the acuity of the hypoxic respiratory failure? [ ] Acute [ ] Acute on chronic [ ] Chronic [ ] History of [ ] Other, please specify [ ] Unable to determine MTDD
--- NOTE | 2023-09-12 05:47 | CDI ---
Documentation Clarification Form Date: 09/12/23 From: Randi Parekh Admit Date: 08/18/2023 05:03:00 AM Patient Name: David Montejo Visit Number: [id number] Discharge Date: 09/08/2023 12:35:00 PM ATTENTION: The Clinical Documentation Specialists (CDI) and [facility] Coding Staff appreciate your assistance in clarifying documentation. Please respond to the clarification below the line at the bottom and electronically sign. The CDI & [facility] Coding staff will review the response and follow-up if needed. Please note: Queries are made part of the Legal Health Record. If you have any questions, please contact the author of this message via ITS. Doctor Davon Rodrigues, Three pressure ulcers are documented by Wound Care on 08/18 & 08/24. Based on this information and the findings below, are there additional diagnosis that are clinically appropriate for this patient? History/Risk Factors: PE, DVT, ATN, MDD recurrent severe, abscess of groin, adult failure to thrive, T2DM w: CKD, neuropathy, hyperglycemia; unspec neoplasm of right kidney, HTN w CKD 3a, CAD 08/18 & 08/19 Wound Care Note: Right heel pressure injury unstageable medi boots 08/18 & 08/19 Wound Care Note: Bilateral buttock pressure injury Stage II w erythema foam w/ border 08/24 & 09/01 Wound Care Note: Left lateral foot (2 on side) pressure injury deep tissue injury medi boots Are there additional diagnoses that are clinically appropriate for this patient? (Select all that apply) [ ] Bilateral Buttock Pressure Ulcer Stage 2, POA [ ] Right Heel Pressure Ulcer Unstageable, POA [ ] Left Lateral Heel Pressure Ulcer Deep Tissue Injury, Hospital Acquired [ ] Other condition, please specify [ ] Unable to determine Clinical Definitions: Stage 1 Pressure Ulcer: intact skin, non-blanching redness of local area Stage 2 Pressure Ulcer: Partial thickness, loss of dermis, pink wound bed Stage 3 Pressure Ulcer: Full thickness tissue loss Stage 4 Pressure Ulcer: Full thickness tissue loss with exposed bone, tendon, or muscle. Unstageable pressure ulcer: Full thickness tissue loss in which the base of the ulcer is covered by slough (yellow, nelson, tuttle, green or brown) and/or eschar (nelson, brown or black) in the wound bed. MTDD
--- NOTE | 2023-11-03 11:46 | PN ---
PROGRESS NOTE Type 2 MN, nonischemic with acute myocardial injury; acute on chronic hypoxic respiratory failure. MMODL / IJN: [id number] /
--- NOTE | 2023-11-03 12:00 | PN ---
PROGRESS NOTE Right heel pressure ulcer, stage II. MMODL / IJN: [id number] /
--- NOTE | 2023-11-04 11:06 | PN ---
PROGRESS NOTE Acute on chronic hypoxemic respiratory failure. MMODL / IJN: [id number] /
== END 2023-09-08 12:35 | DRG 175 ==
LOC: EC 03:24 → 5NMEDONC 05:02 → OBSVTOIN 05:03 → 5NMEDONC 05:11 → 3SCARD 06:22 → 4SSUR 08-28 04:19
PROVIDERS: ADMIT Family Medicine; ATTEND Family Medicine
DX: I26.99 Other pulmonary embolism without acute cor pulmonale (principal); I21.A1 Myocardial infarction type 2; J96.21 Acute and chronic respiratory failure with hypoxia; N17.0 Acute kidney failure with tubular necrosis; R45.851 Suicidal ideations; F33.2 Major depressive disorder, recurrent severe without psychotic features; L02.214 Cutaneous abscess of groin; I82.402 Acute embolism and thrombosis of unspecified deep veins of left lower extremity; R62.7 Adult failure to thrive; F25.9 Schizoaffective disorder, unspecified; E11.22 Type 2 diabetes mellitus with diabetic chronic kidney disease; E11.40 Type 2 diabetes mellitus with diabetic neuropathy, unspecified; I95.9 Hypotension, unspecified; D41.01 Neoplasm of uncertain behavior of right kidney; B96.4 Proteus (mirabilis) (morganii) as the cause of diseases classified elsewhere; I13.10 Hypertensive heart and chronic kidney disease without heart failure, with stage 1 through stage 4 chronic kidney disease, or unspecified chronic kidney disease; E11.65 Type 2 diabetes mellitus with hyperglycemia; I48.91 Unspecified atrial fibrillation; L89.612 Pressure ulcer of right heel, stage 2; M06.9 Rheumatoid arthritis, unspecified; N18.31 Chronic kidney disease, stage 3a; J44.89 Other specified chronic obstructive pulmonary disease; Z79.4 Long term (current) use of insulin; Z28.310 Unvaccinated for COVID-19; E86.0 Dehydration; R54 Age-related physical debility; E78.5 Hyperlipidemia, unspecified; G47.33 Obstructive sleep apnea (adult) (pediatric); K44.9 Diaphragmatic hernia without obstruction or gangrene; F41.9 Anxiety disorder, unspecified; I25.10 Atherosclerotic heart disease of native coronary artery without angina pectoris; R32 Unspecified urinary incontinence; R26.2 Difficulty in walking, not elsewhere classified; R21 Rash and other nonspecific skin eruption; G89.29 Other chronic pain; M54.50 Low back pain, unspecified; D50.9 Iron deficiency anemia, unspecified; T14.8XXA Other injury of unspecified body region, initial encounter; F17.210 Nicotine dependence, cigarettes, uncomplicated; Z91.199 Patient's noncompliance with other medical treatment and regimen due to unspecified reason; Z91.148 Patient's other noncompliance with medication regimen for other reason; Z79.82 Long term (current) use of aspirin; Z79.51 Long term (current) use of inhaled steroids; Z79.899 Other long term (current) drug therapy; Z79.84 Long term (current) use of oral hypoglycemic drugs; Z86.73 Personal history of transient ischemic attack (TIA), and cerebral infarction without residual deficits; Z86.718 Personal history of other venous thrombosis and embolism; W57.XXXA Bitten or stung by nonvenomous insect and other nonvenomous arthropods, initial encounter
CPT/HCPCS: 71046; 71260; 76770; 80048; 80053; 80074; 81001; 82570; 83540; 83550; 83735; 84100; 84156; 84165; 84443; 84484; 85025; 85610; 85730; 86038; 86160; 86162; 86225; 86255; 86334; 87040; 87070; 87077; 87186; 87205; 93005; 93970; 94640; 94664; 94760; 96374; 99285

== ENCOUNTER 2023-09-24 18:21 | Observation (INO) | payer MEDICARE ==
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
[2023-09-24 20:01] LABS: Basophils % (A) 0 %; Eosinophils # (A) 0.2 k/uL (0-0.7); Eosinophils % (A) 2 %; HCT 37.5 % (39.0-53.0); Hypochromasia Slight; Lymphocytes # (A) 3.2 k/uL (1.0-4.8); Lymphocytes % (A) 33 %; MCH 29.7 pg (25.0-35.0); MCHC 32.1 g/dL (31.0-37.0); MCV 92.5 fL (80.0-100.0); Mean Platelet Volume 7.7; Monocytes # (A) 0.8 k/uL (0-1.0); Monocytes % (A) 8 %; Neutrophils # (A) 5.5 k/uL (1.3-7.7); Neutrophils % (A) 56 %; Platelet Count 260 k/uL (150-450); RBC 4.06 m/uL (4.30-5.90); RDW 15.7 % (11.5-15.5); WBC 9.9 k/uL (3.8-10.6)
[2023-09-24 20:35] LABS: ALT 20 U/L (4-49); African American GFR (CKD) 55 (>60 ml/min/1.73 sqM); Albumin 4.3 g/dL (3.5-5.0); Anion Gap 8 mmol/L; Blood Urea Nitrogen 35 mg/dL (9-20); Calcium 9.3 mg/dL (8.4-10.2); Carbon Dioxide 26 mmol/L (22-30); Chloride 104 mmol/L (98-107); Non-African American GFR(CKD) 48 (>60 ml/min/1.73 sqM); Sodium 138 mmol/L (137-145); Total Bilirubin 0.6 mg/dL (0.2-1.3); Total Protein 7.6 g/dL (6.3-8.2)
[2023-09-24 20:36] LABS: INR 1.1 (<1.2); Partial Thromboplastin Time 25.2 sec (22.0-30.0); Prothrombin Time 11.4 sec (10.0-12.5)
[2023-09-24 21:09] LABS: AST 31 U/L (17-59); Alkaline Phosphatase 93 U/L (38-126); Glucose 41 mg/dL (74-99); Potassium 4.7 mmol/L (3.5-5.1)
--- NOTE | 2023-09-24 22:12 | CT ---
EXAMINATION TYPE: CT brain cspine wo con CT DLP: 1540.4 mGycm, Automated exposure control for dose reduction was used. DATE OF EXAM: 09/24/2023 9:58 PM COMPARISON: 07/12/2022. CLINICAL INDICATION:Male, 63 years old with history of fall; Patient in by EMS from [facility]. Ilda page at [facility] for physical rehab. Patient fell 4 times in the last 5 days. Today patient hit his hea d. Patient is taking eliquis daily. Staff at [facility] report rectal bleeding, patient states bleedin g has been ongoing for weeks. Patient reports pain in neck, cervical collar in place from EMS. Ilda page reports loss of consciousness when he hit his head today and reports being dizzy prior to falling. Patient AOx4, clear speech. TECHNIQUE: Brain: Multiple axial CT images of the brain were obtained without IV contrast. Cspine: Axial CT images from the skull base to the inferior aspect of T2 we obtained without intraven ous contrast. Coronal and sagittal reformatted images were also reviewed. . FINDINGS: Brain: Extra-axial spaces: No abnormal extra-axial fluid collections. Ventricular system: Dilatation in proportion to cerebral atrophy. Cerebral parenchyma: Cerebral atrophy. No acute intraparenchymal hemorrhage or mass effect. The tuttle -white junction is well differentiated. Scattered hypoattenuating areas are seen within the white mat ter. Cerebellum: Remote injury to the right cerebellum inferiorly. Mild encephalomalacia Mass effect: No evidence of midline shift. Intracranial vasculature: Atherosclerotic calcifications of the intracranial vessels. Soft tissues: Normal. Calvarium/osseous structures: No depressed skull fracture. Paranasal sinuses and mastoid air cells: Clear. Visualized orbits: Bilateral aphakia Cervical spine: Fracture: None. Osseous structures: Multilevel degenerative disc disease changes with endplate spurring and disc oste ophyte complex's. Ankylosis of the lateral processes of C2-C3 bilaterally. Vertebral alignment: Within normal limits. Spinal canal/Neural Foramina: Disc osteophyte complexes at C5-C6 with at least mild spinal canal sten osis. Facet joint uncovertebral joint arthropathy scattered throughout the cervical spine with varyin g degrees of neural foraminal stenosis. Neck soft tissues: Prevertebral soft tissues are within normal limits. Other: The airway is patent. The lung apices are clear. IMPRESSION: 1. No acute intracranial process. 2. Nonspecific white matter changes, likely secondary to chronic small vessel ischemic disease. 3. No evidence of cervical spine fracture. 4. Moderate multilevel degenerative disc disease. 5. Abdominal injury to the inferior right cerebellum similar prior.
--- NOTE | 2023-09-24 22:17 | CT ---
EXAMINATION TYPE: CT abdomen pelvis w con CT DLP: 1714.7 mGycm, Automated exposure control for dose reduction was used. DATE OF EXAM: 09/24/2023 9:58 PM COMPARISON: CT abdomen pelvis most recent from CLINICAL INDICATION:Male, 63 years old with history of rectal bleeding; Patient in by EMS from [facility]. Patient at [facility] for physical rehab. Patient fell 4 times in the last 5 days. Today patient hit his head. Patient is taking eliquis daily. Staff at [facility] report rectal bleeding, patient sta [place] bleeding has been ongoing for weeks. Patient reports pain in neck, cervical collar in place from EMS. Patient reports loss of consciousness when he hit his head today and reports being dizzy prior t o falling. Patient AOx4, clear speech. iso 300 80 mL TECHNIQUE: Axial CT abdomen pelvis w con;Sagittal and coronal reformats were created on a separate w orkstation. Contrast used:80 mL of Isovue 300 with IV Contrast, (none if empty) Oral contrast used: without Oral Contrast (none if empty) FINDINGS: LOWER CHEST: Remote appearing left-sided rib fractures. No has mildly prominent in size. Coronary art yoan atherosclerosis. ABDOMEN LIVER: Unremarkable GALLBLADDER AND BILE DUCTS: The gallbladder surgically absent. PANCREAS: Unremarkable. SPLEEN: Unremarkable. ADRENAL GLANDS: Nodular thickening to the adrenal glands KIDNEYS AND URETERS: No evidence of hydronephrosis or renal calculus. The ureters are unremarkable. Hyperdense right renal cysts remains present measuring 14 mm. Nonobstructing calculi in the renal sin us is present renal sinus atherosclerotic calcified plaque. PELVIS BLADDER: Unremarkable REPRODUCTIVE: Unremarkable. ABDOMEN & PELVIS STOMACH AND BOWEL: No evidence of bowel obstruction. PERITONEUM/RETROPERITONEUM: No evidence of pneumoperitoneum or free fluid. VASCULATURE: Moderate atherosclerotic calcifications are present throughout the abdominal aorta and i ts branches. No evidence of aortic aneurysm. MUSCULOSKELETAL: Subacute to chronic left superior and inferior pubic rami fractures. The left hip de monstrates fixation hardware which appears intact. Fracture through the right sacrum is present. Scol iosis changes throughout the spine with degeneration. Degeneration changes to the L1 superior endplat e with compression deformity and 50% height loss. No significant retropulsion. Finding is similar to 01/03/2023. Grade 1 anterolisthesis of L4 and L5. LYMPH NODES: No gross evidence for lymphadenopathy. SOFT TISSUE/ABDOMINAL WALL: Unremarkable IMPRESSION: No evidence for acute fracture. Remote appearing left rib fractures. Subacute to chronic appearing fr actures of the left superior and inferior pubic ramus and right sacrum. L1 superior endplate deformi ty similar to 01/03/2023.
[2023-09-24 22:31] LABS: Glucose,Whole Blood 79 mg/dL (70-110)
--- NOTE | 2023-09-25 | XR ---
EXAM: XR Right Shoulder Complete, 2 or More Views CLINICAL HISTORY: ITS.REASON XR Reason: pain s/p fall TECHNIQUE: Two or more views of the right shoulder. COMPARISON: No relevant prior studies available. FINDINGS: Bones/joints: Diffuse osseous demineralization. No acute fracture or subluxation. Soft tissues: Unremarkable. IMPRESSION: No acute fracture or subluxation.
[2023-09-25] MEDS: SODIUM CHLORIDE 0.9% 1,000 ML IV STA (00:19)
[2023-09-25] MEDS ORDERED: ACETAMINOPHEN TAB 325 MG TAB PO PRN (00:48)
[2023-09-25] MEDS ORDERED: NALOXONE 0.4 MG/ML 1 ML VIAL IV PRN (00:48)
[2023-09-25] MEDS ORDERED: ONDANSETRON 4 MG/2 ML VIAL IVP PRN (00:48)
[2023-09-25 06:00] LABS: Glucose,Whole Blood 205 mg/dL (70-110)
[2023-09-25] MEDS: INSULIN ASPART (NovoLOG) 100 UNIT/ML VIAL SQ SCH (07:09)
[2023-09-25] MEDS ORDERED: ALBUTEROL NEBULIZED 2.5 MG/3 ML INHALATION PRN (08:00)
[2023-09-25] MEDS: FORMOTEROL FUMARATE 20 MCG/2 ML NEBU INHALATION SCH (08:43)
[2023-09-25] MEDS: SYMBICORT 160-4.5 MCG INHALER INHALATION SCH (08:45)
[2023-09-25] MEDS: LOSARTAN 25 MG TAB PO SCH (09:54)
[2023-09-25] MEDS: amLODIPine 5 MG TAB PO SCH (09:54)
[2023-09-25] MEDS: ATORVASTATIN 20 MG TAB PO SCH (09:54)
[2023-09-25] MEDS: PIOGLITAZONE 30 MG TAB PO SCH (09:55)
[2023-09-25] MEDS: DESVENLAFAXINE SUCCINATE 50 MG TAB.ER.24H PO SCH (09:55)
[2023-09-25 09:59] LABS: Glucose,Whole Blood 50 mg/dL (70-110)
[2023-09-25 10:22] LABS: Glucose,Whole Blood 67 mg/dL (70-110)
[2023-09-25 10:41] LABS: Glucose,Whole Blood 110 mg/dL (70-110)
[2023-09-25 10:45] LABS: HCT 31.5 % (39.0-53.0); Hypochromasia Slight; MCH 29.4 pg (25.0-35.0); MCHC 31.8 g/dL (31.0-37.0); MCV 92.6 fL (80.0-100.0); Mean Platelet Volume 7.9; Platelet Count 259 k/uL (150-450); RBC 3.41 m/uL (4.30-5.90); RDW 15.9 % (11.5-15.5); WBC 7.6 k/uL (3.8-10.6)
[2023-09-25 11:05] LABS: African American GFR (CKD) 52 (>60 ml/min/1.73 sqM); Anion Gap 5 mmol/L; Blood Urea Nitrogen 33 mg/dL (9-20); Calcium 8.5 mg/dL (8.4-10.2); Carbon Dioxide 26 mmol/L (22-30); Chloride 110 mmol/L (98-107); Glucose 51 mg/dL (74-99); Non-African American GFR(CKD) 45 (>60 ml/min/1.73 sqM); Potassium 3.8 mmol/L (3.5-5.1); Sodium 141 mmol/L (137-145)
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
[2023-09-25 11:52] LABS: Glucose,Whole Blood 171 mg/dL (70-110)
[2023-09-25] MEDS: INSULIN DETEMIR (LEVEMIR) 100 UNIT/ML SYR SQ SCH (12:03)
[2023-09-25] MEDS: HYDROcodone/APAP 7.5-325MG 1 EACH TAB PO PRN (12:08)
[2023-09-25] MEDS: FERROUS SULFATE 325 MG TAB PO SCH (12:08)
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
[2023-09-25 16:09] LABS: Glucose,Whole Blood 165 mg/dL (70-110)
[2023-09-25 19:10] LABS: Appearance,Urine Clear (Clear); Bilirubin,Urine Negative (Negative); Blood,Urine Negative (Negative); Color,Urine Colorless; Glucose,Urine (UA) 4+ (Negative); Ketones,Urine Negative (Negative); Leukocyte Esterase,Urine Negative (Negative); Nitrite,Urine Negative (Negative); Protein,Urine 2+ (Negative); RBC,Urine <1 /hpf (0-5); Specific Gravity,Urine 1.024 (1.001-1.035); Urobilinogen,Urine <2.0 mg/dL (<2.0); WBC,Urine <1 /hpf (0-5)
[2023-09-25 20:04] LABS: Glucose,Whole Blood 193 mg/dL (70-110)
[2023-09-25] MEDS: DIVALPROEX ER 500 MG TAB.ER.24H PO SCH (20:26)
[2023-09-25] MEDS: risperiDONE 1 MG TAB PO SCH (20:26)
[2023-09-25] MEDS: DOCUSATE 100 MG CAP PO SCH (20:26)
[2023-09-25] MEDS ORDERED: traZODone HCL 50 MG TAB PO PRN (21:00)
[2023-09-26 06:11] LABS: Glucose,Whole Blood 189 mg/dL (70-110)
[2023-09-26] MEDS ORDERED: ZINC OXIDE PASTE (Z-GUARD) 1 APPLIC TOPICAL PRN (08:28)
[2023-09-26 09:41] VITALS: RESP 18
[2023-09-26 09:47] LABS: African American GFR (CKD) 54 (>60 ml/min/1.73 sqM); Anion Gap 7 mmol/L; Blood Urea Nitrogen 31 mg/dL (9-20); Calcium 8.7 mg/dL (8.4-10.2); Carbon Dioxide 23 mmol/L (22-30); Chloride 110 mmol/L (98-107); Glucose 110 mg/dL (74-99); Non-African American GFR(CKD) 47 (>60 ml/min/1.73 sqM); Potassium 4.1 mmol/L (3.5-5.1); Sodium 140 mmol/L (137-145)
[2023-09-26 10:35] LABS: Anisocytosis Slight; HCT 35.5 % (39.0-53.0); HGB 10.7 gm/dL (13.0-17.5); Hypochromasia Marked; MCHC 30.2 g/dL (31.0-37.0); MCV 95.8 fL (80.0-100.0); Mean Platelet Volume 9.5; Platelet Count 273 k/uL (150-450); RDW 16.1 % (11.5-15.5); WBC 7.9 k/uL (3.8-10.6)
[2023-09-26 11:12] LABS: Glucose,Whole Blood 169 mg/dL (70-110)
[2023-09-26 12:52] VITALS: BMI 28.4
--- NOTE | 2023-09-26 15:14 | P.DS ---
Providers Date of admission: 09/25/23 00:49 Attending physician: Jay Oneal MD Consults: 09/25/23 00:48 Consult Physician Urgent Consulting Provider: Phoebe Nance Consult Reason/Comments: rectal bleeding Do you want consulting provider notified?: Yes, Notify in am Primary care physician: Jennyfer Regalado DO Hospital Course: Discharge diagnoses; #Diabetes mellitus On arrival to the ED patient's glucose was 41 At home patient takes 20 units of long-acting insulin daily Patient takes pioglitazone Bilateral foot ulcers noted, wound care consulted and saw the patient this a.m. Patient started on 5 units Levemir and low-dose sliding scale in the hospital to help to better control of his blood glucose #Rectal bleeding Bright red blood per rectum reported by the patient and on rectal exam Patient's hemoglobin 12.0 on arrival and hemoglobin of 10 today Per GIs recommendation, patient will continue on a clear liquid diet for now, hold Eliquis, recommend stool softener and continue to monitor for rectal bleeding #Acute kidney injury Labs done in ED showed BUN of 35 and creatinine 1.52 BUN of 33 and creatinine of 1.59 today #Mechanical fall Patient reports feeling dizzy and falling and said multiple instances of this Patient reports having fallen and hitting the back of his head Patient reports right shoulder pain #Hyperlipidemia Patient on Lipitor at home 20 mg daily Patient takes 81 mg aspirin daily #Hypertension At home patient takes amlodipine 5 mg daily, losartan 25 mg daily and Farxiga 10 mg daily Most recently 117/71, on arrival blood pressure was 150/70 #Previous DVT Patient has been taking Eliquis for about 2 years since being diagnosed with a DVT Per GIs current recommendation hold Eliquis # Chronic COPD Patient utilizes a Ventolin inhaler, Perforomist, Advair to control his COPD at home Hospital course; 63-year-old man presented to the emergency department following a fall. Patient states he has had 4 falls in the past 5 days per the staff at [facility]. Patient himself states that he has been feeling dizzy prior to the falls, he states dizziness as he is on the verge of passing out. States that prior to arrival he was attempting to turn with his walker and started to feel dizzy and fell back, hitting the back of his head. Patient reports a brief loss of consciousness, with an unknown downtime. He states that he falls somewhat frequently, all of which in a similar fashion falling straight back following a spell of feeling dizzy. Additionally, the patient complains of right shoulder pain. The patient takes Eliquis at home for a history of DVTs, which she started about 2 years ago. Patient notes that he noticed blood that was bright red in his underpants. Said he noticed it for the first time yesterday. Patient denies constipation, diarrhea, nausea, vomiting, abdominal pain, fevers or chills, chest pain, shortness of breath, urinary complaints or peripheral edema. Patient's past medical history is significant for COPD, CVA/TIA, diabetes mellitus, hyperlipidemia, hypertension and sleep apnea. Patient has diabetic foot ulcers present as well as leg wounds, which were cared for in the emergency department by wound care. GI has been consulted for their opinion on the patient's rectal bleeding. Initial lab work done in the ER showed WBC 9.9, Hgb 12.0, Hct 37.5, RDW 15.7, BUN 35, creatinine 1.52, glucose 41 Influenza A not detected Influenza B not detected RSV not detected COVID-19 not detected EKG done in the ER showed heart rate of 61, showed sinus rhythm with low QRS voltage in the precordial leads Right shoulder x-ray showed no acute fracture or subluxation. CT head/cervical spine showed no acute intracranial process, nonspecific white matter changes, likely secondary to chronic small vessel ischemic disease. No evidence of cervical spine fracture. Moderate multilevel degenerative disc disease. Abdominal injury to the inferior right cerebellum similar to prior. CT abdomen/pelvis showed no evidence for acute fracture. Remote appearing left rib fractures. Subacute to chronic appearing fractures of the left superior and inferior pubic ramus and right sacrum. L1 superior endplate deformity similar to that seen on previous abdominal CT. 09/25 - Patient seen at bedside today. Following the switch to the patient taking 5 units of Levemir and a low-dose sliding scale the patient's POC glucose readings were 165, 193 and most recently 189. BMP pending for today to monitor serum glucose. Patient currently has no complaints and is resting comfortably when seen to. States he has had no pain, no difficulty breathing, no cough, no fever, no chills. Patient was seen by PT and OT this morning when he was seen. Per site worker, they have decided the patient should follow-up outpatient and have a colonoscopy done then as there is no need for them to do on while the patient is in the hospital with his current disposition. Patient encouraged to follow-up with GI and follow-up with primary care to ensure good control of his blood sugars with his home insulin regimen. PHYSICAL EXAMINATION: GENERAL: The patient is alert and oriented x3, not in any acute distress. Well developed, well nourished. HEENT: Pupils are round and equally reacting to light. EOMI. No scleral icterus. No conjunctival pallor. Normocephalic, atraumatic. No pharyngeal erythema. No thyromegaly. CARDIOVASCULAR: S1 and S2 present. No murmurs, rubs, or gallops. PULMONARY: Chest is clear to auscultation, no wheezing or crackles. ABDOMEN: Soft, nontender, nondistended, normoactive bowel sounds. No palpable organomegaly. MUSCULOSKELETAL: No joint swelling or deformity. EXTREMITIES: No cyanosis, clubbing, or pedal edema. NEUROLOGICAL: Gross neurological examination did not reveal any focal deficits. SKIN: No rashes. Dictation was produced using [employer] dictation software. please excuse any grammatical, word or spelling errors. Patient Condition at Discharge: Stable Plan - Discharge Summary Discharge Rx Participant: No New Discharge Prescriptions: Continue Albuterol Inhaler [Ventolin Hfa Inhaler] 2 puff INHALATION RT-Q6H PRN PRN Reason: Shortness Of Breath Atorvastatin [Lipitor] 20 mg PO HS Divalproex ER [Depakote ER] 500 mg PO HS risperiDONE [RisperDAL] 1 mg PO HS Losartan [Cozaar] 50 mg PO DAILY Pioglitazone [Actos] 30 mg PO DAILY tab Insulin Detemir (Levemir) [Levemir] 20 unit SQ DAILY@0700 each amLODIPine [Norvasc] 5 mg PO DAILY tab HYDROcodone/APAP 7.5-325MG [[place] 7.5-325] 1 each PO Q6HR PRN #12 tab PRN Reason: Pain Desvenlafaxine Succinate [Pristiq ER] 50 mg PO DAILY Ferrous Sulfate [Iron (65 MG Elemental)] 325 mg PO DAILY Fluticasone Propion/Salmeterol [Advair 250-50 Diskus] 1 puff INHALATION RT- BID INSULIN LISPRO (humaLOG) [humaLOG] See Protocol SQ AC-TID Dapagliflozin Propanediol [Farxiga] 10 mg PO DAILY traZODone HCL [Desyrel] 50 mg PO HS Formoterol Fumarate [Perforomist] 20 mcg INHALATION RT-BID ml Apixaban [Eliquis] 5 mg PO BID Aspirin EC [Ecotrin Low Dose] 81 mg PO DAILY Discharge Medication List Albuterol Inhaler [Ventolin Hfa Inhaler] 2 puff INHALATION RT-Q6H PRN 08/18/23 [History] Atorvastatin [Lipitor] 20 mg PO HS 08/18/23 [History] Dapagliflozin Propanediol [Farxiga] 10 mg PO DAILY 08/18/23 [History] Divalproex ER [Depakote ER] 500 mg PO HS 08/18/23 [History] Losartan [Cozaar] 50 mg PO DAILY 08/18/23 [History] risperiDONE [RisperDAL] 1 mg PO HS 08/18/23 [History] traZODone HCL [Desyrel] 50 mg PO HS 08/18/23 [History] Insulin Detemir (Levemir) [Levemir] 20 unit SQ DAILY@0700 each 08/24/23 [Rx] Pioglitazone [Actos] 30 mg PO DAILY tab 08/24/23 [Rx] amLODIPine [Norvasc] 5 mg PO DAILY tab 08/24/23 [Rx] Formoterol Fumarate [Perforomist] 20 mcg INHALATION RT-BID ml 08/27/23 [Rx] HYDROcodone/APAP 7.5-325MG [[place] 7.5-325] 1 each PO Q6HR PRN #12 tab 09/07/23 [Rx] Apixaban [Eliquis] 5 mg PO BID 09/25/23 [History] Aspirin EC [Ecotrin Low Dose] 81 mg PO DAILY 09/25/23 [History] Desvenlafaxine Succinate [Pristiq ER] 50 mg PO DAILY 09/25/23 [History] Ferrous Sulfate [Iron (65 MG Elemental)] 325 mg PO DAILY 09/25/23 [History] Fluticasone Propion/Salmeterol [Advair 250-50 Diskus] 1 puff INHALATION RT-BID 09/25/23 [History] INSULIN LISPRO (humaLOG) [humaLOG] See Protocol SQ AC-TID 09/25/23 [History] Follow up Appointment(s)/Referral(s): Jennyfer Regalado DO [Primary Care Provider] - 1-2 days Phoebe Nance MD [STAFF PHYSICIAN] - 1 Week Activity/Diet/Wound Care/Special Instructions: Should be careful when rising from a seated position to ensure it is done cautiously and slowly to avoid falling in the future. Follow up with primary care to ensure control of blood sugars with current insulin regimen at home. Follow up with Dr. Nance outpatient to schedule a follow up colonoscopy.
--- NOTE | 2023-09-26 15:29 | P.PN ---
Subjective Progress Note Date: 09/26/23 Principal diagnosis: Rectal bleeding This is a 63-year-old male with multiple comorbidities who presented to the emergency department after sustaining multiple falls at the [facility] in from. Apparently according to the chart patient had stated that he had been feeling dizzy when he was up to ambulate and fell hitting the back of his head. He does have a history of diabetes mellitus, chronic anemia on oral iron, deep vein thrombosis on Eliquis last taken 09/25/2023, lower extremity wounds, chronic kidney disease, COPD, CVA/TIA, hyperlipidemia, hype rtension, rheumatoid arthritis, sleep apnea. Patient is drifting in and out while talking during this interview. He is a poor historian. He does state that he had 2 episodes that it was a small amount with bowel movement. States that he does straining to go to the bathroom. States that he believes he may have had a colonoscopy in the past however he is unsure when and there is no records available at this time. And a CT of the abdomen pelvis with no acute findings. Patient currently denies any abdominal pain, no rectal bleeding. Hemoglobin on admission was 12.0 with repeat 10.0 today. 09/26/2023 Patient seen and examined today as a follow-up. He denies any rectal bleeding, no blood in his stool. Denies any abdominal pain, nausea or vomiting. Hemoglobin 10.7, up from 10.0 yesterday. Objective - Vital Signs Vital signs: Vital Signs Temp 98.0 F 09/26/23 11:52 Pulse 63 09/26/23 11:52 Resp 18 09/26/23 11:52 BP 154/75 09/26/23 11:52 Pulse Ox 98 09/26/23 11:52 FiO2 Intake & Output 09/25/23 09/26/23 09/26/23 18:59 06:59 18:59 Intake Total 935 20 342 Output Total 200 1000 650 Balance 735 -980 -308 Weight 92.6 kg 92.6 kg Intake: IV 20 10 Invasive Line 1 20 10 Oral 935 332 Output: Urine 200 1000 650 Other: Voiding Method Toilet Toilet Toilet Urinal Urinal External Catheter Diaper Diaper # Voids 1 - Exam General appearance: The patient is alert, oriented, appears in no acute di stress. HET: Head is normocephalic and atraumatic. Conjunctiva pink. Sclera anicteric. Neck: Supple without lymphadenopathy. Abdomen: Soft, nontender, nondistended with bowel sounds. No guarding or rigidity. Extremities: Normal skin color and turgor. No pedal edema Skin: No rashes, no jaundice Neurological: No focal deficits. Alert and oriented. - Labs CBC & Chem 7: 09/26/23 08:27 09/26/23 08:27 Labs: Abnormal Lab Results - Last 24 Hours (Table) 09/25/23 09/25/23 09/25/23 Range/Units 16:08 17:19 20:02 RBC (4.30-5.90) m/uL Hgb (13.0-17.5) gm/dL Hct (39.0-53.0) % MCHC (31.0-37.0) g/dL RDW (11.5-15.5) % Chloride (98-107) mmol/L BUN (9-20) mg/dL Creatinine (0.66-1.25) mg/dL Glucose (74-99) mg/dL POC Glucose (mg/dL) 165 H 193 H (70-110) mg/dL Urine Protein 2+ H (Negative) Urine Glucose (UA) 4+ H (Negative) 09/26/23 09/26/23 09/26/23 Range/Units 06:08 08:27 08:27 RBC 3.70 L (4.30-5.90) m/uL Hgb 10.7 L (13.0-17.5) gm/dL Hct 35.5 L (39.0-53.0) % MCHC 30.2 L (31.0-37.0) g/dL RDW 16.1 H (11.5-15.5) % Chloride 110 H (98-107) mmol/L BUN 31 H (9-20) mg/dL Creatinine 1.54 H (0.66-1.25) mg/dL Glucose 110 H (74-99) mg/dL POC Glucose (mg/dL) 189 H (70-110) mg/dL Urine Protein (Negative) Urine Glucose (UA) (Negative) 09/26/23 Range/Units 11:11 RBC (4.30-5.90) m/uL Hgb (13.0-17.5) gm/dL Hct (39.0-53.0) % MCHC (31.0-37.0) g/dL RDW (11.5-15.5) % Chloride (98-107) mmol/L BUN (9-20) mg/dL Creatinine (0.66-1.25) mg/dL Glucose (74-99) mg/dL POC Glucose (mg/dL) 169 H (70-110) mg/dL Urine Protein (Negative) Urine Glucose (UA) (Negative) Assessment and Plan (1) Rectal bleeding Narrative/Plan: 63-year-old male presenting after sustaining multiple falls with a stable hemoglobin of 12.0 on admission with known history of chronic anemia and multiple comorbidities. Patient also had reported 2 episodes of rectal bleeding that was bright red small amount after straining to have a bowel movement. Unclear if patient has had previous colonoscopy as patient is unsure and there is no records currently available. Likely etiology hemorrhoidal or fissure with straining, however need to consider other possible etiologies. Is unclear if patient has had a colonoscopy would recommend colonoscopy at some point although this certainly could be done as an outpatient. Continue to hold Eliquis for now. No further rectal bleeding. No plans on endoscopic evaluation. May resume Eliquis. Patient can follow-up as an outpatient for colonoscopy Current Visit: Yes Status: Acute Code(s): K62.5 - HEMORRHAGE OF ANUS AND RECTUM SNOMED Code(s): 61437114 (2) Chronic anemia Current Visit: Yes Status: Acute Code(s): D64.9 - ANEMIA, UNSPECIFIED SNOMED Code(s): 349501586 (3) Fall Current Visit: Yes Status: Acute Code(s): W19.XXXA - UNSPECIFIED FALL, INITIAL ENCOUNTER SNOMED Code(s): 0911371 (4) Diabetes mellitus Current Visit: Yes Status: Acute Code(s): E11.9 - TYPE 2 DIABETES MELLITUS WITHOUT COMPLICATIONS SNOMED Code(s): 03102813 (5) Kidney disease Current Visit: Yes Status: Acute Code(s): N28.9 - DISORDER OF KIDNEY AND URETER, UNSPECIFIED SNOMED Code(s): 84212321 (6) History of DVT (deep vein thrombosis) Current Visit: Yes Status: Acute Code(s): Z86.718 - PERSONAL HISTORY OF OTHER VENOUS THROMBOSIS AND EMBOLISM SNOMED Code(s): 132185307 Plan: 1. Continue symptomatic and supportive care 2. Diet as tolerated 3. May resume Eliquis 4. Recommend stool softener 5. No plans on endoscopic evaluation. Patient can follow-up as an outpatient i f any further rectal bleeding 6. Patient is cleared from gastroenterology for discharge Thank you for this consultation, we will sign off at this time. Dr. Shar Nance I agree with the dictator's note, documented as a scribe by Jessica Hay.
[2023-09-26 15:45] VITALS: BP 116/59; PULSE 69; TEMP 98.3
[2023-09-26 16:19] LABS: Glucose,Whole Blood 97 mg/dL (70-110)
== END 2023-09-26 17:11 ==
LOC: EC 18:21 → 3SCARD 09-25 00:49
PROVIDERS: ADMIT Internal Medicine; ATTEND Internal Medicine
DX: K62.5 Hemorrhage of anus and rectum (principal); N17.9 Acute kidney failure, unspecified; D64.9 Anemia, unspecified; S06.9X9A Unspecified intracranial injury with loss of consciousness of unspecified duration, initial encounter; E11.621 Type 2 diabetes mellitus with foot ulcer; L89.610 Pressure ulcer of right heel, unstageable; L89.890 Pressure ulcer of other site, unstageable; I12.9 Hypertensive chronic kidney disease with stage 1 through stage 4 chronic kidney disease, or unspecified chronic kidney disease; N18.9 Chronic kidney disease, unspecified; E11.22 Type 2 diabetes mellitus with diabetic chronic kidney disease; J44.9 Chronic obstructive pulmonary disease, unspecified; E78.5 Hyperlipidemia, unspecified; G47.33 Obstructive sleep apnea (adult) (pediatric); M06.9 Rheumatoid arthritis, unspecified; F17.200 Nicotine dependence, unspecified, uncomplicated; S22.32XA Fracture of one rib, left side, initial encounter for closed fracture; S32.10XA Unspecified fracture of sacrum, initial encounter for closed fracture; S32.592A Other specified fracture of left pubis, initial encounter for closed fracture; M25.511 Pain in right shoulder; W19.XXXA Unspecified fall, initial encounter; Z91.81 History of falling; Y92.129 Unspecified place in nursing home as the place of occurrence of the external cause; Z79.82 Long term (current) use of aspirin; Z79.01 Long term (current) use of anticoagulants; Z79.51 Long term (current) use of inhaled steroids; Z79.84 Long term (current) use of oral hypoglycemic drugs; Z79.4 Long term (current) use of insulin; Z79.899 Other long term (current) drug therapy; Z11.52 Encounter for screening for COVID-19; Z11.59 Encounter for screening for other viral diseases; Z86.718 Personal history of other venous thrombosis and embolism; Z86.73 Personal history of transient ischemic attack (TIA), and cerebral infarction without residual deficits
CPT/HCPCS: 99285; 36415; 94640 ×2; 93005; 97162; 97166; 86900; 86901; 80053; 80048 ×2; 84484; 85025; 85027 ×2; 85610; 85730; 86850; 81001; 87636; 73030; 72125; 70450; 74177; G0378 ×2

== ENCOUNTER 2024-09-10 20:30 | Emergency (ER) | payer MEDICARE ==
[2024-09-10 21:17] LABS: Bilirubin,Urine Negative (Negative); Blood,Urine Negative (Negative); Color,Urine Colorless; Glucose,Urine (UA) 4+ (Negative); Ketones,Urine Negative (Negative); Leukocyte Esterase,Urine Negative (Negative); Nitrite,Urine Negative (Negative); PH, Urine 6.0 (5.0-8.0); Protein,Urine 1+ (Negative); RBC,Urine 2 /hpf (0-5); Specific Gravity,Urine 1.021 (1.001-1.035); Urobilinogen,Urine <2.0 mg/dL (<2.0)
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
[2024-09-10] MEDS: NICOTINE 14MG/24HR PATCH TRANSDERM STA (22:38)
[2024-09-10 23:24] LABS: Basophils # (A) 0.03 10*3/uL (0.00-0.10); Basophils % (A) 0.4 %; Eosinophils # (A) 0.12 10*3/uL (0.04-0.35); Eosinophils % (A) 1.5 %; HCT 36.1 % (39.6-50.0); HGB 11.5 g/dL (13.0-17.0); Lymphocytes # (A) 2.00 10*3/uL (0.90-5.00); Lymphocytes % (A) 24.5 %; MCH 29.2 pg (27.0-32.0); MCHC 31.9 g/dL (32.0-37.0); MCV 91.6 fL (80.0-97.0); Monocytes # (A) 0.61 10*3/uL (0.20-1.00); Monocytes % (A) 7.5 %; Neutrophils # (A) 5.39 10*3/uL (1.80-7.70); Neutrophils % (A) 65.9 %; Platelet Count 220 10*3/uL (140-440); RBC 3.94 10*6/uL (4.40-5.60); RDW 15.1 % (11.5-14.5); WBC 8.17 10*3/uL (4.50-10.00)
[2024-09-10 23:43] LABS: ALT 16 U/L (4-49); AST 15 U/L (17-59); African American GFR (CKD) 47 (>60 ml/min/1.73 sqM); Albumin 3.2 g/dL (3.5-5.0); Alkaline Phosphatase 69 U/L (38-126); Anion Gap 7 mmol/L; Blood Urea Nitrogen 46 mg/dL (9-20); Calcium 8.8 mg/dL (8.4-10.2); Carbon Dioxide 26 mmol/L (22-30); Chloride 107 mmol/L (98-107); Glucose 216 mg/dL (74-99); Non-African American GFR(CKD) 40 (>60 ml/min/1.73 sqM); Potassium 4.6 mmol/L (3.5-5.1); Sodium 140 mmol/L (137-145); Total Protein 5.8 g/dL (6.3-8.2)
[2024-09-11 01:30] LABS: Barbiturate Screen,Urine Not Detected (NotDetected); Benzodiazepines Screen,Urine Not Detected (NotDetected); Opiate Screen,Urine Detected (NotDetected); Oxycodone Screen, Urine Not Detected (NotDetected); Phencyclidine Screen,Urine Not Detected (NotDetected); Tricyclic Antidepressant,Urine Not Detected (NotDetected); Urn Cannabinoid Scrn Not Detected (NotDetected)
[2024-09-11] MEDS ORDERED: DEXTROSE 50% SYRINGE 50 ML IVP PRN ×2 (02:57)
[2024-09-11] MEDS ORDERED: ACETAMINOPHEN TAB 325 MG TAB PO PRN (02:59)
[2024-09-11] MEDS ORDERED: ONDANSETRON ODT 4 MG TAB PO PRN (02:59)
[2024-09-11 07:35] LABS: Glucose,Whole Blood 117 mg/dL (70-110)
[2024-09-11] MEDS: INSULIN LISPRO (HumaLOG) 100 UNIT/ML 10 mL VL SQ SCH (07:36)
[2024-09-11] MEDS: NICOTINE 14MG/24HR PATCH TRANSDERM SCH (09:43)
[2024-09-11 11:07] VITALS: BP 151/89; PULSE 78; RESP 18; TEMP 98.1
== END 2024-09-11 11:09 ==
LOC: EC 20:30
DX: R45.851 Suicidal ideations (principal); R45.850 Homicidal ideations; F60.2 Antisocial personality disorder; F25.9 Schizoaffective disorder, unspecified; F17.200 Nicotine dependence, unspecified, uncomplicated; Z11.52 Encounter for screening for COVID-19; Z86.73 Personal history of transient ischemic attack (TIA), and cerebral infarction without residual deficits
CPT/HCPCS: 99285 ×2; 82075; 36415 ×2; 93005; 80053; 85025; 81001; 80306; 87635; S4990